=== PATIENT | female | born 1970 | race Caucasian/White ===

== ENCOUNTER → 2019-09-18 08:03 | Outpatient (CLI) | payer SELFPAY, OTHER ==
--- NOTE | 2019-09-18 08:08 | BI_ITS ---
MAMMOGRAPHY - BILATERAL SCREENING REASON FOR EXAM: Female, 49 years old. Routine annual screening examination. PERTINENT HISTORY: Baseline examination, no family history of breast cancer TECHNIQUE: Digital bilateral breast kamlesh (3D mammographic acquisition) in the CC and MLO projections. 2-D mediolateral oblique (MLO) and craniocaudad (CC) views of both breasts were obtained. CAD: Full Field Digital Mammography with Computer Added Detection was performed. COMPARISON: None. FINDINGS: Breast Composition: Dense internal breast structure There are no dominant masses or suspicious calcifications. No other significant abnormalities are identified. BI/SCREEN MAMM (CAD) W/KAMLESH BILAT IMPRESSION: Stable bilateral screening mammogram. Yearly follow-up mammogram recommended. (A) ASSESSMENT CATEGORY: BIRADS Category 1: Negative. A letter regarding these results will be sent to the patient by the facility within 30 days. Approximately 10% of breast cancers are not detected by mammography. A normal mammogram should not delay biopsy of a clinically suspicious abnormality. [id number] Electronically Signed: Brett Dow, at 16:09 EST Tel , Service support ,
== END ==
PROVIDERS: PCP Internal Medicine; Referring Provider Nurse Practitioner; Visit Provider Nurse Practitioner
DX: Z12.31 Encounter for screening mammogram for malignant neoplasm of breast (principal)
CPT/HCPCS: 77063; 77067

== ENCOUNTER → 2024-09-16 | Outpatient (CLI) | payer SELFPAY ==
--- NOTE | 2024-09-16 12:45 | BI_ITS ---
PROCEDURE: SCRN MAMM (CAD)W/KAMLESH BILAT REASON FOR EXAM: F, Age 54 y/o, no family history. Annual mammogram. TECHNIQUE: Bilateral screening digital breast tomosynthesis with 2D and 3D images. Computer aided detection. COMPARISON: Prior exam(s) dating back to September 18, 2019.. FINDINGS: The breasts are extremely dense which lowers the sensitivity of mammography. Stable examination. No suspicious masses, areas of developing architectural distortion, or suspicious calcifications. BI/SCRN MAMM (CAD)W/KAMLESH BILAT IMPRESSION: BI-RADS 2: BENIGN. RECOMMEND ANNUAL MAMMOGRAPHIC SCREENING. Follow-up code: Routine Follow-up The patient will be notified of the results by letter. Reading Location: [id number]
== END | disposition home or self-care (01) ==
PROVIDERS: PCP Internal Medicine; Referring Provider Internal Medicine; Visit Provider Internal Medicine
DX: Z12.31 Encounter for screening mammogram for malignant neoplasm of breast (principal)
CPT/HCPCS: 77063; 77067

== ENCOUNTER 2025-06-24 03:07 | Observation (INO) | payer OTHER, SELFPAY ==
[2025-06-24] VITALS (19 sets, daily range): BP systolic 136–175; BP diastolic 80–106; PULSE 76–140; RESP 15–20; TEMP 36.2–36.7; O2SAT 94–100; BMI 28.7; BMI 28.1
--- NOTE | 2025-06-24 03:17 | CT_ITS ---
PROCEDURE: ABDOMEN/PELVIS WITHOUT CONT 06/24/2025 REASON FOR EXAM: RIGHT FLANK PAIN TECHNIQUE: Procedure Code: CTABDPEL Modality: CT Procedure: ABDOMEN/PELVIS WITHOUT CONT Noncontrast technique limits evaluation of the abdominal and pelvic viscera. Coronal and Sagittal reconstruction series were provided. One or more dose reduction techniques were used (e.g., Automated exposure control, adjustment of the mA and/or kV according to patient size, use of iterative reconstruction technique). RADIATION DOSE SUMMARY: CTDlvol: 11.38 mGy DLP: 574 mGycm COMPARISON: None. FINDINGS: 4 mm obstructing stone of the right ureterovesical junction. Mild right hydroureteronephrosis. Hepatomegaly with hepatic steatosis. An appendicolith is noted in the lumen of the appendix without associated acute inflammatory changes. Diffuse thickening of the colon, probably underdistention/spasm. Right renal cyst measuring 2.6 cm. Prior hysterectomy. Fat containing umbilical hernia without incarceration. The visualized lung bases are unremarkable. Normal gallbladder and extrahepatic biliary system. Normal unenhanced spleen. Normal pancreas. Normal bilateral adrenal glands. Normal size of the right kidney. There is no right renal mass. There are no right renal calculi. Normal size of the left kidney. There is no left renal mass. There are no left renal calculi. There is no left hydronephrosis. Normal visualized left ureter. Normal visualized stomach. Normal small intestine. There is no demonstrated peritoneal fluid. Normal abdominal aorta. Normal inferior vena cava. Normal retroperitoneum. Normal urinary bladder. There is no pelvic mass lesion or lymphadenopathy. There is no pelvic fluid. Fat containing umbilical hernia without incarceration. Mild diffuse spondylosis. Bilateral pars defects are noted at L5-S1 with associated minimal grade [address]/Abdomen/Pelvis without Cont IMPRESSION: 4 mm obstructing stone of the right ureterovesical junction. Mild right hydroureteronephrosis. Hepatomegaly with hepatic steatosis. An appendicolith is noted in the lumen of the appendix without associated acute inflammatory changes. Diffuse thickening of the colon, probably underdistention/spasm. Right renal cyst measuring 2.6 cm. Prior hysterectomy. Fat containing umbilical hernia without incarceration. Reading [facility] [id number]
[2025-06-24] MEDS: 0.9% Normal Saline (1000mL) 1,000 ML 999 ML IV (03:20)
[2025-06-24] MEDS: Ketorolac 30 MG/ML Syringe IV (03:21)
[2025-06-24 03:25] LABS: Hematocrit 41.5 % (37-47); Hemoglobin 13.9 g/dL (12.0-15.0); Immature Granulocytes Count 0.050 X10^3/uL (0.0-0.0); Mean Corp Hgb Conc 33.5 g/dL (32-36); Mean Corpuscular Volume 95.2 fL (81-99); Mean Platelet Vol. 10.3 fl (6.2-12.0); NRBC Flagged by Analyzer 0 % (0-5); Platelet Count 288 K/mm3 (150-450); RBC Distribution Width CV 11.2 % (11.6-14.6); RBC Distribution Width SD 38.8 fl (35.1-43.9); Red Blood Count 4.36 M/mm3 (4.2-5.4); White Blood Count 11.1 K/mm3 (4.4-11.0)
[2025-06-24 03:59] LABS: Anion Gap 15 (5-15); BUN 21 mg/dL (4-19); BUN/Creat Ratio 29.5 RATIO (10-20); Calcium,Total 9.4 mg/dL (7.6-11.0); Carbon Dioxide 24.5 mmol/L (21.0-32.0); Chloride 103 mmol/L (98-108); Estimated Creatinine Clearance 93.46 ml/min (50-250); Glucose 175 mg/dL (70-99); Potassium 3.3 mmol/L (3.3-5.1)
--- NOTE | 2025-06-24 04:06 | EDS_ITS ---
HPI History of Present Illness Chief Complaint: Flank Pain Informant: patient and spouse/S.O. Narrative Narrative: Patient is a 55-year-old female with no significant past medical history. She states that Monday she had sudden onset of right sided sharp flank pain that lasted just about 5 minutes and then resolved. She states that this evening she was sleeping when she awoke around 1 in the morning with similar sharp right sided flank pain. This time however it was wrapping towards her abdomen. She states that there has been no recent trauma or excessive activity. She denies any dysuria. She reports that the pain would not improve with any position and despite taking one of her home Vicodin as well as giving symptoms time there was no resolution of the pain. Secondary to this she presents for evaluation [facility] Medical History Kidney stone Post herpetic neuralgia Home Medications ?Medication ?Instructions ?Recorded ?Last Taken ?Type hydrocodone-acetaminophen 5-325mg 1 tab PO Q8H PRN jose manuel n 60 days #30 05/29/25 Unknown Rx 5mg-325mg tabs amitriptyline 25 mg tablet 25 mg PO DAILY 06/24/25 Unk nown History Allergy/AdvReac Type Severity Reaction Status Date / Time lidocaine Allergy Mild Hives Verified 06/24/25 03:10 sulfamethoxazole (From Allergy Mild Diarrhea Verified 06/24/25 03:10 Bactrim) trimethoprim (From Bactrim) Allergy Mild Diarrhea Verified 06/24/25 03:10 vitamin E (d-alpha Allergy Mild Hives Verified 06/24/25 03:10 tocopherol) Family History Other Cancer Diabetes Surgical History (Updated 06/24/25 @ 03:10 by Nicolás Jimenez) Hx of foot surgery Social History Smoking Status: Never smoker ROS ROS ED Constitutional Constitutional ED: Denies chills or fever(s) Eyes Eyes: Denies change in vision Cardiovascular Cardiovascular: Denies chest pain Respiratory/Chest Respiratory/Chest: Denies cough or dyspnea Gastrointestinal Gastrointestinal: Reports abdominal pain; Denies diarrhea, nausea or vomiting Genitourinary Genitourinary ED: Denies dysuria Musculoskeletal Musculoskeletal: Reports back pain Integumentary Denies rash Neurologic Neurologic: Denies headache(s) Hematologic/Lymphatic Hematologic/Lymphatic: Denies easy bleeding or easy bruising EXAM Physical Exam Const Vital Signs: 06/24/25 03:09 06/24/25 05:00 Temperature 97.6 F L Temperature Source Oral Pulse Rate 86 76 Respiratory Rate 18 16 Blood Pressure 175/94 H 166/102 H Blood Pressure Mean 121 123 Pulse Ox 100 98 Oxygen Delivery Method Room Air Nasal Cannula Oxygen Flow Rate (L/min) 1 Positive well nourished and well developed General Appearance ED: well developed; Negative for pallor HEENT HEENT Narrative: Normocephalic atraumatic Eyes PERRL and EOMs intact bilaterally General Eye ED: Negative for scleral icterus Neck supple Resp normal respiratory effort and clear to auscultation bilaterally Cardio regular rate and regular rhythm Rate: other Other Details: Heart is regular rate and rhythm without murmurs rubs or gallop Radial and carotid pulses are equal and symmetric GI non-distended and no masses GI Narrative: Abdomen is soft and nondistended with hypoactive bowel sounds. There is pain with palpation along the upper mid to right lateral abdomen. No voluntary guarding or rigidity or pulsatile mass. No peritoneal signs Auscultation: hypoactive bowel sounds Palpation: soft Back/Spine Back/Spine Narrative: Positive right CVA pain noted Extremity normal to inspection Neuro oriented x3, CN's II-XII intact bilaterally and no sensory deficits noted Sensorium / Orientation: alert Motor Exam: strength 5/5 throughout Psych mental status grossly normal Skin no rashes or lesions noted Skin Narrative: No overlying soft tissue changes to suggest trauma or infection General Skin Exam: Negative for jaundice or pallor MDM MDM MDM Narrative Medical decision making narrative: Patient arrived to the ER hypertensive but otherwise with stable vitals. With her report of sharp sudden onset pain a few days ago that spontaneously resolved and then reoccurred this evening without report of trauma or excessive activity there is concern for kidney stone versus UTI versus pyelonephritis. This could be atypical presentation for biliary colic/acute cholecystitis or a retrocecal appendicitis. As her history and exam is most consistent with kidney stone basic blood work and a urine sample were ordered. Labs revealed no sign of acute kidney injury or urosepsis. CT scan confirmed kidney stone with a 4 mm stone stuck at the right UVJ. After receiving IV fluid 30 mg of IV Toradol and 1 mg of IV Dilaudid patient had resolution of her pain. However roughly 30 minutes later she had return of pain and therefore she was given 0.5 mg of Dilaudid. This helped resolve the pain once again. However within the next 10 to 30 minutes she had a sudden spike and return of pain. At this time as she has had 1 dose of Toradol followed by return of pain then 2 doses of narcotics with return of pain after each dose I do not feel that she would do well at home with oral medication. Secondary to this I did discuss the case with urologist on-call Dr. Chiang. She agrees that with the recurrent/intractable pain that admission is the best course of treatment and will accept her to her service for continued care. Therefore at this time as she does not have ALYCIA or urosepsis but secondary to intractable pain will be admitted to the hospital for continued treatment. History & Record Review Discussion w/independent historian: Patient and Significant other Lab Data Attestation: I reviewed the patient's lab results. Labs: Laboratory Results - last 24 hr 06/24/25 06/24/25 03:15 04:25 WBC 11.1 H RBC 4.36 Hgb 13.9 Hct 41.5 MCV 95.2 MCH 31.9 MCHC 33.5 RDW Std Deviation 38.8 RDW Coeff of Megan 11.2 L Plt Count 288 MPV 10.3 Immature Gran % (Auto) 0.500 Neut % (Auto) 67.9 Lymph % (Auto) 21.3 Travis % (Auto) 7.7 Eos % (Auto) 2.0 Baso % (Auto) 0.6 Absolute Neuts (auto) 7.5 Absolute Lymphs (auto) 2.36 Nucleated RBC % 0 Sodium 142 Potassium 3.3 Chloride 103 Carbon Dioxide 24.5 Anion Gap 15 BUN 21 H Creatinine 0.72 Estim Creat Clear Calc 93.46 Est GFR (MDRD) Non-Af 99 BUN/Creatinine Ratio 29.5 H Glucose 175 H Calcium 9.4 Urine Color Yellow Urine Clarity Sl. Cloudy Urine pH 5.0 Ur Specific [place] 1.030 Urine Protein 30 H Urine Glucose (UA) Normal Urine Ketones 15 H Urine Occult Blood 50 H Urine Nitrite Negative Urine Bilirubin Negative Urine Urobilinogen Normal Ur Leukocyte Esterase Negative Urine RBC 0-5 SEEN Urine WBC 0 SEEN Ur Squamous Epith Cells 0 SEEN Calcium Oxalate Crystal RARE Amorphous Sediment 2+ URATE Urine Bacteria 1+ Urine Mucus 0 SEEN Radiography Diagnostic Testing: Clinical Impression(s) from Imaging Studies Abdomen/Pelvis CT 06/24/25 03:17 IMPRESSION: 4 mm obstructing stone of the right ureterovesical junction. Mild right hydroureteronephrosis. Hepatomegaly with hepatic steatosis. An appendicolith is noted in the lumen of the appendix without associated acute inflammatory changes. Diffuse thickening of the colon, probably underdistention/spasm. Right renal cyst measuring 2.6 cm. Prior hysterectomy. Fat containing umbilical hernia without incarceration. Reading Location[facility] [id number] Management Discussion w/another healthcare provider: Director Of Fundraising Discharge Plan Dx/Rx/DC Orders Clinical Impression: Kidney stone, Renal colic, Intractable pain Disposition Disposition: Acute Care [facility]
[2025-06-24 04:34] LABS: Mucous, Urine 0 SEEN /hpf (<or=2+); Squamous Epithelial Cells - UA 0 SEEN /hpf (5-10)
--- OUTSIDE RECORDS SUMMARY | 2025-06-24 04:35 | XMS RPT_ITS | CCD ---
Author Organization [facility] Care Team Providers Care Mobile Device Developer Name Role Phone Daly Violet Unavailable Messenger, Kasia Unavailable Unavailable John, Yanira Unavailable Unavailable Unavailable Unavailable Gravius, Joyce Unavailable Unavailable Jovon Oakleyn L Unavailable Unavailable Shaye Lim E Unavailable Long, Aranza L Unavailable Unavailable Gravius, Joyce Unavailable Unavailable Messenger, Kasia Unavailable Unavailable Unavailable Unavailable Milana Siddiqui Unavailable Unavailable Unavailable Unavailable Harman Mcgee Unavailable Slarb, Doris Unavailable Unavailable Daly DO, Violet Unavailable Harman Mcgee Unavailable Artur SOMERSNMilana Unavailable Unavailable Gravius BREAD STACKER, Joyce Unavailable Unavailable Slarb HEAD STRENGTH AND CONDITIONING COACH, Doris Unavailable Unavailable John, Yanira Unavailable Unavailable Messenger RNKasia Unavailable Unavailable Unavailable Unavailable Magali Shaw LPN Unavailable Unavailable Daly , Violet Unavailable [phone] Jess Claire Unavailable Sherice Paul Unavailable [phone] Trung VILLARREAL, Mery Al Unavailable Shana BREAD STACKER, Kayela Unavailable Unavailable Daly DO Violet Attending Unavailable Daly DO Violet Referring Unavailable Daly DO Violet Consulting Unavailable Dr. Jamie Salgado Unavailable Bel Plummer MA Unavailable Unavailable JESS CLAIRE DPM Attending Unavailable VIOLET ANDRADE DO Consulting Unavailable JESS CLAIRE DPM Primary Care Unavailable HORN, JESS DPM Admitting Unavailable PROVIDER, UNKNOWN Consulting Unavailable JESS CLAIRE DPM Admitting Unavailable VIOLET ANDRADE DO Consulting Unavailable JESS CLAIRE DPM Attending Unavailable NATALI, JESS DPM Primary Care Unavailable PROVIDER, UNKNOWN Consulting Unavailable Daly FUENTES, Dr. Lazo Primary Care Provider [phone] Daly FUENTES, Dr. Lazo Attending Provider [phone] Daly FUENTES, Dr. Lazo Referring Provider [phone] Violet Andrade Attending Unavailable Violet Andrade Primary Care Unavailable Violet Andrade Primary Care Unavailable Violet Andrade Attending Unavailable Violet Andrade Referring Unavailable Allergies Allergy Classification Reported Allergen(s) Allergy Type Date of Onset Reaction(s) Facility Dairy (not specified as lactose intolerance) (8 sources) Milk; Translations: [Milk] Food Allergy Diarrhea, Nausea [facility] Work Phone: Sulfamethoxazole / Trimethoprim (8 sources) Sulfamethoxazole / Trimethoprim; Translations: [Bactrim *ANTI-INFECTIVE AGENTS - MISC.*] Drug Allergy [facility] Work Phone: Comment on above: stomach Vitamin E (8 sources) Vitamin E; Translations: [Vitamin E-200 *VITAMINS*] Drug Allergy [facility] Work Phone: Comment on above: hives (20 sources) Milk; Translations: [Milk] allergy to substance Diarrhea, Nausea [facility] Work Phone: (20 sources) Sulfamethoxazole / Trimethoprim; Translations: [Bactrim *ANTI-INFECTIVE AGENTS - MISC.*] Drug Allergy [facility] Work Phone: Comment on above: stomach (20 sources) Vitamin E; Translations: [Vitamin E-200 *VITAMINS*] Drug Allergy [facility] Work Phone: Comment on above: hives (20 sources) Lidocaine *CHEMICALS*; Translations: [Lidocaine *CHEMICALS*] drug allergy [facility] Work Phone: Comment on above: hives (1 source) Lidocaine Drug Allergy [facility] (1 source) Sulfamethoxazole / Trimethoprim Drug Allergy [facility] (1 source) Vitamin E Drug Allergy [facility] (1 source) BEE STING; Translations: [BEE STING] Propensity to adverse reactions (disorder) [facility] Medications Current Medications Medication Drug Class(es) Dates Sig (Normalized) Sig (Original) gabapentin 300 mg oral capsule (20 sources) Anti-epileptic Agent Start: 02-18-2022 Gabapentin 300 mg capsule Active NMA PO February 17, 2022 11:00pm Start: 04-15-2020 End: 06-10-2020 take 1 capsule by mouth twice daily Gabapentin 100 MG Oral Capsule 1 (one) Capsule bid for 0 days Quantity: 60 {Capsule} Refills: 0 Ordered: 10-Jun-2020 Doris Tan LPN Start : 15-Apr-2020 End : 10-Jun-2020 Inactive Comments: b02.29 POST HERPETIC NEURALGIAoARRS RUNsicty Start: 03-18-2020 take 1 capsule by mo ut at bedtime Gabapentin 100 MG Oral Capsule 1 (one) Capsule at bedtime for 0 days Quantity: 30 {Capsule} Refills: 0 Ordered: 18-Mar-2020 Joyce Patel CMA Start : 18-Mar-2020 Active Comments: b02.29 POST HERPETIC NEURALGIAoARRS RUN Start: 02-19-2019 End: 06-24-2019 take 1 capsule by mouth at bedtime Gabapentin 100 MG Oral Capsule 1 (one) Capsule at bedtime for 0 days Quantity: 30 {Capsule} Refills: 0 Ordered: 24-Jun-2019 Joyce Patel CMA Start : 19-Feb-2019 End : 24-Jun-2019 Inactive Comments: b02.29 POST HERPETIC NEURALGIAoARRS RUN take 1 mg by mouth once daily Ga bapentin 300 MG Oral Capsule daily (300 MG) Inactive Comments: Dr. Claire Comment on above: b02.29 POST HERPETIC NEURALGIAoARRS RUN b02.29 POST HERPETIC NEURALGIAoARRS RUNsicty Dr. Claire rizatriptan 10 mg disintegrating oral tablet (20 sources) Serotonin-1b and Serotonin-1d Receptor Agonist Start: 05-22-20 take 1 tablet by mouth every two hours [employer]-NETWORK SYSTEMS ANALYST 10 mg oral Tablet,disintegrat ing 1 (one) Tablet at immediate onset of bazan and may repeat in 2hr if bazan persistent for 0 days Quantity: 12 {Tablet} Refills: 0 Ordered: 22-May-2023 Daly DO, Violet Andrade DO Violet Start : 22-May-2023 Active Comments: max dose 20mg or 2 tablets in 24 hrs Start: 02-20-2023 take 1 tablet by eleanor th every two hours [employer]NETWORK SYSTEMS ANALYST 10 mg oral Tablet,disintegrating 1 (one) Tablet at immediate onset of bazan and may repeat in 2hr if bazan persistent for 0 days Quantity: 12 {Tablet} Refills: 0 Ordered: 20-Feb-2023 Daly DO, Violet Andrade DO Violet Start : 20-Feb-2023 Active Comments: max dose 20mg or 2 tablets in 24 hrs Start: 09-28-2022 take 1 tablet by eleanor th every two hours Max[employer]-NETWORK SYSTEMS ANALYST 10 mg oral Tablet,disintegrating 1 (one) Tablet at immediate onset of bazan and may repeat in 2hr if bazan persistent for 0 days Quantity: 12 {Tablet} Refills: 0 Ordered: 28-Sep-2022 Daly DO, Violet Andrade DO Violet Start : 28-Sep-2022 Active Comments: max dose 20mg or 2 tablets in 24 hrs Start: 02-18-2022 take 1 tablet by eleanor th every two hours Max[employer]-NETWORK SYSTEMS ANALYST 10 MG Oral Tablet Disintegrating 1 (one) Tablet at immediate onset of bazan and may repeat in 2hr if bazan persistent for 0 days Quantity: 12 {Tablet} Refills: 0 Ordered: 02-Mar-2022 Daly DO, Violet Andrade DO Violet Start : 02-Mar-2022 Active Comments: max dose 20mg or 2 tablets in 24 hrs Start: 09-06-2021 take 1 tablet by eleanor th every two hours Max[employer]NETWORK SYSTEMS ANALYST 10 MG Oral Tablet Disintegrating 1 (one) Tablet at immediate onset of bazan and may repeat in 2hr if bazan persistent for 0 days Quantity: 12 {Tablet} Refills: 0 Ordered: 06-Sep-2021 Daly DO Violet Andrade DO Violet Start : 06-Sep-2021 Active Comments: max dose 20mg or 2 tablets in 24 hrs Start: 10-14-2021 take 1 tablet by eleanor th every two hours Max[employer]NETWORK SYSTEMS ANALYST 10 MG Oral Tablet Disintegrating 1 (one) Tablet at immediate onset of bazan and may repeat in 2hr if bazan persistent for 0 days Quantity: 12 {Tablet} Refills: 0 Ordered: 06-May-2021 Daly DO, Violet Andrade DO Violet Start : 06-May-2021 Active Start: 12-24-2020 take 1 tablet by eleanor th every two hours [employer]NETWORK SYSTEMS ANALYST 10 MG Oral Tablet Disintegrating 1 (one) Tablet at immediate onset of bazan and may repeat in 2hr if bazan persistent for 0 days Quantity: 12 {Tablet} Refills: 0 Ordered: 24-Dec-2020 Daly DO, Violet Daly DO, Violet Start : 24-Dec-2020 Active Start: 11-16-2020 take 1 tablet by eleanor th every two hours [employer]NETWORK SYSTEMS ANALYST 10 MG Oral Tablet Disintegrating 1 (one) Tablet at immediate onset of bazan and may repeat in 2hr if bazan persistent for 0 days Quantity: 12 {Tablet} Refills: 0 Ordered: 16-Nov-2020 Daly DO, Violet Daly DO, Violet Start : 16-Nov-2020 Active Start: 08-10-2020 take 1 tablet by eleanor th every two hours Max[employer]NETWORK SYSTEMS ANALYST 10 MG Oral Tablet Disintegrating 1 (one) Tablet at immediate onset of bazan and may repeat in 2hr if bazan persistent for 0 days Quantity: 12 {Tablet} Refills: 0 Ordered: 10-Aug-2020 Daly DO, Violet Daly DO, Violet Start : 10-Aug-2020 Active Start: 04-16-2020 take 1 tablet by eleanor th every two hours Max[employer]NETWORK SYSTEMS ANALYST 10 MG Oral Tablet Disintegrating 1 (one) Tablet at immediate onset of bazan and may repeat in 2hr if bazan persistent for 0 days Quantity: 12 {Tablet} Refills: 0 Ordered: 16-Apr-2020 Daly DO Violet Andrade DO Violet Start : 16-Apr-2020 Active Start: 03-18-2020 take 1 tablet by eleanor th every two hours Max[employer]NETWORK SYSTEMS ANALYST 10 MG Oral Tablet Disintegrating 1 (one) Tablet at immediate onset of bazan and may repeat in 2hr if bazan persistent for 0 days Quantity: 12 {Tablet} Refills: 0 Ordered: 18-Mar-2020 Daly DOViolet DO, Kathleen Start : 18-Mar-2020 Active Start: 11-18-2019 take 1 tablet by eleanor th every two hours Max[employer]NETWORK SYSTEMS ANALYST 10 MG Oral Tablet Disintegrating 1 (one) Tablet at immediate onset of bazan and may repeat in 2hr if bazan persistent for 0 days Quantity: 12 {Tablet} Refills: 0 Ordered: 18-Nov-2019 Aranza Oakley RN Start : 18-Nov-2019 Active Comment on above: max dose 20mg or 2 t ablets in 24 hrs Completed/Discontinued Medications Medication Drug Class(es) Dates Sig (Normalized) Sig (Original) acetaminophen 325 mg / HYDROcodone bitartrate 5 mg oral tablet (20 sources) Opioid Agonist Start: 05-08-2023 HYDROcodone-acetamino phen 5-325 mg oral tablet 1 (one) Tablet q 8 prn for 30 days Quantity: 60 {Tablet} Refills: 0 Ordered: 08-May-2023 Violet Andrade DO, DO, Kathleen Start : 08-May-2023 Active Comments: [id number] postheraputic neurolagiaOars reviewed and okay'd Start: 02-02-2023 HYDROcodone-ac etaminophen 5-325 mg oral tablet 1 (one) Tablet q 8 prn for 30 days Quantity: 60 {Tablet} Refills: 0 Ordered: 02-Feb-2023 Violet Andrade DO, DO, Kathleen Start : 02-Feb-2023 Active Comments: [id number] postheraputic neurolagiaOars reviewed and okay'd Start: 10-05-2022 HYDROcodone-ac etaminophen 5-325 mg oral tablet 1 (one) Tablet q 8 prn for 30 days Quantity: 60 {Tablet} Refills: 0 Ordered: 05-Oct-2022 Daly DOViolet DO, Kathleen Start : 05-Oct-2022 Active Comments: [id number] postheraputic neurolagiaOars reviewed and okay'd Start: 06-13-2022 HYDROcodone-Ac etaminophen 5-325 MG Oral Tablet 1 (one) Tablet q 8 prn for 30 days Quantity: 60 {Tablet} Refills: 0 Ordered: 13-Jun-2022 Daly DO, Violet Daly DO, Violet Start : 13-Jun-2022 Active Comments: [id number] postheraputic neurolagiaOars reviewed and okay'd Start: 02-18-2022 Hydrocodone-Ac etaminophen 5-325 mg tablet Active NMA PO February 17, 2022 11:00pm Start: 02-12-2022 HYDROcodone-Ac etaminophen 5-325 MG Oral Tablet 1 (one) Tablet q 8 prn for 30 days Quantity: 60 {Tablet} Refills: 0 Ordered: 12-Feb-2022 Daly DO, Violet Daly DO, Violet Start : 12-Feb-2022 Active Comments: [id number] postheraputic neurolagiaOars reviewed and okay'd Start: 10-07-2021 HYDROcodone-Ac etaminophen 5-325 MG Oral Tablet 1 (one) Tablet q 8 prn for 30 days Quantity: 60 {Tablet} Refills: 0 Ordered: 07-Oct-2021 Daly DO, Violet Daly DO, Violet Start : 07-Oct-2021 Active Comments: [id number] postheraputic neurolagiaOars reviewed and okay'd Start: 05-26-2021 HYDROcodone-Ac etaminophen 5-325 MG Oral Tablet 1 (one) Tablet q 8 prn for 30 days Quantity: 60 {Tablet} Refills: 0 Ordered: 26-May-2021 Daly DO, Violet Daly DO, Violet Start : 26-May-2021 Active Comments: [id number] postheraputic neurolagiaOars reviewed and okay'd Start: 01-06-2021 HYDROcodone-Ac etaminophen 5-325 MG Oral Tablet 1 (one) Tablet q 8 prn for 30 days Quantity: 60 {Tablet} Refills: 0 Ordered: 06-Jan-2021 Daly DO, Violet Daly DO, Violet Start : 06-Jan-2021 Active Comments: [id number] postheraputic neurolagiaOars reviewed and okay'd Start: 08-10-2020 HYDROcodone-Ac etaminophen 5-325 MG Oral Tablet 1 (one) Tablet q 8 prn for 30 days Quantity: 60 {Tablet} Refills: 0 Ordered: 10-Aug-2020 Violet Andrade DO, DO, Kathleen Start : 10-Aug-2020 Active Comments: [id number] postheraputic neurolagiaOars reviewed and mallory'd Start: 04-15-2020 take 1 tablet by eleanor th once as needed, then take 8 tablets by mouth as needed HYDROcodone-Acetaminophen 5-325 MG Oral Tablet 1 (one) Tablet q 8 prn for 30 days Quantity: 60 {Tablet} Refills: 0 Ordered: 15-Apr-2020 Violet Andrade DO, DO, Kathleen Start : 15-Apr-2020 Active Comments: [id number] postheraputic neurolagia Start: 11-18-2019 take 1 tablet by eleanor th once as needed, then take 8 tablets by mouth as needed HYDROcodone-Acetaminophen 5-325 MG Oral Tablet 1 (one) Tablet q 8 prn for 30 days Quantity: 60 {Tablet} Refills: 0 Ordered: 18-Nov-2019 Violet Andrade DO, DO, Kathleen Start : 18-Nov-2019 Active Comments: [id number] postheraputic neurolagia Start: 02-25-2019 take 1 tablet by eleanor th once as needed, then take 8 tablets by mouth as needed HYDROcodone-Acetaminophen 5-325 MG Oral Tablet 1 (one) Tablet q 8 prn for 30 days Quantity: 56 {Tablet} Refills: 0 Ordered: 25-Feb-2019 Violet Andrade DO, DO, Kathleen Start : 25-Feb-2019 Active Comments: fifty [id number] postheraputic neurolagia Start: 08-21-2018 take 1 tablet by eleanor th once as needed, then take 8 tablets by mouth as needed Hydrocodone-Acetaminophen 5-325 MG Oral Tablet 1 (one) Tablet q 8 prn for 30 days Quantity: 56 {Tablet} Refills: 0 Ordered: 21-Aug-2018 Violet Andrade DO, DO, Kathleen Start : 21-Aug-2018 Active Comments: fifty [id number] postheraputic neurolagia Comment on above: fifty [id number] post heraputic neurolagia [id number] posthera putic neurolagia [id number] posthera putic neurolagiaOars reviewed and okludin'd [id number] actuat albuterol 0.09 mg/actuat metered dose inhaler (20 sources) beta2-Adrenergic Agonist Start: 07-20-20 17 End: 08-10-19 18 take 1-2 puff(s) by inhalation every four to six hours as needed ProAir HFA 108 (90 Base) MCG/ACT Inhalation Aerosol Solution 1-2 Puff Every 4-6 hours PRN for 0 days Quantity: 1 {Inhaler} Refills: 0 Ordered: 10-Aug-2017 Aranza Oakley RN Start : 20-Jul-2017 End : 10-Aug-2017 Inactive Start: 07-20-2017 End: 08-10-2017 take 1-2 puff(s) by inhalation every four to six hours as needed ProAir HFA 108 (90 Base) MCG/ACT Inhalation Aerosol Solution 1-2 Puff Every 4-6 hours PRN for 0 days Quantity: 1 {Inhaler} Refills: 0 Ordered: 10-Aug-2017 Aranza Oakley RN Start : 20-Jul-2017 End : 10-Aug-2017 Inactive amitriptyline hydrochloride 25 mg oral tablet (20 sources) Tricyclic Antidepressant Start: 05-02-2023 take 1 tablet by mouth twice daily amitriptyline 25 mg oral tablet 1 (one) Tablet bid for 0 days Quantity: 60 {Tablet} Refills: 0 Ordered: 02-May-2023 Violet Andrade DO, DO, Kathleen Start : 02-May-2023 Active Start: 04-03-2023 take 1 tablet by eleanor th twice daily amitriptyline 25 mg oral tablet 1 (one) Tablet bid for 0 days Quantity: 60 {Tablet} Refills: 0 Ordered: 03-Apr-2023 Violet Andrade DO, DO, Kathleen Start : 03-Apr-2023 Active Start: 03-02-2023 take 1 tablet by eleanor th twice daily amitriptyline 25 mg oral tablet 1 (one) Tablet bid for 0 days Quantity: 60 {Tablet} Refills: 0 Ordered: 02-Mar-2023 Violet Andrade DO, DO, Kathleen Start : 02-Mar-2023 Active Start: 02-02-2023 take 1 tablet by eleanor th twice daily amitriptyline 25 mg oral tablet 1 (one) Tablet bid for 0 days Quantity: 60 {Tablet} Refills: 0 Ordered: 02-Feb-2023 Daly DO Violetalysha Andrade DOJoseViolet Start : 02-Feb-2023 Active Start: 01-10-2023 take 1 tablet by eleanor th twice daily amitriptyline 25 mg oral tablet 1 (one) Tablet bid for 0 days Quantity: 60 {Tablet} Refills: 0 Ordered: 10-Jan-2023 Daly DO Violet Daly DO Violet Start : 10-Jan-2023 Active Start: 08-16-2022 take 1 tablet by eleanor th twice daily amitriptyline 25 mg oral tablet 1 (one) Tablet bid for 0 days Quantity: 60 {Tablet} Refills: 3 Ordered: 16-Aug-2022 Monica Corona DO Start : 16-Aug-2022 Active Start: 04-25-2022 take 1 tablet by eleanor th twice daily Amitriptyline HCl 25 MG Oral Tablet 1 (one) Tablet bid for 0 days Quantity: 60 {Tablet} Refills: 3 Ordered: 25-Apr-2022 Daly DO Violet Andrade DOHeikeViolet Start : 25-Apr-2022 Active Start: 03-14-2022 take 1 tablet by eleanro th once daily Amitriptyline HCl 50 MG Oral Tablet 1 (one) Tablet daily for 0 days Quantity: 30 {Tablet} Refills: 3 Ordered: 14-Mar-2022 Daly DO Violetalysha Andrade DO Violet Start : 14-Mar-2022 Active Start: 09-06-2021 End: 01-05-2022 take 1 tablet by mouth once daily Amitriptyline HCl 50 MG Oral Tablet 1 (one) Tablet daily for 0 days Quantity: 30 {Tablet} Refills: 3 Ordered: 05-Jan-2022 Joyce Patel CMA Start : 06-Sep-2021 End : 05-Jan-2022 Discontinued Start: 05-06-2021 take 1 tablet by eleanor th once daily Amitriptyline HCl 50 MG Oral Tablet 1 (one) Tablet daily for 0 days Quantity: 30 {Tablet} Refills: 3 Ordered: 06-May-2021 Daly DO Violet Andrade DO Violet Start : 06-May-2021 Active Start: 01-05-2021 take 1 tablet by eleanor th once daily Amitriptyline HCl 50 MG Oral Tablet 1 (one) Tablet daily for 0 days Quantity: 30 {Tablet} Refills: 3 Ordered: 05-Jan-2021 Daly FUENTES Violet Andrade DO Violet Start : 05-Jan-2021 Active Start: 09-21-2020 take 1 tablet by eleanor th once daily Amitriptyline HCl 50 MG Oral Tablet 1 (one) Tablet daily for 0 days Quantity: 30 {Tablet} Refills: 3 Ordered: 21-Sep-2020 Daly FUENTES Violet Andrade DO Violet Start : 21-Sep-2020 Active Start: 05-18-2020 take 1 tablet by eleanor th once daily Amitriptyline HCl 50 MG Oral Tablet 1 (one) Tablet daily for 0 days Quantity: 30 {Tablet} Refills: 3 Ordered: 18-May-2020 Daly FUENTES Violet Andrade DO Violet Start : 18-May-2020 Active Start: 05-06-2020 take 1 tablet by eleanor th once daily Amitriptyline HCl 50 MG Oral Tablet 1 (one) Tablet daily for 0 days Quantity: 30 {Tablet} Refills: 3 Ordered: 06-May-2020 Shaye Lim CNP Start : 06-May-2020 Active Start: 03-18-2020 take 1 tablet by eleanor th once daily Amitriptyline HCl 50 MG Oral Tablet 1 (one) Tablet daily for 0 days Quantity: 30 {Tablet} Refills: 3 Ordered: 18-Mar-2020 Daly FUENTES Violet Andrade DO Violet Start : 18-Mar-2020 Active Start: 01-07-2020 take 1 tablet by eleanor th once daily Amitriptyline HCl 50 MG Oral Tablet 1 (one) Tablet daily for 0 days Quantity: 30 {Tablet} Refills: 3 Ordered: 07-Jan-2020 Shaye Lim CNP Start : 07-Jan-2020 Active Start: 08-23-2019 End: 09-06-2019 take 1 tablet by mouth once daily at bedtime Amitriptyline HCl 25 MG Oral Tablet 1 (one) Tablet qhs for 30 days Quantity: 30 {Tablet} Refills: 3 Ordered: 06-Sep-2019 Shaye Lim Start : 23-Aug-2019 End : 06-Sep-2019 Inactive Start: 04-22-2019 take 1 tablet by eleanor th once daily at bedtime Amitriptyline HCl 25 MG Oral Tablet 1 (one) Tablet qhs for 30 days Quantity: 30 {Tablet} Refills: 3 Ordered: 22-Apr-2019 Viloet Andrade DO, DO, Kathleen Start : 22-Apr-2019 Active Start: 08-21-2018 take 1 tablet by eleanor th once daily at bedtime Amitriptyline HCl 25 MG Oral Tablet 1 (one) Tablet qhs for 30 days Quantity: 30 {Tablet} Refills: 3 Ordered: 20-Dec-2018 Violet Andrade DO, DO, Kathleen Start : 20-Dec-2018 Active ciprofloxacin 500 mg oral tablet (20 sources) Quinolone Antimicrobial Start: 09-15-2017 End: 09-21-2017 take 1 tablet by mouth twice daily Ciprofloxacin HCl 500 MG Oral Tablet 1 (one) Tablet bid for 7 days Quantity: 14 {Tablet} Refills: 0 Ordered: 21-Sep-2017 Aranza Oakley RN Start : 15-Sep-2017 End : 21-Sep-2017 Inactive clotrimazole 10 mg/ml topical cream (20 sources) Azole Antifungal Clotrimazole 1 % External Cream (1 %) Inactive diclofenac sodium 0.01 mg/mg topical gel (20 sources) Nonsteroidal Anti-inflammatory Drug Start: 07-13-2020 End: 03-14-2022 Diclofenac Sodium 1 % External Gel 1/2 (one half) Inch once daily for 0 days Quantity: 100 {Gram} Refills: 2 Ordered: 14-Mar-2022 Leola Saldana CMA Start : 14-Jul-2020 End : 14-Mar-2022 Inactive Comments: assure no vitamin E in gel formulation Start: 07-13-2020 Diclofenac Sod ium 1 % External Gel 1/2 (one half) Inch as directed for 0 days Quantity: 15 {Gram} Refills: 2 Ordered: 13-Jul-2020 Violet Andrade DO, DO, Kathleen Start : 13-Jul-2020 Active Comments: assure no vitamin E in gel formulation Comment on above: assure no vitamin E in gel formulation Cymbalta (20 sources) Serotonin and Norepinephrine Reuptake Inhibitor Cymbalta daily Inact marv Cymbalta daily A ctive 1 ml erenumab-aooe 70 mg/ml auto-injector (20 sources) Start: 12-30-2019 End: 03-18-2020 Aimovig 70 MG/ML Subcutaneous Solution Auto-injector 1 (one) Solution Auto-injector monthly for 30 days Quantity: 1 {Each} Refills: 3 Ordered: 18-Mar-2020 Milana Siddiqui LPN Start : 30-Dec-2019 End : 18-Mar-2020 Inactive Comments: has savings card Comment on above: has savings card erythromycin 0.005 mg/mg ophthalmic ointment (20 sources) Macrolide, Macrolide Antimicrobial Start: 06-10-2020 End: 06-17-2020 Erythromycin 5 MG/GM Ophthalmic Ointment 1 (one) Application qid for 7 days Quantity: 1 {Tube} Refills: 0 Ordered: 10-Jun-2020 Shaye Lim Start : 10-Jun-2020 End : 17-Jun-2020 Inactive famotidine 20 mg oral tablet (20 sources) Histamine-2 Receptor Antagonist Start: 04-25-2022 Pepcid AC Maximum Strength 20 MG Oral Tablet 1 (one) Tablet prn for 30 days Refills: 0 Ordered: 25-Apr-2022 Violet Andrade DO, DO, Kathleen Start : 25-Apr-2022 Active Start: 04-22-2016 Pepcid AC Maxi mum Strength 20 MG Oral Tablet 1 (one) Tablet Tablet prn for 30 days Refills: 0 Ordered: 16-Nov-2016 Violet Andrade DO, DO, Kathleen Start : 22-Apr-2016 Active fluticasone propionate 0.05 mg/actuat metered dose nasal spray (20 sources) Corticosteroid Start: 07-20-2017 End: 08-09-2017 Flonase Allergy Relief 50 MCG/ACT Nasal Suspension 1 (one) Suspension Suspension prn for 20 days Refills: 0 Ordered: 20-Jul-2017 Aranza Oakley RN Start : 20-Jul-2017 End : 09-Aug-2017 Inactive Lotrmin Ultra (20 sources) Lotrmin Ultra Inactive nitrofurantoin, macrocrystals 25 mg / nitrofurantoin, monohydrate 75 mg oral capsule (20 sources) Nitrofuran Antibacterial Start: 05-04-2017 End: 05-09-2017 take 1 capsule by mouth twice daily Nitrofurantoin Monohyd Macro 100 MG Oral Capsule 1 (one) Capsule BID for 5 days Quantity: 10 {Capsule} Refills: 0 Ordered: 04-May-2017 Kasia Gutierrez Start : 04-May-2017 End : 09-May-2017 Inactive Start: 04-11-2017 End: 04-21-2017 take 1 capsule by mouth twice daily Macrobid 100 MG Oral Capsule 1 (one) Capsule BID for 10 days Quantity: 20 {Capsule} Refills: 0 Ordered: 11-Apr-2017 Kasia Gutierrez Start : 11-Apr-2017 End : 21-Apr-2017 Inactive olopatadine 1 mg/ml ophthalmic solution (20 sources) Histamine-1 Receptor Inhibitor Start: 11-16-2016 End: 04-11-2017 Patanol 0.1 % Ophthalmic Solution 1 (one) Solution bid for 0 days Quantity: 1 {Bottle} Refills: 0 Ordered: 11-Apr-2017 Yanira Lopez Start : 16-Nov-2016 End : 11-Apr-2017 Inactive otc mennopause supplement (18 sources) otc mennopause supplement Inactive otc mennopause s upplement Active predniSONE 10 mg oral tablet (20 sources) Start: 02-18-2022 End: 03-02-2022 Prednisone 10 mg tablet Discontinued 10 mg PO daily 30 February 17, 2022 11:00pm February 28, 2022 11:00pm March 01, 2022 11:03pm Take 4 tabs once daily days 1-3 3 tabs daily days 4-6 2 tabs daily days 7-9 and 1 tab daily days 10-12. Start: 07-20-2017 End: 08-10-2017 PredniSONE 10 MG Oral Tablet 1 (one) Tablet TAD for 0 days Quantity: 18 {Tablet} Refills: 0 Ordered: 10-Aug-2017 Aranza Oakley RN Start : 20-Jul-2017 End : 10-Aug-2017 Discontinued Comments: 30mg Daily x 3 days,20mg Daily x 3 days,10mg Daily x 3 days. Comment on above: 30mg Daily x 3 days, 20mg Daily x 3 days,10mg Daily x 3 days. rimegepant 75 mg disintegrating oral tablet (13 sources) Start: 3 take 1 tablet by mouth every other day as needed, then take 1 tablet by mouth once daily as needed Nurtec ODT 75 mg oral Tablet,disintegra ting 1 (one) tablet qod and one tab daily prn for migraine for 0 days Quantity: 2 {Tablet} Refills: 0 Ordered: 08-Mar-2023 Bel Plummer MA Start : 24-Oct-2022 Active traMADol hydrochloride 50 mg oral tablet (20 sources) Opioid Agonist Start: 2 End: 2 traMADol HCl 50 MG Oral Tablet 1 (one) Tablet prn for 10 days Refills: 0 Ordered: 07-Oct-2021 Violet Andrade DO, DO, Kathleen Start : 09-Sep-2021 End : 19-Sep-2021 Inactive Comments: rs from podiatry Comment on above: rs from podiatry valACYclovir 1000 mg oral tablet (20 sources) Herpesvirus Nucleoside Analog DNA Polymerase Inhibitor, Herpes Simplex Virus Nucleoside Analog DNA Polymerase Inhibitor, Herpes Zoster Virus Nucleoside Analog DNA Polymerase Inhibitor Start: 3 take 1 tablet by mouth three times daily, then take 1 tablet by mouth once daily Valtrex 1 gram oral tablet 1 (one) Tablet tid for 7days then one daily for 0 days Quantity: 51 {Tablet} Refills: 3 Ordered: 09-Mar-2023 Violet Andrade DO, DO, Kathleen Start : 09-Mar-2023 Active Start: 12-30-2022 take 1 tablet by eleanor th three times daily Valtrex 1 gram oral tablet 1 (one) Tablet tid for 0 days Quantity: 21 {Tablet} Refills: 1 Ordered: 30-Dec-2022 Violet Andrade DO, DO, Kathleen Start : 30-Dec-2022 Active Start: 01-20-2022 End: 10-24-2022 take 1 tablet by mouth three times daily Valtrex 1 gram oral tablet 1 (one) Tablet tid for 0 days Quantity: 21 {Tablet} Refills: 1 Ordered: 24-Oct-2022 Leola Saldana CMA Start : 20-Jan-2022 End : 24-Oct-2022 Inactive Start: 06-02-2021 take 1 tablet by eleanor th three times daily Valtrex 1 GM Oral Tablet 1 (one) Tablet tid for 0 days Quantity: 21 {Tablet} Refills: 1 Ordered: 02-Jun-2021 Violet Andrade DO, DO, Kathleen Start : 02-Jun-2021 Active Start: 12-30-2020 take 1 tablet by eleanor th three times daily Valtrex 1 GM Oral Tablet 1 (one) Tablet tid for 0 days Quantity: 21 {Tablet} Refills: 1 Ordered: 30-Dec-2020 Violet Andrade DO, DO, Kathleen Start : 30-Dec-2020 Active Start: 01-30-2020 End: 03-18-2020 take 1 tablet by mouth three times daily Valtrex 1 GM Oral Tablet 1 (one) Tablet tid for 0 days Quantity: 21 {Tablet} Refills: 1 Ordered: 18-Mar-2020 Milana Siddiqui LPN Start : 30-Jan-2020 End : 18-Mar-2020 Inactive Comments: called to [facility] Start: 03-01-2019 End: 03-08-2019 take 1 tablet by mouth every eight hours valACYclovir HCl 1 GM Oral Tablet 1 (one) Tablet q8hr for 7 days Quantity: 21 {Tablet} Refills: 0 Ordered: 01-Mar-2019 Violet Andrade DO, DO, Kathleen Start : 01-Mar-2019 End : 08-Mar-2019 Inactive Start: 02-19-2019 take 1 tablet by eleanor th every eight hours valACYclovir HCl 1 GM Oral Tablet 1 (one) Tablet q8hr for 7 days Quantity: 21 {Tablet} Refills: 0 Ordered: 19-Feb-2019 Shaye Lim CNP Start : 19-Feb-2019 Active Comment on above: called to [facility] vitamin b12 2.5 mg sublingual tablet (20 sources) Vitamin B12 Start: 11-09-2020 take 1 tablet under the tongue three times weekly Cyanocobalamin 2500 MCG Sublingual Tablet Sublingual 1 (one) Tablet three times a week for 0 days Quantity: 30 {Tablet} Refills: 0 Ordered: 09-Nov-2020 Violet Andrade DO, DO, Kathleen Start : 09-Nov-2020 Active Start: 11-09-2020 take 1 tablet under the tongue three times weekly Cyanocobalamin 2500 MCG Sublingual Tablet Sublingual 1 (one) Tablet three times a week for 0 days Quantity: 30 {Tablet} Refills: 0 Ordered: 09-Nov-2020 Daly FUENTES Violet Andrade DO Violet Start : 09-Nov-2020 Active Start: 11-20-2019 take 1 tablet under the tongue three times weekly Cyanocobalamin 2500 MCG Sublingual Tablet Sublingual 1 (one) Tablet three times a week for 0 days Quantity: 30 {Tablet} Refills: 0 Ordered: 20-Nov-2019 Daly FUENTES Violet Andrade DO Violet Start : 20-Nov-2019 Active Start: 11-20-2019 take 1 tablet under the tongue three times weekly Cyanocobalamin 2500 MCG Sublingual Tablet Sublingual 1 (one) Tablet three times a week for 0 days Quantity: 30 {Tablet} Refills: 0 Ordered: 20-Nov-2019 Daly FUENTES Violet Andrade DO Violet Start : 20-Nov-2019 Active Problems Active Problems Problem Classification Problem Date Documented Date Episodic/Chronic Abdominal pain (20 sources) Right flank pain; Translations: [Right flank pain] Resolved: 11-09-2017 11-09-2017 Episodic Comment on above: Possible kidney ston e with UTI 09/15/16. Possible residual pain? Cardiac dysrhythmias (20 sources) Tachycardia; Translations: [Heart rate fast] Resolved: 08-10-2017 11-09-2017 Episodic Chronic obstructive pulmonary disease and bronchiectasis (20 sources) Bronchitis; Translations: [Bronchitis] Resolved: 08-10-2017 11-09-2017 Episodic Diabetes mellitus without complication (20 sources) Glycosuria; Translations: [Glucosuria] Resolved: 06-24-2019 08-21-2018 Episodic Comment on above: spilling glucose on UA Disorders of lipid metabolism (20 sources) Hypertriglyceridemia ; Translations: [High triglycerides] Resolved: 11-09-2017 05-17-2018 Chronic Esophageal disorders (20 sources) Gastro-esophageal reflux disease without esophagitis; Translations: [Gastroesophageal reflux disease without esophagitis] 08-21-2018 Chronic Esophageal disorders (20 sources) Esophageal disorders Genitourinary symptoms and ill-defined conditions (20 sources) Dysuria; Translations: [Urinary symptoms ] Resolved: 11-09-2017 08-21-2018 Episodic Headache; including migraine (20 sources) Migraine; Translations: [Migraines] 12-30-2019 Chronic Comment on above: stable increased- summer is usually worse- more 3migraines a month Inflammation; infection of eye (except that caused by tuberculosis or sexually transmitteddisease) (20 sources) External hordeolum; Translations: [Stye] Resolved: 11-09-2020 06-10-2020 Episodic Influenza (20 sources) Influenza Nutritional deficiencies (20 sources) Vitamin D deficiency; Translations: [Vitamin D deficiency] 12-30-2019 Chronic Nutritional deficiencies (20 sources) Vitamin B12 deficiency (non anemic); Translations: [Cobalamin deficiency] 12-30-2019 Episodic Other circulatory disease (20 sources) Elevated blood pressure; Translations: [Elevated blood pressure reading] Resolved: 05-04-2017 11-09-2017 Episodic Other circulatory disease (20 sources) Abnormal sensation; Translations: [Abnormal sensation of thorax] 11-09-2020 Episodic Comment on above: no cervical reprod w ith manuevers=--- offered neuro consult or emg/ncs but declined for now bc cost Other connective tissue disease (20 sources) Pain in right hand; Translations: [Hand pain, right] Resolved: 06-02-2021 06-02-2021 Episodic Other connective tissue disease (20 sources) Plantar fasciitis of left foot; Translations: [Plantar fasciitis, left] Resolved: 04-25-2022 10-21-2021 Episodic Comment on above: s/p surgery Other female genital disorders (20 sources) Vaginal dryness; Translations: [Vaginal dryness] 05-06-2020 Episodic Comment on above: will do coconut oil to start Other lower respiratory disease (20 sources) Cough; Translations: [Cough] Resolved: 09-15-2017 11-09-2017 Episodic Other nervous system disorders (20 sources) Left tarsal tunnel syndrome; Translations: [Tarsal tunnel syndrome, left] Resolved: 04-25-2022 04-25-2022 Chronic Comment on above: s/p surgery Other nutritional; endocrine; and metabolic disorders (20 sources) Body mass index 25-29 - overweight; Translations: [BMI 25.0-25.9,adult] Resolved: 06-10-2020 08-21-2018 Chronic Other nutritional; endocrine; and metabolic disorders (20 sources) Body mass index 25-29 - overweight; Translations: [BMI 25.0-25.9,adult] Resolved: 03-14-2022 11-09-2020 Episodic Other nutritional; endocrine; and metabolic disorders (20 sources) Overweight in adulthood with body mass index of 25 or more but less than 30; Translations: [BMI 25.0-25.9,adult] Resolved: 10-24-2022 01-20-2022 Episodic Other skin disorders (20 sources) Eruption; Translations: [Rash] Resolved: 04-25-2022 01-20-2022 Episodic Comment on above: seen derm in past viral culture negative. shiingles? see path says not but acts like shingles -- pt had path report on phone and shared Other upper respiratory disease (20 sources) Allergic rhinitis; Translations: [Allergic rhinitis] Resolved: 11-09-2017 11-09-2017 Chronic Comment on above: cont flonase otc Other upper respiratory disease (20 sources) Nasal discharge; Translations: [Post-nasal drainage] Resolved: 08-10-2017 11-09-2017 Episodic Residual codes; unclassified (20 sources) Body mass index (BMI) 24.0-24.9, adult; Translations: [Body mass index 20-24 - normal] Resolved: 06-24-2019 08-21-2018 Episodic Residual codes; unclassified (20 sources) Reduced libido; Translations: [Low libido] 05-06-2020 Episodic Comment on above: hi stress with pain- preg steal syndrom most likely accelerating natural menopausal processescont black cohash Residual codes; unclassified (20 sources) Non-smoker; Translations: [Nonsmoker] 11-09-2020 Episodic Residual codes; unclassified (20 sources) Influenza vaccination declined; Translations: [Influenza vaccination declined (Renamed from Refused influenza vaccine)] 06-02-2021 Episodic Unclassified (20 sources) Nonsmoker; Translations: [Non-smoker] 08-21-2018 Unclassified (20 sources) Unclassified (20 sources) High triglycerides Unclassified (20 sources) BMI 26.0-26.9,adult Unclassified (20 sources) Elevated blood pressure reading Unclassified (20 sources) BMI 27.0-27.9,adult Unclassified (20 sources) BMI 24.0-24.9, adult; Translations: [Body mass index 20-24 - normal] Resolved: 06-24-2019 02-19-2019 Unclassified (20 sources) BMI 25.0-25.9,adult Unclassified (20 sources) Glucosuria Unclassified (20 sources) Encounter for screening for lipid disorder Unclassified (20 sources) Encounter for screening mammogram for breast cancer (Renamed from Encounter for screening mammogram for malignant neoplasm of breast) Unclassified (20 sources) Shingles Unclassified (18 sources) Abnormal sensation of thorax Unclassified (10 sources) Influenza vaccination declined (Renamed from Refused influenza vaccine) Unclassified (10 sources) Hand pain, right Unclassified (8 sources) Plantar fasciitis, left Urinary tract infections (20 sources) Urinary tract infectious disease; Translations: [Escherichia coli urinary tract infection] 08-21-2018 Episodic Viral infection (20 sources) Postherpetic neuralgia; Translations: [Herpes zoster] Resolved: 12-30-2019 08-21-2018 Episodic Comment on above: hi doses neurontin, nortripylline, cymbalta( didnt tolerarte) and cream / others didnt work- there was several other rx tried that she cant rememberpain is on R side under breast over rib trunk area down to upper thigh left groin reflared 03/11- so po st herpetic stuff flares too hi doses neurontin, nortripylline, cymbalta( didnt tolerarte) and cream / others didnt work- there was several other rx tried that she cant rememberpain is on R side under breast over rib trunk area down to upper thighusing microcurrent still adn effective but no cure hi doses neurontin, nortripylline, cymbalta( didnt tolerarte) and cream / others didnt work- there was several other rx tried that she cant rememberpain is on R side under breast over rib trunk area down to upper thighusing microcurrent still adn effective but no curegetting injections with tuyet soon bc on both sides ?? that does make it disseminated ??? or not correct dx Past or Other Problems Problem Classification Problem Date Documented Da te Episodic/Chronic Other screening for suspected conditions (not mental disorders or infectious disease) (20 sources) Patient encounter status; Translations: [Encounter for screening for lipid disorder] Onset: 09-26-2024 07-13-2020 Episodic Spondylosis; intervertebral disc disorders; other back problems (20 sources) Low back pain; Translations: [Low back pain] Resolved: 11-09-2017 11-09-2017 Episodic Unclassified (20 sources) Patient encounter status; Translations: [Annual visit for general adult medical examination with abnormal findings] 08-21-2018 Unclassified (20 sources) E. coli UTI Unclassified (20 sources) Heart rate fast Unclassified (20 sources) Post-nasal drainage Unclassified (20 sources) UTI symptoms Unclassified (20 sources) Unspecified Diagnosis 01-30-2020 Unclassified (20 sources) Low libido Unclassified (20 sources) Stye Unclassified (5 sources) Non-smoker Unclassified (5 sources) Rash Urinary tract infections (20 sources) Urinary tract infections Results Test Name Value Interpretation Reference Range Facility Breast imaging reportOrdered By: Willam Garcia on 09-16-2024 Study report [facility] [address] [place] [address] SCRN MAMM (CAD)W/KAMLESH BILAT MR#: [id number] Acct: [id number] Name: SOLEDAD LEVY Nica Rep #: [id number] : 1970 F 54 From: Jaswant Garcia MD PCP: Dr. Violet Andrade DO Status: RE G CLI Study:SCRN MAMM (CAD)W/KAMLESH BILAT Date of Exa m: 09/16/24 Exam# [id number] Ordering Dr: Naomy Andrade DO PROCEDURE: SCRN MAMM (CAD)W/KAMLESH BILAT REASON FOR EXAM: F, Age 54 y/o, no family history. Annual mammogram. TECHNIQUE: Bilateral screening digital breast tomosynthesis with 2D and 3D images. Computeraided detection. COMPARISON: Prior exam(s) dating back to September 18, 2019.. FINDINGS: The breasts are extremely dense which lowers the sensitivity of mammography. Stable examination. No suspicious masses, areas of developing architectural distortion, or suspicious calcifications. BI/SCRN MAMM (CAD)W/KAMLESH BILAT IMPRESSION: BI-RADS 2: BENIGN. RECOMMEND ANNUAL MAMMOGRAPHIC SCREENING. Follow-up code: Routine Follow-up The patient will be notified of the results by letter. Reading Location: [id number] CC: Dr. Violet Andrade DO ~ Animal Attendant: Signed [facility] SCRN MAMM (CAD)W/KAMLESH BILATo n 09-16-2024 SCRN MAMM (CAD)W/KAMLESH BILAT [facility] [address] [place], [place] [address] SCRN MAMM (CAD)W/KAMLESH BILAT MR#: [id number] Acct: [id number] Name: SOLEDAD LEVY Rep #: [id number] : 1970 F 54 From: Willam mckenzie MD PCP: Dr. Violet Andrade DO Status: REG CLI Study: SCRN MAMM (CAD)W/KAMLESH BILAT Date of Exam: 08/25 11/15 Exam# [id number] Ordering Dr: Violet Andrade DO PROCEDURE: SCRN MAMM (CAD)W/KAMLESH BILAT REASON FOR EXAM: F, Age 54 y/o, no family history. Annual mammogram. TECHNIQUE: Bilateral screening digital breast tomosynthesis with 2D and 3D images. Computer aided detection. COMPARISON: Prior exam(s) dating back to September 18, 2019.. FINDINGS: The breasts are extremely dense which lowers the sensitivity of mammography. Stable examination. No suspicious masses, areas of developing architectural distortion, or suspicious calcifications. BI/SCRN MAMM (CAD)W/KAMLESH BILAT IMPRESSION: BI-RADS 2: BENIGN. RECOMMEND ANNUAL MAMMOGRAPHIC SCREENING. Follow-up code: Routine Follow-up The patient will be notified of the results by letter. Reading Location: [facility] CC: Dr. Violet Andrade DO Animal Attendant: Signed Normal [facility] OPERATIVE PROCEDURESon 05-27 OPERATIVE PROCEDURES [facility] OPERATIVE REPORT NAME ACCOUNT SEX AGE ADMIT DISCHARGE PT MED. RECORD# NUMBER DATE DATE TYPE MILDRED [id number] F 54 05/24/24 2 SOLEDAD Nica [id number] ROOM: [facility] DATE OF : 1970 DICTATING PHYSICIAN: Jess Claire DATE OF SURGERY: May 24, 2024 SURGEON: Jess Claire DPM TELESALES REPRESENTATIVE: None. ANESTHESIOLOGIST: Willow Pedraza MD ANESTHETIC: General. PREOPERATIVE DIAGNOSES: (1) Chronic plantar fasciitis of right foot. (2) Tarsal tunnel syndrome of right foot. POSTOPERATIVE DIAGNOSES: (1) Chronic plantar fasciitis of right foot. (2) Tarsal tunnel syndrome of right foot. OPERATION PERFORMED: (1) Endoscopic plantar fasciotomy of right foot. (2) Tarsal tunnel release of right foot. COMPLICATIONS: None. HEMOSTASIS: Pneumatic thigh tourniquet at 350 mmHg. ESTIMATED BLOOD LOSS: Minimal. DESCRIPTION OF OPERATION: Under mild sedation, the patient was brought into the OR and placed on the operating table in the supine position. The pneumatic thigh tourniquet was placed about the patient's right thigh following sedation. The right foot was scrubbed, prepped and draped in the usual aseptic manner. Local anesthesia was not utilized secondary to the patient's intolerance/allergy to lidocaine. Previous procedures resulted in flushing of the skin and chest. The right limb was then elevated to exsanguinate the limb, and the pneumatic thigh tourniquet was inflated to 350 mmHg. Attention was directed to the right plantar medial calcaneus at the medial calcaneal tubercle, where approximately a 1 cm linear longitudinal incision was made at the medial origin of the plantar fascia area. The incision was deepened through blunt dissection. Next, the Arthrex endoscopic plantar fasciotomy probe was inserted medially and exited laterally as the skin was tented, and then approximately a 1 cm linear longitudinal incision was made at that aspect. The obturator was then placed, and the area was flushed with normal sterile saline. Next, utilizing a Page 1 of 2 SOLEDAD LEVY Operative Report SOLEDAD LEVY : 1970 soft tissue rasp, some of the fatty globules were removed for better visualization. Then utilizing the curved knife the plantar fascia was incised from lateral to medial. The entire plantar fascia was incised today secondary to the MRI confirmation of lateral band plantar fascia, which also had medial band pain. This was discussed with the patient preoperatively. The instruments were then removed from the foot, including the obturator, and the area was again flushed with normal sterile saline. Then utilizing 3-0 Prolene sutures, the medial and lateral incisions were reapproximated and coapted. Attention was then directed to the medial ankle area posterior to the malleolus, where approximately a 5 cm curvilinear incision was made superficial to the tarsal tunnel structures. The incision was deepened through blunt dissection down to the level of the retinaculum. At that point, with further blunt dissection the retinaculum was incised. The tibialis posterior has a very low-lying muscle belly as well as there were noted to be a moderate amount of varicosities within the tarsal tunnel. The soft tissue structures were then dissected free, and there was a mild amount of scar tissue in the area. This was flushed with copious amounts of normal sterile saline. Next, the subcutaneous tissues were reapproximated and coapted utilizing 4-0 Vicryl, and the skin was reapproximated and coapted utilizing 4-0 Monocryl. Upon completion of the procedure, the incision was reinforced with Steri-Strips and Cavilon, and then all incisions were dressed with Xeroform, 4x4s, Deep and Kerlix. The pneumatic thigh tourniquet was deflated, and a prompt hyperemic response was noted to all digits of the right foot. An Miguel wrap was then applied. The patient tolerated the procedure and anesthesia well. She was transferred to the recovery room with vital signs stable and vascular status intact to all toes of the right foot. Following a period of postoperative monitoring, she will be discharged home with written and oral postoperative instructions. She is to keep the dressing clean, dry and intact and no excessive ambulation. She is to rest, ice and elevate the right foot and wear the surgical shoe at all times while ambulating on her foot, but she is to remain nonweightbearing on the right foot. At home, she has crutches and a knee walker. She is to contact Dr. Claire for all postoperative follow-up care and if any problems arise. A pain prescription was written for hydrocodone 10/325 mg. Dictated By: Jess Claire DPM 05/24/24 08:50 JOB #: [id number] Transcribed By: eric 05/24/24 09:16 Electronically signed by: E-SIGN JESS CLAIRE 05/27/24 08:13 Page 2 of 2 SOLEDAD LEVY J Operative Report Normal [facility] MR ANKLE WO RTon 12-26-2023 MR ANKLE WO RT [place] [address] Patient: SOLEDAD LEVY. Phone#: : [phone] Age: 53 Gender: F Pt. Type: Out Account: [id number] Location: Ordering: JESS NATALI Exam Date: 12/26/2023/13:50 Family Phys: VIOLET ANDRADE Charge Code: 192611 Physician: Panola Order #: [id number] Dose#: PROCEDURE: MRI ANKLE RT WITHOUT CONTRAST COMPARISON: None. INDICATIONS: Right tarsal tunnel syndrome and plantar fasiciitis TECHNIQUE: A complete multi-planar examination was performed without contrast. FINDINGS: LATERAL LIGAMENTS AND SOFT TISSUE STRUCTURES TALOFIBULAR: Normal. CALCANEOFIBULAR: Normal. TIBIOFIBULAR: Normal. PERONEAL TENDONS:Normal. No subluxation, tendinopathy, or tear. MEDIAL LIGAMENTS AND SOFT TISSUE STRUCTURES DELTOID COMPLEX: Normal. SPRING LIGAMENT: Normal. TARSAL TUNNEL: Normal. FLEXORS: Normal. OTHER TENDONS EXTENSORS: Normal. ACHILLES: Normal. No surrounding abnormality. PLANTAR FASCIA: There is mild hyperintense signal in the lateral cord of the plantar aponeurosis, subchondral edema in the calcaneal spur and subtle edema in the adjacent subcutaneous fat, findings consistent with mild plantar fasciitis, series 9, image 9 and series 6, image 17. SINUS TARSI: Normal. No edema or synovitis to suggest sinus tarsi syndrome. BONES: There is a calcaneal spur measuring 0.8 cm. EFFUSIONS: There is a joint effusion at the tibiotalar articulations small effusion at the talonavicular articulation. OTHER: No other significant findings. CONCLUSION: 1. Mild plantar fasciitis 2. Tibiotalar and talonavicular joint effusion Dictated by: Krysta Rodriguez MD on 12/28/2023 at 16:06 Continued Report - Page 2 of 2 Patient: MILDRED SOLEDAD Yousif. Phone#: : [phone] Age: 53 Gender: F Pt. Type: Out Account: [id number] Location: Ordering: JESS CLAIRE Exam Date: 12/26/2023/13:50 Family Phys: VIOLET ANDRADE Charge Code: 947550 Physician: Panola Order #: [id number] Dose#: Approved by: Krysta Rodriguez MD on 12/28/2023 at 16:21 Normal [facility] CALCIFIDIOL (19097) VIT D 25 Ordered By: Job Foreman on 04-27-2022 25-hydroxyvitamin D [Mass/Vol] 128.0 ng/mL Abnormal 30.0-100.0 [facility]; [facility] Work Phone: Comment on above: Vitamin D deficiency has been defined by the [place] of[employer] and an Endocrine Society practice guideline as alevel of serum 25-OH vitamin D less than 20 ng/mL (1,2).The Endocrine Society went on to further define vitamin Dinsufficiency as a level between 21 and 29 ng/mL (2).1. IOM ([place] of Medicine). 2010. Dietary reference intakes for calcium and D. [place]: The National Academies Press.2. Lloyd MF, Teodoro NC, Miguel Ángel BAZAN, et al. Evaluation, treatment, and prevention of vitamin D deficiency: an Endocrine Society clinical practice guideline. JCEM. 2010; 96(7):1911-30. PATIENT WAS FASTINGP ERFORMED BY: [facility] [place] [id number] LIPID PANEL ([id number])Ordered B y: Job Foreman on 04-27-2022 Cholesterol [Mass/Vol] 190 mg/dL Normal 100-199 [facility]; [facility] Work Phone: Comment on above: PATIENT WAS FASTINGP ERFORMED BY: [facility] [place] [id number] Cholesterol in HDL [Mass/Vol] 61 mg/dL Normal [facility]; [facility] Work Phone: Comment on above: PATIENT WAS FASTINGP ERFORMED BY: [facility] [place] [id number] Triglyceride [Mass/Vol] 221 mg/dL Abnormal 0-149 [facility]; [facility] Work Phone: Comment on above: PATIENT WAS FASTINGP ERFORMED BY: [facility] [id number] [facility] [id number] LIPID PANEL ([id number]) 37 mg/dL Normal 5-40 [facility]; [facility] Work Phone: Comment on above: PATIENT WAS FASTINGP ERFORMED BY: [facility] [id number] [facility] [id number] LIPID PANEL ([id number]) 92 mg/dL Normal 0-99 [facility]; [facility] Work Phone: Comment on above: PATIENT WAS FASTINGP ERFORMED BY: DAYRON [facility] [id number] [facility] [id number] LIPID PANEL ([id number]) 1.5 {ratio} Normal 0.0-3.2 [facility]; [facility] Work Phone: Comment on above: LDL/HDL Ratio Men Wo men 1/2 Avg.Risk 1.0 1.5 Avg.Risk 3.6 3.2 2X Avg.Risk 6.2 5.0 3X Avg.Risk 8.0 6.1 PATIENT WAS FASTINGP ERFORMED BY: DAYRON DockPHPNewark Beth Israel Medical CenterTgqjpw6519 [facility] [id number] VITAMIN B-12 (CYANOCOBALAMIN ) (83057)Ordered By: Job Foreman on 04-27-2022 Cobalamin (Vitamin B12) [Mass/Vol] 885 pg/mL Normal 232-1245 [facility]; [facility] Work Phone: Comment on above: PATIENT WAS FASTINGP ERFORMED BY: aroundthewayUniversity of Michigan Health6370 [facility] [id number] CBC with auto diff ([id number])Or dered By: Job Foreman on 03-14-2022 Basophils (Bld) [#/Vol] 0.0 10*3/uL Normal 0.0-0.2 [facility]; [facility] Work Phone: Comment on above: PATIENT NOT FASTINGP ERFORMED BY: DAYRON [facility] Fgfiha2334 [address] RoadDublin [place] [id number] Basophils/100 WBC (Bld) 0 % Normal [facility]; [facility] Work Phone: Comment on above: PATIENT NOT FASTINGP ERFORMED BY: DAYRON [facility] Xsqyjv4069 [address] RoadDublin [place] [id number] Eosinophils (Bld) [#/Vol] 0.2 10*3/uL Normal 0.0-0.4 [facility]; [facility] Work Phone: Comment on above: PATIENT NOT FASTINGP ERFORMED BY: CB [facility] Engomg4403 [address] RoadDublin [place] [id number] Eosinophils/100 WBC (Bld) 4 % Normal [facility]; [facility] Work Phone: Comment on above: PATIENT NOT FASTINGP ERFORMED BY: [facility] Kayegn1313 [address] RoadWakemed North Hospitalin [place] [id number] Erythrocyte distribution width (RBC) [Ratio] 12.5 % Normal 11.7-15.4 [facility]; [facility] Work Phone: Comment on above: PATIENT NOT FASTINGP ERFORMED BY: DAYRON [facility] Hvsder8572 [address] RoadWakemed North Hospitalin [place] [id number] Hematocrit (Bld) [Volume fraction] 38.3 % Normal 34.0-46.6 [facility]; [facility] Work Phone: Comment on above: PATIENT NOT FASTINGP ERFORMED BY: CB [facility] Hklnuo3344 [address] RoadDublin [place] [id number] Hemoglobin (Bld) [Mass/Vol] 13.4 g/dL Normal 11.1-15.9 [facility]; [facility] Work Phone: Comment on above: PATIENT NOT FASTINGP ERFORMED BY: DAYRON [facility] Bllcmp4150 [address] RoadDublin [place] [id number] Immature granulocytes (Bld) [#/Vol] 0.0 10*3/uL Normal 0.0-0.1 [facility]; [facility] Work Phone: Comment on above: PATIENT NOT FASTINGP ERFORMED BY: DAYRON Labcomendoza JungSeafkf5020 [address] Roadblin [place] [id number] Immature granulocytes/100 WBC (Bld) 0 % Normal [facility]; [facility] Work Phone: Comment on above: PATIENT NOT FASTINGP ERFORMED BY: DAYRON [facility] Kqpdvw7958 [address] Roadblin [place] [id number] Lymphocytes (Bld) [#/Vol] 1.9 10*3/uL Normal 0.7-3.1 [facility]; [facility] Work Phone: Comment on above: PATIENT NOT FASTINGP ERFORMED BY: DAYRON Labhailey Jung6370 [address] RoadWakemed North Hospitalin [place] [id number] Lymphocytes/100 WBC (Bld) 29 % Normal [facility]; [facility] Work Phone: Comment on above: PATIENT NOT FASTINGP ERFORMED BY: DAYRON Labsasha Krmiwc[address] [facility]in [place] [id number] MCH (RBC) [Entitic mass] 33.0 pg Normal 26.6-33.0 [facility]; [facility] Work Phone: Comment on above: PATIENT NOT FASTINGP ERFORMED BY: DAYRON Sanchezlin[address] [facility] Hospitalblin [place] [id number] MCHC (RBC) [Mass/Vol] 35.0 g/dL Normal 31.5-35.7 [facility]; [facility] Work Phone: Comment on above: PATIENT NOT FASTINGP ERFORMED BY: [facility] Crtcdz[address] [facility]in [place] [id number] MCV (RBC) [Entitic vol] 94 fL Normal 79-97 [facility]; [facility] Work Phone: Comment on above: PATIENT NOT FASTINGP ERFORMED BY: DAYRON [facility] Xvkeya[address] [facility] FlintDublin [place] [id number] Monocytes (Bld) [#/Vol] 0.7 10*3/uL Normal 0.1-0.9 [facility]; [facility] Work Phone: Comment on above: PATIENT NOT FASTINGP ERFORMED BY: CB [facility] Dtxmfy1672 [address] RoadDublin [place] [id number] Monocytes/100 WBC (Bld) 10 % Normal [facility]; [facility] Work Phone: Comment on above: PATIENT NOT FASTINGP ERFORMED BY: CB [facility] Tzcpur3372 [address] RoadDublin [place] [id number] Neutrophils (Bld) [#/Vol] 3.6 10*3/uL Normal 1.4-7.0 [facility]; [facility] Work Phone: Comment on above: PATIENT NOT FASTINGP ERFORMED BY: CB [facility] Gbjdhl9776 [address] RoadDublin [place] [id number] Neutrophils/100 WBC (Bld) 57 % Normal [facility]; [facility] Work Phone: Comment on above: PATIENT NOT FASTINGP ERFORMED BY: CB [facility] Eljnrw2329 [address] RoadDublin [place] [id number] Platelets (Bld) [#/Vol] 258 10*3/uL Normal 150-450 [facility]; [facility] Work Phone: Comment on above: PATIENT NOT FASTINGP ERFORMED BY: CB [facility] Anljwh1788 [address] RoadDublin [place] [id number] RBC (Bld) [#/Vol] 4.06 10*6/uL Normal 3.77-5.28 Compr ehensive Internal Medicine; [facility] Work Phone: Comment on above: PATIENT NOT FASTINGP ERFORMED BY: CB [facility] Gplkcs1756 [address] RoadDublin [place] [id number] WBC (Bld) [#/Vol] 6.4 10*3/uL Normal 3.4-10.8 Compre [facility]mount[facility] hospital [facility]; [facility] Work Phone: Comment on above: PATIENT NOT FASTINGP ERFORMED BY: CB [facility] Eflcpc9459 [address] RoadDublin [place] [id number] METABOLIC PANEL, COMPREHENSI VE ([id number])Ordered By: Job Foreman on 03-14-2022 Albumin [Mass/Vol] 4.5 g/dL Normal 3.8-4.9 [facility]; [facility] Work Phone: Comment on above: PATIENT NOT FASTINGP ERFORMED BY: DAYRON [facility] Szsmlr3043 [address] RoadDublin [place] [id number] Albumin/Globulin [Mass ratio] 2.0 {ratio} Normal 1.2-2.2 [facility]; [facility] Work Phone: Comment on above: PATIENT NOT FASTINGP ERFORMED BY: CB [facility] Lcjmqg7946 [address] RoadDublin [place] [id number] ALP [Catalytic activity/Vol] 74 U/L Normal 44-121 [facility]; [facility] Work Phone: Comment on above: PATIENT NOT FASTINGP ERFORMED BY: CB [facility] Bofbmt0123 [address] RoadDublin [place] [id number] ALT [Catalytic activity/Vol] 28 U/L Normal 0-32 [facility]; [facility] Work Phone: Comment on above: PATIENT NOT FASTINGP ERFORMED BY: CB [facility] Poqjuy2264 [address] RoadDublin [place] [id number] AST [Catalytic activity/Vol] 19 U/L Normal 0-40 [facility]; [facility] Work Phone: Comment on above: PATIENT NOT FASTINGP ERFORMED BY: CB [facility] Bjikxh5301 [address] RoadDublin [place] [id number] Bilirubin [Mass/Vol] 0.3 mg/dL Normal 0.0-1.2 [facility]; [facility] Work Phone: Comment on above: PATIENT NOT FASTINGP ERFORMED BY: CB [facility] Uyuoxa4518 [address] RoadDublin [place] [id number] Calcium [Mass/Vol] 10.0 mg/dL Normal 8.7-10.2 [facility]; [facility] Work Phone: Comment on above: PATIENT NOT FASTINGP ERFORMED BY: CB [facility] Auqjfp1623 [address] RoadDublin [place] [id number] Chloride [Moles/Vol] 103 mmol/L Normal 96-106 [facility]; [facility] Work Phone: Comment on above: PATIENT NOT FASTINGP ERFORMED BY: DAYRON Jung[address] [facility] [id number] CO2 [Moles/Vol] 26 mmol/L Normal 20-29 Comprehen sive Internal Medicine; [facility] Work Phone: Comment on above: PATIENT NOT FASTINGP ERFORMED BY: DAYRON Sanchezlin6370 [facility] [id number] Creatinine [Mass/Vol] 0.63 mg/dL Normal 0.57-1.00 [facility]; [facility] Work Phone: Comment on above: PATIENT NOT FASTINGP ERFORMED BY: DAYRON Sanchezlin6370 [facility] [id number] GFR/1.73 sq M.predicted among non-blacks MDRD (S/P/Bld) [Vol rate/Area] 106 mL/min/{1.73_m2} Normal Comprehensi ve Internal Medicine; [facility] Work Phone: Comment on above: PATIENT NOT FASTINGP ERFORMED BY: DAYRON Jung6370 [facility] [id number] Globulin (S) [Mass/Vol] 2.2 g/dL Normal 1.5-4.5 [facility]; [facility] Work Phone: Comment on above: PATIENT NOT FASTINGP ERFORMED BY: DAYRON Adamson Ybyhmg4787 [facility] [id number] Glucose [Mass/Vol] 89 mg/dL Normal 65-99 [facility]; [facility] Work Phone: Comment on above: PATIENT NOT FASTINGP ERFORMED BY: DAYRON Sanchezlin6370 [facility] [id number] Potassium [Moles/Vol] 4.6 mmol/L Normal 3.5-5.2 [facility]; [facility] Work Phone: Comment on above: PATIENT NOT FASTINGP ERFORMED BY: DAYRON [facility] Sddztu7103 [address] RoadDublin [place] [id number] Protein [Mass/Vol] 6.7 g/dL Normal 6.0-8.5 [facility]; [facility] Work Phone: Comment on above: PATIENT NOT FASTINGP ERFORMED BY: CB [facility] Yjhhsq5119 [address] RoadDublin [place] [id number] Sodium [Moles/Vol] 142 mmol/L Normal 134-144 [facility]; [facility] Work Phone: Comment on above: PATIENT NOT FASTINGP ERFORMED BY: CB [facility] Cdfqdz6281 [address] RoadDublin [place] [id number] Urea nitrogen [Mass/Vol] 15 mg/dL Normal 6-24 [facility]; [facility] Work Phone: Comment on above: PATIENT NOT FASTINGP ERFORMED BY: CB [facility] Fcrpmg2862 [address] RoadDublin [place] [id number] Urea nitrogen/Creatini ne [Mass ratio] 24 mg/mg Abnormal 9-23 [facility]; [facility] Work Phone: Comment on above: PATIENT NOT FASTINGP ERFORMED BY: CB [facility] Htewdl4216 [address] RoadDublin [place] [id number] CALCIFEDIOL (53953)Ordered B y: Job Foreman on 05-31-2021 25-hydroxyvitamin D [Mass/Vol] 54.3 ng/mL Normal 30.0-100.0 [facility]; [facility] Work Phone: Comment on above: Vitamin D deficiency has been defined by the [place] ofMedicine and an Endocrine Society practice guideline as alevel of serum 25-OH vitamin D less than 20 ng/mL (1,2).The Endocrine Society went on to further define vitamin Dinsufficiency as a level between 21 and 29 ng/mL (2).1. IOM ([place] of Medicine). 2010. Dietary reference intakes for calcium and D. [place]: The National Academies Press.2. Lloyd MF, Teodoro GOEL, Miguel Ángel BAZAN, et al. Evaluation, treatment, and prevention of vitamin D deficiency: an Endocrine Society clinical practice guideline. JCEM. 2010; 96(7):1911-30. PATIENT WAS FASTINGP ERFORMED BY: CB [facility] Fuycms3679 [address] RoadDublin [place] [id number] LIPID PANEL (81495)Ordered B y: Job Foreman on 05-31-2021 Cholesterol [Mass/Vol] 160 mg/dL Normal 100-199 [facility]; [facility] Work Phone: Comment on above: PATIENT WAS FASTINGP ERFORMED BY: CB [facility] Nurlke0817 [address] RoadDublin [place] [id number] Cholesterol in HDL [Mass/Vol] 67 mg/dL Normal [facility]; [facility] Work Phone: Comment on above: PATIENT WAS FASTINGP ERFORMED BY: CB [facility] Ouomrp5195 [address] RoadDublin [place] [id number] Triglyceride [Mass/Vol] 131 mg/dL Normal 0-149 [facility]; [facility] Work Phone: Comment on above: PATIENT WAS FASTINGP ERFORMED BY: CB [facility] Rutdbf3474 [address] RoadDublin [place] [id number] LIPID PANEL (17872) 23 mg/dL Normal 5-40 [facility]; [facility] Work Phone: Comment on above: PATIENT WAS FASTINGP ERFORMED BY: CB [facility] Tvoawf7226 [address] RoadDublin [place] [id number] LIPID PANEL (69131) 70 mg/dL Normal 0-99 [facility]; [facility] Work Phone: Comment on above: PATIENT WAS FASTINGP ERFORMED BY: CB [facility] Snagqc1470 [address] RoadDublin [place] [id number] LIPID PANEL (03375) 1.0 {ratio} Normal 0.0-3.2 [facility]; [facility] Work Phone: Comment on above: LDL/HDL Ratio Men Wo men 1/2 Avg.Risk 1.0 1.5 Avg.Risk 3.6 3.2 2X Avg.Risk 6.2 5.0 3X Avg.Risk 8.0 6.1 PATIENT WAS FASTINGP ERFORMED BY: [facility] Ciptmw[address] [facility] Hospitalblin [place] [id number] VITAMIN B-12 (CYANOCOBALAMIN ) (56516)Ordered By: Job Foreman on 05-31-2021 Cobalamin (Vitamin B12) [Mass/Vol] 1779 pg/mL Abnormal 232-1245 [facility]; [facility] Work Phone: Comment on above: PATIENT WAS FASTINGP ERFORMED BY: [facility] Zdtsnr6530 [facility] [id number] CULTURE, VIRUS GENERAL 8573 (25888)Ordered By: Job Foreman on 12-31-2020 Virus identified Cx Nom (Unsp spec) No virus isolated. Normal [facility]; [facility] Work Phone: Comment on above: L side trunk; PATIEN T NOT FASTINGPERFORMED BY: [place] 062947 [facility] [id number] Information: LEFT SIDE TRUNK SRC:TR [id number] CALCIFEDIOL (47953)Ordered B y: Job Foreman on 05-01-2020 25-Hydroxyvitamin D2+25-Hydroxyvita min D3 [Mass/Vol] 42.3 ng/mL Normal 30.0-100.0 [facility] Work Phone: Comment on above: Vitamin D deficiency has been defined by the [place] [facility] and an Endocrine Society practice guideline as alevel of serum 25-OH vitamin D less than 20 ng/mL (1,2).The Endocrine Society went on to further define vitamin Dinsufficiency as a level between 21 and 29 ng/mL (2).1. IOM ([place] of Medicine). 2010. Dietary reference intakes for calcium and D. [place]: The National Academies Press.2. Lloyd MF, Teodoro GOEL, Miguel Ángel BAZAN, et al. Evaluation, treatment, and prevention of vitamin D deficiency: an Endocrine Society clinical practice guideline. JCEM. 2010; 96(7):1911-30. PATIENT WAS FASTINGP ERFORMED BY: [facility] Nctejp9854 [facility] [id number] VITAMIN B12 AND FOLATES (826 07)Ordered By: Job Foreman on 05-01-2020 Cobalamin (Vitamin B12) [Mass/Vol] 1225 pg/mL Normal 232-1245 [facility] Work Phone: Comment on above: PATIENT WAS FASTINGP ERFORMED BY: dakick6370 [address]komblin [place] [id number] Folate [Mass/Vol] 7.6 ng/mL Normal Compreh ensive Internal Medicine Work Phone: Comment on above: A serum folate elidia ntration of less than 3.1 ng/mL isconsidered to represent clinical deficiency. PATIENT WAS FASTINGP ERFORMED BY: [employer]70 [address]komblin [place] [id number] CALCIFEDIOL (48300)Ordered B y: Job Foreman on 11-19-2019 25-Hydroxyvitamin D2+25-Hydroxyvita min D3 [Mass/Vol] 49.6 ng/mL Normal 30.0-100.0 [facility] Work Phone: Comment on above: Vitamin D deficiency has been defined by the [place] ofMedicine and an Endocrine Society practice guideline as alevel of serum 25-OH vitamin D less than 20 ng/mL (1,2).The Endocrine Society went on to further define vitamin Dinsufficiency as a level between 21 and 29 ng/mL (2).1. IOM ([place] of Medicine). 2010. Dietary reference intakes for calcium and D. [place]: The National Academies Press.2. Lloyd MF, Teodoro GOEL, Miguel Ángel BAZAN, et al. Evaluation, treatment, and prevention of vitamin D deficiency: an Endocrine Society clinical practice guideline. JCEM. 2010; 96(7):1911-30. PATIENT NOT FASTINGP ERFORMED BY: [employer]70 [address]bl[address] [place] [id number] VITAMIN B-12 (CYANOCOBALAMIN ) (79003)Ordered By: Job Foreman on 11-19-2019 Cobalamin (Vitamin B12) [Mass/Vol] pg/mL Abnormal 232-1245 [facility] Work Phone: Comment on above: PATIENT NOT FASTINGP ERFORMED BY: DAYRON [facility] Ykduiy[address] [facility]in [place] [id number] CALCIFEDIOL (23742)Ordered B y: Job Foreman on 09-06-2019 25-Hydroxyvitamin D2+25-Hydroxyvita min D3 [Mass/Vol] 27.0 ng/mL Abnormal 30.0-100.0 [facility] Work Phone: Comment on above: Vitamin D deficiency has been defined by the [place] ofMedicine and an Endocrine Society practice guideline as alevel of serum 25-OH vitamin D less than 20 ng/mL (1,2).The Endocrine Society went on to further define vitamin Dinsufficiency as a level between 21 and 29 ng/mL (2).1. IOM ([place] of [place]). 2010. Dietary reference intakes for calcium and D. [place]: The National Academies Press.2. Lloyd MF, Teodoro [place], Miguel Ángel BAZAN, et al. Evaluation, treatment, and prevention of vitamin D deficiency: an Endocrine Society clinical practice guideline. JCEM. 2010; 96(7):1911-30. PATIENT NOT FASTINGP ERFORMED BY: DAYRON Safeh[employer]erp Cjpogr[address] [facility] [id number] CBC & PLATELETS (AUTO) (8502 7)Ordered By: Job Foreman on 09-06-2019 Erythrocyte distribution width (RBC) [Ratio] 11.2 % Abnormal 11.7-15.4 [facility] Work Phone: Comment on above: PATIENT NOT FASTINGP ERFORMED BY: DAYRON [facility] Kbpfdp5707 [facility] [id number] Hematocrit (Bld) [Volume fraction] 41.2 % Normal 34.0-46.6 [facility] Work Phone: Comment on above: PATIENT NOT FASTINGP ERFORMED BY: Hermes IQ [facility] Jisgda8217 [facility]izMiss[facility] Healthcare [id number] Hemoglobin (Bld) [Mass/Vol] 13.7 g/dL Normal 11.1-15.9 [facility] Work Phone: Comment on above: PATIENT NOT FASTINGP ERFORMED BY: CB [facility] Xgocpk1745 [address] RoadDublin [place] [id number] MCH (RBC) [Entitic mass] 31.5 pg Normal 26.6-33.0 [facility] Work Phone: Comment on above: PATIENT NOT FASTINGP ERFORMED BY: CB [facility] Hgrqva4798 [address] RoadDublin [place] [id number] MCHC (RBC) [Mass/Vol] 33.3 g/dL Normal 31.5-35.7 [facility] Work Phone: Comment on above: PATIENT NOT FASTINGP ERFORMED BY: CB [facility] Zyhmrt3289 [address] RoadDublin [place] [id number] MCV (RBC) [Entitic vol] 95 fL Normal 79-97 [facility] Work Phone: Comment on above: PATIENT NOT FASTINGP ERFORMED BY: DAYRON Sanchezlin6370 [address] RoadDublin [place] [id number] Platelets (Bld) [#/Vol] 272 {x10E3/uL} Normal 150-450 [facility] Work Phone: Comment on above: PATIENT NOT FASTINGP ERFORMED BY: CB [facility] Lawkww6729 [address] RoadDublin [place] [id number] Platelets (Bld) [#/Vol] 272 10*3/uL Normal 150-450 [facility]; [facility] Work Phone: Comment on above: PATIENT NOT FASTINGP ERFORMED BY: CB [facility] Ngemtq4806 [address] RoadDublin [place] [id number] RBC (Bld) [#/Vol] 4.35 {x10E6/uL} Normal 3.77-5.28 [facility] Internal Medicine Work Phone: Comment on above: PATIENT NOT FASTINGP ERFORMED BY: CB [facility] Nauvfb0996 [address] RoadDublin [place] [id number] RBC (Bld) [#/Vol] 4.35 10*6/uL Normal 3.77-5.[address] [facility] Internal Medicine; [facility] Work Phone: Comment on above: PATIENT NOT FASTINGP ERFORMED BY: CB [facility] Fxjamu6592 [address] RoadDublin [place] [id number] WBC (Bld) [#/Vol] 9.3 {x10E3/uL} Normal 3.4-10.8 [facility] prehensive Internal Medicine Work Phone: Comment on above: PATIENT NOT FASTINGP ERFORMED BY: CB [facility] Oyvdfb8897 [address] RoadDublin [place] [id number] WBC (Bld) [#/Vol] 9.3 10*3/uL Normal 3.4-10.8 [facility] Internal [facility]; [facility] Work Phone: Comment on above: PATIENT NOT FASTINGP ERFORMED BY: CB [facility] Vjwhox8505 [address] RoadDublin [place] [id number] IRON ([id number])Ordered By: Syst em Golf Player Assistant on 09-06-2019 Iron [Mass/Vol] 128 ug/dL Normal 27-159 [facility] Internal Medicine Work Phone: Comment on above: PATIENT NOT FASTINGP ERFORMED BY: CB [facility] Qsuqim9099 [address] RoadDublin [place] [id number] TSH (THYROID STIMULATING HOR SUKHDEEP) (37099)Ordered By: Job Foreman on 09-06-2019 TSH Qn 1.930 {uIU/mL} Normal 0.450-4.500 [facility] Internal Medicine Work Phone: Comment on above: PATIENT NOT FASTINGP ERFORMED BY: CB [facility] Drhicu3978 [address] RoadDublin [place] [id number] VITAMIN B12 AND FOLATES (826 07)Ordered By: Job Foreman on 09-06-2019 Cobalamin (Vitamin B12) [Mass/Vol] 306 pg/mL Normal 232-1245 [facility] Internal Medicine Work Phone: Comment on above: PATIENT NOT FASTINGP ERFORMED BY: CB [facility] Nknztq8656 [address] RoadDublin [place] [id number] Folate [Mass/Vol] 11.1 ng/mL Normal Compreh [facility] centerive Internal Medicine Work Phone: Comment on above: A serum folate elidia ntration of less than 3.1 ng/mL isconsidered to represent clinical deficiency. PATIENT NOT FASTINGP ERFORMED BY: DAYRON Jung6[address] Privacy AnalyticsWakemed North Hospitalin [place] [id number] LIPID PANEL (92322)on 2017 Cholesterol in HDL mass conc 58 mg/dL Normal [facility] Work Phone: Comment on above: PATIENT WAS FASTINGP ERFORMED BY: DAYRON Gomez70 [address] [facility] AnalyticsWilson [facility] [id number] Cholesterol in LDL mass conc 53 mg/dL Normal 0-99 [facility] Work Phone: Comment on above: PATIENT WAS FASTINGP ERFORMED BY: DAYRON Rinaldi [address] Privacy AnalyticsWilson Medical Center [id number] Cholesterol in LDL/Cholesterol in HDL mass ratio 0.9 {ratio} Normal 0.0-3.2 [facility] Work Phone: Comment on above: LDL/HDL Ratio Men Wo men 1/2 Avg.Risk 1.0 1.5 Avg.Risk 3.6 3.2 2X Avg.Risk 6.2 5.0 3X Avg.Risk 8.0 6.1 PATIENT WAS FASTINGP ERFORMED BY: DAYRON Jung6370 [address] [facility] AnalyticsWilson [facility] Center [id number] Cholesterol in VLDL mass conc 25 mg/dL Normal 5-40 [facility] Work Phone: Comment on above: PATIENT WAS FASTINGP ERFORMED BY: DAYRON Gomez70 [address] [facility] AnalyticsWilson [facility] [id number] Cholesterol mass conc 136 mg/dL Normal 100-199 [facility] Work Phone: Comment on above: PATIENT WAS FASTINGP ERFORMED BY: DAYRON Jung6370 [address] Privacy Analyticsblin [place] [id number] Triglyceride mass conc 125 mg/dL Normal 0-149 [facility] Work Phone: Comment on above: PATIENT WAS FASTINGP ERFORMED BY: DAYRON Jung6370 [address] Privacy AnalyticsWakemed North Hospitalin [place] [id number] Renal function Panel (92057) on 09-21-2017 Albumin mass conc 4.4 g/dL Normal 3.5-5.5 Compreh ensive Internal Medicine Work Phone: Comment on above: PATIENT NOT FASTINGP ERFORMED BY: DAYRON LabHailey Jung6[address] [facility]in [place] [id number] Calcium mass conc 9.2 mg/dL Normal 8.7-10.2 Compreh ensive Internal Medicine Work Phone: Comment on above: PATIENT NOT FASTINGP ERFORMED BY: DAYRON LabComendoza SanchezHpvijv3097 [address] [facility] [id number] Chloride molar conc 103 mmol/L Normal 96-106 [facility] Work Phone: Comment on above: PATIENT NOT FASTINGP ERFORMED BY: DAYRON LabHailey SanchezGuzbul2688 [facility] [id number] CO2 molar conc 23 mmol/L Normal 18-29 Comprehens marv Internal Medicine Work Phone: Comment on above: PATIENT NOT FASTINGP ERFORMED BY: DAYRON Sanchezlin6370 [facility] [id number] Creatinine mass conc 0.67 mg/dL Normal 0.57-1.00 [facility] Work Phone: Comment on above: PATIENT NOT FASTINGP ERFORMED BY: DAYRON [id number] [facility] [id number] GFR/1.73 sq M predicted among blacks CKD-EPI vol rate/area (S/P/Bld) 120 mL/min/1.73 Normal [facility] Work Phone: Comment on above: PATIENT NOT FASTINGP ERFORMED BY: DAYRON [facility] [id number] [address] [facility] [id number] GFR/1.73 sq M predicted among non-blacks CKD-EPI vol rate/area (S/P/Bld) 104 mL/min/1.73 Normal [facility] Work Phone: Comment on above: PATIENT NOT FASTINGP ERFORMED BY: DAYRON [facility] [id number] [address] [facility] [id number] Glucose mass conc 94 mg/dL Normal 65-99 [facility] Work Phone: Comment on above: PATIENT NOT FASTINGP ERFORMED BY: DAYRON Jung6370 [facility] [id number] Phosphate mass conc 2.6 mg/dL Normal 2.5-4.5 [facility] Work Phone: Comment on above: PATIENT NOT FASTINGP ERFORMED BY: DAYRON Adamson [id number] [facility] [id number] Potassium molar conc 4.3 mmol/L Normal 3.5-5.2 [facility] Work Phone: Comment on above: PATIENT NOT FASTINGP ERFORMED BY: DAYRON Adamson [id number] [facility] [id number] Sodium molar conc 143 mmol/L Normal 134-144 [facility] Work Phone: Comment on above: PATIENT NOT FASTINGP ERFORMED BY: DAYRON Adamson [id number] [facility] [id number] Urea nitrogen mass conc 10 mg/dL Normal 6-24 [facility] Work Phone: Comment on above: PATIENT NOT FASTINGP ERFORMED BY: DAYRON Adamson [id number] [facility] [id number] Urea nitrogen/Creatini ne mass ratio 15 mg/mg Normal 9-23 [facility] Work Phone: Comment on above: PATIENT NOT FASTINGP ERFORMED BY: DAYRON [place] [id number] [facility] [id number] URINE BALTAZAR CULTURE-ELEAZAR COL C OUNT ([id number])on 09-21-2017 Bacteria identified Cx Nom (U) Final report Normal [facility] Work Phone: Comment on above: PATIENT NOT FASTINGP ERFORMED BY: DAYRON [place] [id number] [facility] [id number] Information: SRC:UC Bacteria identified Cx Nom (U) NG36 Normal [facility] Work Phone: Comment on above: No growth in 36 - 48 hours. PATIENT NOT FASTINGP ERFORMED BY: DAYRON [facility] [id number] [facility] [id number] Information: SRC:PRAVIN Urinalysis, Office ([id number])Or dered By: Kasia Gutierrez on 09-21-2017 Bilirubin Ql (U) Negative Normal Com[facility] Work Phone: Bilirubin Ql (U) Negative Normal [facility]; [facility] Work Phone: Glucose Test strip (U) [Mass/Vol] Negative Normal [facility]; [facility] Work Phone: Glucose Test strip mass conc (U) Negative Normal [facility] Work Phone: Hemoglobin Ql (U) Negative Normal [facility] Work Phone: Hemoglobin Ql (U) Negative Normal [facility]; [facility] Work Phone: Ketones Ql (U) Negative Normal [facility] Work Phone: Ketones Ql (U) Negative Normal [facility]; [facility] Work Phone: Leukocyte esterase Test strip Ql (U) Negative Normal [facility] Work Phone: Leukocyte esterase Test strip Ql (U) Negative Normal [facility]; [facility] Work Phone: Nitrite Ql (U) Negative Normal [facility] Work Phone: Nitrite Ql (U) Negative Normal [facility]; [facility] Work Phone: pH (U) 7.0 [pH] Normal [facility] Work Phone: Protein Ql (U) Negative Normal [facility] Work Phone: Protein Ql (U) Negative Normal [facility]; [facility] Work Phone: Specific gravity Relative Density (U) 1.010 1 Normal [facility] Work Phone: Urobilinogen mass/time (24H U) Normal Normal [facility] Work Phone: Blood Glucose , Office ([phone])Ordered By: Doris Tan on 09-15-2017 Glucose Glucometer molar conc (BldC) 118 1 Normal [facility] Work Phone: Comment on above: 118 fasting HgA1C , Office ([id number])Ordere d By: Ashley Trinidad on 09-15-2017 Hemoglobin A1c/Hemoglobin.to sharda mass fraction (Bld) 5.2 % Normal 4.6 - 7.1 [facility] Work Phone: Urinalysis, Office ([id number])Or dered By: Doris Tan on 09-15-2017 Bilirubin Ql (U) Small Normal Com[facility] Work Phone: Glucose Test strip mass conc (U) 250 1 Abnormal [facility] Work Phone: Hemoglobin Ql (U) Hemolyzed Large Normal Co m[facility] Work Phone: Ketones Ql (U) 15 mg/dL Abnormal [facility] Work Phone: Leukocyte esterase Test strip Ql (U) Large Normal [facility] Work Phone: Nitrite Ql (U) Positive Normal [facility] Work Phone: Nitrite Ql (U) Positive Normal [facility]; [facility] Work Phone: pH (U) 6 [pH] Abnormal [facility] Work Phone: Protein Ql (U) 100 mg/dL Normal [facility] Work Phone: Specific gravity Relative Density (U) 1.005 1 Normal [facility] Work Phone: Urobilinogen mass/time (24H U) 8 mg/dL Normal [facility] Work Phone: Urine Culture,Comprehensiveo n 09-15-2017 Bacteria identified Cx Nom (U) Final report Normal [facility] Work Phone: Comment on above: PERFORMED BY: [facility] [address] [id number] Information: SRC:UC Bacteria identified Cx Nom (U) MTHREE Normal [facility] Work Phone: Comment on above: More than 3 organism s recovered, none predominant. Please submitanother culture if clinically indicated.Greater than 100,000 colony forming units per mL PERFORMED BY: [facility] [id number] [address] [facility] [id number] Information: SRC: Urinalysis, Office ([id number])Or dered By: Ashley Trinidad on 05-01-2017 Bilirubin Ql (U) Negative Normal [facility] Work Phone: Bilirubin Ql (U) Negative Normal Com[facility]; [facility] Work Phone: Glucose Test strip (U) [Mass/Vol] Negative Normal [facility]; [facility] Work Phone: Glucose Test strip mass conc (U) Negative Normal [facility] Work Phone: Hemoglobin Ql (U) Negative Normal [facility] Work Phone: Hemoglobin Ql (U) Negative Normal Com[facility]; [facility] Work Phone: Ketones Ql (U) Negative Normal [facility] Work Phone: Ketones Ql (U) Negative Normal [facility]; [facility] Work Phone: Leukocyte esterase Test strip Ql (U) Negative Normal [facility] Work Phone: Leukocyte esterase Test strip Ql (U) Negative Normal [facility]; [facility] Work Phone: Nitrite Ql (U) Negative Normal [facility] Work Phone: Nitrite Ql (U) Negative Normal [facility]; [facility] Work Phone: pH (U) 7 [pH] Normal [facility] Work Phone: Protein Ql (U) Negative Normal [facility] Work Phone: Protein Ql (U) Negative Normal [facility]; [facility] Work Phone: Specific gravity Relative Density (U) 1.010 1 Normal [facility] Work Phone: Urobilinogen mass/time (24H U) 2 mg/dL Normal [facility] Work Phone: Urine Culture,Comprehensiveo n 05-01-2017 Bacteria identified Cx Nom (U) Final report Abnormal [facility] Work Phone: Comment on above: PERFORMED BY: [place] [id number] Information: SRC:UR Bacteria identified Cx Nom (U) MUG Normal [facility] Work Phone: Comment on above: Mixed urogenital regino ra1,000 Colonies/mL S = Susceptible; I = Intermediate; R = Resistant P = Positive; N = Negative MICS are expressed in micrograms per mL Antibiotic RSLT#1 RSLT#2 RSLT#3 RSLT#4Amoxicillin/Clavulanic Acid RAmpicillin RCefazolin RCefepime SCeftriaxone SCefuroxime SCephalothin RCiprofloxacin SErtapenem SGentamicin SImipenem SLevofloxacin SNitrofurantoin SPiperacillin RTetracycline STobramycin STrimethoprim/Sulfa R PERFORMED BY: [employer] [employer] [facility] Protection EquipmentCritical access hospital [id number] Information: SRC:UR Bacteria identified Cx Nom (U) Escherichia coli Abnormal [facility] Work Phone: Comment on above: 1,000 Colonies/mL PERFORMED BY: [place] [employer] Environmental Protection EquipmentCritical access hospital [id number] Information: SRC:UR URINE BALTAZAR [place]ULTURE-IDENTIF[place] ([id number])on 04-11-2017 Bacteria identified Cx Nom (U) Final report Normal [facility] Work Phone: Comment on above: PATIENT NOT FASTINGP ERFORMED BY: StyleTreadCritical access hospital [id number] Information: SRC:UC Bacteria identified Cx Nom (U) MUG Normal [facility] Work Phone: Comment on above: Mixed urogenital regino ra25,000-50,000 colony forming units per mL PATIENT NOT FASTINGP ERFORMED BY: DAYRON [facility] [id number] [facility] [id number] Information: SRC:PRAVIN Urinalysis, Office ([id number])Or dered By: Doris Tan on 04-11-2017 Bilirubin Ql (U) Negative Normal [facility] Work Phone: Bilirubin Ql (U) Negative Normal Com[facility]; [facility] Work Phone: Glucose Test strip mass conc (U) 100 1 Abnormal [facility] Work Phone: Hemoglobin Ql (U) Negative Normal [facility] Work Phone: Hemoglobin Ql (U) Negative Normal Com[facility]; [facility] Work Phone: Ketones Ql (U) Negative Normal [facility] Work Phone: Ketones Ql (U) Negative Normal [facility]; [facility] Work Phone: Leukocyte esterase Test strip Ql (U) Negative Normal [facility] Work Phone: Leukocyte esterase Test strip Ql (U) Negative Normal [facility]; [facility] Work Phone: Nitrite Ql (U) Positive Normal [facility] Work Phone: Nitrite Ql (U) Positive Normal [facility]; [facility] Work Phone: pH (U) 7.5 [pH] Normal [facility] Work Phone: Protein Ql (U) Negative Normal [facility] Work Phone: Protein Ql (U) Negative Normal [facility]; [facility] Work Phone: Urobilinogen mass/time (24H U) Normal Normal [facility] Work Phone: Lipid Panel With LDL/HDL Rat ioon 11-16-2016 Cholesterol in HDL mass conc 53 mg/dL Normal [facility] Work Phone: Comment on above: PATIENT WAS FASTINGP ERFORMED BY: DAYRON [facility] [id number] [address] RoadDublin [place] [id number] Cholesterol in LDL mass conc 50 mg/dL Normal 0-99 [facility] Work Phone: Comment on above: PATIENT WAS FASTINGP ERFORMED BY: DAYRON [facility] [id number] [address] RoadDublin [place] [id number] Cholesterol in LDL/Cholesterol in HDL mass ratio 0.9 {ratio_units} Normal 0.0-3.2 [facility] Work Phone: Comment on above: LDL/HDL Ratio Men Wo men 1/2 Avg.Risk 1.0 1.5 Avg.Risk 3.6 3.2 2X Avg.Risk 6.2 5.0 3X Avg.Risk 8.0 6.1 PATIENT WAS FASTINGP ERFORMED BY: DAYRON LabComendoza SanchezNqozoi3127 [address] RoadDublin [place] [id number] Cholesterol in VLDL mass conc 17 mg/dL Normal 5-40 [facility] Work Phone: Comment on above: PATIENT WAS FASTINGP ERFORMED BY: DAYRON [facility] [id number] [address] RoadDublin [place] [id number] Cholesterol mass conc 120 mg/dL Normal 100-199 [facility] Work Phone: Comment on above: PATIENT WAS FASTINGP ERFORMED BY: DAYRON LabComendoza SanchezMdfyxe0919 [address] RoadDublin [place] [id number] Triglyceride mass conc 83 mg/dL Normal 0-149 [facility] Work Phone: Comment on above: PATIENT WAS FASTINGP ERFORMED BY: DAYRON [facility] [id number] [address] RoadDublin [place] [id number] Lipid Panel With LDL/HDL Rat ioon 07-20-2016 Cholesterol in HDL mass conc 63 mg/dL Normal [facility] Work Phone: Comment on above: PATIENT WAS FASTINGP ERFORMED BY: DAYRON [facility] [id number] [address] RoadDublin [place] [id number] Cholesterol in LDL mass conc 82 mg/dL Normal 0-99 [facility] Work Phone: Comment on above: PATIENT WAS FASTINGP ERFORMED BY: DAYRON [id number] [facility] [id number] Cholesterol in LDL/Cholesterol in HDL mass ratio 1.3 {ratio_units} Normal 0.0-3.2 [facility] Work Phone: Comment on above: LDL/HDL Ratio Men Wo men 1/2 Avg.Risk 1.0 1.5 Avg.Risk 3.6 3.2 2X Avg.Risk 6.2 5.0 3X Avg.Risk 8.0 6.1 PATIENT WAS FASTINGP ERFORMED BY: DAYRON Jung6370 [facility] [id number] Cholesterol in VLDL mass conc 35 mg/dL Normal 5-40 [facility] Work Phone: Comment on above: PATIENT WAS FASTINGP ERFORMED BY: DAYRON Jung6370 [facility] [id number] Cholesterol mass conc 180 mg/dL Normal 100-199 [facility] Work Phone: Comment on above: PATIENT WAS FASTINGP ERFORMED BY: DAYRON Jung6370 [facility] [id number] Triglyceride mass conc 173 mg/dL Abnormal 0-149 [facility] Work Phone: Comment on above: PATIENT WAS FASTINGP ERFORMED BY: DAYRON Jung6370 [facility] [id number] Glucose, Serumon 04-22-2016 Glucose mass conc 89 mg/dL Normal 65-99 Com[facility] Work Phone: Comment on above: PATIENT WAS FASTINGP ERFORMED BY: DAYRON Jung6370 [facility] [id number] Lipid Panel With LDL/HDL Rat ioon 04-22-2016 Cholesterol in HDL mass conc 54 mg/dL Normal [facility] Work Phone: Comment on above: According to ATP-III Guidelines, HDL-C >59 mg/dL is considered anegative risk factor for CHD. PATIENT WAS FASTINGP ERFORMED BY: DAYRON [facility] [id number] [address] [facility] [place] [id number] Cholesterol in LDL mass conc 58 mg/dL Normal 0-99 [facility] Work Phone: Comment on above: PATIENT WAS FASTINGP ERFORMED BY: DAYRON [facility] [id number] [address] [facility] [place] [id number] Cholesterol in LDL/Cholesterol in HDL mass ratio 1.1 {ratio_units} Normal 0.0-3.2 [facility] Work Phone: Comment on above: LDL/HDL Ratio Men Wo men 1/2 Avg.Risk 1.0 1.5 Avg.Risk 3.6 3.2 2X Avg.Risk 6.2 5.0 3X Avg.Risk 8.0 6.1 PATIENT WAS FASTINGP ERFORMED BY: DAYRON [facility] [id number] [address] [facility] [place] [id number] Cholesterol in VLDL mass conc 38 mg/dL Normal 5-40 [facility] Work Phone: Comment on above: PATIENT WAS FASTINGP ERFORMED BY: DAYRON [facility] [id number] [address] [facility] [place] [id number] Cholesterol mass conc 150 mg/dL Normal 100-199 [facility] Work Phone: Comment on above: PATIENT WAS FASTINGP ERFORMED BY: DAYRON Lab[facility] Cgrpoa6983 [address] [facility] [place] [id number] Triglyceride mass conc 188 mg/dL Abnormal 0-149 [facility] Work Phone: Comment on above: PATIENT WAS FASTINGP ERFORMED BY: DAYRON [facility] [id number] [address] [facility] [place] [id number] Vital Signs Date Time Vital Sign Value Performing Clinician Facility 03-09-2023 09:09-0400 Body height 167.64 cm Magali Shaw LPN [facility]; [facility] Work Phone: 03-09-2023 09:09-0400 Body mass index (BMI) [Ratio] 27.8 kg/m2 Magali Shaw LPN [facility]; [facility] Work Phone: 03-09-2023 09:09-0400 Body surface area Derived from formula 1.88 m2 Magali Shaw LPN [facility]; [facility] Work Phone: 03-09-2023 09:09-0400 Body temperature 98.1 [degF] Magali Shaw LPN [facility]; [facility] Work Phone: 03-09-2023 09:090400 Body weight 78.13 kg Magali Shaw LPN [facility]; [facility] Work Phone: 03-09-2023 09:09-0400 Diastolic blood pressure 88 mm[Hg] Magali Shaw LPN [facility]; [facility] Work Phone: Comment on above: Patient Position: Sitting; Cuff Location : Left Arm; Cuff Size: Standard 03-09-2023 09:09-0400 Heart rate 113 /min Magali Shaw LPN [facility]; [facility] Work Phone: Comment on above: Pattern: Regular 03-09-2023 09:09-0400 Respiratory rate 16 /min Magali Shaw LPN [facility]; [facility] Work Phone: Comment on above: Pattern: Unlabored 03-09-2023 09:09-0400 SaO2% (BldA) [Mass fraction] 97 % Magali Shaw LPN [facility]; [facility] Work Phone: Comment on above: Room air 03-09-2023 09:09-0400 Systolic blood pressure 138 mm[Hg] Magali Shaw LPN [facility]; [facility] Work Phone: Comment on above: Patient Position: Sitting; Cuff Location : Left Arm; Cuff Size: Standard 10-24-2022 09:29-0400 Body height 167.64 cm [facility]; [facility] Work Phone: 10-24-2022 09:29-0400 Body mass index (BMI) [Ratio] 28.14 kg/m2 [facility]; [facility] Work Phone: 10-24-2022 09:29-0400 Body surface area Derived from formula 1.89 m2 Leola Saldana [facility]; [facility] Work Phone: 10-24-2022 09:29-0400 Body temperature 97.1 [degF] Leola Saldana [facility] Comprehensiv e [facility]; [facility] Work Phone: 10-24-2022 09:29-0400 Body weight 79.[address] [facility]; [facility] Work Phone: 10-24-2022 09:29-0400 Diastolic blood pressure 80 mm[Hg] [facility]; [facility] Work Phone: Comment on above: Patient Position: Sitting; Cuff Location : Left Arm; Cuff Size: Standard 10-24-2022 09:29-0400 Heart rate 170 /min Jordonrigobertobutch [facility]CH[facility]; [facility] Work Phone: Comment on above: Pattern: Regular 10-24-2022 09:29-0400 Respiratory rate 16 /min [facility] Com[facility] e [facility]; [facility] Work Phone: Comment on above: Pattern: Unlabored 10-24-2022 09:29-0400 SaO2% (BldA) [Mass fraction] 96 % [facility]; [facility] Work Phone: Comment on above: Room air 10-24-2022 09:29-0400 Systolic blood pressure 130 mm[Hg] Leola Saldana [facility]; [facility] Work Phone: Comment on above: Patient Position: Sitting; Cuff Location : Left Arm; Cuff Size: Standard 04-25-2022 10:55-0400 Body height 167.64 cm Joycekeegan Patel [facility]; [facility] Work Phone: Comment on above: pt wearing boot on foot from surgery did nt want to weigh today due to extra wt 04-25-2022 10:55-0400 Body mass index (BMI) [Ratio] 26.97 kg/m2 Joyce Patel [facility]; [facility] Work Phone: Comment on above: pt wearing boot on foot from surgery did nt want to weigh today due to extra wt 04-25-2022 10:55-0400 Body surface area Derived from formula 1.85 m2 Joyce Patel [facility]; [facility] Work Phone: Comment on above: pt wearing boot on foot from surgery did nt want to weigh today due to extra wt 04-25-2022 10:55-0400 Body temperature 97.3 [degF] Joyce Patel [facility] Comprehensiv e [facility]; [facility] Work Phone: Comment on above: Method: Infrared pt wearing boot on f oot from surgery didnt want to weigh today due to extra wt 04-25-2022 10:55-0400 Body weight 75.[address] [facility]; [facility] Work Phone: Comment on above: pt wearing boot on foot from surgery did nt want to weigh today due to extra wt 04-25-2022 10:55-0400 Diastolic blood pressure 80 mm[Hg] Joyce Patel [facility]; [facility] Work Phone: Comment on above: Patient Position: Sitting; Cuff Location : Left Arm; Cuff Size: Standard pt wearing boot on f oot from surgery didnt want to weigh today due to extra wt 04-25-2022 10:55-0400 Heart rate 123 /min Joyce Patel [facility]; [facility] Work Phone: Comment on above: Pattern: Regular pt wearing boot on f oot from surgery didnt want to weigh today due to extra wt 04-25-2022 10:55-0400 Respiratory rate 20 /min Joyce Patel [facility] Comprehensiv e [facility]; [facility] Work Phone: Comment on above: Pattern: Unlabored pt wearing boot on f oot from surgery didnt want to weigh today due to extra wt 04-25-2022 10:55-0400 SaO2% (BldA) [Mass fraction] 95 % Joyce Patel CMA [facility]; [facility] Work Phone: Comment on above: Room air pt wearing boot on f oot from surgery didnt want to weigh today due to extra wt 04-25-2022 10:55-0400 Systolic blood pressure 123 mm[Hg] Joyce Patel [employer] [facility]; [facility] Work Phone: Comment on above: Patient Position: Sitting; Cuff Location : Left Arm; Cuff Size: Standard pt wearing boot on f oot from surgery didnt want to weigh today due to extra wt 03-14-2022 10:56-0400 Body height 167.64 cm Violet Daly DO Work Phone: [facility]; [facility] Work Phone: 03-14-2022 10:56-0400 Body mass index (BMI) [Ratio] 26.97 kg/m2 Violet Daly DO Work Phone: [facility]; [facility] Work Phone: 03-14-2022 10:56-0400 Body surface area Derived from formula 1.85 m2 Violet Daly DO Work Phone: [facility]; [facility] Work Phone: 03-14-2022 10:56-0400 Body temperature 96.9 [degF] Violet Daly DO Work Phone: [facility]; [facility] Work Phone: Comment on above: Method: Oral 03-14-2022 10:56-0400 Body weight 75.81 kg Violet Daly DO Work Phone: [facility]; [facility] Work Phone: 03-14-2022 10:56-0400 Diastolic blood pressure 80 mm[Hg] Violet Daly DO Work Phone: [facility]; [facility] Work Phone: Comment on above: Patient Position: Sitting; Cuff Location : Left Arm; Cuff Size: Standard 03-14-2022 10:56-0400 Heart rate 102 /min Violet Barahonaon DO Work Phone: [facility]; Comprehensive Internal Medicine Work Phone: Comment on above: Pattern: Regular 03-14-2022 10:56-0400 Respiratory rate 16 /min Violet Andrade DO Work Phone: [facility]; [facility] Work Phone: Comment on above: Pattern: Unlabored 03-14-2022 10:56-0400 SaO2% (BldA) [Mass fraction] 99 % Violet Barahonaon DO Work Phone: [facility]; [facility] Work Phone: Comment on above: Room air 03-14-2022 10:56-0400 Systolic blood pressure 132 mm[Hg] Violet Andrade DO Work Phone: [facility]; [facility] Work Phone: Comment on above: Patient Position: Sitting; Cuff Location : Left Arm; Cuff Size: Standard 01-20-2022 08:47-0400 Body height 167.64 cm Magali Shaw LPN [facility]; [facility] Work Phone: 01-20-2022 08:47-0400 Body mass index (BMI) [Ratio] 25.72 kg/m2 Magali Shaw LPN [facility]; [facility] Work Phone: 01-20-2022 08:47-0400 Body surface area Derived from formula 1.82 m2 Magali Shaw LPN [facility]; [facility] Work Phone: 01-20-2022 08:47-0400 Body temperature 97.6 [degF] Magali Shaw LPN [facility]; [facility] Work Phone: 01-20-2022 08:47-0400 Body weight 72.29 kg Magali Shaw LPN [facility]; [facility] Work Phone: 01-20-2022 08:47-0400 Diastolic blood pressure 98 mm[Hg] Magali Shaw ASHLI [facility]; [facility] Work Phone: Comment on above: Patient Position: Sitting; Cuff Location : Left Arm; Cuff Size: Standard 01-20-2022 08:47-0400 Heart rate 106 /min Magali Shaw [employer] [facility]; [facility] Work Phone: Comment on above: Pattern: Regular 01-20-2022 08:47-0400 Respiratory rate 16 /min Magali Shaw [employer] [facility]; [facility] Work Phone: Comment on above: Pattern: Unlabored 01-20-2022 08:47-0400 SaO2% (BldA) [Mass fraction] 97 % Magali Shaw ASHLI [facility]; [facility] Work Phone: Comment on above: Room air 01-20-2022 08:47-0400 Systolic blood pressure 128 mm[Hg] Magalilauren Shaw ASHLI [facility]; [facility] Work Phone: Comment on above: Patient Position: Sitting; Cuff Location : Left Arm; Cuff Size: Standard 10-21-2021 07:52-0400 Body height 167.64 cm Joyce Patel [facility]; [facility] Work Phone: 10-21-2021 07:52-0400 Body mass index (BMI) [Ratio] 26.37 kg/m2 Joyce Patel [facility]; [facility] Work Phone: 10-21-2021 07:52-0400 Body surface area Derived from formula 1.84 m2 Joyce Patel [facility]; [facility] Work Phone: 10-21-2021 07:52-0400 Body temperature 97.3 [degF] Joyce Patel [facility] Comprehensiv e [facility]; [facility] Work Phone: Comment on above: Method: Infrared 10-21-2021 07:52-0400 Body weight 74.11 kg Joyce Patel [facility]; [facility] Work Phone: 10-21-2021 07:52-0400 Diastolic blood pressure 90 mm[Hg] Joyce Patel [facility]; [facility] Work Phone: Comment on above: Patient Position: Sitting; Cuff Location : Left Arm; Cuff Size: Standard 10-21-2021 07:52-0400 Heart rate 112 /min Joyce Patel [facility]; [facility] Work Phone: Comment on above: Pattern: Regular 10-21-2021 07:52-0400 Respiratory rate 18 /min Joyce Patel [facility] Comprehens[facility] e [facility]; [facility] Work Phone: Comment on above: Pattern: Unlabored 10-21-2021 07:52-0400 SaO2% (BldA) [Mass fraction] 98 % Joyce Patel [facility]; [facility] Work Phone: Comment on above: Room air 10-21-2021 07:52-0400 Systolic blood pressure 134 mm[Hg] Joyce Patel [facility]; [facility] Work Phone: Comment on above: Patient Position: Sitting; Cuff Location : Left Arm; Cuff Size: Standard 06-02-2021 12:11050 Body height 167.64 cm Magali Shaw LPN [facility]; [facility] Work Phone: 06-02-2021 12:11-0500 Body mass index (BMI) [Ratio] 26.37 kg/m2 Magali Shaw LPN [facility]; [facility] Work Phone: 06-02-2021 12:11-0500 Body surface area Derived from formula 1.84 m2 Magali Shaw LPN [facility]; [facility] Work Phone: 06-02-2021 12:11-0500 Body temperature 97.8 [degF] Magali Shaw LPN [facility]; [facility] Work Phone: Comment on above: Method: Temporal 06-02-2021 [id number] Body weight 74.11 kg Magali Shaw LPN [facility]; [facility] Work Phone: 06-02-2021 12:11-0500 Diastolic blood pressure 92 mm[Hg] Magali Shaw LPN [facility]; [facility] Work Phone: Comment on above: Patient Position: Sitting; Cuff Location : Left Arm; Cuff Size: Standard 06-02-2021 12:11-0500 Heart rate 108 /min Magali Shaw LPN [facility]; [facility] Work Phone: Comment on above: Pattern: Regular 06-02-2021 12:11-0500 Respiratory rate 16 /min Magali Shaw LPN [facility]; [facility] Work Phone: Comment on above: Pattern: Unlabored 06-02-2021 12:11-0500 SaO2% (BldA) [Mass fraction] 98 % Magali Shaw LPN [facility]; [facility] Work Phone: Comment on above: Room air 06-02-2021 12:11-0500 Systolic blood pressure 130 mm[Hg] Magali Shaw [employer] [facility]; [facility] Work Phone: Comment on above: Patient Position: Sitting; Cuff Location : Left Arm; Cuff Size: Standard 03-01-2021 15:14-0400 Body height 167.64 cm Joyce Patel [facility]; [facility] Work Phone: 03-01-2021 15:14-0400 Body mass index (BMI) [Ratio] 25.36 kg/m2 Joyce Patel [facility]; [facility] Work Phone: 03-01-2021 15:14-0400 Body surface area Derived from formula 1.81 m2 Joyce Patel [facility]; [facility] Work Phone: 03-01-2021 15:14-0400 Body temperature 97.3 [degF] Joyce Patel [facility] Comprehens[facility]; [facility] Work Phone: Comment on above: Method: Infrared 03-01-2021 15:14-0400 Body weight 71.27 kg Joyce Patel [facility]; [facility] Work Phone: 03-01-2021 15:14-0400 Diastolic blood pressure 82 mm[Hg] Joyce Patel [facility]; [facility] Work Phone: Comment on above: Patient Position: Sitting; Cuff Location : Left Arm; Cuff Size: Standard 03-01-2021 15:14-0400 Heart rate 109 /min Joyce Patel [facility]; [facility] Work Phone: Comment on above: Pattern: Regular 03-01-2021 15:14-0400 Respiratory rate 196 /min Joyce Patel [facility] Comprehensiv e [facility]; [facility] Work Phone: Comment on above: Pattern: Unlabored 03-01-2021 15:14-0400 SaO2% (BldA) [Mass fraction] 98 % Joyce Patel [facility]; [facility] Work Phone: Comment on above: Room air 03-01-2021 15:14-0400 Systolic blood pressure 134 mm[Hg] Joyce Patel [facility]; [facility] Work Phone: Comment on above: Patient Position: Sitting; Cuff Location : Left Arm; Cuff Size: Standard 12-31-2020 08:30-0400 Body height 167.64 cm Joyce Patel [facility]; [facility] Work Phone: 12-31-2020 08:30-0400 Body mass index (BMI) [Ratio] 25.84 kg/m2 Joyce Patel [facility]; [facility] Work Phone: 12-31-2020 08:30-0400 Body surface area Derived from formula 1.82 m2 Joyce Patel [facility]; [facility] Work Phone: 12-31-2020 08:30-0400 Body temperature 97.1 [degF] Joyce Patel [employer] Com[facility]; [facility] Work Phone: Comment on above: Method: Infrared 12-31-2020 08:30-0400 Body weight 72.63 kg Joyce Patel [facility]; [facility] Work Phone: 12-31-2020 08:30-0400 Diastolic blood pressure 80 mm[Hg] Joyce Patel CMA [facility]; [facility] Work Phone: Comment on above: Patient Position: Sitting; Cuff Location : Left Arm; Cuff Size: Standard 12-31-2020 08:30-0400 Heart rate 121 /min Joyce Patel [facility]; [facility] Work Phone: Comment on above: Pattern: Regular 12-31-2020 08:30-0400 Respiratory rate 18 /min Joyce Patel [facility] Com[facility]; [facility] Work Phone: Comment on above: Pattern: Unlabored 12-31-2020 08:30-0400 SaO2% (BldA) [Mass fraction] 98 % Joyce Patel [facility]; [facility] Work Phone: Comment on above: Room air 12-31-2020 08:30-0400 Systolic blood pressure 132 mm[Hg] Joyce Patel [facility]; [facility] Work Phone: Comment on above: Patient Position: Sitting; Cuff Location : Left Arm; Cuff Size: Standard 11-09-2020 09:02-0400 Body height 167.64 cm Joyce Patel [facility]; [facility] Work Phone: 11-09-2020 09:02-0400 Body mass index (BMI) [Ratio] 25.84 kg/m2 Joyce Patel [facility]; [facility] Work Phone: 11-09-2020 09:02-0400 Body surface area Derived from formula 1.82 m2 Joyce Patel [facility]; [facility] Work Phone: 11-09-2020 09:02-0400 Body temperature 97.1 [degF] Joyce Patel [facility] Com[facility]; [facility] Work Phone: Comment on above: Method: Infrared 11-09-2020 09:02-0400 Body weight 72.63 kg Joyce Patel [facility]; [facility] Work Phone: 11-09-2020 09:02-0400 Diastolic blood pressure 70 mm[Hg] Joyce Patel [facility]; [facility] Work Phone: Comment on above: Patient Position: Sitting; Cuff Location : Left Arm; Cuff Size: Standard 11-09-2020 09:02-0400 Heart rate 123 /min Joyce Patel [facility]; [facility] Work Phone: Comment on above: Pattern: Regular 11-09-2020 09:02-0400 Respiratory rate 18 /min Joyce Patel [facility] Com[facility]; [facility] Work Phone: Comment on above: Pattern: Unlabored 11-09-2020 09:02-0400 SaO2% (BldA) [Mass fraction] 99 % Joyec Patel [facility]; [facility] Work Phone: Comment on above: Room air 11-09-2020 09:02-0400 Systolic blood pressure 128 mm[Hg] Joyce Patel [facility]; [facility] Work Phone: Comment on above: Patient Position: Sitting; Cuff Location : Left Arm; Cuff Size: Standard 07-13-2020 09:36-0500 BMI (Body Mass Index) 26.01 kg/m2 [facility]; [facility] Work Phone: 07-13-2020 09:36-0500 Body weight 73.09 kg [facility]; [facility] Work Phone: 07-13-2020 09:36-0500 BSA (Body Surface Area) 1.82 m2 [facility]; [facility] Work Phone: 07-13-2020 09:36-0500 Height 167.64 cm [facility]; [facility] Work Phone: 06-10-2020 08:38-0500 BMI (Body Mass Index) 26.01 kg/m2 Doris Slarb [employer] [facility] Work Phone: 06-10-2020 08:38-0500 Body Temperature 96.8 [degF] Doris Alvinrb [employer] [facility] Work Phone: 06-10-2020 08:38-0500 Body weight 73.09 kg Doris Tan [employer] [facility] Work Phone: 06-10-2020 08:38-0500 BP Diastolic 76 mm[Hg] Doris Slarb [employer] [facility] Work Phone: Comment on above: Patient Position: Sitting; Cuff Location : Left Arm; Cuff Size: Standard 06-10-2020 08:38-0500 BP Systolic 122 mm[Hg] Doris Alvinrb [employer] [facility] Work Phone: Comment on above: Patient Position: Sitting; Cuff Location : Left Arm; Cuff Size: Standard 06-10-2020 08:38-0500 BSA (Body Surface Area) 1.82 m2 Doris Alvinrb [employer] [facility] Work Phone: 06-10-2020 08:38-0500 Height 167.64 cm Doris Alvinrb [employer] [facility] Work Phone: 06-10-2020 08:38-0500 Pulse (Heart Rate) 111 /min Doris Tan [employer] Comprehens[facility] e [facility] Medicine Work Phone: Comment on above: Pattern: Regular 06-10-2020 08:38-0500 Pulse Oximetry 99 % Violet Andrade [facility] Work Phone: Comment on above: Room air 06-10-2020 08:38-0500 Respiratory Rate 16 /min Doris Alvinrb [employer] [facility] Work Phone: Comment on above: Pattern: Unlabored 06-10-2020 08:38-0500 SaO2% (BldA) [Mass fraction] 99 % Drois Alvinrb [employer] [facility]; [facility] Work Phone: Comment on above: Room air 05-06-2020 08:12-0400 BMI (Body Mass Index) 25.34 kg/m2 Milana Siddiqui LPN [facility] Work Phone: 05-06-2020 08:12-0400 Body Temperature 97 [degF] Milana Siddiqui [facility] Internal Medicine Work Phone: Comment on above: Method: Thermal Scan 05-06-2020 08:12-0400 Body weight 71.22 kg Milana Siddiqui [facility] Internal Medicine Work Phone: 05-06-2020 08:12-0400 BP Diastolic 80 mm[Hg] Milana Siddiqui [facility] Work Phone: Comment on above: Patient Position: Sitting; Cuff Location : Left Arm; Cuff Size: Standard 05-06-2020 08:12-0400 BP Systolic 108 mm[Hg] Milana Siddiqui [facility] Internal Medicine Work Phone: Comment on above: Patient Position: Sitting; Cuff Location : Left Arm; Cuff Size: Standard 05-06-2020 08:12-0400 BSA (Body Surface Area) 1.8 m2 Milana Siddiqui [facility] Internal Medicine Work Phone: 05-06-2020 08:12-0400 Height 167.64 cm Milana Siddiqui [facility] Internal Medicine Work Phone: 05-06-2020 08:12-0400 Pulse (Heart Rate) 91 /min Milana Siddiqui [facility] Comprehens e Internal Medicine Work Phone: Comment on above: Pattern: Regular 04-15-2020 08:01-0400 BMI (Body Mass Index) 25.34 kg/m2 Milana Siddiqui [facility] Work Phone: 04-15-2020 08:01-0400 Body Temperature 98.2 [degF] Milana Siddiqui [facility] Internal Medicine Work Phone: Comment on above: Method: Thermal Scan 04-15-2020 08:010400 Body weight 71.22 kg Milana Siddiqui [facility] Internal Medicine Work Phone: 04-15-2020 08:01-0400 BP Diastolic 76 mm[Hg] Milana Siddiqui [facility] Work Phone: Comment on above: Patient Position: Sitting; Cuff Location : Left Arm; Cuff Size: Standard 04-15-2020 08:01-0400 BP Systolic 120 mm[Hg] [facility] Internal Medicine Work Phone: Comment on above: Patient Position: Sitting; Cuff Location : Left Arm; Cuff Size: Standard 04-15-2020 08:01-0400 BSA (Body Surface Area) 1.8 m2 [facility] Work Phone: 04-15-2020 08:01-0400 Height 167.[address] [facility] Internal Medicine Work Phone: 04-15-2020 08:01-0400 Pulse (Heart Rate) 102 /min [facility] Comprehens e Internal Medicine Work Phone: Comment on above: Pattern: Regular 03-20-2020 12:22-0400 BMI (Body Mass Index) 25.18 kg/m2 Joyce Patel [facility] Internal Medicine Work Phone: Comment on above: no vs taken as this is phone encounter d ue to covid 03-20-2020 12:22-0400 Body weight 70.[address] [facility] Internal Medicine Work Phone: Comment on above: no vs taken as this is phone encounter d ue to covid 03-20-2020 12:22-0400 BSA (Body Surface Area) 1.8 m2 [facility]egan [facility] Work Phone: Comment on above: no vs taken as this is phone encounter d ue to covid 03-20-2020 12:22-0400 Height 167.64 cm Joyce [facility] Work Phone: Comment on above: no vs taken as this is phone encounter d ue to covid 03-18-2020 08:28-0400 BMI (Body Mass Index) 25.18 kg/m2 [facility] Internal Medicine Work Phone: 03-18-2020 08:28-0400 Body weight 70.[address] [facility] Internal Medicine Work Phone: 03-18-2020 08:28-0400 BP Diastolic 69 mm[Hg] [facility] Work Phone: Comment on above: Patient Position: Sitting; Cuff Location : Left Arm; Cuff Size: Standard 03-18-2020 08:28-0400 BP Systolic 101 mm[Hg] [facility] Internal Medicine Work Phone: Comment on above: Patient Position: Sitting; Cuff Location : Left Arm; Cuff Size: Standard 03-18-2020 08:28-0400 BSA (Body Surface Area) 1.8 m2 [facility] Work Phone: 03-18-2020 08:28-0400 Height 167.[address] [facility] Internal Medicine Work Phone: 03-18-2020 08:28-0400 Pulse (Heart Rate) 70 /min [facility] Comprehens e Internal Medicine Work Phone: Comment on above: Pattern: Regular 12-30-2019 08:52-0400 BMI (Body Mass Index) 25.18 kg/m2 Aranza Oakley RN [facility] Work Phone: 12-30-2019 08:52-0400 Body Temperature 97.7 [degF] Aranza Oakley RN [facility] Work Phone: 12-30-2019 08:52-0400 Body weight 70.76 kg Aranza Oakley RN [facility] Work Phone: 12-30-2019 08:52-0400 BP Diastolic 86 mm[Hg] Aranza Oakley RN [facility] Work Phone: Comment on above: Patient Position: Sitting; Cuff Location : Left Arm; Cuff Size: Standard 12-30-2019 08:52-0400 BP Systolic 124 mm[Hg] Aranza Oakley RN [facility] Work Phone: Comment on above: Patient Position: Sitting; Cuff Location : Left Arm; Cuff Size: Standard 12-30-2019 08:52-0400 BSA (Body Surface Area) 1.8 m2 Aranza Oakley RN [facility] Work Phone: 12-30-2019 08:52-0400 Height 167.64 cm Aranza Oakley RN [facility] Work Phone: 12-30-2019 08:52-0400 Pulse (Heart Rate) 96 /min Aranza Missy Adin OROURKE [facility] Work Phone: Comment on above: Pattern: Regular 11-18-2019 08:33-0400 BMI (Body Mass Index) 25.22 kg/m2 Aranza Oakley RN [facility] Work Phone: 11-18-2019 08:33-0400 Body weight 70.88 kg Aranza Louis Adin RN [facility] Work Phone: 11-18-2019 08:33-0400 BSA (Body Surface Area) 1.8 m2 Aranza Missy Adin RN [facility] Work Phone: 11-18-2019 08:33-0400 Height 167.64 cm Aranza Missy Adin OROURKE [facility] Work Phone: 09-11-2019 08:49-0500 BMI (Body Mass Index) 26.03 kg/m2 Magalilauren Shaw ASHLI [facility] Work Phone: 09-11-2019 08:49-0500 Body Temperature 98 [degF] Magalilauren Shaw [employer] [facility] Work Phone: Comment on above: Method: Temporal 09-11-2019 08:49-0500 Body weight 73.14 kg Magali Colin LPN [facility] Work Phone: 09-11-2019 08:49-0500 BP Diastolic 82 mm[Hg] Magali Colin LPN [facility] Work Phone: Comment on above: Patient Position: Sitting; Cuff Location : Left Arm; Cuff Size: Standard 09-11-2019 08:49-0500 BP Systolic 118 mm[Hg] Magali Colin [employer] [facility] Work Phone: Comment on above: Patient Position: Sitting; Cuff Location : Left Arm; Cuff Size: Standard 09-11-2019 08:49-0500 BSA (Body Surface Area) 1.83 m2 Magali Colin LPN [facility] Work Phone: 09-11-2019 08:49-0500 Height 167.64 cm Magali Shaw ASHLI [facility] Work Phone: 09-11-2019 08:49-0500 Pulse (Heart Rate) 95 /min Magali Shaw ASHLI [facility] Work Phone: Comment on above: Pattern: Regular 09-11-2019 08:49-0500 Pulse Oximetry 99 % Violet Andrade [facility] Internal Medicine Work Phone: Comment on above: Room air 09-11-2019 08:49-0500 Respiratory Rate 16 /min Magali Shaw ASHLI [facility] Internal Medicine Work Phone: Comment on above: Pattern: Unlabored 09-11-2019 08:49-0500 SaO2% (BldA) [Mass fraction] 99 % Magalilauren Lealpaul CORNELIUS [facility]; [facility] Work Phone: Comment on above: Room air 09-06-2019 10:41-0500 BMI (Body Mass Index) 25.66 kg/m2 Doris Esquivelzeferino SOMERSN [facility] Internal Medicine Work Phone: 09-06-2019 10:41-0500 Body Temperature 97.5 [degF] Doris Alvinrb [employer] [facility] Internal Medicine Work Phone: 09-06-2019 10:41-0500 Body weight 72.12 kg Doris Slarb [employer] [facility] Internal Medicine Work Phone: 09-06-2019 10:41-0500 BP Diastolic 72 mm[Hg] Doris Slarb [employer] [facility] Internal Medicine Work Phone: Comment on above: Patient Position: Sitting; Cuff Location : Left Arm; Cuff Size: Standard 09-06-2019 10:41-0500 BP Systolic 116 mm[Hg] Doris Slarb [employer] [facility] Internal Medicine Work Phone: Comment on above: Patient Position: Sitting; Cuff Location : Left Arm; Cuff Size: Standard 09-06-2019 10:41-0500 BSA (Body Surface Area) 1.81 m2 Doris Slarb [employer] [facility] Internal Medicine Work Phone: 09-06-2019 10:41-0500 Height 167.64 cm Doris Tan LPN [facility] Work Phone: 09-06-2019 10:41-0500 Pulse (Heart Rate) 112 /min Doris Tan LPN [facility] Work Phone: Comment on above: Pattern: Regular 09-06-2019 10:41-0500 Pulse Oximetry 98 % Violet Andrade [facility] Work Phone: Comment on above: Room air 09-06-2019 10:41-0500 Respiratory Rate 16 /min Doris Tan LPN [facility] Work Phone: Comment on above: Pattern: Unlabored 09-06-2019 10:41-0500 SaO2% (BldA) [Mass fraction] 98 % Doris Tan [employer]ING [employer]ACH [facility]; [facility] Work Phone: Comment on above: Room air 06-24-2019 09:32-0500 BMI (Body Mass Index) 25.66 kg/m2 Joyce Patel [facility] Work Phone: 06-24-2019 09:32-0500 Body Temperature 97.2 [degF] Joyce Patel [facility] Work Phone: Comment on above: Method: Temporal 06-24-2019 09:32-0500 Body weight 72.12 kg Joyce Patel [facility] Work Phone: 06-24-2019 09:32-0500 BP Diastolic 90 mm[Hg] Joyce Patel [facility] Work Phone: Comment on above: Patient Position: Sitting; Cuff Location : Left Arm; Cuff Size: Standard 06-24-2019 09:32-0500 BP Systolic 125 mm[Hg] Joyce Patel [facility] Work Phone: Comment on above: Patient Position: Sitting; Cuff Location : Left Arm; Cuff Size: Standard 06-24-2019 09:32-0500 BSA (Body Surface Area) 1.81 m2 Joyce Patel [facility] Work Phone: 06-24-2019 09:32-0500 Height 167.64 cm Joyce Patel CMA [facility] Work Phone: 06-24-2019 09:32-0500 Pulse (Heart Rate) 109 /min Joyce Patel CMA [facility] Work Phone: Comment on above: Pattern: Regular 06-24-2019 09:32-0500 Pulse Oximetry 99 % Violet Andrade [facility] Work Phone: Comment on above: Room air 06-24-2019 09:32-0500 Respiratory Rate 18 /min Joyce Patel CMA [facility] Work Phone: Comment on above: Pattern: Unlabored 06-24-2019 09:32-0500 SaO2% (BldA) [Mass fraction] 99 % Joyce Patel [facility]; [facility] Work Phone: Comment on above: Room air 02-19-2019 08:54-0400 BMI (Body Mass Index) 24.86 kg/m2 Aranza Oakley RN [facility] Work Phone: 02-19-2019 08:54-0400 Body Temperature 98.2 [degF] Aranza Oakley RN [facility] Work Phone: Comment on above: Method: Temporal 02-19-2019 08:54-0400 Body weight 69.85 kg Aranza Oakley RN [facility] Work Phone: 02-19-2019 08:54-0400 BP Diastolic 78 mm[Hg] Aranza Oakley RN [facility] Work Phone: Comment on above: Patient Position: Sitting; Cuff Location : Left Arm; Cuff Size: Standard 02-19-2019 08:54-0400 BP Systolic 124 mm[Hg] Aranza Oakley RN [facility] Work Phone: Comment on above: Patient Position: Sitting; Cuff Location : Left Arm; Cuff Size: Standard 02-19-2019 08:54-0400 BSA (Body Surface Area) 1.79 m2 Aranza L Long RN [facility] Work Phone: 02-19-2019 08:54-0400 Height 167.64 cm Aranza Oakley RN [facility] Work Phone: 02-19-2019 08:54-0400 Pulse (Heart Rate) 72 /min Aranza Oakley RN [facility] Work Phone: Comment on above: Pattern: Regular 02-19-2019 08:54-0400 Pulse Oximetry 98 % Violet Andrade [facility] Work Phone: Comment on above: Room air 02-19-2019 08:54-0400 Respiratory Rate 16 /min Aranza Oakley RN [facility] Work Phone: Comment on above: Pattern: Unlabored 02-19-2019 08:54-0400 SaO2% (BldA) [Mass fraction] 98 % Aranza Oakley RN [facility]; [facility] Work Phone: Comment on above: Room air 12-20-2018 07:53-0400 BMI (Body Mass Index) 24.86 kg/m2 Joyce Patel [facility] Work Phone: 12-20-2018 07:53-0400 Body Temperature 98.4 [degF] Joyce Patel [facility] Work Phone: Comment on above: Method: Temporal 12-20-2018 07:53-0400 Body weight 69.85 kg Joyce Patel [facility] Work Phone: 12-20-2018 07:53-0400 BP Diastolic 84 mm[Hg] Joyce Patel [facility] Work Phone: Comment on above: Patient Position: Sitting; Cuff Location : Left Arm; Cuff Size: Standard 12-20-2018 07:53-0400 BP Systolic 124 mm[Hg] Joyce Patel [facility] Work Phone: Comment on above: Patient Position: Sitting; Cuff Location : Left Arm; Cuff Size: Standard 12-20-2018 07:53-0400 BSA (Body Surface Area) 1.79 m2 Joyce Patel [facility] Work Phone: 12-20-2018 07:53-0400 Height 167.64 cm Joyce Patel CMA [facility] Work Phone: 12-20-2018 07:53-0400 Pulse (Heart Rate) 110 /min Joyce Patel CMA [facility] Work Phone: Comment on above: Pattern: Regular 12-20-2018 07:53-0400 Pulse Oximetry 96 % Violet Andrade [facility] Work Phone: Comment on above: Room air 12-20-2018 07:53-0400 Respiratory Rate 20 /min Joyce Patel CMA [facility] Work Phone: Comment on above: Pattern: Unlabored 12-20-2018 07:53-0400 SaO2% (BldA) [Mass fraction] 96 % Joyce Patel [employer] [facility]; [facility] Work Phone: Comment on above: Room air 12-20-2018 07:53-0400 Weight 69.85 kg Violet Andrade [facility] Work Phone: 08-21-2018 08:01-0500 BMI (Body Mass Index) 24.69 kg/m2 Kasia Hugo RN [facility] Work Phone: 08-21-2018 08:01-0500 Body weight 69.4 kg Kasia Hugo RN [facility] Work Phone: 08-21-2018 08:01-0500 BP Diastolic 80 mm[Hg] Kasia Hugo RN [facility] Work Phone: Comment on above: Patient Position: Sitting; Cuff Location : Left Arm; Cuff Size: Standard 08-21-2018 08:01-0500 BP Systolic 122 mm[Hg] Kasia Hugo RN [facility] Work Phone: Comment on above: Patient Position: Sitting; Cuff Location : Left Arm; Cuff Size: Standard 08-21-2018 08:01-0500 BSA (Body Surface Area) 1.79 m2 Kasia Hugo RN [facility] Work Phone: 08-21-2018 08:01-0500 Height 167.64 cm Kasia Hugo RN [facility] Work Phone: 08-21-2018 08:01-0500 Pulse (Heart Rate) 115 /min Kasia Hugo RN [facility] Work Phone: Comment on above: Pattern: Regular 08-21-2018 08:01-0500 Pulse Oximetry 98 % Violet Andrade [facility] Work Phone: Comment on above: Room air 08-21-2018 08:01-0500 Respiratory Rate 18 /min Kasia Hugo RN [facility] Work Phone: Comment on above: Pattern: Unlabored 08-21-2018 08:01-0500 SaO2% (BldA) [Mass fraction] 98 % Kasia Hugo RN [facility]; [facility] Work Phone: Comment on above: Room air 08-21-2018 08:01-0500 Weight 69.4 kg Violet Barahonaon [facility] Work Phone: 05-17-2018 07:05-0400 BMI (Body Mass Index) 25.04 kg/m2 Kasia Hugo RN [facility] Work Phone: 05-17-2018 07:05-0400 Body weight 70.36 kg Kasia Hugo RN [facility] Work Phone: 05-17-2018 07:05-0400 BP Diastolic 84 mm[Hg] Kasia Hugo RN [facility] Work Phone: Comment on above: Patient Position: Sitting; Cuff Location : Left Arm; Cuff Size: Large 05-17-2018 07:05-0400 BP Systolic 122 mm[Hg] Kasia Hugo RN [facility] Work Phone: Comment on above: Patient Position: Sitting; Cuff Location : Left Arm; Cuff Size: Large 05-17-2018 07:05-0400 BSA (Body Surface Area) 1.8 m2 Kasia Hugo RN [facility] Work Phone: 05-17-2018 07:05-0400 Height 167.64 cm Kasia Hugo RN [facility] Work Phone: 05-17-2018 07:05-0400 Pulse (Heart Rate) 106 /min Kasia Hugo RN [facility] Work Phone: Comment on above: Pattern: Regular 05-17-2018 07:05-0400 Pulse Oximetry 98 % Violet Andrade [facility] Work Phone: Comment on above: Room air 05-17-2018 07:05-0400 Respiratory Rate 18 /min Kasia Hugo RN [facility] Work Phone: Comment on above: Pattern: Unlabored 05-17-2018 07:05-0400 SaO2% (BldA) [Mass fraction] 98 % Kasia Hugo RN [facility]; [facility] Work Phone: Comment on above: Room air 05-17-2018 07:05-0400 Weight 70.36 kg Violet Andrade [facility] Work Phone: 02-08-2018 07:08-0400 BMI (Body Mass Index) 25.5 kg/m2 Kasia Hugo RN [facility] Work Phone: 02-08-2018 07:08-0400 Body weight 71.67 kg Kasia Hugo RN [facility] Work Phone: 02-08-2018 07:08-0400 BP Diastolic 82 mm[Hg] Kasia Hugo RN [facility] Work Phone: Comment on above: Patient Position: Sitting; Cuff Location : Left Arm; Cuff Size: Standard 02-08-2018 07:08-0400 BP Systolic 124 mm[Hg] Kasia Hugo RN [facility] Work Phone: Comment on above: Patient Position: Sitting; Cuff Location : Left Arm; Cuff Size: Standard 02-08-2018 07:08-0400 BSA (Body Surface Area) 1.81 m2 Kasia Hugo RN [facility] Work Phone: 02-08-2018 07:08-0400 Height 167.64 cm Kasia Hugo RN [facility] Work Phone: 02-08-2018 07:08-0400 Pulse (Heart Rate) 106 /min Kasia Hugo RN [facility] Work Phone: Comment on above: Pattern: Regular 02-08-2018 07:08-0400 Pulse Oximetry 96 % Violet Andrade [facility] Work Phone: Comment on above: Room air 02-08-2018 07:08-0400 Respiratory Rate 18 /min Kasia Hugo RN [facility] Work Phone: Comment on above: Pattern: Unlabored 02-08-2018 07:08-0400 SaO2% (BldA) [Mass fraction] 96 % Kasia Hugo RN [facility]; [facility] Work Phone: Comment on above: Room air 02-08-2018 07:08-0400 Weight 71.67 kg Violet Andrade [facility] Work Phone: 11-09-2017 07:39-0400 BMI (Body Mass Index) 27.52 kg/m2 Kasia Hugo RN [facility] Work Phone: 11-09-2017 07:39-0400 Body weight 77.34 kg Kasia Hugo RN [facility] Work Phone: 11-09-2017 07:39-0400 BP Diastolic 86 mm[Hg] Kasia Hugo RN [facility] Work Phone: Comment on above: Patient Position: Sitting; Cuff Location : Left Arm; Cuff Size: Large 11-09-2017 07:39-0400 BP Systolic 142 mm[Hg] Kasia Hugo RN [facility] Work Phone: Comment on above: Patient Position: Sitting; Cuff Location : Left Arm; Cuff Size: Large 11-09-2017 07:39-0400 BSA (Body Surface Area) 1.87 m2 Kasia Hugo RN [facility] Work Phone: 11-09-2017 07:39-0400 Height 167.64 cm Kasia Hugo RN [facility] Work Phone: 11-09-2017 07:39-0400 Pulse (Heart Rate) 109 /min Kasia Hugo RN [facility] Work Phone: Comment on above: Pattern: Regular 11-09-2017 07:39-0400 Pulse Oximetry 97 % Violet Barahonaon [facility] Work Phone: Comment on above: Room air 11-09-2017 07:39-0400 Respiratory Rate 18 /min Kasia Hugo RN [facility] Work Phone: Comment on above: Pattern: Unlabored 11-09-2017 07:39-0400 SaO2% (BldA) [Mass fraction] 97 % Kasia Hugo RN [facility]; [facility] Work Phone: Comment on above: Room air 11-09-2017 07:39-0400 Weight 77.34 kg Violet Andrade [facility] Work Phone: 09-21-2017 09:38-0500 BMI (Body Mass Index) 27.44 kg/m2 Aranza Oakley RN [facility] Work Phone: 09-21-2017 09:38-0500 Body Temperature 98.9 [degF] Aranza Oakley RN [facility] Work Phone: Comment on above: Method: Temporal 09-21-2017 09:38-0500 Body weight 77.11 kg Aranza Oakley RN [facility] Work Phone: 09-21-2017 09:38-0500 BP Diastolic 78 mm[Hg] Aranza Oakley RN [facility] Work Phone: Comment on above: Patient Position: Sitting; Cuff Location : Left Arm; Cuff Size: Standard 09-21-2017 09:38-0500 BP Systolic 124 mm[Hg] Aranza Oakley RN [facility] Work Phone: Comment on above: Patient Position: Sitting; Cuff Location : Left Arm; Cuff Size: Standard 09-21-2017 09:38-0500 BSA (Body Surface Area) 1.87 m2 Aranza Oakley RN [facility] Work Phone: 09-21-2017 09:38-0500 Height 167.64 cm Aranza Oakley RN [facility] Work Phone: 09-21-2017 09:38-0500 Pulse (Heart Rate) 72 /min Aranza Oakley RN [facility] Work Phone: Comment on above: Pattern: Regular 09-21-2017 09:38-0500 Pulse Oximetry 98 % Violet Andarde [facility] Work Phone: Comment on above: Room air 09-21-2017 09:38-0500 Respiratory Rate 16 /min Aranza Oakley RN [facility] Work Phone: Comment on above: Pattern: Unlabored 09-21-2017 09:38-0500 SaO2% (BldA) [Mass fraction] 98 % Aranza Oakley RN [facility]; [facility] Work Phone: Comment on above: Room air 09-21-2017 09:38-0500 Weight 77.11 kg Violet Andrade [facility] Work Phone: 09-15-2017 08:30-0500 BMI (Body Mass Index) 27.44 kg/m2 Doris Slarb HEAD STR[employer]GTH AND CONDITIONING COACH [facility] Work Phone: 09-15-2017 08:30-0500 Body Temperature 97.5 [degF] Doris Slarb HEAD STRENGTH AND CONDITIONING COACH [facility] Work Phone: 09-15-2017 08:30-0500 Body weight 77.11 kg Doris Slarb HEAD STRENGTH AND CONDITIONING COACH [facility] Work Phone: 09-15-2017 08:30-0500 BP Diastolic 82 mm[Hg] Doris Slarb HEAD STRENGTH AND CONDITIONING COACH [facility] Work Phone: Comment on above: Patient Position: Sitting; Cuff Location : Left Arm; Cuff Size: Standard 09-15-2017 08:30-0500 BP Systolic 122 mm[Hg] Doris Slarb HEAD STR[employer]GTH AND CONDITIONING COACH [facility] Work Phone: Comment on above: Patient Position: Sitting; Cuff Location : Left Arm; Cuff Size: Standard 09-15-2017 08:30-0500 BSA (Body Surface Area) 1.87 m2 Doris Slarb HEAD STR[employer]GTH AND CONDITIONING COACH [facility] Work Phone: 09-15-2017 08:30-0500 Height 167.64 cm Doris Slarb HEAD STRENGTH AND CONDITIONING COACH [facility] Work Phone: 09-15-2017 08:30-0500 Pulse (Heart Rate) 131 /min Doris Tan LPN [facility] Work Phone: Comment on above: Pattern: Regular 09-15-2017 08:30-0500 Pulse Oximetry 96 % Violet Andrade [facility] Work Phone: Comment on above: Room air 09-15-2017 08:30-0500 Respiratory Rate 18 /min Doris Tan LPN [facility] Work Phone: Comment on above: Pattern: Unlabored 09-15-2017 08:30-0500 SaO2% (BldA) [Mass fraction] 96 % Doris Tan LPN [facility]; [facility] Work Phone: Comment on above: Room air 09-15-2017 08:30-0500 Weight 77.11 kg Violet Andrade [facility] Work Phone: 08-10-2017 06:56-0500 BMI (Body Mass Index) 27.76 kg/m2 Aranza Oakley RN [facility] Work Phone: 08-10-2017 06:56-0500 Body weight 78.02 kg Aranza Oakley RN [facility] Work Phone: 08-10-2017 06:56-0500 BP Diastolic 88 mm[Hg] Aranza Oakley RN [facility] Work Phone: Comment on above: Patient Position: Sitting; Cuff Location : Left Arm; Cuff Size: Standard 08-10-2017 06:56-0500 BP Systolic 140 mm[Hg] Aranza Oakley RN [facility] Work Phone: Comment on above: Patient Position: Sitting; Cuff Location : Left Arm; Cuff Size: Standard 08-10-2017 06:56-0500 BSA (Body Surface Area) 1.88 m2 Aranza Oakley RN [facility] Work Phone: 08-10-2017 06:56-0500 Height 167.64 cm Aranza Oakley RN [facility] Work Phone: 08-10-2017 06:56-0500 Pulse (Heart Rate) 122 /min Aranza Oakley RN [facility] Work Phone: Comment on above: Pattern: Regular 08-10-2017 06:56-0500 Pulse Oximetry 99 % Violet Andrade [facility] Work Phone: Comment on above: Room air 08-10-2017 06:56-0500 Respiratory Rate 16 /min Aranza Oakley RN [facility] Work Phone: Comment on above: Pattern: Unlabored 08-10-2017 06:56-0500 SaO2% (BldA) [Mass fraction] 99 % Aranza Oakley RN [facility]; [facility] Work Phone: Comment on above: Room air 08-10-2017 06:56-0500 Weight 78.02 kg Violet Andrade [facility] Work Phone: 07-20-2017 10:53-0500 BMI (Body Mass Index) 27.92 kg/m2 Doris Slarb HEAD STRENGTH AND CONDITIONING COACH [facility] Work Phone: 07-20-2017 10:53-0500 Body Temperature 97.5 [degF] Doris Slarb HEAD STR[employer]GTH AND CONDITIONING COACH [facility] Work Phone: 07-20-2017 10:53-0500 Body weight 78.47 kg Doris Slarb HEAD STR[employer]GTH AND CONDITIONING COACH [facility] Work Phone: 07-20-2017 10:53-0500 BP Diastolic 88 mm[Hg] Doris Slarb HEAD STR[employer] AND CONDITIONING COACH [facility] Work Phone: Comment on above: Patient Position: Sitting; Cuff Location : Left Arm; Cuff Size: Standard 07-20-2017 10:53-0500 BP Systolic 142 mm[Hg] Doris Slarb HEAD STR[employer]GTH AND CONDITIONING COACH [facility] Work Phone: Comment on above: Patient Position: Sitting; Cuff Location : Left Arm; Cuff Size: Standard 07-20-2017 10:53-0500 BSA (Body Surface Area) 1.88 m2 Doris Slarb HEAD STRENGTH AND CONDITIONING COACH [facility] Work Phone: 07-20-2017 10:53-0500 Height 167.64 cm Doris Slarb HEAD STR[employer]GTH AND CONDITIONING COACH [facility] Work Phone: 07-20-2017 10:53-0500 Pulse (Heart Rate) 124 /min Doris Tan LPN [facility] Work Phone: Comment on above: Pattern: Regular 07-20-2017 10:53-0500 Pulse Oximetry 97 % Violet Andrade [facility] Work Phone: Comment on above: Room air 07-20-2017 10:53-0500 Respiratory Rate 17 /min Doris Tan LPN [facility] Work Phone: Comment on above: Pattern: Unlabored 07-20-2017 10:53-0500 SaO2% (BldA) [Mass fraction] 97 % Doris Tan LPN [facility]; [facility] Work Phone: Comment on above: Room air 07-20-2017 10:53-0500 Weight 78.47 kg Violet Andrade [facility] Work Phone: 05-04-2017 08:48-0400 BMI (Body Mass Index) 27.36 kg/m2 Kasia Hugo RN [facility] Work Phone: 05-04-2017 08:48-0400 Body weight 76.89 kg Kasia Hugo RN [facility] Work Phone: 05-04-2017 08:48-0400 BP Diastolic 90 mm[Hg] Kasia Hugo RN [facility] Work Phone: Comment on above: Patient Position: Sitting; Cuff Location : Left Arm; Cuff Size: Large 05-04-2017 08:48-0400 BP Systolic 128 mm[Hg] Kasia Hugo RN [facility] Work Phone: Comment on above: Patient Position: Sitting; Cuff Location : Left Arm; Cuff Size: Large 05-04-2017 08:48-0400 BSA (Body Surface Area) 1.86 m2 Kasia Hugo RN [facility] Work Phone: 05-04-2017 08:48-0400 Height 167.64 cm Kasia Hugo RN [facility] Work Phone: 05-04-2017 08:48-0400 Pulse (Heart Rate) 103 /min Kasia Hugo RN [facility] Work Phone: Comment on above: Pattern: Regular 05-04-2017 08:48-0400 Pulse Oximetry 98 % Violet Andrade [facility] Internal Medicine Work Phone: Comment on above: Room air 05-04-2017 08:48-0400 Respiratory Rate 18 /min Kasia Hugo RN [facility] Work Phone: Comment on above: Pattern: Unlabored 05-04-2017 08:48-0400 SaO2% (BldA) [Mass fraction] 98 % Kasia Hugo RN [facility]; [facility] Work Phone: Comment on above: Room air 05-04-2017 08:48-0400 Weight 76.89 kg Violet Andrade [facility] Internal Medicine Work Phone: 05-01-2017 09:49-0400 BP Diastolic 76 mm[Hg] Ashley Trinidad [facility] Work Phone: Comment on above: Patient Position: Sitting; Cuff Location : Left Arm; Cuff Size: Standard 05-01-2017 09:49-0400 BP Systolic 122 mm[Hg] Ashley [facility] Internal Medicine Work Phone: Comment on above: Patient Position: Sitting; Cuff Location : Left Arm; Cuff Size: Standard 04-11-2017 14:22-0400 BMI (Body Mass Index) 26.83 kg/m2 Yanira [facility] Internal Medicine Work Phone: 04-11-2017 14:22-0400 Body Temperature 97.2 [degF] [facility]: Comment on above: Method: Tympanic 04-11-2017 14:22-0400 Body weight 75.41 kg Yanira [facility] Work Phone: 04-11-2017 14:22-0400 BP Di[facility] 90 mm[[facility]] [facility] Comment on above: Patient Position: Sitting; Cuff Location : Left Arm; Cuff Size: Standard 04-11-2017 14:22-0400 BP Systolic 140 mm[Hg] [facility]: Comment on above: Patient Position: Sitting; Cuff Location : Left Arm; Cuff Size: Standard 04-11-2017 14:22-0400 BSA (Body Surface Area) 1.85 m2 Yanira Lopez [facility] Internal Medicine Work Phone: 04-11-2017 14:22-0400 Height 167.64 cm Yanira Lopez [facility] Medicine Work Phone: 04-11-2017 14:22-0400 Pulse (Heart Rate) 108 /min Yanira Lopez [facility] Internal Medicine Work Phone: Comment on above: Pattern: Regular 04-11-2017 14:22-0400 Pulse Oximetry 98 % Violet Andrade [facility] Internal Medicine Work Phone: Comment on above: Room air 04-11-2017 14:22-0400 Respiratory Rate 18 /min Yanira Lopez [facility] Medicine Work Phone: Comment on above: Pattern: Unlabored 04-11-2017 14:22-0400 SaO2% (BldA) [Mass fraction] 98 % Yanira Lopez [facility]; [facility] Work Phone: Comment on above: Room air 04-11-2017 14:22-0400 Weight 75.41 kg Violet Andrade [facility] Medicine Work Phone: 11-16-2016 10:39-0400 BMI (Body Mass Index) 26.83 kg/m2 Kasia Hugo RN [facility] Work Phone: 11-16-2016 10:39-0400 Body weight 75.41 kg Kasia Hugo RN [facility] Work Phone: 11-16-2016 10:39-0400 BP Diastolic 86 mm[Hg] Kasia Hugo RN [facility] Work Phone: Comment on above: Patient Position: Sitting; Cuff Location : Left Arm; Cuff Size: Large 11-16-2016 10:39-0400 BP Systolic 124 mm[Hg] Kasia Hugo RN [facility] Work Phone: Comment on above: Patient Position: Sitting; Cuff Location : Left Arm; Cuff Size: Large 11-16-2016 10:39-0400 BSA (Body Surface Area) 1.85 m2 Kaisa Hugo RN [facility] Work Phone: 11-16-2016 10:39-0400 Height 167.64 cm Kasia Hugo RN [facility] Work Phone: 11-16-2016 10:39-0400 Pulse (Heart Rate) 106 /min Kasia Hugo RN [facility] Work Phone: Comment on above: Pattern: Regular 11-16-2016 10:39-0400 Pulse Oximetry 95 % Violet Andrade [facility] Internal Medicine Work Phone: Comment on above: Room air 11-16-2016 10:39-0400 Respiratory Rate 18 /min Kasia Hugo RN [facility] Work Phone: Comment on above: Pattern: Unlabored 11-16-2016 10:39-0400 SaO2% (BldA) [Mass fraction] 95 % Kasia Hugo RN [facility]; [facility] Work Phone: Comment on above: Room air 11-16-2016 10:39-0400 Weight 75.41 kg Violet Andrade [facility] Internal Medicine Work Phone: 04-22-2016 09:09-0400 BMI (Body Mass Index) 26.35 kg/m2 Kasia Hugo RN [facility] Work Phone: 04-22-2016 09:09-0400 Body weight 74.05 kg Kasia Hugo RN [facility] Work Phone: 04-22-2016 09:09-0400 BP Diastolic 76 mm[Hg] Kasia Hugo RN [facility] Work Phone: Comment on above: Patient Position: Sitting; Cuff Location : Left Arm; Cuff Size: Large 04-22-2016 09:09-0400 BP Systolic 122 mm[Hg] Kasia Hugo RN [facility] Work Phone: Comment on above: Patient Position: Sitting; Cuff Location : Left Arm; Cuff Size: Large 04-22-2016 09:09-0400 BSA (Body Surface Area) 1.83 m2 Kasia Hugo RN [facility] Work Phone: 04-22-2016 09:09-0400 Height 167.64 cm Kasia Hugo RN [facility] Work Phone: 04-22-2016 09:09-0400 Pulse (Heart Rate) 107 /min Kasia Hugo RN [facility] Work Phone: Comment on above: Pattern: Regular 04-22-2016 09:09-0400 Pulse Oximetry 98 % Violet Andrade [facility] Work Phone: Comment on above: Room air 04-22-2016 09:09-0400 Respiratory Rate 18 /min Kasia Hugo RN [facility] Work Phone: Comment on above: Pattern: Unlabored 04-22-2016 09:09-0400 SaO2% (BldA) [Mass fraction] 98 % Kasia Hugo RN [facility] Work Phone: Comment on above: Room air 04-22-2016 09:09-0400 Weight 74.05 kg Violet Andrade [facility] Work Phone: Encounters Encounter Date Encounter Type Care Provider Facility Start: 05-26-2025 ambulatory Violet Merrill y:[facility] Start: 09-16-2024 End: 09-16-[address] Violet Andrade DO Work Phone: [facility] Work Phone: Start: 09-16-2024 End: 09-16-[address] Violet Andrade DO -Outpatient Breast [facility] Work Phone: Start: 09-16-2024 End: 09-16-2024 ambulatory Violet Andrade Facility:[facility] Start: 05-24-2024 End: 05-24-2024 ambulatory JESS LINDA [facility] Start: 12-26-2023 End: 12-26-2023 ambulatory JESS DPM [facility] Start: 03-09-2023 End: 03-09-2023 Office outpatient visit 25 minutes Violet Daly DO Work Phone: [facility] Start: 10-24-2022 ambulatory Violet Daly DO [facility] Start: 10-24-2022 End: 10-24-2022 Office outpatient visit 15 minutes Violet Daly DO Work Phone: [facility] Start: 10-24-2022 Review Violet Fearo n DO Work Phone: [facility] Start: 04-25-2022 End: 04-25-2022 Office outpatient visit 15 minutes Violet Daly DO Work Phone: [facility] Start: 03-14-2022 End: 03-14-2022 Office outpatient visit 25 minutes Violet Daly DO Work Phone: [facility] Start: 03-14-2022 End: 03-14-2022 Preprocedural examination done Joyce Patel CMA [facility]; [facility] Work Phone: Start: 01-20-2022 End: 01-20-2022 Office outpatient visit 25 minutes Violet Daly DO Work Phone: [facility] Start: 10-21-2021 End: 10-22-2021 Office outpatient visit 25 minutes Violet Daly DO Work Phone: [facility] Start: 09-09-2021 End: 09-09-2021 Phone Encounter Violet Daly DO Work Phone: [facility] Start: 06-02-2021 End: 06-02-2021 Office outpatient visit 15 minutes Violet Daly DO Work Phone: [facility] Start: 03-01-2021 End: 03-01-2021 Office outpatient visit 25 minutes Violet Daly DO Work Phone: [facility] Start: 12-31-2020 End: 01-01-2021 Office outpatient visit 10 minutes Violet Daly DO Work Phone: [facility] Start: 11-09-2020 End: 04-19-2021 Office outpatient visit 15 minutes Violet Daly DO Work Phone: [facility] Start: 11-09-2020 Review Violet Fearsuzanna n DO Work Phone: [facility] Start: 07-13-2020 End: 07-13-2020 Office outpatient visit 15 minutes Violet Andrade [facility] Start: 06-10-2020 End: 06-10-2020 Office outpatient visit 15 minutes Violet Andrade [facility] Start: 05-18-2020 Review Violet Barahonaon [facility] Start: 05-06-2020 End: 05-06-2020 Office outpatient visit 25 minutes Violet Andrade [facility] Start: 05-06-2020 Review Violet Barahonaon [facility] Start: 04-15-2020 End: 04-15-2020 Office outpatient visit 10 minutes Violet Andrade [facility] Start: 03-20-2020 End: 03-20-2020 Office outpatient visit 15 minutes Violet Andrade [facility] Start: 03-18-2020 End: 03-18-2020 Office outpatient visit 15 minutes Violet Andrade [facility] Start: 03-18-2020 Review Violet Barahonaon [facility] Start: 01-30-2020 End: 01-30-2020 Phone Encounter Violet Andrade [facility] Start: 12-30-2019 End: 12-30-2019 Office outpatient visit 15 minutes Violet Andrade [facility] Start: 11-18-2019 End: 11-18-2019 Office outpatient visit 15 minutes Violet Andrade [facility] Start: 09-11-2019 End: 09-11-2019 Office outpatient visit 15 minutes Violet Andrade [facility] Start: 09-06-2019 End: 09-06-2019 Office outpatient visit 15 minutes Violet Andrade [facility] Start: 06-24-2019 End: 06-24-2019 Office outpatient visit 15 minutes Violet Andrade [facility] Start: 02-19-2019 End: 02-19-2019 Office outpatient visit 15 minutes Violet Andrade [facility] Start: 12-20-2018 End: 12-20-2018 Office outpatient visit 15 minutes Violet Andrade [facility] Start: 08-21-2018 End: 08-21-2018 Office outpatient visit 15 minutes Violet Andrade [facility] Start: 05-17-2018 End: 05-17-2018 Office outpatient visit 15 minutes Violet Andrade [facility] Start: 02-08-2018 End: 02-08-2018 Office outpatient visit 15 minutes Violet Andrade [facility] Start: 11-09-2017 End: 11-09-2017 Office outpatient visit 15 minutes Violet Andrade [facility] Start: 09-21-2017 End: 09-21-2017 Office outpatient visit 15 minutes Violet Andrade [facility] Start: 09-15-2017 End: 09-15-2017 Office outpatient visit 15 minutes Violet Andrade [facility] Start: 08-10-2017 End: 08-10-2017 Office outpatient visit 25 minutes Violet Ruby [facility] Start: 07-20-2017 End: 07-20-2017 Office outpatient visit 15 minutes Violet Andrade [facility] Start: 05-04-2017 End: 05-04-2017 Annotation/Addendum Violet Andrade [facility] Start: 05-04-2017 End: 05-04-2017 Office outpatient visit 15 minutes Violet Andrade [facility] Start: 05-01-2017 End: 05-02-2017 Office outpatient visit 5 minutes Violet Andrade [facility] Start: 04-11-2017 End: 04-11-2017 Office outpatient visit 10 minutes Violet Andrade [facility] Start: 11-16-2016 End: 11-16-2016 Phone Encounter Violet Ruby [facility] Start: 11-16-2016 End: 11-16-2016 Office outpatient visit 25 minutes Violet Andrade [facility] Start: 04-25-2016 End: 04-25-2016 Phone Encounter Violet Ruby [facility] Start: 04-22-2016 End: 04-22-2016 Office outpatient new 45 minutes Violet Andrade [facility] Start: 04-22-2016 End: 04-22-2016 Patient encounter procedure Violetalysha Andrade DO Work Phone: [facility] Patient encounter procedure Milana Siddiqui LPN [facility] Work Phone: Patient encounter procedure Joyce Patel [facility] Work Phone: Patient encounter procedure Joyce Gravius [facility] Work Phone: Patient encounter procedure Magali Shaw ASHLI [facility] Work Phone: Patient encounter procedure Joyce Patel BREAD STACKER [facility] Work Phone: Patient encounter procedure Magali Shaw [employer] [facility] Work Phone: Patient encounter procedure Joyce Patel [facility] Work Phone: Patient encounter procedure Joyce Patel [facility] Work Phone: Patient encounter procedure Leola Saldana [facility] Work Phone: Patient encounter procedure Bel Kavitha [facility]; [facility] Work Phone: End: 04-25-2022 Preprocedural examination done Violet Andrade DO Work Phone: [facility]; [facility] Work Phone: Procedures Date Procedure Procedure Detail Performing Clinician Start: 09-16-2024 Screening mammography D r. Violet Andrade DO Work Phone: Start: 02-18-2022 End: 02-18-2022 Urgent Care Visit Report Comments: See Note; NOTES: [facility] [address] [place] [address] OFFICE VISIT Date of Service: 02/18/22 MR#: [id number] Acct: [id number] Name: SOLEDAD LEVY Rep #: [id number] : 1970 Provider: MELECIO Kramer Age/Sex: 52/F Location: [facility] [place] Status: Signed Intake Intake Visit Reasons: RASH ON RIGHT SIDE OF BODY Allergies No Known Allergies Allergy (Unverified 02/18/22 14:36) Medications gabapentin 300 mg capsule ea PO 02/18/22 [History Confirmed 02/18/22] hydrocodone-acetaminophen 5-325mg 5mg-325mg ea PO 02/18/22 [History Confirmed 02/18/22] prednisone 10 mg tablet 10 mg PO QDAY 12 days #30 tabs 02/18/22 [Rx Confirmed 02/18/22] rizatriptan 10 mg disintegrating tablet 10 mg PO Q2H 02/18/22 [History Confirmed 02/18/22] [facility] Family History (Updated 02/18/22 @ 14:38 by Siri Carlisle RN) Other Cancer Diabetes HPI HPI Details: SOLEDAD LEVY, is a 52 F who presents to the office today for complaint of rash on the right side of her neck/cheek. Patient states that the area itches and fletcher and has been present for the past 4 to 5 days. She states that she has had shingles several times in the past with similar symptoms. She notes no recent illnesses. No new medications, foods or environmental exposures. Patient does state that she just picked up a refill of her valacyclovir that she had from the last time that she had a shingles outbreak from her PCP. No other associated symptoms or alleviating/aggravating factors. ROS Const Constitutional: No other (6 system ROS completed with pertinent findings in the HPI otherwise normal.) Exam Const General: cooperative and healthy appearing [facility] Head: normocephalic and atraumatic Ears: hearing grossly normal bilaterally Nose: external nose normal Face and sinus: normal facial exam and face symmetric Mouth: oral mucosae normal Throat: posterior oropharynx normal Resp Effort Inspection: normal respiratory effort Cardio Rate: regular rate Skin Other: Grouped vesicular lesions to the right neck and chin in a dermatomal pattern. Neuro General: patient alert Psych Appearance: grossly normal Mental Status: mental status grossly normal Coding Level of Care Code Off vis,new,level 3 Diagnoses Shingles B02.9 Assessment and Plan Assessment and Plan (1) Shingles: Status: Acute Plan: Steroid taper as prescribed today and patient advised to take the valacyclovir as previously prescribed. Patient advised of symptomatic management techniques as well as potential red flags and when appropriate to report to the ED. Advised patient to follow-up with her PCP in 5 to 7 days if no better or sooner if worse. Patient verbalized understanding and agreement with all the above. Medications: New prednisone Take 4 tabs once daily days 1-3 3 tabs daily days 4-6 2 tabs daily days 7-9 and 1 tab daily days 10-12. 10 mg PO QDAY 12 days 30 tabs 0RF L25.9 - Unspecified contact dermatitis, unspecified cause 02/18/22 1617 <Electronically signed by Donovan MAJANO> Date Donovan MAJANO Cosigner Signature: Date (if applicable) CC: Violet Andrade DO Work Phone: Start: 03-01-2021 End: 03-02-2021 Hand Min 3 Views Comments: See Note; NOTES: [facility] [address] [place] [address] Hand Min 3 Views MR#: [id number] Acct: [id number] Name: SOLEDAD LEVY Rep #: [id number] : 1970 F 51 From: Jermaine Murillo MD PCP: Dr. Violet Andrade, Status: DEP AMB Study: Hand Min 3 Views Date of Exam: 03/01/21 Exam# [id number] Ordering Dr: Violet Andrade DO STUDY: X-RAY - RIGHT HAND REASON FOR EXAM: Female, 51 years old. Pain in first digit. TECHNIQUE: 3 view(s) of the hand. COMPARISON: None. FINDINGS: Normal radiocarpal articulation. Normal distal radioulnar joint. Normal visualized carpal bones. Mild arthrosis of the radial carpal row. Mild arthrosis of the first CMC joint. Mild arthrosis of the MCP and IP joints. The soft tissue structures are unremarkable. RAD/Hand Min 3 Views IMPRESSION: Mild osteoarthritic changes as described. No acute finding. Electronically Signed: Jermaine Murillo MD at 9:46 EDT , Service support , CC: Dr. Violet Andrade DO Animal Attendant: Signed Vioelt Andrade DO Work Phone: Start: 09-18-2019 End: 09-18-2019 SCREEN MAMM (CAD) W/KAMLESH BILAT Comments: See Note; NOTES: [facility] Services [address] [place] [address] SCREEN MAMM (CAD) W/KAMLESH BILAT MR#: [id number] Acct: [id number] Name: SOLEDAD LEVY Rep #: [id number] : 1970 F 49 From: Brett Dow DO PCP: Violet Andrade DO Status: REG CLI Study: SCREEN MAMM (CAD) W/KAMLESH BILAT Date of Exam: 09/18/19 Exam# [id number] Ordering Dr: Shaye Lim [employer]RASHER FEEDER-C MAMMOGRAPHY - BILATERAL SCREENING REASON FOR EXAM: Female, 49 years old. Routine annual screening examination. PERTINENT HISTORY: Baseline examination, no family history of breast cancer TECHNIQUE: Digital bilateral breast kamlesh (3D mammographic acquisition) in the CC and MLO projections. 2-D mediolateral oblique (MLO) and craniocaudad (CC) views of both breasts were obtained. CAD: Full Field Digital Mammography with Computer Added Detection was performed. COMPARISON: None. FINDINGS: Breast Composition: Dense internal breast structure There are no dominant masses or suspicious calcifications. No other significant abnormalities are identified. BI/SCREEN MAMM (CAD) W/KAMLESH BILAT IMPRESSION: Stable bilateral screening mammogram. Yearly follow-up mammogram recommended. (A) ASSESSMENT CATEGORY: BIRADS Category 1: Negative. A letter regarding these results will be sent to the patient by the facility within 30 days. Approximately 10% of breast cancers are not detected by mammography. A normal mammogram should not delay biopsy of a clinically suspicious abnormality. [id number] Electronically Signed: Brett Dow, at 16:09 EST Tel , Service support , CC: BRISA Lim; Violet Andrade DO Animal Attendant: Signed Shaye Lim Work Phone: L foot tarsel tunnel release Joyce Dowkelin [employer]READ ST[employer]ER Comment on above: 02/2022 L foot tarsel tunnel release Leola Saldana BREAD ST[employer]ER Comment on above: 02/2022 L foot tarsel tunnel release Bel Plummer MA Comment on above: 02/2022 Plan of Treatment Date Care Activity Detail Author Start: 03-09-2023 Procedure Education Eprescribe d prescriptions (G8553) [facility]; [facility] Work Phone: Start: 03-09-2023 Provider Instruction s for Treatment GERD Education [facility]; [facility] Work Phone: Start: 03-09-2023 Assay of triglycerides TRIGLYCERIDES (05276) [facility]; [facility] Work Phone: Start: 03-09-2023 Cyanocobalamin vitam in b-12 VITAMIN B-12 (CYANOCOBALAMIN) (10158) [facility]; [facility] Work Phone: Start: 03-09-2023 25 hydroxy includes fractions if performed CALCIFEDIOL (82182) [facility]; [facility] Work Phone: Start: 10-24-2022 Procedure Education Eprescribe d prescriptions (G8553) [facility]; [facility] Work Phone: Start: 10-24-2022 Provider Instruction s for Treatment [facility]; [facility] Work Phone: Start: 04-25-2022 Procedure Education Eprescribe d prescriptions (G8553) [facility]; [facility] Work Phone: Start: 04-25-2022 Provider Instruction s for Treatment GERD Education [facility]; [facility] Work Phone: Start: 04-25-2022 Lipid panel LIPID PANEL (28195) [facility]; [facility] Work Phone: Start: 04-25-2022 25 hydroxy includes fractions if performed CALCIFIDIOL (59203) VIT D 25 [facility]; [facility] Work Phone: Start: 04-25-2022 Cyanocobalamin vitam in b-12 VITAMIN B-12 (CYANOCOBALAMIN) (98354) [facility]; [facility] Work Phone: Start: 03-14-2022 Procedure Education Eprescribe d prescriptions (G8553) [facility]; [facility] Work Phone: Start: 03-14-2022 Provider Instruction s for Treatment Continue Current Prescription(s) [facility]; [facility] Work Phone: Start: 01-20-2022 Procedure Education Eprescribe d prescriptions (G8553) [facility]; [facility] Work Phone: Start: 10-21-2021 Procedure Education Eprescribe d prescriptions (G8553) [facility]; [facility] Work Phone: Start: 10-21-2021 Provider Instruction s for Treatment Follow up in 6 months [facility]; [facility] Work Phone: Start: 06-02-2021 Procedure Education Eprescribe d prescriptions (G8553) [facility]; [facility] Work Phone: Start: 06-02-2021 Provider Instruction s for Treatment [facility]; [facility] Work Phone: Start: 06-02-2021 Cyanocobalamin vitam in b-12 VITAMIN B-12 (CYANOCOBALAMIN) (67285) [facility]; [facility] Work Phone: Start: 03-01-2021 Procedure Education Eprescribe d prescriptions (G8553) [facility]; [facility] Work Phone: Start: 03-01-2021 Provider Instruction s for Treatment GERD Education [facility]; [facility] Work Phone: Start: 01-01-2021 Provider Instruction s for Treatment Reviewed Table Hand Letter [facility]; [facility] Work Phone: Start: 12-31-2020 Procedure Education Eprescribe d prescriptions (G8553) [facility]; [facility] Work Phone: Start: 12-31-2020 Virus tiss cul inoculation cytopathic effect CULTURE, VIRUS GENERAL 1469 (81314) [facility]; [facility] Work Phone: Comment on above: L side trunk Start: 11-09-2020 Procedure Education Eprescribe d prescriptions (G8553) [facility]; [facility] Work Phone: Start: 11-09-2020 Provider Instruction s for Treatment Continue Current Prescription(s) [facility]; [facility] Work Phone: Start: 07-13-2020 Procedure Education Eprescribe d prescriptions (G8553) [facility]; [facility] Work Phone: Start: 07-13-2020 Provider Instruction s for Treatment [facility]; [facility] Work Phone: Start: 06-10-2020 Patient Education Stye: eyelid [facility]pr [facility] Work Phone: Start: 06-10-2020 Procedure Education Eprescribe d prescriptions (G8553) [facility] Work Phone: Start: 06-10-2020 Provider Instruction s for Treatment [facility] Work Phone: Start: 05-06-2020 Procedure Education Eprescribe d prescriptions (G8553) [facility] Work Phone: Start: 05-06-2020 Provider Instruction s for Treatment [facility] Work Phone: Start: 04-15-2020 Procedure Education Eprescribe d prescriptions (G8553) [facility] Work Phone: Start: 04-15-2020 Provider Instruction s for Treatment Follow up in 3 weeks- fu on pain and rx [facility] Work Phone: Start: 03-20-2020 Procedure Education Eprescribe d prescriptions (G8553) [facility] Work Phone: Start: 03-20-2020 Provider Instruction s for Treatment [facility] Work Phone: Start: 03-18-2020 Procedure Education Eprescribe d prescriptions (G8553) [facility] Work Phone: Start: 03-18-2020 Provider Instruction s for Treatment [facility] Work Phone: Start: 12-30-2019 Procedure Education Eprescribe d prescriptions (G8553) [facility] Work Phone: Start: 12-30-2019 Provider Instruction s for Treatment [facility] Work Phone: Start: 12-09-2019 Lipid panel LIPID PANEL (60591) [facility] Work Phone: Start: 12-09-2019 Cobalamin (Vitamin B 12) [Mass/Vol] VITAMIN B12 AND FOLATES (01061) [facility] Work Phone: Start: 12-09-2019 25 hydroxy includes fractions if performed CALCIFEDIOL (55532) [facility] Work Phone: Start: 11-18-2019 Procedure Education Eprescribe d prescriptions (G8553) [facility] Work Phone: Start: 11-18-2019 Provider Instruction s for Treatment [facility] Work Phone: Start: 09-11-2019 Procedure Education Eprescribe d prescriptions (G8553) [facility] Work Phone: Start: 09-06-2019 Procedure Education Eprescribe d prescriptions (G8553) [facility] Work Phone: Start: 09-06-2019 Provider Instruction s for Treatment Follow up as needed [facility] Work Phone: Start: 06-24-2019 Procedure Education Eprescribe d prescriptions (G8553) [facility] Work Phone: Start: 06-24-2019 Provider Instruction s for Treatment [facility] Work Phone: Start: 02-19-2019 Patient Education Shingles (He rpes Zoster) *: pain [facility] Work Phone: Start: 02-19-2019 Procedure Education Eprescribe d prescriptions (G8553) [facility] Work Phone: Start: 02-19-2019 Provider Instruction s for Treatment Follow up if no improvement or if symptoms worsen [facility] Work Phone: Start: 12-20-2018 Procedure Education Eprescribe d prescriptions (G8553) [facility] Work Phone: Start: 12-20-2018 Provider Instruction s for Treatment [facility] Work Phone: Start: 08-21-2018 Provider Instruction s for Treatment [facility] Work Phone: Start: 05-17-2018 Provider Instruction s for Treatment GERD Education [facility] Work Phone: Start: 02-08-2018 Provider Instruction s for Treatment [facility] Work Phone: Start: 11-09-2017 Provider Instruction s for Treatment [facility] Work Phone: Start: 09-21-2017 Procedure Education Eprescribe d prescriptions (G8553) [facility] Work Phone: Start: 09-21-2017 Provider Instruction s for Treatment Follow up if no improvement or if symptoms worsen [facility] Work Phone: Start: 09-15-2017 Procedure Education Eprescribe d prescriptions (G8553) [facility] Work Phone: Start: 09-15-2017 Culture bacterial quanttative colony count urine URINE BALTAZAR CULTURE-ELEAZAR COL COUNT ([id number]) [facility] Work Phone: Start: 08-10-2017 Procedure Education Eprescribe d prescriptions (G8553) [facility] Work Phone: Start: 08-10-2017 Provider Instruction s for Treatment GERD Education [facility] Work Phone: Start: 07-20-2017 Patient Education [facility] Work Phone: Start: 07-20-2017 Procedure Education Eprescribe d prescriptions (G8553) [facility] Work Phone: Start: 07-20-2017 Provider Instruction s for Treatment Follow up if no improvement or if symptoms worsen [facility] Work Phone: Start: 05-04-2017 Provider Instruction s for Treatment [facility] Work Phone: Start: 05-01-2017 Culture bacterial quanttative colony count urine URINE BALTAZAR CULTURE-ELEAZAR COL COUNT ([id number]) [facility] Work Phone: Start: 04-11-2017 Procedure Education Eprescribe d prescriptions (G8553) [facility] Work Phone: Start: 04-11-2017 Provider Instruction s for Treatment Follow up if no improvement or if symptoms worsen [facility] Work Phone: Start: 11-16-2016 Procedure Education Eprescribe d prescriptions (G8553) [facility] Work Phone: Start: 11-16-2016 Provider Instruction s for Treatment [facility] Work Phone: Start: 11-16-2016 Lipid panel Lipid Panel ([id number]) [facility] Work Phone: Start: 04-25-2016 Lipid panel Lipid Panel (84689) [facility] Work Phone: Start: 04-22-2016 Provider Instruction s for Treatment GERD Education [facility] Work Phone: Start: 04-22-2016 Glucose mass conc GLUCOSE (04157) [facility] Work Phone: Start: 04-22-2016 Glucose quantitative blood xcpt reagent strip GLUCOSE (81243) [facility]; [facility] Work Phone: Start: 04-22-2016 Lipid panel LIPID PANEL (35406) [facility] Work Phone: [facility] Work Phone: [facility] Work Phone: [facility] Work Phone: [facility] Work Phone: [facility] Work [facility]: [facility] Work Phone: [facility] Work Phone: [facility] Work Phone: [facility]; [facility] Work Phone: [facility]; [facility] Work Phone: [facility]; [facility] Work Phone: Immunizations Immunization Date Immunization Notes Care Provider Fa cilidia 10-22-2020 COVID-19 ([employer]) Violet Lange julia DO Work Phone: [facility]; [facility] Work Phone: Payers Date Payer Category Payer Self-pay 2024 Self-pay [id number] 2021 Unknown [id number] 1970 Unknown [id number] 1970 Unknown [id number] 1970 Unknown [id number] Unknown [employer] Unknown [id number] Unknown [id number] Unknown [id number] Social History Date Type Detail Facility Tobacco smoking stat us NHIS Unknown if ever smoked [facility] Work Phone: Start: 09-26-2024 Sex Female (finding) [facility] Start: 1970 Sex Assigned At Female W [facility] Clinical Notes 05-27-2024 Note Date & Type Note Facility 05-27-2024 Note [facility] HISTORY & PHYSICAL NAME ACCOUNT SEX AGE ADMIT DISCHARGE PT MED. RECORD# NUMBER DATE DATE TYPE MILDRED [id number] F 54 05/23/24 2 SOLEDAD Yousif [id number] ROOM: DATE OF : 68 DICTATING PHYSICIAN: Jess Claire PROBLEM FOCUSED HISTORY AND PHYSICAL HISTORY OF PRESENT ILLNESS: The patient is known to me from my private office where she has been a patient for a few years with different complaints. Initially, she had complained of pain to the left foot, which ended up being tarsal tunnel syndrome and plantar fasciitis, which eventually was treated successfully surgically. Since then, the patient has returned and stating that similar symptoms were noted in the right foot. He was treated conservatively and all conservative methods were exhausted, which included changing shoes, cortisone injections, stretching, and physical therapy, as well as compression to reduce pressure on the tibial nerve. Conservative methods failed, and the patient wished to proceed with surgical intervention. MEDICATIONS: See chart. ALLERGIES: Lidocaine. IMPRESSION: 1. Tarsal tunnel syndrome right ankle. 2. Chronic plantar fasciitis right foot. PLANNED PROCEDURE: 1. Tarsal tunnel release right ankle. 2. Endoscopic plantar fasciotomy right foot. SURGEON: Jess Claire DPM PLAN: Consent was reviewed, signed, and all questions were answered. Risks, complications, and alternative treatments were reviewed in detail and no guarantees were given. The patient understands the possibility of slow healing, as well as continued pain and recurrence of condition. Risks, complications, and alternative treatments were reviewed in detail, and the patient will report to [facility] for outpatient surgical intervention on the morning of May 24, 2024. Dictated By: Jess Claire DPM 05/23/24 16:34 JOB #: [id number] Transcribed By: am 05/23/24 17:04 Page 1 of 2 SOLEDAD LEVY History & Physical SOLEDAD LEVY :1970 Electronically signed by: E-SIGN JESS CLAIRE 05/27/24 08:13 Update to H&P: [ ] No changes: I have examined the patient and reviewed the H&P and there are no changes. [ ] As previously dictated with the following changes: PHYSICIAN SIGNATURE: TIME: DATE: Page 2 of 2 SOLEDAD LEVY History & Physical [facility] Evaluation note No assessment information [facility] Work Phone: Instructions Name Patient Instructions Indication:Nonsmoker Start: 1 Instruction Type:Provider Instructions for Treatment How to Access Health Information Online using Patient Portal and 3rd [employer] Apps Indication:Nonsmoker Start: 1 Instruction Type:Patient Education How to Access Health Information Online using Patient Portal and [employer]rd [employer] Apps Indication:Nonsmoker Start: 0 Instruction Type:Patient Education Patient Instructions Indication:Nonsmoker Start: 0 Instruction Type:Provider Instructions for Treatment How to access health information online Indication:BMI 26.0-26.9,adult Start: 0 Instruction Type:Patient Education How to access health information online - Detail Indication:BMI 26.0-26.9,adult Start: 0 Instruction Type:Patient Education Patient Instructions Indication:BMI 26.0-26.9,adult Start: 0 Instruction Type:Provider Instructions for Treatment How to access health information online Indication:Nonsmoker Start: 0 Instruction Type:Patient Education How to access health information online - Detail Indication:Nonsmoker Start: 0 Instruction Type:Patient Education Patient Instructions Indication:Nonsmoker Start: 0 Instruction Type:Provider Instructions for Treatment How to access health information online Indication:Nonsmoker Start: 0 Instruction Type:Patient Education How to access health information online - Detail Indication:Nonsmoker Start: 0 Instruction Type:Patient Education Patient Instructions Indication:Nonsmoker Start: 0 Instruction Type:Provider Instructions for Treatment How to access health information online Indication:Nonsmoker Start: 0 Instruction Type:Patient Education Patient Instructions Indication:Nonsmoker Start: 0 Instruction Type:Provider Instructions for Treatment How to access health information online - Detail Indication:Nonsmoker Start: 0 Instruction Type:Patient Education How to access health information online Indication:Nonsmoker Start: 0 Instruction Type:Patient Education Patient Instructions Indication:Nonsmoker Start: 0 Instruction Type:Provider Instructions for Treatment How to access health information online Indication:Nonsmoker Start:30-Dec-2019 Instruction Type:Patient Education How to access health information online - Detail Indication:Nonsmoker Start:30-Dec-2019 Instruction Type:Patient Education Patient Instructions Indication:Nonsmoker Start:30-Dec-2019 Instruction Type:Provider Instructions for Treatment How to access health information online Indication:Nonsmoker Start: 0 Instruction Type:Patient Education How to access health information online - Detail Indication:Nonsmoker Start: 0 Instruction Type:Patient Education Patient Instructions Indication:Nonsmoker Start: 0 Instruction Type:Provider Instructions for Treatment How to access health information online Indication:BMI 26.0-26.9,adult Start: 0 Instruction Type:Patient Education How to access health information online - Detail Indication:BMI 26.0-26.9,adult Start: 0 Instruction Type:Patient Education Patient Instructions Indication:Nonsmoker Start: 0 Instruction Type:Provider Instructions for Treatment How to access health information online Indication:BMI 25.0-25.9,adult Start: 0 Instruction Type:Patient Education How to access health information online - Detail Indication:BMI 25.0-25.9,adult Start: 0 Instruction Type:Patient Education Patient Instructions Indication:BMI 25.0-25.9,adult Start: 0 Instruction Type:Provider Instructions for Treatment How to access health information online Indication:Nonsmoker Start:24-Jun-2019 Instruction Type:Patient Education How to access health information online - Detail Indication:Nonsmoker Start:24-Jun-2019 Instruction Type:Patient Education Patient Instructions Indication:Nonsmoker Start:24-Jun-2019 Instruction Type:Provider Instructions for Treatment How to access health information online Indication:Nonsmoker Start: 9 Instruction Type:Patient Education How to access health information online - Detail Indication:Nonsmoker Start: 9 Instruction Type:Patient Education Patient Instructions Indication:Nonsmoker Start: Instruction Type:Provider Instructions for Treatment How to access health information online Indication:Nonsmoker Start: Instruction Type:Patient Education How to access health information online - Detail Indication:Nonsmoker Start: Instruction Type:Patient Education Patient Instructions Indication:Nonsmoker Start: 9 Instruction Type:Provider Instructions for Treatment How to access health information online Indication:BMI 24.0-24.9, adult Start: 9 Instruction Type:Patient Education How to access health information online - Detail Indication:BMI 24.0-24.9, adult Start: 9 Instruction Type:Patient Education How to access health information online Indication:Nonsmoker Start: 8 Instruction Type:Patient Education How to access health information online - Detail Indication:Nonsmoker Start: 8 Instruction Type:Patient Education Patient Instructions Indication:Nonsmoker Start: 8 Instruction Type:Provider Instructions for Treatment How to access health information online Indication:BMI 25.0-25.9,adult Start: 8 Instruction Type:Patient Education How to access health information online - Detail Indication:BMI 25.0-25.9,adult Start: 8 Instruction Type:Patient Education Patient Instructions Indication:BMI 25.0-25.9,adult Start: 8 Instruction Type:Provider Instructions for Treatment How to access health information online Indication:BMI 27.0-27.9,adult Start: 8 Instruction Type:Patient Education How to access health information online - Detail Indication:BMI 27.0-27.9,adult Start: 8 Instruction Type:Patient Education Patient Instructions Indication:BMI 27.0-27.9,adult Start: 8 Instruction Type:Provider Instructions for Treatment How to access health information online Indication:BMI 27.0-27.9,adult Start:21-Sep-2017 Instruction Type:Patient Education How to access health information online - Detail Indication:BMI 27.0-27.9,adult Start:21-Sep-2017 Instruction Type:Patient Education Patient Instructions Indication:UTI symptoms Start:21-Sep-2017 Instruction Type:Provider Instructions for Treatment How to access health information online Indication:UTI symptoms Start: 8 Instruction Type:Patient Education How to access health information online - Detail Indication:UTI symptoms Start: 8 Instruction Type:Patient Education Patient Instructions Indication:UTI symptoms Start: 8 Instruction Type:Provider Instructions for Treatment How to access health information online Indication:Nonsmoker Start: 8 Instruction Type:Patient Education How to access health information online - Detail Indication:Nonsmoker Start: 8 Instruction Type:Patient Education Patient Instructions Indication:Nonsmoker Start: 8 Instruction Type:Provider Instructions for Treatment How to access health information online Indication:BMI 27.0-27.9,adult Start: 7 Instruction Type:Patient Education How to access health information online - Detail Indication:BMI 27.0-27.9,adult Start: 7 Instruction Type:Patient Education Patient Instructions Indication:Cough Start: 7 Instruction Type:Provider Instructions for Treatment How to access health information online Indication:BMI 27.0-27.9,adult Start: Instruction Type:Patient Education How to access health information online - Detail Indication:BMI 27.0-27.9,adult Start: Instruction Type:Patient Education Patient Instructions Indication:BMI 27.0-27.9,adult Start: Instruction Type:Provider Instructions for Treatment How to access health information online Indication:BMI 26.0-26.9,adult Start: Instruction Type:Patient Education How to access health information online - Detail Indication:BMI 26.0-26.9,adult Start: Instruction Type:Patient Education Patient Instructions Indication:BMI 26.0-26.9,adult Start: Instruction Type:Provider Instructions for Treatment How to access health information online Indication:BMI 26.0-26.9,adult Start: Instruction Type:Patient Education How to access health information online - Detail Indication:BMI 26.0-26.9,adult Start: Instruction Type:Patient Education Patient Instructions Indication:BMI 26.0-26.9,adult Start: Instruction Type:Provider Instructions for Treatment [facility]; [facility] Work Phone: Instructions* Name Dates Details Patient Instructions Indication:Nonsmoker Start:09-Nov-2020 Instruction Type:Provider Instructions for Treatment How to Access Health Informa tion Online using Patient Portal and 3rd [employer] Apps Indication:Nonsmoker Start:09-Nov-2020 Instruction Type:Patient Education How to Access Health Informa tion Online using Patient Portal and [employer]rd [employer] Apps Indication:Nonsmoker Start:13-Jul-2020 Instruction Type:Patient Education Patient Instructions Indication:Nonsmoker Start:13-Jul-2020 Instruction Type:Provider Instructions for Treatment How to access health informa tion online Indication:BMI 26.0-26.9,adult Start:10-Jun-2020 Instruction Type:Patient Education How to access health informa tion online - Detail Indication:BMI 26.0-26.9,adult Start:10-Jun-2020 Instruction Type:Patient Education Patient Instructions Indication:BMI 26.0-26.9,adult Start:10-Jun-2020 Instruction Type:Provider Instructions for Treatment How to access health informa tion online Indication:Nonsmoker Start:06-May-2020 Instruction Type:Patient Education How to access health informa tion online - Detail Indication:Nonsmoker Start:06-May-2020 Instruction Type:Patient Education Patient Instructions Indication:Nonsmoker Start:06-May-2020 Instruction Type:Provider Instructions for Treatment How to access health informa tion online Indication:Nonsmoker Start:15-Apr-2020 Instruction Type:Patient Education How to access health informa tion online - Detail Indication:Nonsmoker Start:15-Apr-2020 Instruction Type:Patient Education Patient Instructions Indication:Nonsmoker Start:15-Apr-2020 Instruction Type:Provider Instructions for Treatment How to access health informa tion online Indication:Nonsmoker Start:20-Mar-2020 Instruction Type:Patient Education Patient Instructions Indication:Nonsmoker Start:20-Mar-2020 Instruction Type:Provider Instructions for Treatment How to access health informa tion online - Detail Indication:Nonsmoker Start:18-Mar-2020 Instruction Type:Patient Education How to access health informa tion online Indication:Nonsmoker Start:18-Mar-2020 Instruction Type:Patient Education Patient Instructions Indication:Nonsmoker Start:18-Mar-2020 Instruction Type:Provider Instructions for Treatment How to access health informa tion online Indication:Nonsmoker Start:30-Dec-2019 Instruction Type:Patient Education How to access health informa tion online - Detail Indication:Nonsmoker Start:30-Dec-2019 Instruction Type:Patient Education Patient Instructions Indication:Nonsmoker Start:30-Dec-2019 Instruction Type:Provider Instructions for Treatment How to access health informa tion online Indication:Nonsmoker Start:18-Nov-2019 Instruction Type:Patient Education How to access health informa tion online - Detail Indication:Nonsmoker Start:18-Nov-2019 Instruction Type:Patient Education Patient Instructions Indication:Nonsmoker Start:18-Nov-2019 Instruction Type:Provider Instructions for Treatment How to access health informa tion online Indication:BMI 26.0-26.9,adult Start:11-Sep-2019 Instruction Type:Patient Education How to access health informa tion online - Detail Indication:BMI 26.0-26.9,adult Start:11-Sep-2019 Instruction Type:Patient Education Patient Instructions Indication:Nonsmoker Start:11-Sep-2019 Instruction Type:Provider Instructions for Treatment How to access health informa tion online Indication:BMI 25.0-25.9,adult Start:06-Sep-2019 Instruction Type:Patient Education How to access health informa tion online - Detail Indication:BMI 25.0-25.9,adult Start:06-Sep-2019 Instruction Type:Patient Education Patient Instructions Indication:BMI 25.0-25.9,adult Start:06-Sep-2019 Instruction Type:Provider Instructions for Treatment How to access health informa tion online Indication:Nonsmoker Start:24-Jun-2019 Instruction Type:Patient Education How to access health informa tion online - Detail Indication:Nonsmoker Start:24-Jun-2019 Instruction Type:Patient Education Patient Instructions Indication:Nonsmoker Start:24-Jun-2019 Instruction Type:Provider Instructions for Treatment How to access health informa tion online Indication:Nonsmoker Start:19-Feb-2019 Instruction Type:Patient Education How to access health informa tion online - Detail Indication:Nonsmoker Start:19-Feb-2019 Instruction Type:Patient Education Patient Instructions Indication:Nonsmoker Start:19-Feb-2019 Instruction Type:Provider Instructions for Treatment How to access health informa tion online Indication:Nonsmoker Start:20-Dec-2018 Instruction Type:Patient Education How to access health informa tion online - Detail Indication:Nonsmoker Start:20-Dec-2018 Instruction Type:Patient Education Patient Instructions Indication:Nonsmoker Start:20-Dec-2018 Instruction Type:Provider Instructions for Treatment How to access health informa tion online Indication:BMI 24.0-24.9, adult Start:21-Aug-2018 Instruction Type:Patient Education How to access health informa tion online - Detail Indication:BMI 24.0-24.9, adult Start:21-Aug-2018 Instruction Type:Patient Education How to access health informa tion online Indication:Nonsmoker Start:17-May-2018 Instruction Type:Patient Education How to access health informa tion online - Detail Indication:Nonsmoker Start:17-May-2018 Instruction Type:Patient Education Patient Instructions Indication:Nonsmoker Start:17-May-2018 Instruction Type:Provider Instructions for Treatment How to access health informa tion online Indication:BMI 25.0-25.9,adult Start:08-Feb-2018 Instruction Type:Patient Education How to access health informa tion online - Detail Indication:BMI 25.0-25.9,adult Start:08-Feb-2018 Instruction Type:Patient Education Patient Instructions Indication:BMI 25.0-25.9,adult Start:08-Feb-2018 Instruction Type:Provider Instructions for Treatment How to access health informa tion online Indication:BMI 27.0-27.9,adult Start:09-Nov-2017 Instruction Type:Patient Education How to access health informa tion online - Detail Indication:BMI 27.0-27.9,adult Start:09-Nov-2017 Instruction Type:Patient Education Patient Instructions Indication:BMI 27.0-27.9,adult Start:09-Nov-2017 Instruction Type:Provider Instructions for Treatment How to access health informa tion online Indication:BMI 27.0-27.9,adult Start:21-Sep-2017 Instruction Type:Patient Education How to access health informa tion online - Detail Indication:BMI 27.0-27.9,adult Start:21-Sep-2017 Instruction Type:Patient Education Patient Instructions Indication:UTI symptoms Start:21-Sep-2017 Instruction Type:Provider Instructions for Treatment How to access health informa tion online Indication:UTI symptoms Start:15-Sep-2017 Instruction Type:Patient Education How to access health informa tion online - Detail Indication:UTI symptoms Start:15-Sep-2017 Instruction Type:Patient Education Patient Instructions Indication:UTI symptoms Start:15-Sep-2017 Instruction Type:Provider Instructions for Treatment How to access health informa tion online Indication:Nonsmoker Start:10-Aug-2017 Instruction Type:Patient Education How to access health informa tion online - Detail Indication:Nonsmoker Start:10-Aug-2017 Instruction Type:Patient Education Patient Instructions Indication:Nonsmoker Start:10-Aug-2017 Instruction Type:Provider Instructions for Treatment How to access health informa tion online Indication:BMI 27.0-27.9,adult Start:20-Jul-2017 Instruction Type:Patient Education How to access health informa tion online - Detail Indication:BMI 27.0-27.9,adult Start:20-Jul-2017 Instruction Type:Patient Education Patient Instructions Indication:Cough Start:20-Jul-2017 Instruction Type:Provider Instructions for Treatment How to access health informa tion online Indication:BMI 27.0-27.9,adult Start:04-May-2017 Instruction Type:Patient Education How to access health informa tion online - Detail Indication:BMI 27.0-27.9,adult Start:04-May-2017 Instruction Type:Patient Education Patient Instructions Indication:BMI 27.0-27.9,adult Start:04-May-2017 Instruction Type:Provider Instructions for Treatment How to access health informa tion online Indication:BMI 26.0-26.9,adult Start:11-Apr-2017 Instruction Type:Patient Education How to access health informa tion online - Detail Indication:BMI 26.0-26.9,adult Start:11-Apr-2017 Instruction Type:Patient Education Patient Instructions Indication:BMI 26.0-26.9,adult Start:11-Apr-2017 Instruction Type:Provider Instructions for Treatment How to access health informa tion online Indication:BMI 26.0-26.9,adult Start:16-Nov-2016 Instruction Type:Patient Education How to access health informa tion online - Detail Indication:BMI 26.0-26.9,adult Start:16-Nov-2016 Instruction Type:Patient Education Patient Instructions Indication:BMI 26.0-26.9,adult Start:16-Nov-2016 Instruction Type:Provider Instructions for Treatment [facility]; [facility] Work Phone: Instructions* Name Dates Details Patient Instructions Indication:Nonsmoker Start:09-Nov-2020 Instruction Type:Provider Instructions for Treatment How to Access Health Informa tion Online using Patient Portal and [employer]rd [employer] Apps Indication:Nonsmoker Start:09-Nov-2020 Instruction Type:Patient Education How to Access Health Informa tion Online using Patient Portal and [employer]rd [employer] Apps Indication:Nonsmoker Start:13-Jul-2020 Instruction Type:Patient Education Patient Instructions Indication:Nonsmoker Start:13-Jul-2020 Instruction Type:Provider Instructions for Treatment How to access health informa tion online Indication:BMI 26.0-26.9,adult Start:10-Jun-2020 Instruction Type:Patient Education How to access health informa tion online - Detail Indication:BMI 26.0-26.9,adult Start:10-Jun-2020 Instruction Type:Patient Education Patient Instructions Indication:BMI 26.0-26.9,adult Start:10-Jun-2020 Instruction Type:Provider Instructions for Treatment How to access health informa tion online Indication:Nonsmoker Start:06-May-2020 Instruction Type:Patient Education How to access health informa tion online - Detail Indication:Nonsmoker Start:06-May-2020 Instruction Type:Patient Education Patient Instructions Indication:Nonsmoker Start:06-May-2020 Instruction Type:Provider Instructions for Treatment How to access health informa tion online Indication:Nonsmoker Start:15-Apr-2020 Instruction Type:Patient Education How to access health informa tion online - Detail Indication:Nonsmoker Start:15-Apr-2020 Instruction Type:Patient Education Patient Instructions Indication:Nonsmoker Start:15-Apr-2020 Instruction Type:Provider Instructions for Treatment How to access health informa tion online Indication:Nonsmoker Start:20-Mar-2020 Instruction Type:Patient Education Patient Instructions Indication:Nonsmoker Start:20-Mar-2020 Instruction Type:Provider Instructions for Treatment How to access health informa tion online - Detail Indication:Nonsmoker Start:18-Mar-2020 Instruction Type:Patient Education How to access health informa tion online Indication:Nonsmoker Start:18-Mar-2020 Instruction Type:Patient Education Patient Instructions Indication:Nonsmoker Start:18-Mar-2020 Instruction Type:Provider Instructions for Treatment How to access health informa tion online Indication:Nonsmoker Start:30-Dec-2019 Instruction Type:Patient Education How to access health informa tion online - Detail Indication:Nonsmoker Start:30-Dec-2019 Instruction Type:Patient Education Patient Instructions Indication:Nonsmoker Start:30-Dec-2019 Instruction Type:Provider Instructions for Treatment How to access health informa tion online Indication:Nonsmoker Start:18-Nov-2019 Instruction Type:Patient Education How to access health informa tion online - Detail Indication:Nonsmoker Start:18-Nov-2019 Instruction Type:Patient Education Patient Instructions Indication:Nonsmoker Start:18-Nov-2019 Instruction Type:Provider Instructions for Treatment How to access health informa tion online Indication:BMI 26.0-26.9,adult Start:11-Sep-2019 Instruction Type:Patient Education How to access health informa tion online - Detail Indication:BMI 26.0-26.9,adult Start:11-Sep-2019 Instruction Type:Patient Education Patient Instructions Indication:Nonsmoker Start:11-Sep-2019 Instruction Type:Provider Instructions for Treatment How to access health informa tion online Indication:BMI 25.0-25.9,adult Start:06-Sep-2019 Instruction Type:Patient Education How to access health informa tion online - Detail Indication:BMI 25.0-25.9,adult Start:06-Sep-2019 Instruction Type:Patient Education Patient Instructions Indication:BMI 25.0-25.9,adult Start:06-Sep-2019 Instruction Type:Provider Instructions for Treatment How to access health informa tion online Indication:Nonsmoker Start:24-Jun-2019 Instruction Type:Patient Education How to access health informa tion online - Detail Indication:Nonsmoker Start:24-Jun-2019 Instruction Type:Patient Education Patient Instructions Indication:Nonsmoker Start:24-Jun-2019 Instruction Type:Provider Instructions for Treatment How to access health informa tion online Indication:Nonsmoker Start:19-Feb-2019 Instruction Type:Patient Education How to access health informa tion online - Detail Indication:Nonsmoker Start:19-Feb-2019 Instruction Type:Patient Education Patient Instructions Indication:Nonsmoker Start:19-Feb-2019 Instruction Type:Provider Instructions for Treatment How to access health informa tion online Indication:Nonsmoker Start:20-Dec-2018 Instruction Type:Patient Education How to access health informa tion online - Detail Indication:Nonsmoker Start:20-Dec-2018 Instruction Type:Patient Education Patient Instructions Indication:Nonsmoker Start:20-Dec-2018 Instruction Type:Provider Instructions for Treatment How to access health informa tion online Indication:BMI 24.0-24.9, adult Start:21-Aug-2018 Instruction Type:Patient Education How to access health informa tion online - Detail Indication:BMI 24.0-24.9, adult Start:21-Aug-2018 Instruction Type:Patient Education How to access health informa tion online Indication:Nonsmoker Start:17-May-2018 Instruction Type:Patient Education How to access health informa tion online - Detail Indication:Nonsmoker Start:17-May-2018 Instruction Type:Patient Education Patient Instructions Indication:Nonsmoker Start:17-May-2018 Instruction Type:Provider Instructions for Treatment How to access health informa tion online Indication:BMI 25.0-25.9,adult Start:08-Feb-2018 Instruction Type:Patient Education How to access health informa tion online - Detail Indication:BMI 25.0-25.9,adult Start:08-Feb-2018 Instruction Type:Patient Education Patient Instructions Indication:BMI 25.0-25.9,adult Start:08-Feb-2018 Instruction Type:Provider Instructions for Treatment How to access health informa tion online Indication:BMI 27.0-27.9,adult Start:09-Nov-2017 Instruction Type:Patient Education How to access health informa tion online - Detail Indication:BMI 27.0-27.9,adult Start:09-Nov-2017 Instruction Type:Patient Education Patient Instructions Indication:BMI 27.0-27.9,adult Start:09-Nov-2017 Instruction Type:Provider Instructions for Treatment How to access health informa tion online Indication:BMI 27.0-27.9,adult Start:21-Sep-2017 Instruction Type:Patient Education How to access health informa tion online - Detail Indication:BMI 27.0-27.9,adult Start:21-Sep-2017 Instruction Type:Patient Education Patient Instructions Indication:UTI symptoms Start:21-Sep-2017 Instruction Type:Provider Instructions for Treatment How to access health informa tion online Indication:UTI symptoms Start:15-Sep-2017 Instruction Type:Patient Education How to access health informa tion online - Detail Indication:UTI symptoms Start:15-Sep-2017 Instruction Type:Patient Education Patient Instructions Indication:UTI symptoms Start:15-Sep-2017 Instruction Type:Provider Instructions for Treatment How to access health informa tion online Indication:Nonsmoker Start:10-Aug-2017 Instruction Type:Patient Education How to access health informa tion online - Detail Indication:Nonsmoker Start:10-Aug-2017 Instruction Type:Patient Education Patient Instructions Indication:Nonsmoker Start:10-Aug-2017 Instruction Type:Provider Instructions for Treatment How to access health informa tion online Indication:BMI 27.0-27.9,adult Start:20-Jul-2017 Instruction Type:Patient Education How to access health informa tion online - Detail Indication:BMI 27.0-27.9,adult Start:20-Jul-2017 Instruction Type:Patient Education Patient Instructions Indication:Cough Start:20-Jul-2017 Instruction Type:Provider Instructions for Treatment How to access health informa tion online Indication:BMI 27.0-27.9,adult Start:04-May-2017 Instruction Type:Patient Education How to access health informa tion online - Detail Indication:BMI 27.0-27.9,adult Start:04-May-2017 Instruction Type:Patient Education Patient Instructions Indication:BMI 27.0-27.9,adult Start:04-May-2017 Instruction Type:Provider Instructions for Treatment How to access health informa tion online Indication:BMI 26.0-26.9,adult Start:11-Apr-2017 Instruction Type:Patient Education How to access health informa tion online - Detail Indication:BMI 26.0-26.9,adult Start:11-Apr-2017 Instruction Type:Patient Education Patient Instructions Indication:BMI 26.0-26.9,adult Start:11-Apr-2017 Instruction Type:Provider Instructions for Treatment How to access health informa tion online Indication:BMI 26.0-26.9,adult Start:16-Nov-2016 Instruction Type:Patient Education How to access health informa tion online - Detail Indication:BMI 26.0-26.9,adult Start:16-Nov-2016 Instruction Type:Patient Education Patient Instructions Indication:BMI 26.0-26.9,adult Start:16-Nov-2016 Instruction Type:Provider Instructions for Treatment [facility]; [facility] Work Phone: Instructions* Name Dates Details Patient Instructions Indication:Nonsmoker Start:31-Dec-2020 Instruction Type:Provider Instructions for Treatment How to Access Health Informa tion Online using Patient Portal and [employer]rd [employer] Apps Indication:Nonsmoker Start:31-Dec-2020 Instruction Type:Patient Education Patient Instructions Indication:Nonsmoker Start:09-Nov-2020 Instruction Type:Provider Instructions for Treatment How to Access Health Informa tion Online using Patient Portal and [employer]rd [employer] Apps Indication:Nonsmoker Start:09-Nov-2020 Instruction Type:Patient Education How to Access Health Informa tion Online using Patient Portal and [employer]rd [employer] Apps Indication:Nonsmoker Start:13-Jul-2020 Instruction Type:Patient Education Patient Instructions Indication:Nonsmoker Start:13-Jul-2020 Instruction Type:Provider Instructions for Treatment How to access health informa tion online Indication:BMI 26.0-26.9,adult Start:10-Jun-2020 Instruction Type:Patient Education How to access health informa tion online - Detail Indication:BMI 26.0-26.9,adult Start:10-Jun-2020 Instruction Type:Patient Education Patient Instructions Indication:BMI 26.0-26.9,adult Start:10-Jun-2020 Instruction Type:Provider Instructions for Treatment How to access health informa tion online Indication:Nonsmoker Start:06-May-2020 Instruction Type:Patient Education How to access health informa tion online - Detail Indication:Nonsmoker Start:06-May-2020 Instruction Type:Patient Education Patient Instructions Indication:Nonsmoker Start:06-May-2020 Instruction Type:Provider Instructions for Treatment How to access health informa tion online Indication:Nonsmoker Start:15-Apr-2020 Instruction Type:Patient Education How to access health informa tion online - Detail Indication:Nonsmoker Start:15-Apr-2020 Instruction Type:Patient Education Patient Instructions Indication:Nonsmoker Start:15-Apr-2020 Instruction Type:Provider Instructions for Treatment How to access health informa tion online Indication:Nonsmoker Start:20-Mar-2020 Instruction Type:Patient Education Patient Instructions Indication:Nonsmoker Start:20-Mar-2020 Instruction Type:Provider Instructions for Treatment How to access health informa tion online - Detail Indication:Nonsmoker Start:18-Mar-2020 Instruction Type:Patient Education How to access health informa tion online Indication:Nonsmoker Start:18-Mar-2020 Instruction Type:Patient Education Patient Instructions Indication:Nonsmoker Start:18-Mar-2020 Instruction Type:Provider Instructions for Treatment How to access health informa tion online Indication:Nonsmoker Start:30-Dec-2019 Instruction Type:Patient Education How to access health informa tion online - Detail Indication:Nonsmoker Start:30-Dec-2019 Instruction Type:Patient Education Patient Instructions Indication:Nonsmoker Start:30-Dec-2019 Instruction Type:Provider Instructions for Treatment How to access health informa tion online Indication:Nonsmoker Start:18-Nov-2019 Instruction Type:Patient Education How to access health informa tion online - Detail Indication:Nonsmoker Start:18-Nov-2019 Instruction Type:Patient Education Patient Instructions Indication:Nonsmoker Start:18-Nov-2019 Instruction Type:Provider Instructions for Treatment How to access health informa tion online Indication:BMI 26.0-26.9,adult Start:11-Sep-2019 Instruction Type:Patient Education How to access health informa tion online - Detail Indication:BMI 26.0-26.9,adult Start:11-Sep-2019 Instruction Type:Patient Education Patient Instructions Indication:Nonsmoker Start:11-Sep-2019 Instruction Type:Provider Instructions for Treatment How to access health informa tion online Indication:BMI 25.0-25.9,adult Start:06-Sep-2019 Instruction Type:Patient Education How to access health informa tion online - Detail Indication:BMI 25.0-25.9,adult Start:06-Sep-2019 Instruction Type:Patient Education Patient Instructions Indication:BMI 25.0-25.9,adult Start:06-Sep-2019 Instruction Type:Provider Instructions for Treatment How to access health informa tion online Indication:Nonsmoker Start:24-Jun-2019 Instruction Type:Patient Education How to access health informa tion online - Detail Indication:Nonsmoker Start:24-Jun-2019 Instruction Type:Patient Education Patient Instructions Indication:Nonsmoker Start:24-Jun-2019 Instruction Type:Provider Instructions for Treatment How to access health informa tion online Indication:Nonsmoker Start:19-Feb-2019 Instruction Type:Patient Education How to access health informa tion online - Detail Indication:Nonsmoker Start:19-Feb-2019 Instruction Type:Patient Education Patient Instructions Indication:Nonsmoker Start:19-Feb-2019 Instruction Type:Provider Instructions for Treatment How to access health informa tion online Indication:Nonsmoker Start:20-Dec-2018 Instruction Type:Patient Education How to access health informa tion online - Detail Indication:Nonsmoker Start:20-Dec-2018 Instruction Type:Patient Education Patient Instructions Indication:Nonsmoker Start:20-Dec-2018 Instruction Type:Provider Instructions for Treatment How to access health informa tion online Indication:BMI 24.0-24.9, adult Start:21-Aug-2018 Instruction Type:Patient Education How to access health informa tion online - Detail Indication:BMI 24.0-24.9, adult Start:21-Aug-2018 Instruction Type:Patient Education How to access health informa tion online Indication:Nonsmoker Start:17-May-2018 Instruction Type:Patient Education How to access health informa tion online - Detail Indication:Nonsmoker Start:17-May-2018 Instruction Type:Patient Education Patient Instructions Indication:Nonsmoker Start:17-May-2018 Instruction Type:Provider Instructions for Treatment How to access health informa tion online Indication:BMI 25.0-25.9,adult Start:08-Feb-2018 Instruction Type:Patient Education How to access health informa tion online - Detail Indication:BMI 25.0-25.9,adult Start:08-Feb-2018 Instruction Type:Patient Education Patient Instructions Indication:BMI 25.0-25.9,adult Start:08-Feb-2018 Instruction Type:Provider Instructions for Treatment How to access health informa tion online Indication:BMI 27.0-27.9,adult Start:09-Nov-2017 Instruction Type:Patient Education How to access health informa tion online - Detail Indication:BMI 27.0-27.9,adult Start:09-Nov-2017 Instruction Type:Patient Education Patient Instructions Indication:BMI 27.0-27.9,adult Start:09-Nov-2017 Instruction Type:Provider Instructions for Treatment How to access health informa tion online Indication:BMI 27.0-27.9,adult Start:21-Sep-2017 Instruction Type:Patient Education How to access health informa tion online - Detail Indication:BMI 27.0-27.9,adult Start:21-Sep-2017 Instruction Type:Patient Education Patient Instructions Indication:UTI symptoms Start:21-Sep-2017 Instruction Type:Provider Instructions for Treatment How to access health informa tion online Indication:UTI symptoms Start:15-Sep-2017 Instruction Type:Patient Education How to access health informa tion online - Detail Indication:UTI symptoms Start:15-Sep-2017 Instruction Type:Patient Education Patient Instructions Indication:UTI symptoms Start:15-Sep-2017 Instruction Type:Provider Instructions for Treatment How to access health informa tion online Indication:Nonsmoker Start:10-Aug-2017 Instruction Type:Patient Education How to access health informa tion online - Detail Indication:Nonsmoker Start:10-Aug-2017 Instruction Type:Patient Education Patient Instructions Indication:Nonsmoker Start:10-Aug-2017 Instruction Type:Provider Instructions for Treatment How to access health informa tion online Indication:BMI 27.0-27.9,adult Start:20-Jul-2017 Instruction Type:Patient Education How to access health informa tion online - Detail Indication:BMI 27.0-27.9,adult Start:20-Jul-2017 Instruction Type:Patient Education Patient Instructions Indication:Cough Start:20-Jul-2017 Instruction Type:Provider Instructions for Treatment How to access health informa tion online Indication:BMI 27.0-27.9,adult Start:04-May-2017 Instruction Type:Patient Education How to access health informa tion online - Detail Indication:BMI 27.0-27.9,adult Start:04-May-2017 Instruction Type:Patient Education Patient Instructions Indication:BMI 27.0-27.9,adult Start:04-May-2017 Instruction Type:Provider Instructions for Treatment How to access health informa tion online Indication:BMI 26.0-26.9,adult Start:11-Apr-2017 Instruction Type:Patient Education How to access health informa tion online - Detail Indication:BMI 26.0-26.9,adult Start:11-Apr-2017 Instruction Type:Patient Education Patient Instructions Indication:BMI 26.0-26.9,adult Start:11-Apr-2017 Instruction Type:Provider Instructions for Treatment How to access health informa tion online Indication:BMI 26.0-26.9,adult Start:16-Nov-2016 Instruction Type:Patient Education How to access health informa tion online - Detail Indication:BMI 26.0-26.9,adult Start:16-Nov-2016 Instruction Type:Patient Education Patient Instructions Indication:BMI 26.0-26.9,adult Start:16-Nov-2016 Instruction Type:Provider Instructions for Treatment [facility]; [facility] Work Phone: Instructions* Name Dates Details Patient Instructions Indication:BMI 25.0-25.9,adult Start:02-Jun-2021 Instruction Type:Provider Instructions for Treatment How to Access Health Informa tion Online using Patient Portal and [employer]rd [employer] Apps Indication:BMI 25.0-25.9,adult Start:02-Jun-2021 Instruction Type:Patient Education Patient Instructions Indication:Nonsmoker Start:01-Mar-2021 Instruction Type:Provider Instructions for Treatment How to Access Health Informa tion Online using Patient Portal and [employer]rd [employer] Apps Indication:Nonsmoker Start:01-Mar-2021 Instruction Type:Patient Education Patient Instructions Indication:Nonsmoker Start:31-Dec-2020 Instruction Type:Provider Instructions for Treatment How to Access Health Informa tion Online using Patient Portal and [employer]rd [employer] Apps Indication:Nonsmoker Start:31-Dec-2020 Instruction Type:Patient Education Patient Instructions Indication:Nonsmoker Start:09-Nov-2020 Instruction Type:Provider Instructions for Treatment How to Access Health Informa tion Online using Patient Portal and [employer]rd [employer] Apps Indication:Nonsmoker Start:09-Nov-2020 Instruction Type:Patient Education How to Access Health Informa tion Online using Patient Portal and [employer]rd [employer] Apps Indication:Nonsmoker Start:13-Jul-2020 Instruction Type:Patient Education Patient Instructions Indication:Nonsmoker Start:13-Jul-2020 Instruction Type:Provider Instructions for Treatment How to access health informa tion online Indication:BMI 26.0-26.9,adult Start:10-Jun-2020 Instruction Type:Patient Education How to access health informa tion online - Detail Indication:BMI 26.0-26.9,adult Start:10-Jun-2020 Instruction Type:Patient Education Patient Instructions Indication:BMI 26.0-26.9,adult Start:10-Jun-2020 Instruction Type:Provider Instructions for Treatment How to access health informa tion online Indication:Nonsmoker Start:06-May-2020 Instruction Type:Patient Education How to access health informa tion online - Detail Indication:Nonsmoker Start:06-May-2020 Instruction Type:Patient Education Patient Instructions Indication:Nonsmoker Start:06-May-2020 Instruction Type:Provider Instructions for Treatment How to access health informa tion online Indication:Nonsmoker Start:15-Apr-2020 Instruction Type:Patient Education How to access health informa tion online - Detail Indication:Nonsmoker Start:15-Apr-2020 Instruction Type:Patient Education Patient Instructions Indication:Nonsmoker Start:15-Apr-2020 Instruction Type:Provider Instructions for Treatment How to access health informa tion online Indication:Nonsmoker Start:20-Mar-2020 Instruction Type:Patient Education Patient Instructions Indication:Nonsmoker Start:20-Mar-2020 Instruction Type:Provider Instructions for Treatment How to access health informa tion online - Detail Indication:Nonsmoker Start:18-Mar-2020 Instruction Type:Patient Education How to access health informa tion online Indication:Nonsmoker Start:18-Mar-2020 Instruction Type:Patient Education Patient Instructions Indication:Nonsmoker Start:18-Mar-2020 Instruction Type:Provider Instructions for Treatment How to access health informa tion online Indication:Nonsmoker Start:30-Dec-2019 Instruction Type:Patient Education How to access health informa tion online - Detail Indication:Nonsmoker Start:30-Dec-2019 Instruction Type:Patient Education Patient Instructions Indication:Nonsmoker Start:30-Dec-2019 Instruction Type:Provider Instructions for Treatment How to access health informa tion online Indication:Nonsmoker Start:18-Nov-2019 Instruction Type:Patient Education How to access health informa tion online - Detail Indication:Nonsmoker Start:18-Nov-2019 Instruction Type:Patient Education Patient Instructions Indication:Nonsmoker Start:18-Nov-2019 Instruction Type:Provider Instructions for Treatment How to access health informa tion online Indication:BMI 26.0-26.9,adult Start:11-Sep-2019 Instruction Type:Patient Education How to access health informa tion online - Detail Indication:BMI 26.0-26.9,adult Start:11-Sep-2019 Instruction Type:Patient Education Patient Instructions Indication:Nonsmoker Start:11-Sep-2019 Instruction Type:Provider Instructions for Treatment How to access health informa tion online Indication:BMI 25.0-25.9,adult Start:06-Sep-2019 Instruction Type:Patient Education How to access health informa tion online - Detail Indication:BMI 25.0-25.9,adult Start:06-Sep-2019 Instruction Type:Patient Education Patient Instructions Indication:BMI 25.0-25.9,adult Start:06-Sep-2019 Instruction Type:Provider Instructions for Treatment How to access health informa tion online Indication:Nonsmoker Start:24-Jun-2019 Instruction Type:Patient Education How to access health informa tion online - Detail Indication:Nonsmoker Start:24-Jun-2019 Instruction Type:Patient Education Patient Instructions Indication:Nonsmoker Start:24-Jun-2019 Instruction Type:Provider Instructions for Treatment How to access health informa tion online Indication:Nonsmoker Start:19-Feb-2019 Instruction Type:Patient Education How to access health informa tion online - Detail Indication:Nonsmoker Start:19-Feb-2019 Instruction Type:Patient Education Patient Instructions Indication:Nonsmoker Start:19-Feb-2019 Instruction Type:Provider Instructions for Treatment How to access health informa tion online Indication:Nonsmoker Start:20-Dec-2018 Instruction Type:Patient Education How to access health informa tion online - Detail Indication:Nonsmoker Start:20-Dec-2018 Instruction Type:Patient Education Patient Instructions Indication:Nonsmoker Start:20-Dec-2018 Instruction Type:Provider Instructions for Treatment How to access health informa tion online Indication:BMI 24.0-24.9, adult Start:21-Aug-2018 Instruction Type:Patient Education How to access health informa tion online - Detail Indication:BMI 24.0-24.9, adult Start:21-Aug-2018 Instruction Type:Patient Education How to access health informa tion online Indication:Nonsmoker Start:17-May-2018 Instruction Type:Patient Education How to access health informa tion online - Detail Indication:Nonsmoker Start:17-May-2018 Instruction Type:Patient Education Patient Instructions Indication:Nonsmoker Start:17-May-2018 Instruction Type:Provider Instructions for Treatment How to access health informa tion online Indication:BMI 25.0-25.9,adult Start:08-Feb-2018 Instruction Type:Patient Education How to access health informa tion online - Detail Indication:BMI 25.0-25.9,adult Start:08-Feb-2018 Instruction Type:Patient Education Patient Instructions Indication:BMI 25.0-25.9,adult Start:08-Feb-2018 Instruction Type:Provider Instructions for Treatment How to access health informa tion online Indication:BMI 27.0-27.9,adult Start:09-Nov-2017 Instruction Type:Patient Education How to access health informa tion online - Detail Indication:BMI 27.0-27.9,adult Start:09-Nov-2017 Instruction Type:Patient Education Patient Instructions Indication:BMI 27.0-27.9,adult Start:09-Nov-2017 Instruction Type:Provider Instructions for Treatment How to access health informa tion online Indication:BMI 27.0-27.9,adult Start:21-Sep-2017 Instruction Type:Patient Education How to access health informa tion online - Detail Indication:BMI 27.0-27.9,adult Start:21-Sep-2017 Instruction Type:Patient Education Patient Instructions Indication:UTI symptoms Start:21-Sep-2017 Instruction Type:Provider Instructions for Treatment How to access health informa tion online Indication:UTI symptoms Start:15-Sep-2017 Instruction Type:Patient Education How to access health informa tion online - Detail Indication:UTI symptoms Start:15-Sep-2017 Instruction Type:Patient Education Patient Instructions Indication:UTI symptoms Start:15-Sep-2017 Instruction Type:Provider Instructions for Treatment How to access health informa tion online Indication:Nonsmoker Start:10-Aug-2017 Instruction Type:Patient Education How to access health informa tion online - Detail Indication:Nonsmoker Start:10-Aug-2017 Instruction Type:Patient Education Patient Instructions Indication:Nonsmoker Start:10-Aug-2017 Instruction Type:Provider Instructions for Treatment How to access health informa tion online Indication:BMI 27.0-27.9,adult Start:20-Jul-2017 Instruction Type:Patient Education How to access health informa tion online - Detail Indication:BMI 27.0-27.9,adult Start:20-Jul-2017 Instruction Type:Patient Education Patient Instructions Indication:Cough Start:20-Jul-2017 Instruction Type:Provider Instructions for Treatment How to access health informa tion online Indication:BMI 27.0-27.9,adult Start:04-May-2017 Instruction Type:Patient Education How to access health informa tion online - Detail Indication:BMI 27.0-27.9,adult Start:04-May-2017 Instruction Type:Patient Education Patient Instructions Indication:BMI 27.0-27.9,adult Start:04-May-2017 Instruction Type:Provider Instructions for Treatment How to access health informa tion online Indication:BMI 26.0-26.9,adult Start:11-Apr-2017 Instruction Type:Patient Education How to access health informa tion online - Detail Indication:BMI 26.0-26.9,adult Start:11-Apr-2017 Instruction Type:Patient Education Patient Instructions Indication:BMI 26.0-26.9,adult Start:11-Apr-2017 Instruction Type:Provider Instructions for Treatment How to access health informa tion online Indication:BMI 26.0-26.9,adult Start:16-Nov-2016 Instruction Type:Patient Education How to access health informa tion online - Detail Indication:BMI 26.0-26.9,adult Start:16-Nov-2016 Instruction Type:Patient Education Patient Instructions Indication:BMI 26.0-26.9,adult Start:16-Nov-2016 Instruction Type:Provider Instructions for Treatment [facility]; [facility] Work Phone: Instructions* Name Dates Details Patient Instructions Indication:Nonsmoker Start:21-Oct-2021 Instruction Type:Provider Instructions for Treatment How to Access Health Informa tion Online using Patient Portal and [employer]rd [employer] Apps Indication:Nonsmoker Start:21-Oct-2021 Instruction Type:Patient Education Patient Instructions Indication:BMI 25.0-25.9,adult Start:02-Jun-2021 Instruction Type:Provider Instructions for Treatment How to Access Health Informa tion Online using Patient Portal and [employer]rd [employer] Apps Indication:BMI 25.0-25.9,adult Start:02-Jun-2021 Instruction Type:Patient Education Patient Instructions Indication:Nonsmoker Start:01-Mar-2021 Instruction Type:Provider Instructions for Treatment How to Access Health Informa tion Online using Patient Portal and [employer]rd [employer] Apps Indication:Nonsmoker Start:01-Mar-2021 Instruction Type:Patient Education Patient Instructions Indication:Nonsmoker Start:31-Dec-2020 Instruction Type:Provider Instructions for Treatment How to Access Health Informa tion Online using Patient Portal and [employer]rd [employer] Apps Indication:Nonsmoker Start:31-Dec-2020 Instruction Type:Patient Education Patient Instructions Indication:Nonsmoker Start:09-Nov-2020 Instruction Type:Provider Instructions for Treatment How to Access Health Informa tion Online using Patient Portal and [employer]rd [employer] Apps Indication:Nonsmoker Start:09-Nov-2020 Instruction Type:Patient Education How to Access Health Informa tion Online using Patient Portal and [employer]rd [employer] Apps Indication:Nonsmoker Start:13-Jul-2020 Instruction Type:Patient Education Patient Instructions Indication:Nonsmoker Start:13-Jul-2020 Instruction Type:Provider Instructions for Treatment How to access health informa tion online Indication:BMI 26.0-26.9,adult Start:10-Jun-2020 Instruction Type:Patient Education How to access health informa tion online - Detail Indication:BMI 26.0-26.9,adult Start:10-Jun-2020 Instruction Type:Patient Education Patient Instructions Indication:BMI 26.0-26.9,adult Start:10-Jun-2020 Instruction Type:Provider Instructions for Treatment How to access health informa tion online Indication:Nonsmoker Start:06-May-2020 Instruction Type:Patient Education How to access health informa tion online - Detail Indication:Nonsmoker Start:06-May-2020 Instruction Type:Patient Education Patient Instructions Indication:Nonsmoker Start:06-May-2020 Instruction Type:Provider Instructions for Treatment How to access health informa tion online Indication:Nonsmoker Start:15-Apr-2020 Instruction Type:Patient Education How to access health informa tion online - Detail Indication:Nonsmoker Start:15-Apr-2020 Instruction Type:Patient Education Patient Instructions Indication:Nonsmoker Start:15-Apr-2020 Instruction Type:Provider Instructions for Treatment How to access health informa tion online Indication:Nonsmoker Start:20-Mar-2020 Instruction Type:Patient Education Patient Instructions Indication:Nonsmoker Start:20-Mar-2020 Instruction Type:Provider Instructions for Treatment How to access health informa tion online - Detail Indication:Nonsmoker Start:18-Mar-2020 Instruction Type:Patient Education How to access health informa tion online Indication:Nonsmoker Start:18-Mar-2020 Instruction Type:Patient Education Patient Instructions Indication:Nonsmoker Start:18-Mar-2020 Instruction Type:Provider Instructions for Treatment How to access health informa tion online Indication:Nonsmoker Start:30-Dec-2019 Instruction Type:Patient Education How to access health informa tion online - Detail Indication:Nonsmoker Start:30-Dec-2019 Instruction Type:Patient Education Patient Instructions Indication:Nonsmoker Start:30-Dec-2019 Instruction Type:Provider Instructions for Treatment How to access health informa tion online Indication:Nonsmoker Start:18-Nov-2019 Instruction Type:Patient Education How to access health informa tion online - Detail Indication:Nonsmoker Start:18-Nov-2019 Instruction Type:Patient Education Patient Instructions Indication:Nonsmoker Start:18-Nov-2019 Instruction Type:Provider Instructions for Treatment How to access health informa tion online Indication:BMI 26.0-26.9,adult Start:11-Sep-2019 Instruction Type:Patient Education How to access health informa tion online - Detail Indication:BMI 26.0-26.9,adult Start:11-Sep-2019 Instruction Type:Patient Education Patient Instructions Indication:Nonsmoker Start:11-Sep-2019 Instruction Type:Provider Instructions for Treatment How to access health informa tion online Indication:BMI 25.0-25.9,adult Start:06-Sep-2019 Instruction Type:Patient Education How to access health informa tion online - Detail Indication:BMI 25.0-25.9,adult Start:06-Sep-2019 Instruction Type:Patient Education Patient Instructions Indication:BMI 25.0-25.9,adult Start:06-Sep-2019 Instruction Type:Provider Instructions for Treatment How to access health informa tion online Indication:Nonsmoker Start:24-Jun-2019 Instruction Type:Patient Education How to access health informa tion online - Detail Indication:Nonsmoker Start:24-Jun-2019 Instruction Type:Patient Education Patient Instructions Indication:Nonsmoker Start:24-Jun-2019 Instruction Type:Provider Instructions for Treatment How to access health informa tion online Indication:Nonsmoker Start:19-Feb-2019 Instruction Type:Patient Education How to access health informa tion online - Detail Indication:Nonsmoker Start:19-Feb-2019 Instruction Type:Patient Education Patient Instructions Indication:Nonsmoker Start:19-Feb-2019 Instruction Type:Provider Instructions for Treatment How to access health informa tion online Indication:Nonsmoker Start:20-Dec-2018 Instruction Type:Patient Education How to access health informa tion online - Detail Indication:Nonsmoker Start:20-Dec-2018 Instruction Type:Patient Education Patient Instructions Indication:Nonsmoker Start:20-Dec-2018 Instruction Type:Provider Instructions for Treatment How to access health informa tion online Indication:BMI 24.0-24.9, adult Start:21-Aug-2018 Instruction Type:Patient Education How to access health informa tion online - Detail Indication:BMI 24.0-24.9, adult Start:21-Aug-2018 Instruction Type:Patient Education How to access health informa tion online Indication:Nonsmoker Start:17-May-2018 Instruction Type:Patient Education How to access health informa tion online - Detail Indication:Nonsmoker Start:17-May-2018 Instruction Type:Patient Education Patient Instructions Indication:Nonsmoker Start:17-May-2018 Instruction Type:Provider Instructions for Treatment How to access health informa tion online Indication:BMI 25.0-25.9,adult Start:08-Feb-2018 Instruction Type:Patient Education How to access health informa tion online - Detail Indication:BMI 25.0-25.9,adult Start:08-Feb-2018 Instruction Type:Patient Education Patient Instructions Indication:BMI 25.0-25.9,adult Start:08-Feb-2018 Instruction Type:Provider Instructions for Treatment How to access health informa tion online Indication:BMI 27.0-27.9,adult Start:09-Nov-2017 Instruction Type:Patient Education How to access health informa tion online - Detail Indication:BMI 27.0-27.9,adult Start:09-Nov-2017 Instruction Type:Patient Education Patient Instructions Indication:BMI 27.0-27.9,adult Start:09-Nov-2017 Instruction Type:Provider Instructions for Treatment How to access health informa tion online Indication:BMI 27.0-27.9,adult Start:21-Sep-2017 Instruction Type:Patient Education How to access health informa tion online - Detail Indication:BMI 27.0-27.9,adult Start:21-Sep-2017 Instruction Type:Patient Education Patient Instructions Indication:UTI symptoms Start:21-Sep-2017 Instruction Type:Provider Instructions for Treatment How to access health informa tion online Indication:UTI symptoms Start:15-Sep-2017 Instruction Type:Patient Education How to access health informa tion online - Detail Indication:UTI symptoms Start:15-Sep-2017 Instruction Type:Patient Education Patient Instructions Indication:UTI symptoms Start:15-Sep-2017 Instruction Type:Provider Instructions for Treatment How to access health informa tion online Indication:Nonsmoker Start:10-Aug-2017 Instruction Type:Patient Education How to access health informa tion online - Detail Indication:Nonsmoker Start:10-Aug-2017 Instruction Type:Patient Education Patient Instructions Indication:Nonsmoker Start:10-Aug-2017 Instruction Type:Provider Instructions for Treatment How to access health informa tion online Indication:BMI 27.0-27.9,adult Start:20-Jul-2017 Instruction Type:Patient Education How to access health informa tion online - Detail Indication:BMI 27.0-27.9,adult Start:20-Jul-2017 Instruction Type:Patient Education Patient Instructions Indication:Cough Start:20-Jul-2017 Instruction Type:Provider Instructions for Treatment How to access health informa tion online Indication:BMI 27.0-27.9,adult Start:04-May-2017 Instruction Type:Patient Education How to access health informa tion online - Detail Indication:BMI 27.0-27.9,adult Start:04-May-2017 Instruction Type:Patient Education Patient Instructions Indication:BMI 27.0-27.9,adult Start:04-May-2017 Instruction Type:Provider Instructions for Treatment How to access health informa tion online Indication:BMI 26.0-26.9,adult Start:11-Apr-2017 Instruction Type:Patient Education How to access health informa tion online - Detail Indication:BMI 26.0-26.9,adult Start:11-Apr-2017 Instruction Type:Patient Education Patient Instructions Indication:BMI 26.0-26.9,adult Start:11-Apr-2017 Instruction Type:Provider Instructions for Treatment How to access health informa tion online Indication:BMI 26.0-26.9,adult Start:16-Nov-2016 Instruction Type:Patient Education How to access health informa tion online - Detail Indication:BMI 26.0-26.9,adult Start:16-Nov-2016 Instruction Type:Patient Education Patient Instructions Indication:BMI 26.0-26.9,adult Start:16-Nov-2016 Instruction Type:Provider Instructions for Treatment [facility]; [facility] Work Phone: Instructions* Name Dates Details Patient Instructions Indication:Nonsmoker Start:21-Oct-2021 Instruction Type:Provider Instructions for Treatment How to Access Health Informa tion Online using Patient Portal and [employer]rd [employer] Apps Indication:Nonsmoker Start:21-Oct-2021 Instruction Type:Patient Education Patient Instructions Indication:BMI 25.0-25.9,adult Start:02-Jun-2021 Instruction Type:Provider Instructions for Treatment How to Access Health Informa tion Online using Patient Portal and [employer]rd [employer] Apps Indication:BMI 25.0-25.9,adult Start:02-Jun-2021 Instruction Type:Patient Education Patient Instructions Indication:Nonsmoker Start:01-Mar-2021 Instruction Type:Provider Instructions for Treatment How to Access Health Informa tion Online using Patient Portal and [employer]rd [employer] Apps Indication:Nonsmoker Start:01-Mar-2021 Instruction Type:Patient Education Patient Instructions Indication:Nonsmoker Start:31-Dec-2020 Instruction Type:Provider Instructions for Treatment How to Access Health Informa tion Online using Patient Portal and [employer]rd [employer] Apps Indication:Nonsmoker Start:31-Dec-2020 Instruction Type:Patient Education Patient Instructions Indication:Nonsmoker Start:09-Nov-2020 Instruction Type:Provider Instructions for Treatment How to Access Health Informa tion Online using Patient Portal and [employer]rd [employer] Apps Indication:Nonsmoker Start:09-Nov-2020 Instruction Type:Patient Education How to Access Health Informa tion Online using Patient Portal and [employer] Apps Indication:Nonsmoker Start:13-Jul-2020 Instruction Type:Patient Education Patient Instructions Indication:Nonsmoker Start:13-Jul-2020 Instruction Type:Provider Instructions for Treatment How to access health informa tion online Indication:BMI 26.0-26.9,adult Start:10-Jun-2020 Instruction Type:Patient Education How to access health informa tion online - Detail Indication:BMI 26.0-26.9,adult Start:10-Jun-2020 Instruction Type:Patient Education Patient Instructions Indication:BMI 26.0-26.9,adult Start:10-Jun-2020 Instruction Type:Provider Instructions for Treatment How to access health informa tion online Indication:Nonsmoker Start:06-May-2020 Instruction Type:Patient Education How to access health informa tion online - Detail Indication:Nonsmoker Start:06-May-2020 Instruction Type:Patient Education Patient Instructions Indication:Nonsmoker Start:06-May-2020 Instruction Type:Provider Instructions for Treatment How to access health informa tion online Indication:Nonsmoker Start:15-Apr-2020 Instruction Type:Patient Education How to access health informa tion online - Detail Indication:Nonsmoker Start:15-Apr-2020 Instruction Type:Patient Education Patient Instructions Indication:Nonsmoker Start:15-Apr-2020 Instruction Type:Provider Instructions for Treatment How to access health informa tion online Indication:Nonsmoker Start:20-Mar-2020 Instruction Type:Patient Education Patient Instructions Indication:Nonsmoker Start:20-Mar-2020 Instruction Type:Provider Instructions for Treatment How to access health informa tion online - Detail Indication:Nonsmoker Start:18-Mar-2020 Instruction Type:Patient Education How to access health informa tion online Indication:Nonsmoker Start:18-Mar-2020 Instruction Type:Patient Education Patient Instructions Indication:Nonsmoker Start:18-Mar-2020 Instruction Type:Provider Instructions for Treatment How to access health informa tion online Indication:Nonsmoker Start:30-Dec-2019 Instruction Type:Patient Education How to access health informa tion online - Detail Indication:Nonsmoker Start:30-Dec-2019 Instruction Type:Patient Education Patient Instructions Indication:Nonsmoker Start:30-Dec-2019 Instruction Type:Provider Instructions for Treatment How to access health informa tion online Indication:Nonsmoker Start:18-Nov-2019 Instruction Type:Patient Education How to access health informa tion online - Detail Indication:Nonsmoker Start:18-Nov-2019 Instruction Type:Patient Education Patient Instructions Indication:Nonsmoker Start:18-Nov-2019 Instruction Type:Provider Instructions for Treatment How to access health informa tion online Indication:BMI 26.0-26.9,adult Start:11-Sep-2019 Instruction Type:Patient Education How to access health informa tion online - Detail Indication:BMI 26.0-26.9,adult Start:11-Sep-2019 Instruction Type:Patient Education Patient Instructions Indication:Nonsmoker Start:11-Sep-2019 Instruction Type:Provider Instructions for Treatment How to access health informa tion online Indication:BMI 25.0-25.9,adult Start:06-Sep-2019 Instruction Type:Patient Education How to access health informa tion online - Detail Indication:BMI 25.0-25.9,adult Start:06-Sep-2019 Instruction Type:Patient Education Patient Instructions Indication:BMI 25.0-25.9,adult Start:06-Sep-2019 Instruction Type:Provider Instructions for Treatment How to access health informa tion online Indication:Nonsmoker Start:24-Jun-2019 Instruction Type:Patient Education How to access health informa tion online - Detail Indication:Nonsmoker Start:24-Jun-2019 Instruction Type:Patient Education Patient Instructions Indication:Nonsmoker Start:24-Jun-2019 Instruction Type:Provider Instructions for Treatment How to access health informa tion online Indication:Nonsmoker Start:19-Feb-2019 Instruction Type:Patient Education How to access health informa tion online - Detail Indication:Nonsmoker Start:19-Feb-2019 Instruction Type:Patient Education Patient Instructions Indication:Nonsmoker Start:19-Feb-2019 Instruction Type:Provider Instructions for Treatment How to access health informa tion online Indication:Nonsmoker Start:20-Dec-2018 Instruction Type:Patient Education How to access health informa tion online - Detail Indication:Nonsmoker Start:20-Dec-2018 Instruction Type:Patient Education Patient Instructions Indication:Nonsmoker Start:20-Dec-2018 Instruction Type:Provider Instructions for Treatment How to access health informa tion online Indication:BMI 24.0-24.9, adult Start:21-Aug-2018 Instruction Type:Patient Education How to access health informa tion online - Detail Indication:BMI 24.0-24.9, adult Start:21-Aug-2018 Instruction Type:Patient Education How to access health informa tion online Indication:Nonsmoker Start:17-May-2018 Instruction Type:Patient Education How to access health informa tion online - Detail Indication:Nonsmoker Start:17-May-2018 Instruction Type:Patient Education Patient Instructions Indication:Nonsmoker Start:17-May-2018 Instruction Type:Provider Instructions for Treatment How to access health informa tion online Indication:BMI 25.0-25.9,adult Start:08-Feb-2018 Instruction Type:Patient Education How to access health informa tion online - Detail Indication:BMI 25.0-25.9,adult Start:08-Feb-2018 Instruction Type:Patient Education Patient Instructions Indication:BMI 25.0-25.9,adult Start:08-Feb-2018 Instruction Type:Provider Instructions for Treatment How to access health informa tion online Indication:BMI 27.0-27.9,adult Start:09-Nov-2017 Instruction Type:Patient Education How to access health informa tion online - Detail Indication:BMI 27.0-27.9,adult Start:09-Nov-2017 Instruction Type:Patient Education Patient Instructions Indication:BMI 27.0-27.9,adult Start:09-Nov-2017 Instruction Type:Provider Instructions for Treatment How to access health informa tion online Indication:BMI 27.0-27.9,adult Start:21-Sep-2017 Instruction Type:Patient Education How to access health informa tion online - Detail Indication:BMI 27.0-27.9,adult Start:21-Sep-2017 Instruction Type:Patient Education Patient Instructions Indication:UTI symptoms Start:21-Sep-2017 Instruction Type:Provider Instructions for Treatment How to access health informa tion online Indication:UTI symptoms Start:15-Sep-2017 Instruction Type:Patient Education How to access health informa tion online - Detail Indication:UTI symptoms Start:15-Sep-2017 Instruction Type:Patient Education Patient Instructions Indication:UTI symptoms Start:15-Sep-2017 Instruction Type:Provider Instructions for Treatment How to access health informa tion online Indication:Nonsmoker Start:10-Aug-2017 Instruction Type:Patient Education How to access health informa tion online - Detail Indication:Nonsmoker Start:10-Aug-2017 Instruction Type:Patient Education Patient Instructions Indication:Nonsmoker Start:10-Aug-2017 Instruction Type:Provider Instructions for Treatment How to access health informa tion online Indication:BMI 27.0-27.9,adult Start:20-Jul-2017 Instruction Type:Patient Education How to access health informa tion online - Detail Indication:BMI 27.0-27.9,adult Start:20-Jul-2017 Instruction Type:Patient Education Patient Instructions Indication:Cough Start:20-Jul-2017 Instruction Type:Provider Instructions for Treatment How to access health informa tion online Indication:BMI 27.0-27.9,adult Start:04-May-2017 Instruction Type:Patient Education How to access health informa tion online - Detail Indication:BMI 27.0-27.9,adult Start:04-May-2017 Instruction Type:Patient Education Patient Instructions Indication:BMI 27.0-27.9,adult Start:04-May-2017 Instruction Type:Provider Instructions for Treatment How to access health informa tion online Indication:BMI 26.0-26.9,adult Start:11-Apr-2017 Instruction Type:Patient Education How to access health informa tion online - Detail Indication:BMI 26.0-26.9,adult Start:11-Apr-2017 Instruction Type:Patient Education Patient Instructions Indication:BMI 26.0-26.9,adult Start:11-Apr-2017 Instruction Type:Provider Instructions for Treatment How to access health informa tion online Indication:BMI 26.0-26.9,adult Start:16-Nov-2016 Instruction Type:Patient Education How to access health informa tion online - Detail Indication:BMI 26.0-26.9,adult Start:16-Nov-2016 Instruction Type:Patient Education Patient Instructions Indication:BMI 26.0-26.9,adult Start:16-Nov-2016 Instruction Type:Provider Instructions for Treatment [facility]; [facility] Work Phone: Instructions* Name Dates Details Patient Instructions Indication:BMI 25.0-25.9,adult Start:20-Jan-2022 Instruction Type:Provider Instructions for Treatment How to Access Health Informa tion Online using Patient Portal and [employer]rd [employer] Apps Indication:BMI 25.0-25.9,adult Start:20-Jan-2022 Instruction Type:Patient Education Patient Instructions Indication:Nonsmoker Start:21-Oct-2021 Instruction Type:Provider Instructions for Treatment How to Access Health Informa tion Online using Patient Portal and [employer]rd [employer] Apps Indication:Nonsmoker Start:21-Oct-2021 Instruction Type:Patient Education Patient Instructions Indication:BMI 25.0-25.9,adult Start:02-Jun-2021 Instruction Type:Provider Instructions for Treatment How to Access Health Informa tion Online using Patient Portal and [employer]rd [employer] Apps Indication:BMI 25.0-25.9,adult Start:02-Jun-2021 Instruction Type:Patient Education Patient Instructions Indication:Nonsmoker Start:01-Mar-2021 Instruction Type:Provider Instructions for Treatment How to Access Health Informa tion Online using Patient Portal and [employer]rd [employer] Apps Indication:Nonsmoker Start:01-Mar-2021 Instruction Type:Patient Education Patient Instructions Indication:Nonsmoker Start:31-Dec-2020 Instruction Type:Provider Instructions for Treatment How to Access Health Informa tion Online using Patient Portal and [employer]rd [employer] Apps Indication:Nonsmoker Start:31-Dec-2020 Instruction Type:Patient Education Patient Instructions Indication:Nonsmoker Start:09-Nov-2020 Instruction Type:Provider Instructions for Treatment How to Access Health Informa tion Online using Patient Portal and [employer]rd [employer] Apps Indication:Nonsmoker Start:09-Nov-2020 Instruction Type:Patient Education How to Access Health Informa tion Online using Patient Portal and [employer]rd [employer] Apps Indication:Nonsmoker Start:13-Jul-2020 Instruction Type:Patient Education Patient Instructions Indication:Nonsmoker Start:13-Jul-2020 Instruction Type:Provider Instructions for Treatment How to access health informa tion online Indication:BMI 26.0-26.9,adult Start:10-Jun-2020 Instruction Type:Patient Education How to access health informa tion online - Detail Indication:BMI 26.0-26.9,adult Start:10-Jun-2020 Instruction Type:Patient Education Patient Instructions Indication:BMI 26.0-26.9,adult Start:10-Jun-2020 Instruction Type:Provider Instructions for Treatment How to access health informa tion online Indication:Nonsmoker Start:06-May-2020 Instruction Type:Patient Education How to access health informa tion online - Detail Indication:Nonsmoker Start:06-May-2020 Instruction Type:Patient Education Patient Instructions Indication:Nonsmoker Start:06-May-2020 Instruction Type:Provider Instructions for Treatment How to access health informa tion online Indication:Nonsmoker Start:15-Apr-2020 Instruction Type:Patient Education How to access health informa tion online - Detail Indication:Nonsmoker Start:15-Apr-2020 Instruction Type:Patient Education Patient Instructions Indication:Nonsmoker Start:15-Apr-2020 Instruction Type:Provider Instructions for Treatment How to access health informa tion online Indication:Nonsmoker Start:20-Mar-2020 Instruction Type:Patient Education Patient Instructions Indication:Nonsmoker Start:20-Mar-2020 Instruction Type:Provider Instructions for Treatment How to access health informa tion online - Detail Indication:Nonsmoker Start:18-Mar-2020 Instruction Type:Patient Education How to access health informa tion online Indication:Nonsmoker Start:18-Mar-2020 Instruction Type:Patient Education Patient Instructions Indication:Nonsmoker Start:18-Mar-2020 Instruction Type:Provider Instructions for Treatment How to access health informa tion online Indication:Nonsmoker Start:30-Dec-2019 Instruction Type:Patient Education How to access health informa tion online - Detail Indication:Nonsmoker Start:30-Dec-2019 Instruction Type:Patient Education Patient Instructions Indication:Nonsmoker Start:30-Dec-2019 Instruction Type:Provider Instructions for Treatment How to access health informa tion online Indication:Nonsmoker Start:18-Nov-2019 Instruction Type:Patient Education How to access health informa tion online - Detail Indication:Nonsmoker Start:18-Nov-2019 Instruction Type:Patient Education Patient Instructions Indication:Nonsmoker Start:18-Nov-2019 Instruction Type:Provider Instructions for Treatment How to access health informa tion online Indication:BMI 26.0-26.9,adult Start:11-Sep-2019 Instruction Type:Patient Education How to access health informa tion online - Detail Indication:BMI 26.0-26.9,adult Start:11-Sep-2019 Instruction Type:Patient Education Patient Instructions Indication:Nonsmoker Start:11-Sep-2019 Instruction Type:Provider Instructions for Treatment How to access health informa tion online Indication:BMI 25.0-25.9,adult Start:06-Sep-2019 Instruction Type:Patient Education How to access health informa tion online - Detail Indication:BMI 25.0-25.9,adult Start:06-Sep-2019 Instruction Type:Patient Education Patient Instructions Indication:BMI 25.0-25.9,adult Start:06-Sep-2019 Instruction Type:Provider Instructions for Treatment How to access health informa tion online Indication:Nonsmoker Start:24-Jun-2019 Instruction Type:Patient Education How to access health informa tion online - Detail Indication:Nonsmoker Start:24-Jun-2019 Instruction Type:Patient Education Patient Instructions Indication:Nonsmoker Start:24-Jun-2019 Instruction Type:Provider Instructions for Treatment How to access health informa tion online Indication:Nonsmoker Start:19-Feb-2019 Instruction Type:Patient Education How to access health informa tion online - Detail Indication:Nonsmoker Start:19-Feb-2019 Instruction Type:Patient Education Patient Instructions Indication:Nonsmoker Start:19-Feb-2019 Instruction Type:Provider Instructions for Treatment How to access health informa tion online Indication:Nonsmoker Start:20-Dec-2018 Instruction Type:Patient Education How to access health informa tion online - Detail Indication:Nonsmoker Start:20-Dec-2018 Instruction Type:Patient Education Patient Instructions Indication:Nonsmoker Start:20-Dec-2018 Instruction Type:Provider Instructions for Treatment How to access health informa tion online Indication:BMI 24.0-24.9, adult Start:21-Aug-2018 Instruction Type:Patient Education How to access health informa tion online - Detail Indication:BMI 24.0-24.9, adult Start:21-Aug-2018 Instruction Type:Patient Education How to access health informa tion online Indication:Nonsmoker Start:17-May-2018 Instruction Type:Patient Education How to access health informa tion online - Detail Indication:Nonsmoker Start:17-May-2018 Instruction Type:Patient Education Patient Instructions Indication:Nonsmoker Start:17-May-2018 Instruction Type:Provider Instructions for Treatment How to access health informa tion online Indication:BMI 25.0-25.9,adult Start:08-Feb-2018 Instruction Type:Patient Education How to access health informa tion online - Detail Indication:BMI 25.0-25.9,adult Start:08-Feb-2018 Instruction Type:Patient Education Patient Instructions Indication:BMI 25.0-25.9,adult Start:08-Feb-2018 Instruction Type:Provider Instructions for Treatment How to access health informa tion online Indication:BMI 27.0-27.9,adult Start:09-Nov-2017 Instruction Type:Patient Education How to access health informa tion online - Detail Indication:BMI 27.0-27.9,adult Start:09-Nov-2017 Instruction Type:Patient Education Patient Instructions Indication:BMI 27.0-27.9,adult Start:09-Nov-2017 Instruction Type:Provider Instructions for Treatment How to access health informa tion online Indication:BMI 27.0-27.9,adult Start:21-Sep-2017 Instruction Type:Patient Education How to access health informa tion online - Detail Indication:BMI 27.0-27.9,adult Start:21-Sep-2017 Instruction Type:Patient Education Patient Instructions Indication:UTI symptoms Start:21-Sep-2017 Instruction Type:Provider Instructions for Treatment How to access health informa tion online Indication:UTI symptoms Start:15-Sep-2017 Instruction Type:Patient Education How to access health informa tion online - Detail Indication:UTI symptoms Start:15-Sep-2017 Instruction Type:Patient Education Patient Instructions Indication:UTI symptoms Start:15-Sep-2017 Instruction Type:Provider Instructions for Treatment How to access health informa tion online Indication:Nonsmoker Start:10-Aug-2017 Instruction Type:Patient Education How to access health informa tion online - Detail Indication:Nonsmoker Start:10-Aug-2017 Instruction Type:Patient Education Patient Instructions Indication:Nonsmoker Start:10-Aug-2017 Instruction Type:Provider Instructions for Treatment How to access health informa tion online Indication:BMI 27.0-27.9,adult Start:20-Jul-2017 Instruction Type:Patient Education How to access health informa tion online - Detail Indication:BMI 27.0-27.9,adult Start:20-Jul-2017 Instruction Type:Patient Education Patient Instructions Indication:Cough Start:20-Jul-2017 Instruction Type:Provider Instructions for Treatment How to access health informa tion online Indication:BMI 27.0-27.9,adult Start:04-May-2017 Instruction Type:Patient Education How to access health informa tion online - Detail Indication:BMI 27.0-27.9,adult Start:04-May-2017 Instruction Type:Patient Education Patient Instructions Indication:BMI 27.0-27.9,adult Start:04-May-2017 Instruction Type:Provider Instructions for Treatment How to access health informa tion online Indication:BMI 26.0-26.9,adult Start:11-Apr-2017 Instruction Type:Patient Education How to access health informa tion online - Detail Indication:BMI 26.0-26.9,adult Start:11-Apr-2017 Instruction Type:Patient Education Patient Instructions Indication:BMI 26.0-26.9,adult Start:11-Apr-2017 Instruction Type:Provider Instructions for Treatment How to access health informa tion online Indication:BMI 26.0-26.9,adult Start:16-Nov-2016 Instruction Type:Patient Education How to access health informa tion online - Detail Indication:BMI 26.0-26.9,adult Start:16-Nov-2016 Instruction Type:Patient Education Patient Instructions Indication:BMI 26.0-26.9,adult Start:16-Nov-2016 Instruction Type:Provider Instructions for Treatment [facility]; [facility] Work Phone: Instructions* Name Dates Details Patient Instructions Indication:BMI 25.0-25.9,adult Start:20-Jan-2022 Instruction Type:Provider Instructions for Treatment How to Access Health Informa tion Online using Patient Portal and [employer]rd [employer] Apps Indication:BMI 25.0-25.9,adult Start:20-Jan-2022 Instruction Type:Patient Education Patient Instructions Indication:Nonsmoker Start:21-Oct-2021 Instruction Type:Provider Instructions for Treatment How to Access Health Informa tion Online using Patient Portal and [employer]rd [employer] Apps Indication:Nonsmoker Start:21-Oct-2021 Instruction Type:Patient Education Patient Instructions Indication:BMI 25.0-25.9,adult Start:02-Jun-2021 Instruction Type:Provider Instructions for Treatment How to Access Health Informa tion Online using Patient Portal and [employer]rd [employer] Apps Indication:BMI 25.0-25.9,adult Start:02-Jun-2021 Instruction Type:Patient Education Patient Instructions Indication:Nonsmoker Start:01-Mar-2021 Instruction Type:Provider Instructions for Treatment How to Access Health Informa tion Online using Patient Portal and [employer]rd [employer] Apps Indication:Nonsmoker Start:01-Mar-2021 Instruction Type:Patient Education Patient Instructions Indication:Nonsmoker Start:31-Dec-2020 Instruction Type:Provider Instructions for Treatment How to Access Health Informa tion Online using Patient Portal and [employer]rd [employer] Apps Indication:Nonsmoker Start:31-Dec-2020 Instruction Type:Patient Education Patient Instructions Indication:Nonsmoker Start:09-Nov-2020 Instruction Type:Provider Instructions for Treatment How to Access Health Informa tion Online using Patient Portal and [employer]rd [employer] Apps Indication:Nonsmoker Start:09-Nov-2020 Instruction Type:Patient Education How to Access Health Informa tion Online using Patient Portal and [employer]rd [employer] Apps Indication:Nonsmoker Start:13-Jul-2020 Instruction Type:Patient Education Patient Instructions Indication:Nonsmoker Start:13-Jul-2020 Instruction Type:Provider Instructions for Treatment How to access health informa tion online Indication:BMI 26.0-26.9,adult Start:10-Jun-2020 Instruction Type:Patient Education How to access health informa tion online - Detail Indication:BMI 26.0-26.9,adult Start:10-Jun-2020 Instruction Type:Patient Education Patient Instructions Indication:BMI 26.0-26.9,adult Start:10-Jun-2020 Instruction Type:Provider Instructions for Treatment How to access health informa tion online Indication:Nonsmoker Start:06-May-2020 Instruction Type:Patient Education How to access health informa tion online - Detail Indication:Nonsmoker Start:06-May-2020 Instruction Type:Patient Education Patient Instructions Indication:Nonsmoker Start:06-May-2020 Instruction Type:Provider Instructions for Treatment How to access health informa tion online Indication:Nonsmoker Start:15-Apr-2020 Instruction Type:Patient Education How to access health informa tion online - Detail Indication:Nonsmoker Start:15-Apr-2020 Instruction Type:Patient Education Patient Instructions Indication:Nonsmoker Start:15-Apr-2020 Instruction Type:Provider Instructions for Treatment How to access health informa tion online Indication:Nonsmoker Start:20-Mar-2020 Instruction Type:Patient Education Patient Instructions Indication:Nonsmoker Start:20-Mar-2020 Instruction Type:Provider Instructions for Treatment How to access health informa tion online - Detail Indication:Nonsmoker Start:18-Mar-2020 Instruction Type:Patient Education How to access health informa tion online Indication:Nonsmoker Start:18-Mar-2020 Instruction Type:Patient Education Patient Instructions Indication:Nonsmoker Start:18-Mar-2020 Instruction Type:Provider Instructions for Treatment How to access health informa tion online Indication:Nonsmoker Start:30-Dec-2019 Instruction Type:Patient Education How to access health informa tion online - Detail Indication:Nonsmoker Start:30-Dec-2019 Instruction Type:Patient Education Patient Instructions Indication:Nonsmoker Start:30-Dec-2019 Instruction Type:Provider Instructions for Treatment How to access health informa tion online Indication:Nonsmoker Start:18-Nov-2019 Instruction Type:Patient Education How to access health informa tion online - Detail Indication:Nonsmoker Start:18-Nov-2019 Instruction Type:Patient Education Patient Instructions Indication:Nonsmoker Start:18-Nov-2019 Instruction Type:Provider Instructions for Treatment How to access health informa tion online Indication:BMI 26.0-26.9,adult Start:11-Sep-2019 Instruction Type:Patient Education How to access health informa tion online - Detail Indication:BMI 26.0-26.9,adult Start:11-Sep-2019 Instruction Type:Patient Education Patient Instructions Indication:Nonsmoker Start:11-Sep-2019 Instruction Type:Provider Instructions for Treatment How to access health informa tion online Indication:BMI 25.0-25.9,adult Start:06-Sep-2019 Instruction Type:Patient Education How to access health informa tion online - Detail Indication:BMI 25.0-25.9,adult Start:06-Sep-2019 Instruction Type:Patient Education Patient Instructions Indication:BMI 25.0-25.9,adult Start:06-Sep-2019 Instruction Type:Provider Instructions for Treatment How to access health informa tion online Indication:Nonsmoker Start:24-Jun-2019 Instruction Type:Patient Education How to access health informa tion online - Detail Indication:Nonsmoker Start:24-Jun-2019 Instruction Type:Patient Education Patient Instructions Indication:Nonsmoker Start:24-Jun-2019 Instruction Type:Provider Instructions for Treatment How to access health informa tion online Indication:Nonsmoker Start:19-Feb-2019 Instruction Type:Patient Education How to access health informa tion online - Detail Indication:Nonsmoker Start:19-Feb-2019 Instruction Type:Patient Education Patient Instructions Indication:Nonsmoker Start:19-Feb-2019 Instruction Type:Provider Instructions for Treatment How to access health informa tion online Indication:Nonsmoker Start:20-Dec-2018 Instruction Type:Patient Education How to access health informa tion online - Detail Indication:Nonsmoker Start:20-Dec-2018 Instruction Type:Patient Education Patient Instructions Indication:Nonsmoker Start:20-Dec-2018 Instruction Type:Provider Instructions for Treatment How to access health informa tion online Indication:BMI 24.0-24.9, adult Start:21-Aug-2018 Instruction Type:Patient Education How to access health informa tion online - Detail Indication:BMI 24.0-24.9, adult Start:21-Aug-2018 Instruction Type:Patient Education How to access health informa tion online Indication:Nonsmoker Start:17-May-2018 Instruction Type:Patient Education How to access health informa tion online - Detail Indication:Nonsmoker Start:17-May-2018 Instruction Type:Patient Education Patient Instructions Indication:Nonsmoker Start:17-May-2018 Instruction Type:Provider Instructions for Treatment How to access health informa tion online Indication:BMI 25.0-25.9,adult Start:08-Feb-2018 Instruction Type:Patient Education How to access health informa tion online - Detail Indication:BMI 25.0-25.9,adult Start:08-Feb-2018 Instruction Type:Patient Education Patient Instructions Indication:BMI 25.0-25.9,adult Start:08-Feb-2018 Instruction Type:Provider Instructions for Treatment How to access health informa tion online Indication:BMI 27.0-27.9,adult Start:09-Nov-2017 Instruction Type:Patient Education How to access health informa tion online - Detail Indication:BMI 27.0-27.9,adult Start:09-Nov-2017 Instruction Type:Patient Education Patient Instructions Indication:BMI 27.0-27.9,adult Start:09-Nov-2017 Instruction Type:Provider Instructions for Treatment How to access health informa tion online Indication:BMI 27.0-27.9,adult Start:21-Sep-2017 Instruction Type:Patient Education How to access health informa tion online - Detail Indication:BMI 27.0-27.9,adult Start:21-Sep-2017 Instruction Type:Patient Education Patient Instructions Indication:UTI symptoms Start:21-Sep-2017 Instruction Type:Provider Instructions for Treatment How to access health informa tion online Indication:UTI symptoms Start:15-Sep-2017 Instruction Type:Patient Education How to access health informa tion online - Detail Indication:UTI symptoms Start:15-Sep-2017 Instruction Type:Patient Education Patient Instructions Indication:UTI symptoms Start:15-Sep-2017 Instruction Type:Provider Instructions for Treatment How to access health informa tion online Indication:Nonsmoker Start:10-Aug-2017 Instruction Type:Patient Education How to access health informa tion online - Detail Indication:Nonsmoker Start:10-Aug-2017 Instruction Type:Patient Education Patient Instructions Indication:Nonsmoker Start:10-Aug-2017 Instruction Type:Provider Instructions for Treatment How to access health informa tion online Indication:BMI 27.0-27.9,adult Start:20-Jul-2017 Instruction Type:Patient Education How to access health informa tion online - Detail Indication:BMI 27.0-27.9,adult Start:20-Jul-2017 Instruction Type:Patient Education Patient Instructions Indication:Cough Start:20-Jul-2017 Instruction Type:Provider Instructions for Treatment How to access health informa tion online Indication:BMI 27.0-27.9,adult Start:04-May-2017 Instruction Type:Patient Education How to access health informa tion online - Detail Indication:BMI 27.0-27.9,adult Start:04-May-2017 Instruction Type:Patient Education Patient Instructions Indication:BMI 27.0-27.9,adult Start:04-May-2017 Instruction Type:Provider Instructions for Treatment How to access health informa tion online Indication:BMI 26.0-26.9,adult Start:11-Apr-2017 Instruction Type:Patient Education How to access health informa tion online - Detail Indication:BMI 26.0-26.9,adult Start:11-Apr-2017 Instruction Type:Patient Education Patient Instructions Indication:BMI 26.0-26.9,adult Start:11-Apr-2017 Instruction Type:Provider Instructions for Treatment How to access health informa tion online Indication:BMI 26.0-26.9,adult Start:16-Nov-2016 Instruction Type:Patient Education How to access health informa tion online - Detail Indication:BMI 26.0-26.9,adult Start:16-Nov-2016 Instruction Type:Patient Education Patient Instructions Indication:BMI 26.0-26.9,adult Start:16-Nov-2016 Instruction Type:Provider Instructions for Treatment [facility]; [facility] Work Phone: Instructions* Name Dates Details Patient Instructions Indication:BMI 26.0-26.9,adult Start:14-Mar-2022 Instruction Type:Provider Instructions for Treatment How to Access Health Informa tion Online using Patient Portal and [employer]rd [employer] Apps Indication:BMI 26.0-26.9,adult Start:14-Mar-2022 Instruction Type:Patient Education Patient Instructions Indication:BMI 25.0-25.9,adult Start:20-Jan-2022 Instruction Type:Provider Instructions for Treatment How to Access Health Informa tion Online using Patient Portal and [employer]rd [employer] Apps Indication:BMI 25.0-25.9,adult Start:20-Jan-2022 Instruction Type:Patient Education Patient Instructions Indication:Nonsmoker Start:21-Oct-2021 Instruction Type:Provider Instructions for Treatment How to Access Health Informa tion Online using Patient Portal and [employer]rd [employer] Apps Indication:Nonsmoker Start:21-Oct-2021 Instruction Type:Patient Education Patient Instructions Indication:BMI 25.0-25.9,adult Start:02-Jun-2021 Instruction Type:Provider Instructions for Treatment How to Access Health Informa tion Online using Patient Portal and [employer]rd [employer] Apps Indication:BMI 25.0-25.9,adult Start:02-Jun-2021 Instruction Type:Patient Education Patient Instructions Indication:Nonsmoker Start:01-Mar-2021 Instruction Type:Provider Instructions for Treatment How to Access Health Informa tion Online using Patient Portal and [employer]rd [employer] Apps Indication:Nonsmoker Start:01-Mar-2021 Instruction Type:Patient Education Patient Instructions Indication:Nonsmoker Start:31-Dec-2020 Instruction Type:Provider Instructions for Treatment How to Access Health Informa tion Online using Patient Portal and [employer]rd [employer] Apps Indication:Nonsmoker Start:31-Dec-2020 Instruction Type:Patient Education Patient Instructions Indication:Nonsmoker Start:09-Nov-2020 Instruction Type:Provider Instructions for Treatment How to Access Health Informa tion Online using Patient Portal and [employer]rd [employer] Apps Indication:Nonsmoker Start:09-Nov-2020 Instruction Type:Patient Education How to Access Health Informa tion Online using Patient Portal and [employer]rd [employer] Apps Indication:Nonsmoker Start:13-Jul-2020 Instruction Type:Patient Education Patient Instructions Indication:Nonsmoker Start:13-Jul-2020 Instruction Type:Provider Instructions for Treatment How to access health informa tion online Indication:BMI 26.0-26.9,adult Start:10-Jun-2020 Instruction Type:Patient Education How to access health informa tion online - Detail Indication:BMI 26.0-26.9,adult Start:10-Jun-2020 Instruction Type:Patient Education Patient Instructions Indication:BMI 26.0-26.9,adult Start:10-Jun-2020 Instruction Type:Provider Instructions for Treatment How to access health informa tion online Indication:Nonsmoker Start:06-May-2020 Instruction Type:Patient Education How to access health informa tion online - Detail Indication:Nonsmoker Start:06-May-2020 Instruction Type:Patient Education Patient Instructions Indication:Nonsmoker Start:06-May-2020 Instruction Type:Provider Instructions for Treatment How to access health informa tion online Indication:Nonsmoker Start:15-Apr-2020 Instruction Type:Patient Education How to access health informa tion online - Detail Indication:Nonsmoker Start:15-Apr-2020 Instruction Type:Patient Education Patient Instructions Indication:Nonsmoker Start:15-Apr-2020 Instruction Type:Provider Instructions for Treatment How to access health informa tion online Indication:Nonsmoker Start:20-Mar-2020 Instruction Type:Patient Education Patient Instructions Indication:Nonsmoker Start:20-Mar-2020 Instruction Type:Provider Instructions for Treatment How to access health informa tion online - Detail Indication:Nonsmoker Start:18-Mar-2020 Instruction Type:Patient Education How to access health informa tion online Indication:Nonsmoker Start:18-Mar-2020 Instruction Type:Patient Education Patient Instructions Indication:Nonsmoker Start:18-Mar-2020 Instruction Type:Provider Instructions for Treatment How to access health informa tion online Indication:Nonsmoker Start:30-Dec-2019 Instruction Type:Patient Education How to access health informa tion online - Detail Indication:Nonsmoker Start:30-Dec-2019 Instruction Type:Patient Education Patient Instructions Indication:Nonsmoker Start:30-Dec-2019 Instruction Type:Provider Instructions for Treatment How to access health informa tion online Indication:Nonsmoker Start:18-Nov-2019 Instruction Type:Patient Education How to access health informa tion online - Detail Indication:Nonsmoker Start:18-Nov-2019 Instruction Type:Patient Education Patient Instructions Indication:Nonsmoker Start:18-Nov-2019 Instruction Type:Provider Instructions for Treatment How to access health informa tion online Indication:BMI 26.0-26.9,adult Start:11-Sep-2019 Instruction Type:Patient Education How to access health informa tion online - Detail Indication:BMI 26.0-26.9,adult Start:11-Sep-2019 Instruction Type:Patient Education Patient Instructions Indication:Nonsmoker Start:11-Sep-2019 Instruction Type:Provider Instructions for Treatment How to access health informa tion online Indication:BMI 25.0-25.9,adult Start:06-Sep-2019 Instruction Type:Patient Education How to access health informa tion online - Detail Indication:BMI 25.0-25.9,adult Start:06-Sep-2019 Instruction Type:Patient Education Patient Instructions Indication:BMI 25.0-25.9,adult Start:06-Sep-2019 Instruction Type:Provider Instructions for Treatment How to access health informa tion online Indication:Nonsmoker Start:24-Jun-2019 Instruction Type:Patient Education How to access health informa tion online - Detail Indication:Nonsmoker Start:24-Jun-2019 Instruction Type:Patient Education Patient Instructions Indication:Nonsmoker Start:24-Jun-2019 Instruction Type:Provider Instructions for Treatment How to access health informa tion online Indication:Nonsmoker Start:19-Feb-2019 Instruction Type:Patient Education How to access health informa tion online - Detail Indication:Nonsmoker Start:19-Feb-2019 Instruction Type:Patient Education Patient Instructions Indication:Nonsmoker Start:19-Feb-2019 Instruction Type:Provider Instructions for Treatment How to access health informa tion online Indication:Nonsmoker Start:20-Dec-2018 Instruction Type:Patient Education How to access health informa tion online - Detail Indication:Nonsmoker Start:20-Dec-2018 Instruction Type:Patient Education Patient Instructions Indication:Nonsmoker Start:20-Dec-2018 Instruction Type:Provider Instructions for Treatment How to access health informa tion online Indication:BMI 24.0-24.9, adult Start:21-Aug-2018 Instruction Type:Patient Education How to access health informa tion online - Detail Indication:BMI 24.0-24.9, adult Start:21-Aug-2018 Instruction Type:Patient Education How to access health informa tion online Indication:Nonsmoker Start:17-May-2018 Instruction Type:Patient Education How to access health informa tion online - Detail Indication:Nonsmoker Start:17-May-2018 Instruction Type:Patient Education Patient Instructions Indication:Nonsmoker Start:17-May-2018 Instruction Type:Provider Instructions for Treatment How to access health informa tion online Indication:BMI 25.0-25.9,adult Start:08-Feb-2018 Instruction Type:Patient Education How to access health informa tion online - Detail Indication:BMI 25.0-25.9,adult Start:08-Feb-2018 Instruction Type:Patient Education Patient Instructions Indication:BMI 25.0-25.9,adult Start:08-Feb-2018 Instruction Type:Provider Instructions for Treatment How to access health informa tion online Indication:BMI 27.0-27.9,adult Start:09-Nov-2017 Instruction Type:Patient Education How to access health informa tion online - Detail Indication:BMI 27.0-27.9,adult Start:09-Nov-2017 Instruction Type:Patient Education Patient Instructions Indication:BMI 27.0-27.9,adult Start:09-Nov-2017 Instruction Type:Provider Instructions for Treatment How to access health informa tion online Indication:BMI 27.0-27.9,adult Start:21-Sep-2017 Instruction Type:Patient Education How to access health informa tion online - Detail Indication:BMI 27.0-27.9,adult Start:21-Sep-2017 Instruction Type:Patient Education Patient Instructions Indication:UTI symptoms Start:21-Sep-2017 Instruction Type:Provider Instructions for Treatment How to access health informa tion online Indication:UTI symptoms Start:15-Sep-2017 Instruction Type:Patient Education How to access health informa tion online - Detail Indication:UTI symptoms Start:15-Sep-2017 Instruction Type:Patient Education Patient Instructions Indication:UTI symptoms Start:15-Sep-2017 Instruction Type:Provider Instructions for Treatment How to access health informa tion online Indication:Nonsmoker Start:10-Aug-2017 Instruction Type:Patient Education How to access health informa tion online - Detail Indication:Nonsmoker Start:10-Aug-2017 Instruction Type:Patient Education Patient Instructions Indication:Nonsmoker Start:10-Aug-2017 Instruction Type:Provider Instructions for Treatment How to access health informa tion online Indication:BMI 27.0-27.9,adult Start:20-Jul-2017 Instruction Type:Patient Education How to access health informa tion online - Detail Indication:BMI 27.0-27.9,adult Start:20-Jul-2017 Instruction Type:Patient Education Patient Instructions Indication:Cough Start:20-Jul-2017 Instruction Type:Provider Instructions for Treatment How to access health informa tion online Indication:BMI 27.0-27.9,adult Start:04-May-2017 Instruction Type:Patient Education How to access health informa tion online - Detail Indication:BMI 27.0-27.9,adult Start:04-May-2017 Instruction Type:Patient Education Patient Instructions Indication:BMI 27.0-27.9,adult Start:04-May-2017 Instruction Type:Provider Instructions for Treatment How to access health informa tion online Indication:BMI 26.0-26.9,adult Start:11-Apr-2017 Instruction Type:Patient Education How to access health informa tion online - Detail Indication:BMI 26.0-26.9,adult Start:11-Apr-2017 Instruction Type:Patient Education Patient Instructions Indication:BMI 26.0-26.9,adult Start:11-Apr-2017 Instruction Type:Provider Instructions for Treatment How to access health informa tion online Indication:BMI 26.0-26.9,adult Start:16-Nov-2016 Instruction Type:Patient Education How to access health informa tion online - Detail Indication:BMI 26.0-26.9,adult Start:16-Nov-2016 Instruction Type:Patient Education Patient Instructions Indication:BMI 26.0-26.9,adult Start:16-Nov-2016 Instruction Type:Provider Instructions for Treatment [facility]; [facility] Work Phone: Instructions* Name Dates Details Patient Instructions Indication:Non-smoker Start:25-Apr-2022 Instruction Type:Provider Instructions for Treatment How to Access Health Informa tion Online using Patient Portal and [employer]rd [employer] Apps Indication:Non-smoker Start:25-Apr-2022 Instruction Type:Patient Education Patient Instructions Indication:BMI 26.0-26.9,adult Start:14-Mar-2022 Instruction Type:Provider Instructions for Treatment How to Access Health Informa tion Online using Patient Portal and [employer]rd [employer] Apps Indication:BMI 26.0-26.9,adult Start:14-Mar-2022 Instruction Type:Patient Education Patient Instructions Indication:BMI 25.0-25.9,adult Start:20-Jan-2022 Instruction Type:Provider Instructions for Treatment How to Access Health Informa tion Online using Patient Portal and [employer]rd [employer] Apps Indication:BMI 25.0-25.9,adult Start:20-Jan-2022 Instruction Type:Patient Education Patient Instructions Indication:Nonsmoker Start:21-Oct-2021 Instruction Type:Provider Instructions for Treatment How to Access Health Informa tion Online using Patient Portal and [employer]rd [employer] Apps Indication:Nonsmoker Start:21-Oct-2021 Instruction Type:Patient Education Patient Instructions Indication:BMI 25.0-25.9,adult Start:02-Jun-2021 Instruction Type:Provider Instructions for Treatment How to Access Health Informa tion Online using Patient Portal and [employer]rd [employer] Apps Indication:BMI 25.0-25.9,adult Start:02-Jun-2021 Instruction Type:Patient Education Patient Instructions Indication:Nonsmoker Start:01-Mar-2021 Instruction Type:Provider Instructions for Treatment How to Access Health Informa tion Online using Patient Portal and [employer]rd [employer] Apps Indication:Nonsmoker Start:01-Mar-2021 Instruction Type:Patient Education Patient Instructions Indication:Nonsmoker Start:31-Dec-2020 Instruction Type:Provider Instructions for Treatment How to Access Health Informa tion Online using Patient Portal and [employer]rd [employer] Apps Indication:Nonsmoker Start:31-Dec-2020 Instruction Type:Patient Education Patient Instructions Indication:Nonsmoker Start:09-Nov-2020 Instruction Type:Provider Instructions for Treatment How to Access Health Informa tion Online using Patient Portal and [employer]rd [employer] Apps Indication:Nonsmoker Start:09-Nov-2020 Instruction Type:Patient Education How to Access Health Informa tion Online using Patient Portal and [employer]rd [employer] Apps Indication:Nonsmoker Start:13-Jul-2020 Instruction Type:Patient Education Patient Instructions Indication:Nonsmoker Start:13-Jul-2020 Instruction Type:Provider Instructions for Treatment How to access health informa tion online Indication:BMI 26.0-26.9,adult Start:10-Jun-2020 Instruction Type:Patient Education How to access health informa tion online - Detail Indication:BMI 26.0-26.9,adult Start:10-Jun-2020 Instruction Type:Patient Education Patient Instructions Indication:BMI 26.0-26.9,adult Start:10-Jun-2020 Instruction Type:Provider Instructions for Treatment How to access health informa tion online Indication:Nonsmoker Start:06-May-2020 Instruction Type:Patient Education How to access health informa tion online - Detail Indication:Nonsmoker Start:06-May-2020 Instruction Type:Patient Education Patient Instructions Indication:Nonsmoker Start:06-May-2020 Instruction Type:Provider Instructions for Treatment How to access health informa tion online Indication:Nonsmoker Start:15-Apr-2020 Instruction Type:Patient Education How to access health informa tion online - Detail Indication:Nonsmoker Start:15-Apr-2020 Instruction Type:Patient Education Patient Instructions Indication:Nonsmoker Start:15-Apr-2020 Instruction Type:Provider Instructions for Treatment How to access health informa tion online Indication:Nonsmoker Start:20-Mar-2020 Instruction Type:Patient Education Patient Instructions Indication:Nonsmoker Start:20-Mar-2020 Instruction Type:Provider Instructions for Treatment How to access health informa tion online - Detail Indication:Nonsmoker Start:18-Mar-2020 Instruction Type:Patient Education How to access health informa tion online Indication:Nonsmoker Start:18-Mar-2020 Instruction Type:Patient Education Patient Instructions Indication:Nonsmoker Start:18-Mar-2020 Instruction Type:Provider Instructions for Treatment How to access health informa tion online Indication:Nonsmoker Start:30-Dec-2019 Instruction Type:Patient Education How to access health informa tion online - Detail Indication:Nonsmoker Start:30-Dec-2019 Instruction Type:Patient Education Patient Instructions Indication:Nonsmoker Start:30-Dec-2019 Instruction Type:Provider Instructions for Treatment How to access health informa tion online Indication:Nonsmoker Start:18-Nov-2019 Instruction Type:Patient Education How to access health informa tion online - Detail Indication:Nonsmoker Start:18-Nov-2019 Instruction Type:Patient Education Patient Instructions Indication:Nonsmoker Start:18-Nov-2019 Instruction Type:Provider Instructions for Treatment How to access health informa tion online Indication:BMI 26.0-26.9,adult Start:11-Sep-2019 Instruction Type:Patient Education How to access health informa tion online - Detail Indication:BMI 26.0-26.9,adult Start:11-Sep-2019 Instruction Type:Patient Education Patient Instructions Indication:Nonsmoker Start:11-Sep-2019 Instruction Type:Provider Instructions for Treatment How to access health informa tion online Indication:BMI 25.0-25.9,adult Start:06-Sep-2019 Instruction Type:Patient Education How to access health informa tion online - Detail Indication:BMI 25.0-25.9,adult Start:06-Sep-2019 Instruction Type:Patient Education Patient Instructions Indication:BMI 25.0-25.9,adult Start:06-Sep-2019 Instruction Type:Provider Instructions for Treatment How to access health informa tion online Indication:Nonsmoker Start:24-Jun-2019 Instruction Type:Patient Education How to access health informa tion online - Detail Indication:Nonsmoker Start:24-Jun-2019 Instruction Type:Patient Education Patient Instructions Indication:Nonsmoker Start:24-Jun-2019 Instruction Type:Provider Instructions for Treatment How to access health informa tion online Indication:Nonsmoker Start:19-Feb-2019 Instruction Type:Patient Education How to access health informa tion online - Detail Indication:Nonsmoker Start:19-Feb-2019 Instruction Type:Patient Education Patient Instructions Indication:Nonsmoker Start:19-Feb-2019 Instruction Type:Provider Instructions for Treatment How to access health informa tion online Indication:Nonsmoker Start:20-Dec-2018 Instruction Type:Patient Education How to access health informa tion online - Detail Indication:Nonsmoker Start:20-Dec-2018 Instruction Type:Patient Education Patient Instructions Indication:Nonsmoker Start:20-Dec-2018 Instruction Type:Provider Instructions for Treatment How to access health informa tion online Indication:BMI 24.0-24.9, adult Start:21-Aug-2018 Instruction Type:Patient Education How to access health informa tion online - Detail Indication:BMI 24.0-24.9, adult Start:21-Aug-2018 Instruction Type:Patient Education How to access health informa tion online Indication:Nonsmoker Start:17-May-2018 Instruction Type:Patient Education How to access health informa tion online - Detail Indication:Nonsmoker Start:17-May-2018 Instruction Type:Patient Education Patient Instructions Indication:Nonsmoker Start:17-May-2018 Instruction Type:Provider Instructions for Treatment How to access health informa tion online Indication:BMI 25.0-25.9,adult Start:08-Feb-2018 Instruction Type:Patient Education How to access health informa tion online - Detail Indication:BMI 25.0-25.9,adult Start:08-Feb-2018 Instruction Type:Patient Education Patient Instructions Indication:BMI 25.0-25.9,adult Start:08-Feb-2018 Instruction Type:Provider Instructions for Treatment How to access health informa tion online Indication:BMI 27.0-27.9,adult Start:09-Nov-2017 Instruction Type:Patient Education How to access health informa tion online - Detail Indication:BMI 27.0-27.9,adult Start:09-Nov-2017 Instruction Type:Patient Education Patient Instructions Indication:BMI 27.0-27.9,adult Start:09-Nov-2017 Instruction Type:Provider Instructions for Treatment How to access health informa tion online Indication:BMI 27.0-27.9,adult Start:21-Sep-2017 Instruction Type:Patient Education How to access health informa tion online - Detail Indication:BMI 27.0-27.9,adult Start:21-Sep-2017 Instruction Type:Patient Education Patient Instructions Indication:UTI symptoms Start:21-Sep-2017 Instruction Type:Provider Instructions for Treatment How to access health informa tion online Indication:UTI symptoms Start:15-Sep-2017 Instruction Type:Patient Education How to access health informa tion online - Detail Indication:UTI symptoms Start:15-Sep-2017 Instruction Type:Patient Education Patient Instructions Indication:UTI symptoms Start:15-Sep-2017 Instruction Type:Provider Instructions for Treatment How to access health informa tion online Indication:Nonsmoker Start:10-Aug-2017 Instruction Type:Patient Education How to access health informa tion online - Detail Indication:Nonsmoker Start:10-Aug-2017 Instruction Type:Patient Education Patient Instructions Indication:Nonsmoker Start:10-Aug-2017 Instruction Type:Provider Instructions for Treatment How to access health informa tion online Indication:BMI 27.0-27.9,adult Start:20-Jul-2017 Instruction Type:Patient Education How to access health informa tion online - Detail Indication:BMI 27.0-27.9,adult Start:20-Jul-2017 Instruction Type:Patient Education Patient Instructions Indication:Cough Start:20-Jul-2017 Instruction Type:Provider Instructions for Treatment How to access health informa tion online Indication:BMI 27.0-27.9,adult Start:04-May-2017 Instruction Type:Patient Education How to access health informa tion online - Detail Indication:BMI 27.0-27.9,adult Start:04-May-2017 Instruction Type:Patient Education Patient Instructions Indication:BMI 27.0-27.9,adult Start:04-May-2017 Instruction Type:Provider Instructions for Treatment How to access health informa tion online Indication:BMI 26.0-26.9,adult Start:11-Apr-2017 Instruction Type:Patient Education How to access health informa tion online - Detail Indication:BMI 26.0-26.9,adult Start:11-Apr-2017 Instruction Type:Patient Education Patient Instructions Indication:BMI 26.0-26.9,adult Start:11-Apr-2017 Instruction Type:Provider Instructions for Treatment How to access health informa tion online Indication:BMI 26.0-26.9,adult Start:16-Nov-2016 Instruction Type:Patient Education How to access health informa tion online - Detail Indication:BMI 26.0-26.9,adult Start:16-Nov-2016 Instruction Type:Patient Education Patient Instructions Indication:BMI 26.0-26.9,adult Start:16-Nov-2016 Instruction Type:Provider Instructions for Treatment [facility]; [facility] Work Phone: Instructions* Name Dates Details Patient Instructions Indication:Non-smoker Start:25-Apr-2022 Instruction Type:Provider Instructions for Treatment How to Access Health Informa tion Online using Patient Portal and [employer]rd [employer] Apps Indication:Non-smoker Start:25-Apr-2022 Instruction Type:Patient Education Patient Instructions Indication:BMI 26.0-26.9,adult Start:14-Mar-2022 Instruction Type:Provider Instructions for Treatment How to Access Health Informa tion Online using Patient Portal and [employer]rd [employer] Apps Indication:BMI 26.0-26.9,adult Start:14-Mar-2022 Instruction Type:Patient Education Patient Instructions Indication:BMI 25.0-25.9,adult Start:20-Jan-2022 Instruction Type:Provider Instructions for Treatment How to Access Health Informa tion Online using Patient Portal and [employer]rd [employer] Apps Indication:BMI 25.0-25.9,adult Start:20-Jan-2022 Instruction Type:Patient Education Patient Instructions Indication:Nonsmoker Start:21-Oct-2021 Instruction Type:Provider Instructions for Treatment How to Access Health Informa tion Online using Patient Portal and [employer]rd [employer] Apps Indication:Nonsmoker Start:21-Oct-2021 Instruction Type:Patient Education Patient Instructions Indication:BMI 25.0-25.9,adult Start:02-Jun-2021 Instruction Type:Provider Instructions for Treatment How to Access Health Informa tion Online using Patient Portal and [employer]rd [employer] Apps Indication:BMI 25.0-25.9,adult Start:02-Jun-2021 Instruction Type:Patient Education Patient Instructions Indication:Nonsmoker Start:01-Mar-2021 Instruction Type:Provider Instructions for Treatment How to Access Health Informa tion Online using Patient Portal and [employer]rd [employer] Apps Indication:Nonsmoker Start:01-Mar-2021 Instruction Type:Patient Education Patient Instructions Indication:Nonsmoker Start:31-Dec-2020 Instruction Type:Provider Instructions for Treatment How to Access Health Informa tion Online using Patient Portal and [employer]rd [employer] Apps Indication:Nonsmoker Start:31-Dec-2020 Instruction Type:Patient Education Patient Instructions Indication:Nonsmoker Start:09-Nov-2020 Instruction Type:Provider Instructions for Treatment How to Access Health Informa tion Online using Patient Portal and [employer]rd [employer] Apps Indication:Nonsmoker Start:09-Nov-2020 Instruction Type:Patient Education How to Access Health Informa tion Online using Patient Portal and [employer]rd [employer] Apps Indication:Nonsmoker Start:13-Jul-2020 Instruction Type:Patient Education Patient Instructions Indication:Nonsmoker Start:13-Jul-2020 Instruction Type:Provider Instructions for Treatment How to access health informa tion online Indication:BMI 26.0-26.9,adult Start:10-Jun-2020 Instruction Type:Patient Education How to access health informa tion online - Detail Indication:BMI 26.0-26.9,adult Start:10-Jun-2020 Instruction Type:Patient Education Patient Instructions Indication:BMI 26.0-26.9,adult Start:10-Jun-2020 Instruction Type:Provider Instructions for Treatment How to access health informa tion online Indication:Nonsmoker Start:06-May-2020 Instruction Type:Patient Education How to access health informa tion online - Detail Indication:Nonsmoker Start:06-May-2020 Instruction Type:Patient Education Patient Instructions Indication:Nonsmoker Start:06-May-2020 Instruction Type:Provider Instructions for Treatment How to access health informa tion online Indication:Nonsmoker Start:15-Apr-2020 Instruction Type:Patient Education How to access health informa tion online - Detail Indication:Nonsmoker Start:15-Apr-2020 Instruction Type:Patient Education Patient Instructions Indication:Nonsmoker Start:15-Apr-2020 Instruction Type:Provider Instructions for Treatment How to access health informa tion online Indication:Nonsmoker Start:20-Mar-2020 Instruction Type:Patient Education Patient Instructions Indication:Nonsmoker Start:20-Mar-2020 Instruction Type:Provider Instructions for Treatment How to access health informa tion online - Detail Indication:Nonsmoker Start:18-Mar-2020 Instruction Type:Patient Education How to access health informa tion online Indication:Nonsmoker Start:18-Mar-2020 Instruction Type:Patient Education Patient Instructions Indication:Nonsmoker Start:18-Mar-2020 Instruction Type:Provider Instructions for Treatment How to access health informa tion online Indication:Nonsmoker Start:30-Dec-2019 Instruction Type:Patient Education How to access health informa tion online - Detail Indication:Nonsmoker Start:30-Dec-2019 Instruction Type:Patient Education Patient Instructions Indication:Nonsmoker Start:30-Dec-2019 Instruction Type:Provider Instructions for Treatment How to access health informa tion online Indication:Nonsmoker Start:18-Nov-2019 Instruction Type:Patient Education How to access health informa tion online - Detail Indication:Nonsmoker Start:18-Nov-2019 Instruction Type:Patient Education Patient Instructions Indication:Nonsmoker Start:18-Nov-2019 Instruction Type:Provider Instructions for Treatment How to access health informa tion online Indication:BMI 26.0-26.9,adult Start:11-Sep-2019 Instruction Type:Patient Education How to access health informa tion online - Detail Indication:BMI 26.0-26.9,adult Start:11-Sep-2019 Instruction Type:Patient Education Patient Instructions Indication:Nonsmoker Start:11-Sep-2019 Instruction Type:Provider Instructions for Treatment How to access health informa tion online Indication:BMI 25.0-25.9,adult Start:06-Sep-2019 Instruction Type:Patient Education How to access health informa tion online - Detail Indication:BMI 25.0-25.9,adult Start:06-Sep-2019 Instruction Type:Patient Education Patient Instructions Indication:BMI 25.0-25.9,adult Start:06-Sep-2019 Instruction Type:Provider Instructions for Treatment How to access health informa tion online Indication:Nonsmoker Start:24-Jun-2019 Instruction Type:Patient Education How to access health informa tion online - Detail Indication:Nonsmoker Start:24-Jun-2019 Instruction Type:Patient Education Patient Instructions Indication:Nonsmoker Start:24-Jun-2019 Instruction Type:Provider Instructions for Treatment How to access health informa tion online Indication:Nonsmoker Start:19-Feb-2019 Instruction Type:Patient Education How to access health informa tion online - Detail Indication:Nonsmoker Start:19-Feb-2019 Instruction Type:Patient Education Patient Instructions Indication:Nonsmoker Start:19-Feb-2019 Instruction Type:Provider Instructions for Treatment How to access health informa tion online Indication:Nonsmoker Start:20-Dec-2018 Instruction Type:Patient Education How to access health informa tion online - Detail Indication:Nonsmoker Start:20-Dec-2018 Instruction Type:Patient Education Patient Instructions Indication:Nonsmoker Start:20-Dec-2018 Instruction Type:Provider Instructions for Treatment How to access health informa tion online Indication:BMI 24.0-24.9, adult Start:21-Aug-2018 Instruction Type:Patient Education How to access health informa tion online - Detail Indication:BMI 24.0-24.9, adult Start:21-Aug-2018 Instruction Type:Patient Education How to access health informa tion online Indication:Nonsmoker Start:17-May-2018 Instruction Type:Patient Education How to access health informa tion online - Detail Indication:Nonsmoker Start:17-May-2018 Instruction Type:Patient Education Patient Instructions Indication:Nonsmoker Start:17-May-2018 Instruction Type:Provider Instructions for Treatment How to access health informa tion online Indication:BMI 25.0-25.9,adult Start:08-Feb-2018 Instruction Type:Patient Education How to access health informa tion online - Detail Indication:BMI 25.0-25.9,adult Start:08-Feb-2018 Instruction Type:Patient Education Patient Instructions Indication:BMI 25.0-25.9,adult Start:08-Feb-2018 Instruction Type:Provider Instructions for Treatment How to access health informa tion online Indication:BMI 27.0-27.9,adult Start:09-Nov-2017 Instruction Type:Patient Education How to access health informa tion online - Detail Indication:BMI 27.0-27.9,adult Start:09-Nov-2017 Instruction Type:Patient Education Patient Instructions Indication:BMI 27.0-27.9,adult Start:09-Nov-2017 Instruction Type:Provider Instructions for Treatment How to access health informa tion online Indication:BMI 27.0-27.9,adult Start:21-Sep-2017 Instruction Type:Patient Education How to access health informa tion online - Detail Indication:BMI 27.0-27.9,adult Start:21-Sep-2017 Instruction Type:Patient Education Patient Instructions Indication:UTI symptoms Start:21-Sep-2017 Instruction Type:Provider Instructions for Treatment How to access health informa tion online Indication:UTI symptoms Start:15-Sep-2017 Instruction Type:Patient Education How to access health informa tion online - Detail Indication:UTI symptoms Start:15-Sep-2017 Instruction Type:Patient Education Patient Instructions Indication:UTI symptoms Start:15-Sep-2017 Instruction Type:Provider Instructions for Treatment How to access health informa tion online Indication:Nonsmoker Start:10-Aug-2017 Instruction Type:Patient Education How to access health informa tion online - Detail Indication:Nonsmoker Start:10-Aug-2017 Instruction Type:Patient Education Patient Instructions Indication:Nonsmoker Start:10-Aug-2017 Instruction Type:Provider Instructions for Treatment How to access health informa tion online Indication:BMI 27.0-27.9,adult Start:20-Jul-2017 Instruction Type:Patient Education How to access health informa tion online - Detail Indication:BMI 27.0-27.9,adult Start:20-Jul-2017 Instruction Type:Patient Education Patient Instructions Indication:Cough Start:20-Jul-2017 Instruction Type:Provider Instructions for Treatment How to access health informa tion online Indication:BMI 27.0-27.9,adult Start:04-May-2017 Instruction Type:Patient Education How to access health informa tion online - Detail Indication:BMI 27.0-27.9,adult Start:04-May-2017 Instruction Type:Patient Education Patient Instructions Indication:BMI 27.0-27.9,adult Start:04-May-2017 Instruction Type:Provider Instructions for Treatment How to access health informa tion online Indication:BMI 26.0-26.9,adult Start:11-Apr-2017 Instruction Type:Patient Education How to access health informa tion online - Detail Indication:BMI 26.0-26.9,adult Start:11-Apr-2017 Instruction Type:Patient Education Patient Instructions Indication:BMI 26.0-26.9,adult Start:11-Apr-2017 Instruction Type:Provider Instructions for Treatment How to access health informa tion online Indication:BMI 26.0-26.9,adult Start:16-Nov-2016 Instruction Type:Patient Education How to access health informa tion online - Detail Indication:BMI 26.0-26.9,adult Start:16-Nov-2016 Instruction Type:Patient Education Patient Instructions Indication:BMI 26.0-26.9,adult Start:16-Nov-2016 Instruction Type:Provider Instructions for Treatment [facility]; [facility] Work Phone: Instructions* Name Dates Details Patient Instructions Indication:Non-smoker Start:25-Apr-2022 Instruction Type:Provider Instructions for Treatment How to Access Health Informa tion Online using Patient Portal and [employer]rd [employer] Apps Indication:Non-smoker Start:25-Apr-2022 Instruction Type:Patient Education Patient Instructions Indication:BMI 26.0-26.9,adult Start:14-Mar-2022 Instruction Type:Provider Instructions for Treatment How to Access Health Informa tion Online using Patient Portal and [employer]rd [employer] Apps Indication:BMI 26.0-26.9,adult Start:14-Mar-2022 Instruction Type:Patient Education Patient Instructions Indication:BMI 25.0-25.9,adult Start:20-Jan-2022 Instruction Type:Provider Instructions for Treatment How to Access Health Informa tion Online using Patient Portal and [employer]rd [employer] Apps Indication:BMI 25.0-25.9,adult Start:20-Jan-2022 Instruction Type:Patient Education Patient Instructions Indication:Nonsmoker Start:21-Oct-2021 Instruction Type:Provider Instructions for Treatment How to Access Health Informa tion Online using Patient Portal and [employer]rd [employer] Apps Indication:Nonsmoker Start:21-Oct-2021 Instruction Type:Patient Education Patient Instructions Indication:BMI 25.0-25.9,adult Start:02-Jun-2021 Instruction Type:Provider Instructions for Treatment How to Access Health Informa tion Online using Patient Portal and [employer]rd [employer] Apps Indication:BMI 25.0-25.9,adult Start:02-Jun-2021 Instruction Type:Patient Education Patient Instructions Indication:Nonsmoker Start:01-Mar-2021 Instruction Type:Provider Instructions for Treatment How to Access Health Informa tion Online using Patient Portal and [employer]rd [employer] Apps Indication:Nonsmoker Start:01-Mar-2021 Instruction Type:Patient Education Patient Instructions Indication:Nonsmoker Start:31-Dec-2020 Instruction Type:Provider Instructions for Treatment How to Access Health Informa tion Online using Patient Portal and [employer]rd [employer] Apps Indication:Nonsmoker Start:31-Dec-2020 Instruction Type:Patient Education Patient Instructions Indication:Nonsmoker Start:09-Nov-2020 Instruction Type:Provider Instructions for Treatment How to Access Health Informa tion Online using Patient Portal and [employer]rd [employer] Apps Indication:Nonsmoker Start:09-Nov-2020 Instruction Type:Patient Education How to Access Health Informa tion Online using Patient Portal and [employer]rd [employer] Apps Indication:Nonsmoker Start:13-Jul-2020 Instruction Type:Patient Education Patient Instructions Indication:Nonsmoker Start:13-Jul-2020 Instruction Type:Provider Instructions for Treatment How to access health informa tion online Indication:BMI 26.0-26.9,adult Start:10-Jun-2020 Instruction Type:Patient Education How to access health informa tion online - Detail Indication:BMI 26.0-26.9,adult Start:10-Jun-2020 Instruction Type:Patient Education Patient Instructions Indication:BMI 26.0-26.9,adult Start:10-Jun-2020 Instruction Type:Provider Instructions for Treatment How to access health informa tion online Indication:Nonsmoker Start:06-May-2020 Instruction Type:Patient Education How to access health informa tion online - Detail Indication:Nonsmoker Start:06-May-2020 Instruction Type:Patient Education Patient Instructions Indication:Nonsmoker Start:06-May-2020 Instruction Type:Provider Instructions for Treatment How to access health informa tion online Indication:Nonsmoker Start:15-Apr-2020 Instruction Type:Patient Education How to access health informa tion online - Detail Indication:Nonsmoker Start:15-Apr-2020 Instruction Type:Patient Education Patient Instructions Indication:Nonsmoker Start:15-Apr-2020 Instruction Type:Provider Instructions for Treatment How to access health informa tion online Indication:Nonsmoker Start:20-Mar-2020 Instruction Type:Patient Education Patient Instructions Indication:Nonsmoker Start:20-Mar-2020 Instruction Type:Provider Instructions for Treatment How to access health informa tion online - Detail Indication:Nonsmoker Start:18-Mar-2020 Instruction Type:Patient Education How to access health informa tion online Indication:Nonsmoker Start:18-Mar-2020 Instruction Type:Patient Education Patient Instructions Indication:Nonsmoker Start:18-Mar-2020 Instruction Type:Provider Instructions for Treatment How to access health informa tion online Indication:Nonsmoker Start:30-Dec-2019 Instruction Type:Patient Education How to access health informa tion online - Detail Indication:Nonsmoker Start:30-Dec-2019 Instruction Type:Patient Education Patient Instructions Indication:Nonsmoker Start:30-Dec-2019 Instruction Type:Provider Instructions for Treatment How to access health informa tion online Indication:Nonsmoker Start:18-Nov-2019 Instruction Type:Patient Education How to access health informa tion online - Detail Indication:Nonsmoker Start:18-Nov-2019 Instruction Type:Patient Education Patient Instructions Indication:Nonsmoker Start:18-Nov-2019 Instruction Type:Provider Instructions for Treatment How to access health informa tion online Indication:BMI 26.0-26.9,adult Start:11-Sep-2019 Instruction Type:Patient Education How to access health informa tion online - Detail Indication:BMI 26.0-26.9,adult Start:11-Sep-2019 Instruction Type:Patient Education Patient Instructions Indication:Nonsmoker Start:11-Sep-2019 Instruction Type:Provider Instructions for Treatment How to access health informa tion online Indication:BMI 25.0-25.9,adult Start:06-Sep-2019 Instruction Type:Patient Education How to access health informa tion online - Detail Indication:BMI 25.0-25.9,adult Start:06-Sep-2019 Instruction Type:Patient Education Patient Instructions Indication:BMI 25.0-25.9,adult Start:06-Sep-2019 Instruction Type:Provider Instructions for Treatment How to access health informa tion online Indication:Nonsmoker Start:24-Jun-2019 Instruction Type:Patient Education How to access health informa tion online - Detail Indication:Nonsmoker Start:24-Jun-2019 Instruction Type:Patient Education Patient Instructions Indication:Nonsmoker Start:24-Jun-2019 Instruction Type:Provider Instructions for Treatment How to access health informa tion online Indication:Nonsmoker Start:19-Feb-2019 Instruction Type:Patient Education How to access health informa tion online - Detail Indication:Nonsmoker Start:19-Feb-2019 Instruction Type:Patient Education Patient Instructions Indication:Nonsmoker Start:19-Feb-2019 Instruction Type:Provider Instructions for Treatment How to access health informa tion online Indication:Nonsmoker Start:20-Dec-2018 Instruction Type:Patient Education How to access health informa tion online - Detail Indication:Nonsmoker Start:20-Dec-2018 Instruction Type:Patient Education Patient Instructions Indication:Nonsmoker Start:20-Dec-2018 Instruction Type:Provider Instructions for Treatment How to access health informa tion online Indication:BMI 24.0-24.9, adult Start:21-Aug-2018 Instruction Type:Patient Education How to access health informa tion online - Detail Indication:BMI 24.0-24.9, adult Start:21-Aug-2018 Instruction Type:Patient Education How to access health informa tion online Indication:Nonsmoker Start:17-May-2018 Instruction Type:Patient Education How to access health informa tion online - Detail Indication:Nonsmoker Start:17-May-2018 Instruction Type:Patient Education Patient Instructions Indication:Nonsmoker Start:17-May-2018 Instruction Type:Provider Instructions for Treatment How to access health informa tion online Indication:BMI 25.0-25.9,adult Start:08-Feb-2018 Instruction Type:Patient Education How to access health informa tion online - Detail Indication:BMI 25.0-25.9,adult Start:08-Feb-2018 Instruction Type:Patient Education Patient Instructions Indication:BMI 25.0-25.9,adult Start:08-Feb-2018 Instruction Type:Provider Instructions for Treatment How to access health informa tion online Indication:BMI 27.0-27.9,adult Start:09-Nov-2017 Instruction Type:Patient Education How to access health informa tion online - Detail Indication:BMI 27.0-27.9,adult Start:09-Nov-2017 Instruction Type:Patient Education Patient Instructions Indication:BMI 27.0-27.9,adult Start:09-Nov-2017 Instruction Type:Provider Instructions for Treatment How to access health informa tion online Indication:BMI 27.0-27.9,adult Start:21-Sep-2017 Instruction Type:Patient Education How to access health informa tion online - Detail Indication:BMI 27.0-27.9,adult Start:21-Sep-2017 Instruction Type:Patient Education Patient Instructions Indication:UTI symptoms Start:21-Sep-2017 Instruction Type:Provider Instructions for Treatment How to access health informa tion online Indication:UTI symptoms Start:15-Sep-2017 Instruction Type:Patient Education How to access health informa tion online - Detail Indication:UTI symptoms Start:15-Sep-2017 Instruction Type:Patient Education Patient Instructions Indication:UTI symptoms Start:15-Sep-2017 Instruction Type:Provider Instructions for Treatment How to access health informa tion online Indication:Nonsmoker Start:10-Aug-2017 Instruction Type:Patient Education How to access health informa tion online - Detail Indication:Nonsmoker Start:10-Aug-2017 Instruction Type:Patient Education Patient Instructions Indication:Nonsmoker Start:10-Aug-2017 Instruction Type:Provider Instructions for Treatment How to access health informa tion online Indication:BMI 27.0-27.9,adult Start:20-Jul-2017 Instruction Type:Patient Education How to access health informa tion online - Detail Indication:BMI 27.0-27.9,adult Start:20-Jul-2017 Instruction Type:Patient Education Patient Instructions Indication:Cough Start:20-Jul-2017 Instruction Type:Provider Instructions for Treatment How to access health informa tion online Indication:BMI 27.0-27.9,adult Start:04-May-2017 Instruction Type:Patient Education How to access health informa tion online - Detail Indication:BMI 27.0-27.9,adult Start:04-May-2017 Instruction Type:Patient Education Patient Instructions Indication:BMI 27.0-27.9,adult Start:04-May-2017 Instruction Type:Provider Instructions for Treatment How to access health informa tion online Indication:BMI 26.0-26.9,adult Start:11-Apr-2017 Instruction Type:Patient Education How to access health informa tion online - Detail Indication:BMI 26.0-26.9,adult Start:11-Apr-2017 Instruction Type:Patient Education Patient Instructions Indication:BMI 26.0-26.9,adult Start:11-Apr-2017 Instruction Type:Provider Instructions for Treatment How to access health informa tion online Indication:BMI 26.0-26.9,adult Start:16-Nov-2016 Instruction Type:Patient Education How to access health informa tion online - Detail Indication:BMI 26.0-26.9,adult Start:16-Nov-2016 Instruction Type:Patient Education Patient Instructions Indication:BMI 26.0-26.9,adult Start:16-Nov-2016 Instruction Type:Provider Instructions for Treatment [facility]; [facility] Work Phone: Instructions* Name Dates Details Patient Instructions Indication:BMI 28.0-28.9,adult Start:24-Oct-2022 Instruction Type:Provider Instructions for Treatment How to Access Health Informa tion Online using Patient Portal and [employer]rd [employer] Apps Indication:BMI 28.0-28.9,adult Start:24-Oct-2022 Instruction Type:Patient Education Patient Instructions Indication:Non-smoker Start:25-Apr-2022 Instruction Type:Provider Instructions for Treatment How to Access Health Informa tion Online using Patient Portal and [employer]rd [employer] Apps Indication:Non-smoker Start:25-Apr-2022 Instruction Type:Patient Education Patient Instructions Indication:BMI 26.0-26.9,adult Start:14-Mar-2022 Instruction Type:Provider Instructions for Treatment How to Access Health Informa tion Online using Patient Portal and [employer]rd [employer] Apps Indication:BMI 26.0-26.9,adult Start:14-Mar-2022 Instruction Type:Patient Education Patient Instructions Indication:BMI 25.0-25.9,adult Start:20-Jan-2022 Instruction Type:Provider Instructions for Treatment How to Access Health Informa tion Online using Patient Portal and [employer]rd [employer] Apps Indication:BMI 25.0-25.9,adult Start:20-Jan-2022 Instruction Type:Patient Education Patient Instructions Indication:Nonsmoker Start:21-Oct-2021 Instruction Type:Provider Instructions for Treatment How to Access Health Informa tion Online using Patient Portal and [employer]rd [employer] Apps Indication:Nonsmoker Start:21-Oct-2021 Instruction Type:Patient Education Patient Instructions Indication:BMI 25.0-25.9,adult Start:02-Jun-2021 Instruction Type:Provider Instructions for Treatment How to Access Health Informa tion Online using Patient Portal and [employer]rd [employer] Apps Indication:BMI 25.0-25.9,adult Start:02-Jun-2021 Instruction Type:Patient Education Patient Instructions Indication:Nonsmoker Start:01-Mar-2021 Instruction Type:Provider Instructions for Treatment How to Access Health Informa tion Online using Patient Portal and [employer]rd [employer] Apps Indication:Nonsmoker Start:01-Mar-2021 Instruction Type:Patient Education Patient Instructions Indication:Nonsmoker Start:31-Dec-2020 Instruction Type:Provider Instructions for Treatment How to Access Health Informa tion Online using Patient Portal and [employer]rd [employer] Apps Indication:Nonsmoker Start:31-Dec-2020 Instruction Type:Patient Education Patient Instructions Indication:Nonsmoker Start:09-Nov-2020 Instruction Type:Provider Instructions for Treatment How to Access Health Informa tion Online using Patient Portal and [employer]rd [employer] Apps Indication:Nonsmoker Start:09-Nov-2020 Instruction Type:Patient Education How to Access Health Informa tion Online using Patient Portal and [employer]rd [employer] Apps Indication:Nonsmoker Start:13-Jul-2020 Instruction Type:Patient Education Patient Instructions Indication:Nonsmoker Start:13-Jul-2020 Instruction Type:Provider Instructions for Treatment How to access health informa tion online Indication:BMI 26.0-26.9,adult Start:10-Jun-2020 Instruction Type:Patient Education How to access health informa tion online - Detail Indication:BMI 26.0-26.9,adult Start:10-Jun-2020 Instruction Type:Patient Education Patient Instructions Indication:BMI 26.0-26.9,adult Start:10-Jun-2020 Instruction Type:Provider Instructions for Treatment How to access health informa tion online Indication:Nonsmoker Start:06-May-2020 Instruction Type:Patient Education How to access health informa tion online - Detail Indication:Nonsmoker Start:06-May-2020 Instruction Type:Patient Education Patient Instructions Indication:Nonsmoker Start:06-May-2020 Instruction Type:Provider Instructions for Treatment How to access health informa tion online Indication:Nonsmoker Start:15-Apr-2020 Instruction Type:Patient Education How to access health informa tion online - Detail Indication:Nonsmoker Start:15-Apr-2020 Instruction Type:Patient Education Patient Instructions Indication:Nonsmoker Start:15-Apr-2020 Instruction Type:Provider Instructions for Treatment How to access health informa tion online Indication:Nonsmoker Start:20-Mar-2020 Instruction Type:Patient Education Patient Instructions Indication:Nonsmoker Start:20-Mar-2020 Instruction Type:Provider Instructions for Treatment How to access health informa tion online - Detail Indication:Nonsmoker Start:18-Mar-2020 Instruction Type:Patient Education How to access health informa tion online Indication:Nonsmoker Start:18-Mar-2020 Instruction Type:Patient Education Patient Instructions Indication:Nonsmoker Start:18-Mar-2020 Instruction Type:Provider Instructions for Treatment How to access health informa tion online Indication:Nonsmoker Start:30-Dec-2019 Instruction Type:Patient Education How to access health informa tion online - Detail Indication:Nonsmoker Start:30-Dec-2019 Instruction Type:Patient Education Patient Instructions Indication:Nonsmoker Start:30-Dec-2019 Instruction Type:Provider Instructions for Treatment How to access health informa tion online Indication:Nonsmoker Start:18-Nov-2019 Instruction Type:Patient Education How to access health informa tion online - Detail Indication:Nonsmoker Start:18-Nov-2019 Instruction Type:Patient Education Patient Instructions Indication:Nonsmoker Start:18-Nov-2019 Instruction Type:Provider Instructions for Treatment How to access health informa tion online Indication:BMI 26.0-26.9,adult Start:11-Sep-2019 Instruction Type:Patient Education How to access health informa tion online - Detail Indication:BMI 26.0-26.9,adult Start:11-Sep-2019 Instruction Type:Patient Education Patient Instructions Indication:Nonsmoker Start:11-Sep-2019 Instruction Type:Provider Instructions for Treatment How to access health informa tion online Indication:BMI 25.0-25.9,adult Start:06-Sep-2019 Instruction Type:Patient Education How to access health informa tion online - Detail Indication:BMI 25.0-25.9,adult Start:06-Sep-2019 Instruction Type:Patient Education Patient Instructions Indication:BMI 25.0-25.9,adult Start:06-Sep-2019 Instruction Type:Provider Instructions for Treatment How to access health informa tion online Indication:Nonsmoker Start:24-Jun-2019 Instruction Type:Patient Education How to access health informa tion online - Detail Indication:Nonsmoker Start:24-Jun-2019 Instruction Type:Patient Education Patient Instructions Indication:Nonsmoker Start:24-Jun-2019 Instruction Type:Provider Instructions for Treatment How to access health informa tion online Indication:Nonsmoker Start:19-Feb-2019 Instruction Type:Patient Education How to access health informa tion online - Detail Indication:Nonsmoker Start:19-Feb-2019 Instruction Type:Patient Education Patient Instructions Indication:Nonsmoker Start:19-Feb-2019 Instruction Type:Provider Instructions for Treatment How to access health informa tion online Indication:Nonsmoker Start:20-Dec-2018 Instruction Type:Patient Education How to access health informa tion online - Detail Indication:Nonsmoker Start:20-Dec-2018 Instruction Type:Patient Education Patient Instructions Indication:Nonsmoker Start:20-Dec-2018 Instruction Type:Provider Instructions for Treatment How to access health informa tion online Indication:BMI 24.0-24.9, adult Start:21-Aug-2018 Instruction Type:Patient Education How to access health informa tion online - Detail Indication:BMI 24.0-24.9, adult Start:21-Aug-2018 Instruction Type:Patient Education How to access health informa tion online Indication:Nonsmoker Start:17-May-2018 Instruction Type:Patient Education How to access health informa tion online - Detail Indication:Nonsmoker Start:17-May-2018 Instruction Type:Patient Education Patient Instructions Indication:Nonsmoker Start:17-May-2018 Instruction Type:Provider Instructions for Treatment How to access health informa tion online Indication:BMI 25.0-25.9,adult Start:08-Feb-2018 Instruction Type:Patient Education How to access health informa tion online - Detail Indication:BMI 25.0-25.9,adult Start:08-Feb-2018 Instruction Type:Patient Education Patient Instructions Indication:BMI 25.0-25.9,adult Start:08-Feb-2018 Instruction Type:Provider Instructions for Treatment How to access health informa tion online Indication:BMI 27.0-27.9,adult Start:09-Nov-2017 Instruction Type:Patient Education How to access health informa tion online - Detail Indication:BMI 27.0-27.9,adult Start:09-Nov-2017 Instruction Type:Patient Education Patient Instructions Indication:BMI 27.0-27.9,adult Start:09-Nov-2017 Instruction Type:Provider Instructions for Treatment How to access health informa tion online Indication:BMI 27.0-27.9,adult Start:21-Sep-2017 Instruction Type:Patient Education How to access health informa tion online - Detail Indication:BMI 27.0-27.9,adult Start:21-Sep-2017 Instruction Type:Patient Education Patient Instructions Indication:UTI symptoms Start:21-Sep-2017 Instruction Type:Provider Instructions for Treatment How to access health informa tion online Indication:UTI symptoms Start:15-Sep-2017 Instruction Type:Patient Education How to access health informa tion online - Detail Indication:UTI symptoms Start:15-Sep-2017 Instruction Type:Patient Education Patient Instructions Indication:UTI symptoms Start:15-Sep-2017 Instruction Type:Provider Instructions for Treatment How to access health informa tion online Indication:Nonsmoker Start:10-Aug-2017 Instruction Type:Patient Education How to access health informa tion online - Detail Indication:Nonsmoker Start:10-Aug-2017 Instruction Type:Patient Education Patient Instructions Indication:Nonsmoker Start:10-Aug-2017 Instruction Type:Provider Instructions for Treatment How to access health informa tion online Indication:BMI 27.0-27.9,adult Start:20-Jul-2017 Instruction Type:Patient Education How to access health informa tion online - Detail Indication:BMI 27.0-27.9,adult Start:20-Jul-2017 Instruction Type:Patient Education Patient Instructions Indication:Cough Start:20-Jul-2017 Instruction Type:Provider Instructions for Treatment How to access health informa tion online Indication:BMI 27.0-27.9,adult Start:04-May-2017 Instruction Type:Patient Education How to access health informa tion online - Detail Indication:BMI 27.0-27.9,adult Start:04-May-2017 Instruction Type:Patient Education Patient Instructions Indication:BMI 27.0-27.9,adult Start:04-May-2017 Instruction Type:Provider Instructions for Treatment How to access health informa tion online Indication:BMI 26.0-26.9,adult Start:11-Apr-2017 Instruction Type:Patient Education How to access health informa tion online - Detail Indication:BMI 26.0-26.9,adult Start:11-Apr-2017 Instruction Type:Patient Education Patient Instructions Indication:BMI 26.0-26.9,adult Start:11-Apr-2017 Instruction Type:Provider Instructions for Treatment How to access health informa tion online Indication:BMI 26.0-26.9,adult Start:16-Nov-2016 Instruction Type:Patient Education How to access health informa tion online - Detail Indication:BMI 26.0-26.9,adult Start:16-Nov-2016 Instruction Type:Patient Education Patient Instructions Indication:BMI 26.0-26.9,adult Start:16-Nov-2016 Instruction Type:Provider Instructions for Treatment [facility]; [facility] Work Phone: Instructions* Name Dates Details Patient Instructions Indication:BMI 28.0-28.9,adult Start:24-Oct-2022 Instruction Type:Provider Instructions for Treatment How to Access Health Informa tion Online using Patient Portal and [employer]rd [employer] Apps Indication:BMI 28.0-28.9,adult Start:24-Oct-2022 Instruction Type:Patient Education Patient Instructions Indication:Non-smoker Start:25-Apr-2022 Instruction Type:Provider Instructions for Treatment How to Access Health Informa tion Online using Patient Portal and [employer]rd [employer] Apps Indication:Non-smoker Start:25-Apr-2022 Instruction Type:Patient Education Patient Instructions Indication:BMI 26.0-26.9,adult Start:14-Mar-2022 Instruction Type:Provider Instructions for Treatment How to Access Health Informa tion Online using Patient Portal and [employer]rd [employer] Apps Indication:BMI 26.0-26.9,adult Start:14-Mar-2022 Instruction Type:Patient Education Patient Instructions Indication:BMI 25.0-25.9,adult Start:20-Jan-2022 Instruction Type:Provider Instructions for Treatment How to Access Health Informa tion Online using Patient Portal and [employer]rd [employer] Apps Indication:BMI 25.0-25.9,adult Start:20-Jan-2022 Instruction Type:Patient Education Patient Instructions Indication:Nonsmoker Start:21-Oct-2021 Instruction Type:Provider Instructions for Treatment How to Access Health Informa tion Online using Patient Portal and [employer]rd [employer] Apps Indication:Nonsmoker Start:21-Oct-2021 Instruction Type:Patient Education Patient Instructions Indication:BMI 25.0-25.9,adult Start:02-Jun-2021 Instruction Type:Provider Instructions for Treatment How to Access Health Informa tion Online using Patient Portal and [employer]rd [employer] Apps Indication:BMI 25.0-25.9,adult Start:02-Jun-2021 Instruction Type:Patient Education Patient Instructions Indication:Nonsmoker Start:01-Mar-2021 Instruction Type:Provider Instructions for Treatment How to Access Health Informa tion Online using Patient Portal and [employer]rd [employer] Apps Indication:Nonsmoker Start:01-Mar-2021 Instruction Type:Patient Education Patient Instructions Indication:Nonsmoker Start:31-Dec-2020 Instruction Type:Provider Instructions for Treatment How to Access Health Informa tion Online using Patient Portal and [employer]rd [employer] Apps Indication:Nonsmoker Start:31-Dec-2020 Instruction Type:Patient Education Patient Instructions Indication:Nonsmoker Start:09-Nov-2020 Instruction Type:Provider Instructions for Treatment How to Access Health Informa tion Online using Patient Portal and [employer]rd [employer] Apps Indication:Nonsmoker Start:09-Nov-2020 Instruction Type:Patient Education How to Access Health Informa tion Online using Patient Portal and [employer]rd [employer] Apps Indication:Nonsmoker Start:13-Jul-2020 Instruction Type:Patient Education Patient Instructions Indication:Nonsmoker Start:13-Jul-2020 Instruction Type:Provider Instructions for Treatment How to access health informa tion online Indication:BMI 26.0-26.9,adult Start:10-Jun-2020 Instruction Type:Patient Education How to access health informa tion online - Detail Indication:BMI 26.0-26.9,adult Start:10-Jun-2020 Instruction Type:Patient Education Patient Instructions Indication:BMI 26.0-26.9,adult Start:10-Jun-2020 Instruction Type:Provider Instructions for Treatment How to access health informa tion online Indication:Nonsmoker Start:06-May-2020 Instruction Type:Patient Education How to access health informa tion online - Detail Indication:Nonsmoker Start:06-May-2020 Instruction Type:Patient Education Patient Instructions Indication:Nonsmoker Start:06-May-2020 Instruction Type:Provider Instructions for Treatment How to access health informa tion online Indication:Nonsmoker Start:15-Apr-2020 Instruction Type:Patient Education How to access health informa tion online - Detail Indication:Nonsmoker Start:15-Apr-2020 Instruction Type:Patient Education Patient Instructions Indication:Nonsmoker Start:15-Apr-2020 Instruction Type:Provider Instructions for Treatment How to access health informa tion online Indication:Nonsmoker Start:20-Mar-2020 Instruction Type:Patient Education Patient Instructions Indication:Nonsmoker Start:20-Mar-2020 Instruction Type:Provider Instructions for Treatment How to access health informa tion online - Detail Indication:Nonsmoker Start:18-Mar-2020 Instruction Type:Patient Education How to access health informa tion online Indication:Nonsmoker Start:18-Mar-2020 Instruction Type:Patient Education Patient Instructions Indication:Nonsmoker Start:18-Mar-2020 Instruction Type:Provider Instructions for Treatment How to access health informa tion online Indication:Nonsmoker Start:30-Dec-2019 Instruction Type:Patient Education How to access health informa tion online - Detail Indication:Nonsmoker Start:30-Dec-2019 Instruction Type:Patient Education Patient Instructions Indication:Nonsmoker Start:30-Dec-2019 Instruction Type:Provider Instructions for Treatment How to access health informa tion online Indication:Nonsmoker Start:18-Nov-2019 Instruction Type:Patient Education How to access health informa tion online - Detail Indication:Nonsmoker Start:18-Nov-2019 Instruction Type:Patient Education Patient Instructions Indication:Nonsmoker Start:18-Nov-2019 Instruction Type:Provider Instructions for Treatment How to access health informa tion online Indication:BMI 26.0-26.9,adult Start:11-Sep-2019 Instruction Type:Patient Education How to access health informa tion online - Detail Indication:BMI 26.0-26.9,adult Start:11-Sep-2019 Instruction Type:Patient Education Patient Instructions Indication:Nonsmoker Start:11-Sep-2019 Instruction Type:Provider Instructions for Treatment How to access health informa tion online Indication:BMI 25.0-25.9,adult Start:06-Sep-2019 Instruction Type:Patient Education How to access health informa tion online - Detail Indication:BMI 25.0-25.9,adult Start:06-Sep-2019 Instruction Type:Patient Education Patient Instructions Indication:BMI 25.0-25.9,adult Start:06-Sep-2019 Instruction Type:Provider Instructions for Treatment How to access health informa tion online Indication:Nonsmoker Start:24-Jun-2019 Instruction Type:Patient Education How to access health informa tion online - Detail Indication:Nonsmoker Start:24-Jun-2019 Instruction Type:Patient Education Patient Instructions Indication:Nonsmoker Start:24-Jun-2019 Instruction Type:Provider Instructions for Treatment How to access health informa tion online Indication:Nonsmoker Start:19-Feb-2019 Instruction Type:Patient Education How to access health informa tion online - Detail Indication:Nonsmoker Start:19-Feb-2019 Instruction Type:Patient Education Patient Instructions Indication:Nonsmoker Start:19-Feb-2019 Instruction Type:Provider Instructions for Treatment How to access health informa tion online Indication:Nonsmoker Start:20-Dec-2018 Instruction Type:Patient Education How to access health informa tion online - Detail Indication:Nonsmoker Start:20-Dec-2018 Instruction Type:Patient Education Patient Instructions Indication:Nonsmoker Start:20-Dec-2018 Instruction Type:Provider Instructions for Treatment How to access health informa tion online Indication:BMI 24.0-24.9, adult Start:21-Aug-2018 Instruction Type:Patient Education How to access health informa tion online - Detail Indication:BMI 24.0-24.9, adult Start:21-Aug-2018 Instruction Type:Patient Education How to access health informa tion online Indication:Nonsmoker Start:17-May-2018 Instruction Type:Patient Education How to access health informa tion online - Detail Indication:Nonsmoker Start:17-May-2018 Instruction Type:Patient Education Patient Instructions Indication:Nonsmoker Start:17-May-2018 Instruction Type:Provider Instructions for Treatment How to access health informa tion online Indication:BMI 25.0-25.9,adult Start:08-Feb-2018 Instruction Type:Patient Education How to access health informa tion online - Detail Indication:BMI 25.0-25.9,adult Start:08-Feb-2018 Instruction Type:Patient Education Patient Instructions Indication:BMI 25.0-25.9,adult Start:08-Feb-2018 Instruction Type:Provider Instructions for Treatment How to access health informa tion online Indication:BMI 27.0-27.9,adult Start:09-Nov-2017 Instruction Type:Patient Education How to access health informa tion online - Detail Indication:BMI 27.0-27.9,adult Start:09-Nov-2017 Instruction Type:Patient Education Patient Instructions Indication:BMI 27.0-27.9,adult Start:09-Nov-2017 Instruction Type:Provider Instructions for Treatment How to access health informa tion online Indication:BMI 27.0-27.9,adult Start:21-Sep-2017 Instruction Type:Patient Education How to access health informa tion online - Detail Indication:BMI 27.0-27.9,adult Start:21-Sep-2017 Instruction Type:Patient Education Patient Instructions Indication:UTI symptoms Start:21-Sep-2017 Instruction Type:Provider Instructions for Treatment How to access health informa tion online Indication:UTI symptoms Start:15-Sep-2017 Instruction Type:Patient Education How to access health informa tion online - Detail Indication:UTI symptoms Start:15-Sep-2017 Instruction Type:Patient Education Patient Instructions Indication:UTI symptoms Start:15-Sep-2017 Instruction Type:Provider Instructions for Treatment How to access health informa tion online Indication:Nonsmoker Start:10-Aug-2017 Instruction Type:Patient Education How to access health informa tion online - Detail Indication:Nonsmoker Start:10-Aug-2017 Instruction Type:Patient Education Patient Instructions Indication:Nonsmoker Start:10-Aug-2017 Instruction Type:Provider Instructions for Treatment How to access health informa tion online Indication:BMI 27.0-27.9,adult Start:20-Jul-2017 Instruction Type:Patient Education How to access health informa tion online - Detail Indication:BMI 27.0-27.9,adult Start:20-Jul-2017 Instruction Type:Patient Education Patient Instructions Indication:Cough Start:20-Jul-2017 Instruction Type:Provider Instructions for Treatment How to access health informa tion online Indication:BMI 27.0-27.9,adult Start:04-May-2017 Instruction Type:Patient Education How to access health informa tion online - Detail Indication:BMI 27.0-27.9,adult Start:04-May-2017 Instruction Type:Patient Education Patient Instructions Indication:BMI 27.0-27.9,adult Start:04-May-2017 Instruction Type:Provider Instructions for Treatment How to access health informa tion online Indication:BMI 26.0-26.9,adult Start:11-Apr-2017 Instruction Type:Patient Education How to access health informa tion online - Detail Indication:BMI 26.0-26.9,adult Start:11-Apr-2017 Instruction Type:Patient Education Patient Instructions Indication:BMI 26.0-26.9,adult Start:11-Apr-2017 Instruction Type:Provider Instructions for Treatment How to access health informa tion online Indication:BMI 26.0-26.9,adult Start:16-Nov-2016 Instruction Type:Patient Education How to access health informa tion online - Detail Indication:BMI 26.0-26.9,adult Start:16-Nov-2016 Instruction Type:Patient Education Patient Instructions Indication:BMI 26.0-26.9,adult Start:16-Nov-2016 Instruction Type:Provider Instructions for Treatment [facility]; [facility] Work Phone: Instructions* Name Dates Details Patient Instructions Indication:BMI 28.0-28.9,adult Start:24-Oct-2022 Instruction Type:Provider Instructions for Treatment How to Access Health Informa tion Online using Patient Portal and [employer]rd [employer] Apps Indication:BMI 28.0-28.9,adult Start:24-Oct-2022 Instruction Type:Patient Education Patient Instructions Indication:Non-smoker Start:25-Apr-2022 Instruction Type:Provider Instructions for Treatment How to Access Health Informa tion Online using Patient Portal and [employer]rd [employer] Apps Indication:Non-smoker Start:25-Apr-2022 Instruction Type:Patient Education Patient Instructions Indication:BMI 26.0-26.9,adult Start:14-Mar-2022 Instruction Type:Provider Instructions for Treatment How to Access Health Informa tion Online using Patient Portal and [employer]rd [employer] Apps Indication:BMI 26.0-26.9,adult Start:14-Mar-2022 Instruction Type:Patient Education Patient Instructions Indication:BMI 25.0-25.9,adult Start:20-Jan-2022 Instruction Type:Provider Instructions for Treatment How to Access Health Informa tion Online using Patient Portal and [employer]rd [employer] Apps Indication:BMI 25.0-25.9,adult Start:20-Jan-2022 Instruction Type:Patient Education Patient Instructions Indication:Nonsmoker Start:21-Oct-2021 Instruction Type:Provider Instructions for Treatment How to Access Health Informa tion Online using Patient Portal and [employer]rd [employer] Apps Indication:Nonsmoker Start:21-Oct-2021 Instruction Type:Patient Education Patient Instructions Indication:BMI 25.0-25.9,adult Start:02-Jun-2021 Instruction Type:Provider Instructions for Treatment How to Access Health Informa tion Online using Patient Portal and [employer]rd [employer] Apps Indication:BMI 25.0-25.9,adult Start:02-Jun-2021 Instruction Type:Patient Education Patient Instructions Indication:Nonsmoker Start:01-Mar-2021 Instruction Type:Provider Instructions for Treatment How to Access Health Informa tion Online using Patient Portal and [employer]rd [employer] Apps Indication:Nonsmoker Start:01-Mar-2021 Instruction Type:Patient Education Patient Instructions Indication:Nonsmoker Start:31-Dec-2020 Instruction Type:Provider Instructions for Treatment How to Access Health Informa tion Online using Patient Portal and [employer]rd [employer] Apps Indication:Nonsmoker Start:31-Dec-2020 Instruction Type:Patient Education Patient Instructions Indication:Nonsmoker Start:09-Nov-2020 Instruction Type:Provider Instructions for Treatment How to Access Health Informa tion Online using Patient Portal and [employer] Apps Indication:Nonsmoker Start:09-Nov-2020 Instruction Type:Patient Education How to Access Health Informa tion Online using Patient Portal and [employer]rd [employer] Apps Indication:Nonsmoker Start:13-Jul-2020 Instruction Type:Patient Education Patient Instructions Indication:Nonsmoker Start:13-Jul-2020 Instruction Type:Provider Instructions for Treatment How to access health informa tion online Indication:BMI 26.0-26.9,adult Start:10-Jun-2020 Instruction Type:Patient Education How to access health informa tion online - Detail Indication:BMI 26.0-26.9,adult Start:10-Jun-2020 Instruction Type:Patient Education Patient Instructions Indication:BMI 26.0-26.9,adult Start:10-Jun-2020 Instruction Type:Provider Instructions for Treatment How to access health informa tion online Indication:Nonsmoker Start:06-May-2020 Instruction Type:Patient Education How to access health informa tion online - Detail Indication:Nonsmoker Start:06-May-2020 Instruction Type:Patient Education Patient Instructions Indication:Nonsmoker Start:06-May-2020 Instruction Type:Provider Instructions for Treatment How to access health informa tion online Indication:Nonsmoker Start:15-Apr-2020 Instruction Type:Patient Education How to access health informa tion online - Detail Indication:Nonsmoker Start:15-Apr-2020 Instruction Type:Patient Education Patient Instructions Indication:Nonsmoker Start:15-Apr-2020 Instruction Type:Provider Instructions for Treatment How to access health informa tion online Indication:Nonsmoker Start:20-Mar-2020 Instruction Type:Patient Education Patient Instructions Indication:Nonsmoker Start:20-Mar-2020 Instruction Type:Provider Instructions for Treatment How to access health informa tion online - Detail Indication:Nonsmoker Start:18-Mar-2020 Instruction Type:Patient Education How to access health informa tion online Indication:Nonsmoker Start:18-Mar-2020 Instruction Type:Patient Education Patient Instructions Indication:Nonsmoker Start:18-Mar-2020 Instruction Type:Provider Instructions for Treatment How to access health informa tion online Indication:Nonsmoker Start:30-Dec-2019 Instruction Type:Patient Education How to access health informa tion online - Detail Indication:Nonsmoker Start:30-Dec-2019 Instruction Type:Patient Education Patient Instructions Indication:Nonsmoker Start:30-Dec-2019 Instruction Type:Provider Instructions for Treatment How to access health informa tion online Indication:Nonsmoker Start:18-Nov-2019 Instruction Type:Patient Education How to access health informa tion online - Detail Indication:Nonsmoker Start:18-Nov-2019 Instruction Type:Patient Education Patient Instructions Indication:Nonsmoker Start:18-Nov-2019 Instruction Type:Provider Instructions for Treatment How to access health informa tion online Indication:BMI 26.0-26.9,adult Start:11-Sep-2019 Instruction Type:Patient Education How to access health informa tion online - Detail Indication:BMI 26.0-26.9,adult Start:11-Sep-2019 Instruction Type:Patient Education Patient Instructions Indication:Nonsmoker Start:11-Sep-2019 Instruction Type:Provider Instructions for Treatment How to access health informa tion online Indication:BMI 25.0-25.9,adult Start:06-Sep-2019 Instruction Type:Patient Education How to access health informa tion online - Detail Indication:BMI 25.0-25.9,adult Start:06-Sep-2019 Instruction Type:Patient Education Patient Instructions Indication:BMI 25.0-25.9,adult Start:06-Sep-2019 Instruction Type:Provider Instructions for Treatment How to access health informa tion online Indication:Nonsmoker Start:24-Jun-2019 Instruction Type:Patient Education How to access health informa tion online - Detail Indication:Nonsmoker Start:24-Jun-2019 Instruction Type:Patient Education Patient Instructions Indication:Nonsmoker Start:24-Jun-2019 Instruction Type:Provider Instructions for Treatment How to access health informa tion online Indication:Nonsmoker Start:19-Feb-2019 Instruction Type:Patient Education How to access health informa tion online - Detail Indication:Nonsmoker Start:19-Feb-2019 Instruction Type:Patient Education Patient Instructions Indication:Nonsmoker Start:19-Feb-2019 Instruction Type:Provider Instructions for Treatment How to access health informa tion online Indication:Nonsmoker Start:20-Dec-2018 Instruction Type:Patient Education How to access health informa tion online - Detail Indication:Nonsmoker Start:20-Dec-2018 Instruction Type:Patient Education Patient Instructions Indication:Nonsmoker Start:20-Dec-2018 Instruction Type:Provider Instructions for Treatment How to access health informa tion online Indication:BMI 24.0-24.9, adult Start:21-Aug-2018 Instruction Type:Patient Education How to access health informa tion online - Detail Indication:BMI 24.0-24.9, adult Start:21-Aug-2018 Instruction Type:Patient Education How to access health informa tion online Indication:Nonsmoker Start:17-May-2018 Instruction Type:Patient Education How to access health informa tion online - Detail Indication:Nonsmoker Start:17-May-2018 Instruction Type:Patient Education Patient Instructions Indication:Nonsmoker Start:17-May-2018 Instruction Type:Provider Instructions for Treatment How to access health informa tion online Indication:BMI 25.0-25.9,adult Start:08-Feb-2018 Instruction Type:Patient Education How to access health informa tion online - Detail Indication:BMI 25.0-25.9,adult Start:08-Feb-2018 Instruction Type:Patient Education Patient Instructions Indication:BMI 25.0-25.9,adult Start:08-Feb-2018 Instruction Type:Provider Instructions for Treatment How to access health informa tion online Indication:BMI 27.0-27.9,adult Start:09-Nov-2017 Instruction Type:Patient Education How to access health informa tion online - Detail Indication:BMI 27.0-27.9,adult Start:09-Nov-2017 Instruction Type:Patient Education Patient Instructions Indication:BMI 27.0-27.9,adult Start:09-Nov-2017 Instruction Type:Provider Instructions for Treatment How to access health informa tion online Indication:BMI 27.0-27.9,adult Start:21-Sep-2017 Instruction Type:Patient Education How to access health informa tion online - Detail Indication:BMI 27.0-27.9,adult Start:21-Sep-2017 Instruction Type:Patient Education Patient Instructions Indication:UTI symptoms Start:21-Sep-2017 Instruction Type:Provider Instructions for Treatment How to access health informa tion online Indication:UTI symptoms Start:15-Sep-2017 Instruction Type:Patient Education How to access health informa tion online - Detail Indication:UTI symptoms Start:15-Sep-2017 Instruction Type:Patient Education Patient Instructions Indication:UTI symptoms Start:15-Sep-2017 Instruction Type:Provider Instructions for Treatment How to access health informa tion online Indication:Nonsmoker Start:10-Aug-2017 Instruction Type:Patient Education How to access health informa tion online - Detail Indication:Nonsmoker Start:10-Aug-2017 Instruction Type:Patient Education Patient Instructions Indication:Nonsmoker Start:10-Aug-2017 Instruction Type:Provider Instructions for Treatment How to access health informa tion online Indication:BMI 27.0-27.9,adult Start:20-Jul-2017 Instruction Type:Patient Education How to access health informa tion online - Detail Indication:BMI 27.0-27.9,adult Start:20-Jul-2017 Instruction Type:Patient Education Patient Instructions Indication:Cough Start:20-Jul-2017 Instruction Type:Provider Instructions for Treatment How to access health informa tion online Indication:BMI 27.0-27.9,adult Start:04-May-2017 Instruction Type:Patient Education How to access health informa tion online - Detail Indication:BMI 27.0-27.9,adult Start:04-May-2017 Instruction Type:Patient Education Patient Instructions Indication:BMI 27.0-27.9,adult Start:04-May-2017 Instruction Type:Provider Instructions for Treatment How to access health informa tion online Indication:BMI 26.0-26.9,adult Start:11-Apr-2017 Instruction Type:Patient Education How to access health informa tion online - Detail Indication:BMI 26.0-26.9,adult Start:11-Apr-2017 Instruction Type:Patient Education Patient Instructions Indication:BMI 26.0-26.9,adult Start:11-Apr-2017 Instruction Type:Provider Instructions for Treatment How to access health informa tion online Indication:BMI 26.0-26.9,adult Start:16-Nov-2016 Instruction Type:Patient Education How to access health informa tion online - Detail Indication:BMI 26.0-26.9,adult Start:16-Nov-2016 Instruction Type:Patient Education Patient Instructions Indication:BMI 26.0-26.9,adult Start:16-Nov-2016 Instruction Type:Provider Instructions for Treatment [facility]; [facility] Work Phone: Instructions* Name Dates Details How to Access Health Informa tion Online using Patient Portal and [employer]rd [employer] Apps Indication:Non-smoker Start:09-Mar-2023 Instruction Type:Patient Education Patient Instructions Indication:Non-smoker Start:09-Mar-2023 Instruction Type:Provider Instructions for Treatment Patient Instructions Indication:BMI 28.0-28.9,adult Start:24-Oct-2022 Instruction Type:Provider Instructions for Treatment How to Access Health Informa tion Online using Patient Portal and [employer]rd [employer] Apps Indication:BMI 28.0-28.9,adult Start:24-Oct-2022 Instruction Type:Patient Education Patient Instructions Indication:Non-smoker Start:25-Apr-2022 Instruction Type:Provider Instructions for Treatment How to Access Health Informa tion Online using Patient Portal and [employer] Indication:Non-smoker Start:25-Apr-2022 Instruction Type:Patient Education Patient Instructions Indication:BMI 26.0-26.9,adult Start:14-Mar-2022 Instruction Type:Provider Instructions for Treatment How to Access Health Informa tion Online using Patient Portal and [employer] Apps Indication:BMI 26.0-26.9,adult Start:14-Mar-2022 Instruction Type:Patient Education Patient Instructions Indication:BMI 25.0-25.9,adult Start:20-Jan-2022 Instruction Type:Provider Instructions for Treatment How to Access Health Informa tion Online using Patient Portal and [employer] Apps Indication:BMI 25.0-25.9,adult Start:20-Jan-2022 Instruction Type:Patient Education Patient Instructions Indication:Nonsmoker Start:21-Oct-2021 Instruction Type:Provider Instructions for Treatment How to Access Health Informa tion Online using Patient Portal and [employer] Apps Indication:Nonsmoker Start:21-Oct-2021 Instruction Type:Patient Education Patient Instructions Indication:BMI 25.0-25.9,adult Start:02-Jun-2021 Instruction Type:Provider Instructions for Treatment How to Access Health Informa tion Online using Patient Portal and [employer] Indication:BMI 25.0-25.9,adult Start:02-Jun-2021 Instruction Type:Patient Education Patient Instructions Indication:Nonsmoker Start:01-Mar-2021 Instruction Type:Provider Instructions for Treatment How to Access Health Informa tion Online using Patient Portal and [employer] Apps Indication:Nonsmoker Start:01-Mar-2021 Instruction Type:Patient Education Patient Instructions Indication:Nonsmoker Start:31-Dec-2020 Instruction Type:Provider Instructions for Treatment How to Access Health Informa tion Online using Patient Portal and [employer] Apps Indication:Nonsmoker Start:31-Dec-2020 Instruction Type:Patient Education Patient Instructions Indication:Nonsmoker Start:09-Nov-2020 Instruction Type:Provider Instructions for Treatment How to Access Health Informa tion Online using Patient Portal and [employer] Apps Indication:Nonsmoker Start:09-Nov-2020 Instruction Type:Patient Education How to Access Health Informa tion Online using Patient Portal and [employer] Apps Indication:Nonsmoker Start:13-Jul-2020 Instruction Type:Patient Education Patient Instructions Indication:Nonsmoker Start:13-Jul-2020 Instruction Type:Provider Instructions for Treatment How to access health informa tion online Indication:BMI 26.0-26.9,adult Start:10-Jun-2020 Instruction Type:Patient Education How to access health informa tion online - Detail Indication:BMI 26.0-26.9,adult Start:10-Jun-2020 Instruction Type:Patient Education Patient Instructions Indication:BMI 26.0-26.9,adult Start:10-Jun-2020 Instruction Type:Provider Instructions for Treatment How to access health informa tion online Indication:Nonsmoker Start:06-May-2020 Instruction Type:Patient Education How to access health informa tion online - Detail Indication:Nonsmoker Start:06-May-2020 Instruction Type:Patient Education Patient Instructions Indication:Nonsmoker Start:06-May-2020 Instruction Type:Provider Instructions for Treatment How to access health informa tion online Indication:Nonsmoker Start:15-Apr-2020 Instruction Type:Patient Education How to access health informa tion online - Detail Indication:Nonsmoker Start:15-Apr-2020 Instruction Type:Patient Education Patient Instructions Indication:Nonsmoker Start:15-Apr-2020 Instruction Type:Provider Instructions for Treatment How to access health informa tion online Indication:Nonsmoker Start:20-Mar-2020 Instruction Type:Patient Education Patient Instructions Indication:Nonsmoker Start:20-Mar-2020 Instruction Type:Provider Instructions for Treatment How to access health informa tion online - Detail Indication:Nonsmoker Start:18-Mar-2020 Instruction Type:Patient Education How to access health informa tion online Indication:Nonsmoker Start:18-Mar-2020 Instruction Type:Patient Education Patient Instructions Indication:Nonsmoker Start:18-Mar-2020 Instruction Type:Provider Instructions for Treatment How to access health informa tion online Indication:Nonsmoker Start:30-Dec-2019 Instruction Type:Patient Education How to access health informa tion online - Detail Indication:Nonsmoker Start:30-Dec-2019 Instruction Type:Patient Education Patient Instructions Indication:Nonsmoker Start:30-Dec-2019 Instruction Type:Provider Instructions for Treatment How to access health informa tion online Indication:Nonsmoker Start:18-Nov-2019 Instruction Type:Patient Education How to access health informa tion online - Detail Indication:Nonsmoker Start:18-Nov-2019 Instruction Type:Patient Education Patient Instructions Indication:Nonsmoker Start:18-Nov-2019 Instruction Type:Provider Instructions for Treatment How to access health informa tion online Indication:BMI 26.0-26.9,adult Start:11-Sep-2019 Instruction Type:Patient Education How to access health informa tion online - Detail Indication:BMI 26.0-26.9,adult Start:11-Sep-2019 Instruction Type:Patient Education Patient Instructions Indication:Nonsmoker Start:11-Sep-2019 Instruction Type:Provider Instructions for Treatment How to access health informa tion online Indication:BMI 25.0-25.9,adult Start:06-Sep-2019 Instruction Type:Patient Education How to access health informa tion online - Detail Indication:BMI 25.0-25.9,adult Start:06-Sep-2019 Instruction Type:Patient Education Patient Instructions Indication:BMI 25.0-25.9,adult Start:06-Sep-2019 Instruction Type:Provider Instructions for Treatment How to access health informa tion online Indication:Nonsmoker Start:24-Jun-2019 Instruction Type:Patient Education How to access health informa tion online - Detail Indication:Nonsmoker Start:24-Jun-2019 Instruction Type:Patient Education Patient Instructions Indication:Nonsmoker Start:24-Jun-2019 Instruction Type:Provider Instructions for Treatment How to access health informa tion online Indication:Nonsmoker Start:19-Feb-2019 Instruction Type:Patient Education How to access health informa tion online - Detail Indication:Nonsmoker Start:19-Feb-2019 Instruction Type:Patient Education Patient Instructions Indication:Nonsmoker Start:19-Feb-2019 Instruction Type:Provider Instructions for Treatment How to access health informa tion online Indication:Nonsmoker Start:20-Dec-2018 Instruction Type:Patient Education How to access health informa tion online - Detail Indication:Nonsmoker Start:20-Dec-2018 Instruction Type:Patient Education Patient Instructions Indication:Nonsmoker Start:20-Dec-2018 Instruction Type:Provider Instructions for Treatment How to access health informa tion online Indication:BMI 24.0-24.9, adult Start:21-Aug-2018 Instruction Type:Patient Education How to access health informa tion online - Detail Indication:BMI 24.0-24.9, adult Start:21-Aug-2018 Instruction Type:Patient Education How to access health informa tion online Indication:Nonsmoker Start:17-May-2018 Instruction Type:Patient Education How to access health informa tion online - Detail Indication:Nonsmoker Start:17-May-2018 Instruction Type:Patient Education Patient Instructions Indication:Nonsmoker Start:17-May-2018 Instruction Type:Provider Instructions for Treatment How to access health informa tion online Indication:BMI 25.0-25.9,adult Start:08-Feb-2018 Instruction Type:Patient Education How to access health informa tion online - Detail Indication:BMI 25.0-25.9,adult Start:08-Feb-2018 Instruction Type:Patient Education Patient Instructions Indication:BMI 25.0-25.9,adult Start:08-Feb-2018 Instruction Type:Provider Instructions for Treatment How to access health informa tion online Indication:BMI 27.0-27.9,adult Start:09-Nov-2017 Instruction Type:Patient Education How to access health informa tion online - Detail Indication:BMI 27.0-27.9,adult Start:09-Nov-2017 Instruction Type:Patient Education Patient Instructions Indication:BMI 27.0-27.9,adult Start:09-Nov-2017 Instruction Type:Provider Instructions for Treatment How to access health informa tion online Indication:BMI 27.0-27.9,adult Start:21-Sep-2017 Instruction Type:Patient Education How to access health informa tion online - Detail Indication:BMI 27.0-27.9,adult Start:21-Sep-2017 Instruction Type:Patient Education Patient Instructions Indication:UTI symptoms Start:21-Sep-2017 Instruction Type:Provider Instructions for Treatment How to access health informa tion online Indication:UTI symptoms Start:15-Sep-2017 Instruction Type:Patient Education How to access health informa tion online - Detail Indication:UTI symptoms Start:15-Sep-2017 Instruction Type:Patient Education Patient Instructions Indication:UTI symptoms Start:15-Sep-2017 Instruction Type:Provider Instructions for Treatment How to access health informa tion online Indication:Nonsmoker Start:10-Aug-2017 Instruction Type:Patient Education How to access health informa tion online - Detail Indication:Nonsmoker Start:10-Aug-2017 Instruction Type:Patient Education Patient Instructions Indication:Nonsmoker Start:10-Aug-2017 Instruction Type:Provider Instructions for Treatment How to access health informa tion online Indication:BMI 27.0-27.9,adult Start:20-Jul-2017 Instruction Type:Patient Education How to access health informa tion online - Detail Indication:BMI 27.0-27.9,adult Start:20-Jul-2017 Instruction Type:Patient Education Patient Instructions Indication:Cough Start:20-Jul-2017 Instruction Type:Provider Instructions for Treatment How to access health informa tion online Indication:BMI 27.0-27.9,adult Start:04-May-2017 Instruction Type:Patient Education How to access health informa tion online - Detail Indication:BMI 27.0-27.9,adult Start:04-May-2017 Instruction Type:Patient Education Patient Instructions Indication:BMI 27.0-27.9,adult Start:04-May-2017 Instruction Type:Provider Instructions for Treatment How to access health informa tion online Indication:BMI 26.0-26.9,adult Start:11-Apr-2017 Instruction Type:Patient Education How to access health informa tion online - Detail Indication:BMI 26.0-26.9,adult Start:11-Apr-2017 Instruction Type:Patient Education Patient Instructions Indication:BMI 26.0-26.9,adult Start:11-Apr-2017 Instruction Type:Provider Instructions for Treatment How to access health informa tion online Indication:BMI 26.0-26.9,adult Start:16-Nov-2016 Instruction Type:Patient Education How to access health informa tion online - Detail Indication:BMI 26.0-26.9,adult Start:16-Nov-2016 Instruction Type:Patient Education Patient Instructions Indication:BMI 26.0-26.9,adult Start:16-Nov-2016 Instruction Type:Provider Instructions for Treatment [facility] Work Phone: reason for referral (narrative)No reason [facility] available[facility] Work [facility]: Instructions Name Dates Details BMI 24.0-24.9, adult : How t o access health information online Indication:BMI 24.0-24.9, adult BMI 24.0-24.9, adult : How t o access health information online - Detail Indication:BMI 24.0-24.9, adult Nonsmoker : How to access he alth information online Indication:Nonsmoker Nonsmoker : How to access he alth information online - Detail Indication:Nonsmoker Nonsmoker : Patient Instruct ions Indication:Nonsmoker BMI 25.0-25.9,adult : How to access health information online Indication:BMI 25.0-25.9,adult BMI 25.0-25.9,adult : How to access health information online - Detail Indication:BMI 25.0-25.9,adult BMI 25.0-25.9,adult : Patien t Instructions Indication:BMI 25.0-25.9,adult BMI 27.0-27.9,adult : How to access health information online Indication:BMI 27.0-27.9,adult BMI 27.0-27.9,adult : How to access health information online - Detail Indication:BMI 27.0-27.9,adult BMI 27.0-27.9,adult : Patien t Instructions Indication:BMI 27.0-27.9,adult UTI symptoms : Patient Instr uctions Indication:UTI symptoms UTI symptoms : How to access health information online Indication:UTI symptoms UTI symptoms : How to access health information online - Detail Indication:UTI symptoms Cough : Patient Instructions Indication:Cough BMI 26.0-26.9,adult : How to access health information online Indication:BMI 26.0-26.9,adult BMI 26.0-26.9,adult : How to access health information online - Detail Indication:BMI 26.0-26.9,adult BMI 26.0-26.9,adult : Patien t Instructions Indication:BMI 26.0-26.9,adult Name Dates Details How to access health informa tion online Indication:Nonsmoker Start:20-Dec-2018 Instruction Type:Patient Education How to access health informa tion online - Detail Indication:Nonsmoker Start:20-Dec-2018 Instruction Type:Patient Education Patient Instructions Indication:Nonsmoker Start:20-Dec-2018 Instruction Type:Provider Instructions for Treatment How to access health informa tion online Indication:BMI 24.0-24.9, adult Start:21-Aug-2018 Instruction Type:Patient Education How to access health informa tion online - Detail Indication:BMI 24.0-24.9, adult Start:21-Aug-2018 Instruction Type:Patient Education How to access health informa tion online Indication:Nonsmoker Start:17-May-2018 Instruction Type:Patient Education How to access health informa tion online - Detail Indication:Nonsmoker Start:17-May-2018 Instruction Type:Patient Education Patient Instructions Indication:Nonsmoker Start:17-May-2018 Instruction Type:Provider Instructions for Treatment How to access health informa tion online Indication:BMI 25.0-25.9,adult Start:08-Feb-2018 Instruction Type:Patient Education How to access health informa tion online - Detail Indication:BMI 25.0-25.9,adult Start:08-Feb-2018 Instruction Type:Patient Education Patient Instructions Indication:BMI 25.0-25.9,adult Start:08-Feb-2018 Instruction Type:Provider Instructions for Treatment How to access health informa tion online Indication:BMI 27.0-27.9,adult Start:09-Nov-2017 Instruction Type:Patient Education How to access health informa tion online - Detail Indication:BMI 27.0-27.9,adult Start:09-Nov-2017 Instruction Type:Patient Education Patient Instructions Indication:BMI 27.0-27.9,adult Start:09-Nov-2017 Instruction Type:Provider Instructions for Treatment How to access health informa tion online Indication:BMI 27.0-27.9,adult Start:21-Sep-2017 Instruction Type:Patient Education How to access health informa tion online - Detail Indication:BMI 27.0-27.9,adult Start:21-Sep-2017 Instruction Type:Patient Education Patient Instructions Indication:UTI symptoms Start:21-Sep-2017 Instruction Type:Provider Instructions for Treatment How to access health informa tion online Indication:UTI symptoms Start:15-Sep-2017 Instruction Type:Patient Education How to access health informa tion online - Detail Indication:UTI symptoms Start:15-Sep-2017 Instruction Type:Patient Education Patient Instructions Indication:UTI symptoms Start:15-Sep-2017 Instruction Type:Provider Instructions for Treatment How to access health informa tion online Indication:Nonsmoker Start:10-Aug-2017 Instruction Type:Patient Education How to access health informa tion online - Detail Indication:Nonsmoker Start:10-Aug-2017 Instruction Type:Patient Education Patient Instructions Indication:Nonsmoker Start:10-Aug-2017 Instruction Type:Provider Instructions for Treatment How to access health informa tion online Indication:BMI 27.0-27.9,adult Start:20-Jul-2017 Instruction Type:Patient Education How to access health informa tion online - Detail Indication:BMI 27.0-27.9,adult Start:20-Jul-2017 Instruction Type:Patient Education Patient Instructions Indication:Cough Start:20-Jul-2017 Instruction Type:Provider Instructions for Treatment How to access health informa tion online Indication:BMI 27.0-27.9,adult Start:04-May-2017 Instruction Type:Patient Education How to access health informa tion online - Detail Indication:BMI 27.0-27.9,adult Start:04-May-2017 Instruction Type:Patient Education Patient Instructions Indication:BMI 27.0-27.9,adult Start:04-May-2017 Instruction Type:Provider Instructions for Treatment How to access health informa tion online Indication:BMI 26.0-26.9,adult Start:11-Apr-2017 Instruction Type:Patient Education How to access health informa tion online - Detail Indication:BMI 26.0-26.9,adult Start:11-Apr-2017 Instruction Type:Patient Education Patient Instructions Indication:BMI 26.0-26.9,adult Start:11-Apr-2017 Instruction Type:Provider Instructions for Treatment How to access health informa tion online Indication:BMI 26.0-26.9,adult Start:16-Nov-2016 Instruction Type:Patient Education How to access health informa tion online - Detail Indication:BMI 26.0-26.9,adult Start:16-Nov-2016 Instruction Type:Patient Education Patient Instructions Indication:BMI 26.0-26.9,adult Start:16-Nov-2016 Instruction Type:Provider Instructions for Treatment Name Dates Details How to access health informa tion online Indication:Nonsmoker Start:19-Feb-2019 Instruction Type:Patient Education How to access health informa tion online - Detail Indication:Nonsmoker Start:19-Feb-2019 Instruction Type:Patient Education Patient Instructions Indication:Nonsmoker Start:19-Feb-2019 Instruction Type:Provider Instructions for Treatment How to access health informa tion online Indication:Nonsmoker Start:20-Dec-2018 Instruction Type:Patient Education How to access health informa tion online - Detail Indication:Nonsmoker Start:20-Dec-2018 Instruction Type:Patient Education Patient Instructions Indication:Nonsmoker Start:20-Dec-2018 Instruction Type:Provider Instructions for Treatment How to access health informa tion online Indication:BMI 24.0-24.9, adult Start:21-Aug-2018 Instruction Type:Patient Education How to access health informa tion online - Detail Indication:BMI 24.0-24.9, adult Start:21-Aug-2018 Instruction Type:Patient Education How to access health informa tion online Indication:Nonsmoker Start:17-May-2018 Instruction Type:Patient Education How to access health informa tion online - Detail Indication:Nonsmoker Start:17-May-2018 Instruction Type:Patient Education Patient Instructions Indication:Nonsmoker Start:17-May-2018 Instruction Type:Provider Instructions for Treatment How to access health informa tion online Indication:BMI 25.0-25.9,adult Start:08-Feb-2018 Instruction Type:Patient Education How to access health informa tion online - Detail Indication:BMI 25.0-25.9,adult Start:08-Feb-2018 Instruction Type:Patient Education Patient Instructions Indication:BMI 25.0-25.9,adult Start:08-Feb-2018 Instruction Type:Provider Instructions for Treatment How to access health informa tion online Indication:BMI 27.0-27.9,adult Start:09-Nov-2017 Instruction Type:Patient Education How to access health informa tion online - Detail Indication:BMI 27.0-27.9,adult Start:09-Nov-2017 Instruction Type:Patient Education Patient Instructions Indication:BMI 27.0-27.9,adult Start:09-Nov-2017 Instruction Type:Provider Instructions for Treatment How to access health informa tion online Indication:BMI 27.0-27.9,adult Start:21-Sep-2017 Instruction Type:Patient Education How to access health informa tion online - Detail Indication:BMI 27.0-27.9,adult Start:21-Sep-2017 Instruction Type:Patient Education Patient Instructions Indication:UTI symptoms Start:21-Sep-2017 Instruction Type:Provider Instructions for Treatment How to access health informa tion online Indication:UTI symptoms Start:15-Sep-2017 Instruction Type:Patient Education How to access health informa tion online - Detail Indication:UTI symptoms Start:15-Sep-2017 Instruction Type:Patient Education Patient Instructions Indication:UTI symptoms Start:15-Sep-2017 Instruction Type:Provider Instructions for Treatment How to access health informa tion online Indication:Nonsmoker Start:10-Aug-2017 Instruction Type:Patient Education How to access health informa tion online - Detail Indication:Nonsmoker Start:10-Aug-2017 Instruction Type:Patient Education Patient Instructions Indication:Nonsmoker Start:10-Aug-2017 Instruction Type:Provider Instructions for Treatment How to access health informa tion online Indication:BMI 27.0-27.9,adult Start:20-Jul-2017 Instruction Type:Patient Education How to access health informa tion online - Detail Indication:BMI 27.0-27.9,adult Start:20-Jul-2017 Instruction Type:Patient Education Patient Instructions Indication:Cough Start:20-Jul-2017 Instruction Type:Provider Instructions for Treatment How to access health informa tion online Indication:BMI 27.0-27.9,adult Start:04-May-2017 Instruction Type:Patient Education How to access health informa tion online - Detail Indication:BMI 27.0-27.9,adult Start:04-May-2017 Instruction Type:Patient Education Patient Instructions Indication:BMI 27.0-27.9,adult Start:04-May-2017 Instruction Type:Provider Instructions for Treatment How to access health informa tion online Indication:BMI 26.0-26.9,adult Start:11-Apr-2017 Instruction Type:Patient Education How to access health informa tion online - Detail Indication:BMI 26.0-26.9,adult Start:11-Apr-2017 Instruction Type:Patient Education Patient Instructions Indication:BMI 26.0-26.9,adult Start:11-Apr-2017 Instruction Type:Provider Instructions for Treatment How to access health informa tion online Indication:BMI 26.0-26.9,adult Start:16-Nov-2016 Instruction Type:Patient Education How to access health informa tion online - Detail Indication:BMI 26.0-26.9,adult Start:16-Nov-2016 Instruction Type:Patient Education Patient Instructions Indication:BMI 26.0-26.9,adult Start:16-Nov-2016 Instruction Type:Provider Instructions for Treatment Name Dates Details How to access health informa tion online Indication:Nonsmoker Start:19-Feb-2019 Instruction Type:Patient Education How to access health informa tion online - Detail Indication:Nonsmoker Start:19-Feb-2019 Instruction Type:Patient Education Patient Instructions Indication:Nonsmoker Start:19-Feb-2019 Instruction Type:Provider Instructions for Treatment How to access health informa tion online Indication:Nonsmoker Start:20-Dec-2018 Instruction Type:Patient Education How to access health informa tion online - Detail Indication:Nonsmoker Start:20-Dec-2018 Instruction Type:Patient Education Patient Instructions Indication:Nonsmoker Start:20-Dec-2018 Instruction Type:Provider Instructions for Treatment How to access health informa tion online Indication:BMI 24.0-24.9, adult Start:21-Aug-2018 Instruction Type:Patient Education How to access health informa tion online - Detail Indication:BMI 24.0-24.9, adult Start:21-Aug-2018 Instruction Type:Patient Education How to access health informa tion online Indication:Nonsmoker Start:17-May-2018 Instruction Type:Patient Education How to access health informa tion online - Detail Indication:Nonsmoker Start:17-May-2018 Instruction Type:Patient Education Patient Instructions Indication:Nonsmoker Start:17-May-2018 Instruction Type:Provider Instructions for Treatment How to access health informa tion online Indication:BMI 25.0-25.9,adult Start:08-Feb-2018 Instruction Type:Patient Education How to access health informa tion online - Detail Indication:BMI 25.0-25.9,adult Start:08-Feb-2018 Instruction Type:Patient Education Patient Instructions Indication:BMI 25.0-25.9,adult Start:08-Feb-2018 Instruction Type:Provider Instructions for Treatment How to access health informa tion online Indication:BMI 27.0-27.9,adult Start:09-Nov-2017 Instruction Type:Patient Education How to access health informa tion online - Detail Indication:BMI 27.0-27.9,adult Start:09-Nov-2017 Instruction Type:Patient Education Patient Instructions Indication:BMI 27.0-27.9,adult Start:09-Nov-2017 Instruction Type:Provider Instructions for Treatment How to access health informa tion online Indication:BMI 27.0-27.9,adult Start:21-Sep-2017 Instruction Type:Patient Education How to access health informa tion online - Detail Indication:BMI 27.0-27.9,adult Start:21-Sep-2017 Instruction Type:Patient Education Patient Instructions Indication:UTI symptoms Start:21-Sep-2017 Instruction Type:Provider Instructions for Treatment How to access health informa tion online Indication:UTI symptoms Start:15-Sep-2017 Instruction Type:Patient Education How to access health informa tion online - Detail Indication:UTI symptoms Start:15-Sep-2017 Instruction Type:Patient Education Patient Instructions Indication:UTI symptoms Start:15-Sep-2017 Instruction Type:Provider Instructions for Treatment How to access health informa tion online Indication:Nonsmoker Start:10-Aug-2017 Instruction Type:Patient Education How to access health informa tion online - Detail Indication:Nonsmoker Start:10-Aug-2017 Instruction Type:Patient Education Patient Instructions Indication:Nonsmoker Start:10-Aug-2017 Instruction Type:Provider Instructions for Treatment How to access health informa tion online Indication:BMI 27.0-27.9,adult Start:20-Jul-2017 Instruction Type:Patient Education How to access health informa tion online - Detail Indication:BMI 27.0-27.9,adult Start:20-Jul-2017 Instruction Type:Patient Education Patient Instructions Indication:Cough Start:20-Jul-2017 Instruction Type:Provider Instructions for Treatment How to access health informa tion online Indication:BMI 27.0-27.9,adult Start:04-May-2017 Instruction Type:Patient Education How to access health informa tion online - Detail Indication:BMI 27.0-27.9,adult Start:04-May-2017 Instruction Type:Patient Education Patient Instructions Indication:BMI 27.0-27.9,adult Start:04-May-2017 Instruction Type:Provider Instructions for Treatment How to access health informa tion online Indication:BMI 26.0-26.9,adult Start:11-Apr-2017 Instruction Type:Patient Education How to access health informa tion online - Detail Indication:BMI 26.0-26.9,adult Start:11-Apr-2017 Instruction Type:Patient Education Patient Instructions Indication:BMI 26.0-26.9,adult Start:11-Apr-2017 Instruction Type:Provider Instructions for Treatment How to access health informa tion online Indication:BMI 26.0-26.9,adult Start:16-Nov-2016 Instruction Type:Patient Education How to access health informa tion online - Detail Indication:BMI 26.0-26.9,adult Start:16-Nov-2016 Instruction Type:Patient Education Patient Instructions Indication:BMI 26.0-26.9,adult Start:16-Nov-2016 Instruction Type:Provider Instructions for Treatment Name Dates Details How to access health informa tion online Indication:Nonsmoker Start:19-Feb-2019 Instruction Type:Patient Education How to access health informa tion online - Detail Indication:Nonsmoker Start:19-Feb-2019 Instruction Type:Patient Education Patient Instructions Indication:Nonsmoker Start:19-Feb-2019 Instruction Type:Provider Instructions for Treatment How to access health informa tion online Indication:Nonsmoker Start:20-Dec-2018 Instruction Type:Patient Education How to access health informa tion online - Detail Indication:Nonsmoker Start:20-Dec-2018 Instruction Type:Patient Education Patient Instructions Indication:Nonsmoker Start:20-Dec-2018 Instruction Type:Provider Instructions for Treatment How to access health informa tion online Indication:BMI 24.0-24.9, adult Start:21-Aug-2018 Instruction Type:Patient Education How to access health informa tion online - Detail Indication:BMI 24.0-24.9, adult Start:21-Aug-2018 Instruction Type:Patient Education How to access health informa tion online Indication:Nonsmoker Start:17-May-2018 Instruction Type:Patient Education How to access health informa tion online - Detail Indication:Nonsmoker Start:17-May-2018 Instruction Type:Patient Education Patient Instructions Indication:Nonsmoker Start:17-May-2018 Instruction Type:Provider Instructions for Treatment How to access health informa tion online Indication:BMI 25.0-25.9,adult Start:08-Feb-2018 Instruction Type:Patient Education How to access health informa tion online - Detail Indication:BMI 25.0-25.9,adult Start:08-Feb-2018 Instruction Type:Patient Education Patient Instructions Indication:BMI 25.0-25.9,adult Start:08-Feb-2018 Instruction Type:Provider Instructions for Treatment How to access health informa tion online Indication:BMI 27.0-27.9,adult Start:09-Nov-2017 Instruction Type:Patient Education How to access health informa tion online - Detail Indication:BMI 27.0-27.9,adult Start:09-Nov-2017 Instruction Type:Patient Education Patient Instructions Indication:BMI 27.0-27.9,adult Start:09-Nov-2017 Instruction Type:Provider Instructions for Treatment How to access health informa tion online Indication:BMI 27.0-27.9,adult Start:21-Sep-2017 Instruction Type:Patient Education How to access health informa tion online - Detail Indication:BMI 27.0-27.9,adult Start:21-Sep-2017 Instruction Type:Patient Education Patient Instructions Indication:UTI symptoms Start:21-Sep-2017 Instruction Type:Provider Instructions for Treatment How to access health informa tion online Indication:UTI symptoms Start:15-Sep-2017 Instruction Type:Patient Education How to access health informa tion online - Detail Indication:UTI symptoms Start:15-Sep-2017 Instruction Type:Patient Education Patient Instructions Indication:UTI symptoms Start:15-Sep-2017 Instruction Type:Provider Instructions for Treatment How to access health informa tion online Indication:Nonsmoker Start:10-Aug-2017 Instruction Type:Patient Education How to access health informa tion online - Detail Indication:Nonsmoker Start:10-Aug-2017 Instruction Type:Patient Education Patient Instructions Indication:Nonsmoker Start:10-Aug-2017 Instruction Type:Provider Instructions for Treatment How to access health informa tion online Indication:BMI 27.0-27.9,adult Start:20-Jul-2017 Instruction Type:Patient Education How to access health informa tion online - Detail Indication:BMI 27.0-27.9,adult Start:20-Jul-2017 Instruction Type:Patient Education Patient Instructions Indication:Cough Start:20-Jul-2017 Instruction Type:Provider Instructions for Treatment How to access health informa tion online Indication:BMI 27.0-27.9,adult Start:04-May-2017 Instruction Type:Patient Education How to access health informa tion online - Detail Indication:BMI 27.0-27.9,adult Start:04-May-2017 Instruction Type:Patient Education Patient Instructions Indication:BMI 27.0-27.9,adult Start:04-May-2017 Instruction Type:Provider Instructions for Treatment How to access health informa tion online Indication:BMI 26.0-26.9,adult Start:11-Apr-2017 Instruction Type:Patient Education How to access health informa tion online - Detail Indication:BMI 26.0-26.9,adult Start:11-Apr-2017 Instruction Type:Patient Education Patient Instructions Indication:BMI 26.0-26.9,adult Start:11-Apr-2017 Instruction Type:Provider Instructions for Treatment How to access health informa tion online Indication:BMI 26.0-26.9,adult Start:16-Nov-2016 Instruction Type:Patient Education How to access health informa tion online - Detail Indication:BMI 26.0-26.9,adult Start:16-Nov-2016 Instruction Type:Patient Education Patient Instructions Indication:BMI 26.0-26.9,adult Start:16-Nov-2016 Instruction Type:Provider Instructions for Treatment Name Dates Details How to access health informa tion online Indication:Nonsmoker Start:19-Feb-2019 Instruction Type:Patient Education How to access health informa tion online - Detail Indication:Nonsmoker Start:19-Feb-2019 Instruction Type:Patient Education Patient Instructions Indication:Nonsmoker Start:19-Feb-2019 Instruction Type:Provider Instructions for Treatment How to access health informa tion online Indication:Nonsmoker Start:20-Dec-2018 Instruction Type:Patient Education How to access health informa tion online - Detail Indication:Nonsmoker Start:20-Dec-2018 Instruction Type:Patient Education Patient Instructions Indication:Nonsmoker Start:20-Dec-2018 Instruction Type:Provider Instructions for Treatment How to access health informa tion online Indication:BMI 24.0-24.9, adult Start:21-Aug-2018 Instruction Type:Patient Education How to access health informa tion online - Detail Indication:BMI 24.0-24.9, adult Start:21-Aug-2018 Instruction Type:Patient Education How to access health informa tion online Indication:Nonsmoker Start:17-May-2018 Instruction Type:Patient Education How to access health informa tion online - Detail Indication:Nonsmoker Start:17-May-2018 Instruction Type:Patient Education Patient Instructions Indication:Nonsmoker Start:17-May-2018 Instruction Type:Provider Instructions for Treatment How to access health informa tion online Indication:BMI 25.0-25.9,adult Start:08-Feb-2018 Instruction Type:Patient Education How to access health informa tion online - Detail Indication:BMI 25.0-25.9,adult Start:08-Feb-2018 Instruction Type:Patient Education Patient Instructions Indication:BMI 25.0-25.9,adult Start:08-Feb-2018 Instruction Type:Provider Instructions for Treatment How to access health informa tion online Indication:BMI 27.0-27.9,adult Start:09-Nov-2017 Instruction Type:Patient Education How to access health informa tion online - Detail Indication:BMI 27.0-27.9,adult Start:09-Nov-2017 Instruction Type:Patient Education Patient Instructions Indication:BMI 27.0-27.9,adult Start:09-Nov-2017 Instruction Type:Provider Instructions for Treatment How to access health informa tion online Indication:BMI 27.0-27.9,adult Start:21-Sep-2017 Instruction Type:Patient Education How to access health informa tion online - Detail Indication:BMI 27.0-27.9,adult Start:21-Sep-2017 Instruction Type:Patient Education Patient Instructions Indication:UTI symptoms Start:21-Sep-2017 Instruction Type:Provider Instructions for Treatment How to access health informa tion online Indication:UTI symptoms Start:15-Sep-2017 Instruction Type:Patient Education How to access health informa tion online - Detail Indication:UTI symptoms Start:15-Sep-2017 Instruction Type:Patient Education Patient Instructions Indication:UTI symptoms Start:15-Sep-2017 Instruction Type:Provider Instructions for Treatment How to access health informa tion online Indication:Nonsmoker Start:10-Aug-2017 Instruction Type:Patient Education How to access health informa tion online - Detail Indication:Nonsmoker Start:10-Aug-2017 Instruction Type:Patient Education Patient Instructions Indication:Nonsmoker Start:10-Aug-2017 Instruction Type:Provider Instructions for Treatment How to access health informa tion online Indication:BMI 27.0-27.9,adult Start:20-Jul-2017 Instruction Type:Patient Education How to access health informa tion online - Detail Indication:BMI 27.0-27.9,adult Start:20-Jul-2017 Instruction Type:Patient Education Patient Instructions Indication:Cough Start:20-Jul-2017 Instruction Type:Provider Instructions for Treatment How to access health informa tion online Indication:BMI 27.0-27.9,adult Start:04-May-2017 Instruction Type:Patient Education How to access health informa tion online - Detail Indication:BMI 27.0-27.9,adult Start:04-May-2017 Instruction Type:Patient Education Patient Instructions Indication:BMI 27.0-27.9,adult Start:04-May-2017 Instruction Type:Provider Instructions for Treatment How to access health informa tion online Indication:BMI 26.0-26.9,adult Start:11-Apr-2017 Instruction Type:Patient Education How to access health informa tion online - Detail Indication:BMI 26.0-26.9,adult Start:11-Apr-2017 Instruction Type:Patient Education Patient Instructions Indication:BMI 26.0-26.9,adult Start:11-Apr-2017 Instruction Type:Provider Instructions for Treatment How to access health informa tion online Indication:BMI 26.0-26.9,adult Start:16-Nov-2016 Instruction Type:Patient Education How to access health informa tion online - Detail Indication:BMI 26.0-26.9,adult Start:16-Nov-2016 Instruction Type:Patient Education Patient Instructions Indication:BMI 26.0-26.9,adult Start:16-Nov-2016 Instruction Type:Provider Instructions for Treatment Name Dates Details How to access health informa tion online Indication:Nonsmoker Start:30-Dec-2019 Instruction Type:Patient Education How to access health informa tion online - Detail Indication:Nonsmoker Start:30-Dec-2019 Instruction Type:Patient Education Patient Instructions Indication:Nonsmoker Start:30-Dec-2019 Instruction Type:Provider Instructions for Treatment How to access health informa tion online Indication:Nonsmoker Start:18-Nov-2019 Instruction Type:Patient Education How to access health informa tion online - Detail Indication:Nonsmoker Start:18-Nov-2019 Instruction Type:Patient Education Patient Instructions Indication:Nonsmoker Start:18-Nov-2019 Instruction Type:Provider Instructions for Treatment How to access health informa tion online Indication:BMI 26.0-26.9,adult Start:11-Sep-2019 Instruction Type:Patient Education How to access health informa tion online - Detail Indication:BMI 26.0-26.9,adult Start:11-Sep-2019 Instruction Type:Patient Education Patient Instructions Indication:Nonsmoker Start:11-Sep-2019 Instruction Type:Provider Instructions for Treatment How to access health informa tion online Indication:BMI 25.0-25.9,adult Start:06-Sep-2019 Instruction Type:Patient Education How to access health informa tion online - Detail Indication:BMI 25.0-25.9,adult Start:06-Sep-2019 Instruction Type:Patient Education Patient Instructions Indication:BMI 25.0-25.9,adult Start:06-Sep-2019 Instruction Type:Provider Instructions for Treatment How to access health informa tion online Indication:Nonsmoker Start:24-Jun-2019 Instruction Type:Patient Education How to access health informa tion online - Detail Indication:Nonsmoker Start:24-Jun-2019 Instruction Type:Patient Education Patient Instructions Indication:Nonsmoker Start:24-Jun-2019 Instruction Type:Provider Instructions for Treatment How to access health informa tion online Indication:Nonsmoker Start:19-Feb-2019 Instruction Type:Patient Education How to access health informa tion online - Detail Indication:Nonsmoker Start:19-Feb-2019 Instruction Type:Patient Education Patient Instructions Indication:Nonsmoker Start:19-Feb-2019 Instruction Type:Provider Instructions for Treatment How to access health informa tion online Indication:Nonsmoker Start:20-Dec-2018 Instruction Type:Patient Education How to access health informa tion online - Detail Indication:Nonsmoker Start:20-Dec-2018 Instruction Type:Patient Education Patient Instructions Indication:Nonsmoker Start:20-Dec-2018 Instruction Type:Provider Instructions for Treatment How to access health informa tion online Indication:BMI 24.0-24.9, adult Start:21-Aug-2018 Instruction Type:Patient Education How to access health informa tion online - Detail Indication:BMI 24.0-24.9, adult Start:21-Aug-2018 Instruction Type:Patient Education How to access health informa tion online Indication:Nonsmoker Start:17-May-2018 Instruction Type:Patient Education How to access health informa tion online - Detail Indication:Nonsmoker Start:17-May-2018 Instruction Type:Patient Education Patient Instructions Indication:Nonsmoker Start:17-May-2018 Instruction Type:Provider Instructions for Treatment How to access health informa tion online Indication:BMI 25.0-25.9,adult Start:08-Feb-2018 Instruction Type:Patient Education How to access health informa tion online - Detail Indication:BMI 25.0-25.9,adult Start:08-Feb-2018 Instruction Type:Patient Education Patient Instructions Indication:BMI 25.0-25.9,adult Start:08-Feb-2018 Instruction Type:Provider Instructions for Treatment How to access health informa tion online Indication:BMI 27.0-27.9,adult Start:09-Nov-2017 Instruction Type:Patient Education How to access health informa tion online - Detail Indication:BMI 27.0-27.9,adult Start:09-Nov-2017 Instruction Type:Patient Education Patient Instructions Indication:BMI 27.0-27.9,adult Start:09-Nov-2017 Instruction Type:Provider Instructions for Treatment How to access health informa tion online Indication:BMI 27.0-27.9,adult Start:21-Sep-2017 Instruction Type:Patient Education How to access health informa tion online - Detail Indication:BMI 27.0-27.9,adult Start:21-Sep-2017 Instruction Type:Patient Education Patient Instructions Indication:UTI symptoms Start:21-Sep-2017 Instruction Type:Provider Instructions for Treatment How to access health informa tion online Indication:UTI symptoms Start:15-Sep-2017 Instruction Type:Patient Education How to access health informa tion online - Detail Indication:UTI symptoms Start:15-Sep-2017 Instruction Type:Patient Education Patient Instructions Indication:UTI symptoms Start:15-Sep-2017 Instruction Type:Provider Instructions for Treatment How to access health informa tion online Indication:Nonsmoker Start:10-Aug-2017 Instruction Type:Patient Education How to access health informa tion online - Detail Indication:Nonsmoker Start:10-Aug-2017 Instruction Type:Patient Education Patient Instructions Indication:Nonsmoker Start:10-Aug-2017 Instruction Type:Provider Instructions for Treatment How to access health informa tion online Indication:BMI 27.0-27.9,adult Start:20-Jul-2017 Instruction Type:Patient Education How to access health informa tion online - Detail Indication:BMI 27.0-27.9,adult Start:20-Jul-2017 Instruction Type:Patient Education Patient Instructions Indication:Cough Start:20-Jul-2017 Instruction Type:Provider Instructions for Treatment How to access health informa tion online Indication:BMI 27.0-27.9,adult Start:04-May-2017 Instruction Type:Patient Education How to access health informa tion online - Detail Indication:BMI 27.0-27.9,adult Start:04-May-2017 Instruction Type:Patient Education Patient Instructions Indication:BMI 27.0-27.9,adult Start:04-May-2017 Instruction Type:Provider Instructions for Treatment How to access health informa tion online Indication:BMI 26.0-26.9,adult Start:11-Apr-2017 Instruction Type:Patient Education How to access health informa tion online - Detail Indication:BMI 26.0-26.9,adult Start:11-Apr-2017 Instruction Type:Patient Education Patient Instructions Indication:BMI 26.0-26.9,adult Start:11-Apr-2017 Instruction Type:Provider Instructions for Treatment How to access health informa tion online Indication:BMI 26.0-26.9,adult Start:16-Nov-2016 Instruction Type:Patient Education How to access health informa tion online - Detail Indication:BMI 26.0-26.9,adult Start:16-Nov-2016 Instruction Type:Patient Education Patient Instructions Indication:BMI 26.0-26.9,adult Start:16-Nov-2016 Instruction Type:Provider Instructions for Treatment Name Dates Details How to access health informa tion online - Detail Indication:Nonsmoker Start:18-Mar-2020 Instruction Type:Patient Education How to access health informa tion online Indication:Nonsmoker Start:18-Mar-2020 Instruction Type:Patient Education Patient Instructions Indication:Nonsmoker Start:18-Mar-2020 Instruction Type:Provider Instructions for Treatment How to access health informa tion online Indication:Nonsmoker Start:30-Dec-2019 Instruction Type:Patient Education How to access health informa tion online - Detail Indication:Nonsmoker Start:30-Dec-2019 Instruction Type:Patient Education Patient Instructions Indication:Nonsmoker Start:30-Dec-2019 Instruction Type:Provider Instructions for Treatment How to access health informa tion online Indication:Nonsmoker Start:18-Nov-2019 Instruction Type:Patient Education How to access health informa tion online - Detail Indication:Nonsmoker Start:18-Nov-2019 Instruction Type:Patient Education Patient Instructions Indication:Nonsmoker Start:18-Nov-2019 Instruction Type:Provider Instructions for Treatment How to access health informa tion online Indication:BMI 26.0-26.9,adult Start:11-Sep-2019 Instruction Type:Patient Education How to access health informa tion online - Detail Indication:BMI 26.0-26.9,adult Start:11-Sep-2019 Instruction Type:Patient Education Patient Instructions Indication:Nonsmoker Start:11-Sep-2019 Instruction Type:Provider Instructions for Treatment How to access health informa tion online Indication:BMI 25.0-25.9,adult Start:06-Sep-2019 Instruction Type:Patient Education How to access health informa tion online - Detail Indication:BMI 25.0-25.9,adult Start:06-Sep-2019 Instruction Type:Patient Education Patient Instructions Indication:BMI 25.0-25.9,adult Start:06-Sep-2019 Instruction Type:Provider Instructions for Treatment How to access health informa tion online Indication:Nonsmoker Start:24-Jun-2019 Instruction Type:Patient Education How to access health informa tion online - Detail Indication:Nonsmoker Start:24-Jun-2019 Instruction Type:Patient Education Patient Instructions Indication:Nonsmoker Start:24-Jun-2019 Instruction Type:Provider Instructions for Treatment How to access health informa tion online Indication:Nonsmoker Start:19-Feb-2019 Instruction Type:Patient Education How to access health informa tion online - Detail Indication:Nonsmoker Start:19-Feb-2019 Instruction Type:Patient Education Patient Instructions Indication:Nonsmoker Start:19-Feb-2019 Instruction Type:Provider Instructions for Treatment How to access health informa tion online Indication:Nonsmoker Start:20-Dec-2018 Instruction Type:Patient Education How to access health informa tion online - Detail Indication:Nonsmoker Start:20-Dec-2018 Instruction Type:Patient Education Patient Instructions Indication:Nonsmoker Start:20-Dec-2018 Instruction Type:Provider Instructions for Treatment How to access health informa tion online Indication:BMI 24.0-24.9, adult Start:21-Aug-2018 Instruction Type:Patient Education How to access health informa tion online - Detail Indication:BMI 24.0-24.9, adult Start:21-Aug-2018 Instruction Type:Patient Education How to access health informa tion online Indication:Nonsmoker Start:17-May-2018 Instruction Type:Patient Education How to access health informa tion online - Detail Indication:Nonsmoker Start:17-May-2018 Instruction Type:Patient Education Patient Instructions Indication:Nonsmoker Start:17-May-2018 Instruction Type:Provider Instructions for Treatment How to access health informa tion online Indication:BMI 25.0-25.9,adult Start:08-Feb-2018 Instruction Type:Patient Education How to access health informa tion online - Detail Indication:BMI 25.0-25.9,adult Start:08-Feb-2018 Instruction Type:Patient Education Patient Instructions Indication:BMI 25.0-25.9,adult Start:08-Feb-2018 Instruction Type:Provider Instructions for Treatment How to access health informa tion online Indication:BMI 27.0-27.9,adult Start:09-Nov-2017 Instruction Type:Patient Education How to access health informa tion online - Detail Indication:BMI 27.0-27.9,adult Start:09-Nov-2017 Instruction Type:Patient Education Patient Instructions Indication:BMI 27.0-27.9,adult Start:09-Nov-2017 Instruction Type:Provider Instructions for Treatment How to access health informa tion online Indication:BMI 27.0-27.9,adult Start:21-Sep-2017 Instruction Type:Patient Education How to access health informa tion online - Detail Indication:BMI 27.0-27.9,adult Start:21-Sep-2017 Instruction Type:Patient Education Patient Instructions Indication:UTI symptoms Start:21-Sep-2017 Instruction Type:Provider Instructions for Treatment How to access health informa tion online Indication:UTI symptoms Start:15-Sep-2017 Instruction Type:Patient Education How to access health informa tion online - Detail Indication:UTI symptoms Start:15-Sep-2017 Instruction Type:Patient Education Patient Instructions Indication:UTI symptoms Start:15-Sep-2017 Instruction Type:Provider Instructions for Treatment How to access health informa tion online Indication:Nonsmoker Start:10-Aug-2017 Instruction Type:Patient Education How to access health informa tion online - Detail Indication:Nonsmoker Start:10-Aug-2017 Instruction Type:Patient Education Patient Instructions Indication:Nonsmoker Start:10-Aug-2017 Instruction Type:Provider Instructions for Treatment How to access health informa tion online Indication:BMI 27.0-27.9,adult Start:20-Jul-2017 Instruction Type:Patient Education How to access health informa tion online - Detail Indication:BMI 27.0-27.9,adult Start:20-Jul-2017 Instruction Type:Patient Education Patient Instructions Indication:Cough Start:20-Jul-2017 Instruction Type:Provider Instructions for Treatment How to access health informa tion online Indication:BMI 27.0-27.9,adult Start:04-May-2017 Instruction Type:Patient Education How to access health informa tion online - Detail Indication:BMI 27.0-27.9,adult Start:04-May-2017 Instruction Type:Patient Education Patient Instructions Indication:BMI 27.0-27.9,adult Start:04-May-2017 Instruction Type:Provider Instructions for Treatment How to access health informa tion online Indication:BMI 26.0-26.9,adult Start:11-Apr-2017 Instruction Type:Patient Education How to access health informa tion online - Detail Indication:BMI 26.0-26.9,adult Start:11-Apr-2017 Instruction Type:Patient Education Patient Instructions Indication:BMI 26.0-26.9,adult Start:11-Apr-2017 Instruction Type:Provider Instructions for Treatment How to access health informa tion online Indication:BMI 26.0-26.9,adult Start:16-Nov-2016 Instruction Type:Patient Education How to access health informa tion online - Detail Indication:BMI 26.0-26.9,adult Start:16-Nov-2016 Instruction Type:Patient Education Patient Instructions Indication:BMI 26.0-26.9,adult Start:16-Nov-2016 Instruction Type:Provider Instructions for Treatment Name Dates Details How to access health informa tion online - Detail Indication:Nonsmoker Start:18-Mar-2020 Instruction Type:Patient Education How to access health informa tion online Indication:Nonsmoker Start:18-Mar-2020 Instruction Type:Patient Education Patient Instructions Indication:Nonsmoker Start:18-Mar-2020 Instruction Type:Provider Instructions for Treatment How to access health informa tion online Indication:Nonsmoker Start:30-Dec-2019 Instruction Type:Patient Education How to access health informa tion online - Detail Indication:Nonsmoker Start:30-Dec-2019 Instruction Type:Patient Education Patient Instructions Indication:Nonsmoker Start:30-Dec-2019 Instruction Type:Provider Instructions for Treatment How to access health informa tion online Indication:Nonsmoker Start:18-Nov-2019 Instruction Type:Patient Education How to access health informa tion online - Detail Indication:Nonsmoker Start:18-Nov-2019 Instruction Type:Patient Education Patient Instructions Indication:Nonsmoker Start:18-Nov-2019 Instruction Type:Provider Instructions for Treatment How to access health informa tion online Indication:BMI 26.0-26.9,adult Start:11-Sep-2019 Instruction Type:Patient Education How to access health informa tion online - Detail Indication:BMI 26.0-26.9,adult Start:11-Sep-2019 Instruction Type:Patient Education Patient Instructions Indication:Nonsmoker Start:11-Sep-2019 Instruction Type:Provider Instructions for Treatment How to access health informa tion online Indication:BMI 25.0-25.9,adult Start:06-Sep-2019 Instruction Type:Patient Education How to access health informa tion online - Detail Indication:BMI 25.0-25.9,adult Start:06-Sep-2019 Instruction Type:Patient Education Patient Instructions Indication:BMI 25.0-25.9,adult Start:06-Sep-2019 Instruction Type:Provider Instructions for Treatment How to access health informa tion online Indication:Nonsmoker Start:24-Jun-2019 Instruction Type:Patient Education How to access health informa tion online - Detail Indication:Nonsmoker Start:24-Jun-2019 Instruction Type:Patient Education Patient Instructions Indication:Nonsmoker Start:24-Jun-2019 Instruction Type:Provider Instructions for Treatment How to access health informa tion online Indication:Nonsmoker Start:19-Feb-2019 Instruction Type:Patient Education How to access health informa tion online - Detail Indication:Nonsmoker Start:19-Feb-2019 Instruction Type:Patient Education Patient Instructions Indication:Nonsmoker Start:19-Feb-2019 Instruction Type:Provider Instructions for Treatment How to access health informa tion online Indication:Nonsmoker Start:20-Dec-2018 Instruction Type:Patient Education How to access health informa tion online - Detail Indication:Nonsmoker Start:20-Dec-2018 Instruction Type:Patient Education Patient Instructions Indication:Nonsmoker Start:20-Dec-2018 Instruction Type:Provider Instructions for Treatment How to access health informa tion online Indication:BMI 24.0-24.9, adult Start:21-Aug-2018 Instruction Type:Patient Education How to access health informa tion online - Detail Indication:BMI 24.0-24.9, adult Start:21-Aug-2018 Instruction Type:Patient Education How to access health informa tion online Indication:Nonsmoker Start:17-May-2018 Instruction Type:Patient Education How to access health informa tion online - Detail Indication:Nonsmoker Start:17-May-2018 Instruction Type:Patient Education Patient Instructions Indication:Nonsmoker Start:17-May-2018 Instruction Type:Provider Instructions for Treatment How to access health informa tion online Indication:BMI 25.0-25.9,adult Start:08-Feb-2018 Instruction Type:Patient Education How to access health informa tion online - Detail Indication:BMI 25.0-25.9,adult Start:08-Feb-2018 Instruction Type:Patient Education Patient Instructions Indication:BMI 25.0-25.9,adult Start:08-Feb-2018 Instruction Type:Provider Instructions for Treatment How to access health informa tion online Indication:BMI 27.0-27.9,adult Start:09-Nov-2017 Instruction Type:Patient Education How to access health informa tion online - Detail Indication:BMI 27.0-27.9,adult Start:09-Nov-2017 Instruction Type:Patient Education Patient Instructions Indication:BMI 27.0-27.9,adult Start:09-Nov-2017 Instruction Type:Provider Instructions for Treatment How to access health informa tion online Indication:BMI 27.0-27.9,adult Start:21-Sep-2017 Instruction Type:Patient Education How to access health informa tion online - Detail Indication:BMI 27.0-27.9,adult Start:21-Sep-2017 Instruction Type:Patient Education Patient Instructions Indication:UTI symptoms Start:21-Sep-2017 Instruction Type:Provider Instructions for Treatment How to access health informa tion online Indication:UTI symptoms Start:15-Sep-2017 Instruction Type:Patient Education How to access health informa tion online - Detail Indication:UTI symptoms Start:15-Sep-2017 Instruction Type:Patient Education Patient Instructions Indication:UTI symptoms Start:15-Sep-2017 Instruction Type:Provider Instructions for Treatment How to access health informa tion online Indication:Nonsmoker Start:10-Aug-2017 Instruction Type:Patient Education How to access health informa tion online - Detail Indication:Nonsmoker Start:10-Aug-2017 Instruction Type:Patient Education Patient Instructions Indication:Nonsmoker Start:10-Aug-2017 Instruction Type:Provider Instructions for Treatment How to access health informa tion online Indication:BMI 27.0-27.9,adult Start:20-Jul-2017 Instruction Type:Patient Education How to access health informa tion online - Detail Indication:BMI 27.0-27.9,adult Start:20-Jul-2017 Instruction Type:Patient Education Patient Instructions Indication:Cough Start:20-Jul-2017 Instruction Type:Provider Instructions for Treatment How to access health informa tion online Indication:BMI 27.0-27.9,adult Start:04-May-2017 Instruction Type:Patient Education How to access health informa tion online - Detail Indication:BMI 27.0-27.9,adult Start:04-May-2017 Instruction Type:Patient Education Patient Instructions Indication:BMI 27.0-27.9,adult Start:04-May-2017 Instruction Type:Provider Instructions for Treatment How to access health informa tion online Indication:BMI 26.0-26.9,adult Start:11-Apr-2017 Instruction Type:Patient Education How to access health informa tion online - Detail Indication:BMI 26.0-26.9,adult Start:11-Apr-2017 Instruction Type:Patient Education Patient Instructions Indication:BMI 26.0-26.9,adult Start:11-Apr-2017 Instruction Type:Provider Instructions for Treatment How to access health informa tion online Indication:BMI 26.0-26.9,adult Start:16-Nov-2016 Instruction Type:Patient Education How to access health informa tion online - Detail Indication:BMI 26.0-26.9,adult Start:16-Nov-2016 Instruction Type:Patient Education Patient Instructions Indication:BMI 26.0-26.9,adult Start:16-Nov-2016 Instruction Type:Provider Instructions for Treatment Name Dates Details How to access health informa tion online Indication:Nonsmoker Start:20-Mar-2020 Instruction Type:Patient Education Patient Instructions Indication:Nonsmoker Start:20-Mar-2020 Instruction Type:Provider Instructions for Treatment How to access health informa tion online - Detail Indication:Nonsmoker Start:18-Mar-2020 Instruction Type:Patient Education How to access health informa tion online Indication:Nonsmoker Start:18-Mar-2020 Instruction Type:Patient Education Patient Instructions Indication:Nonsmoker Start:18-Mar-2020 Instruction Type:Provider Instructions for Treatment How to access health informa tion online Indication:Nonsmoker Start:30-Dec-2019 Instruction Type:Patient Education How to access health informa tion online - Detail Indication:Nonsmoker Start:30-Dec-2019 Instruction Type:Patient Education Patient Instructions Indication:Nonsmoker Start:30-Dec-2019 Instruction Type:Provider Instructions for Treatment How to access health informa tion online Indication:Nonsmoker Start:18-Nov-2019 Instruction Type:Patient Education How to access health informa tion online - Detail Indication:Nonsmoker Start:18-Nov-2019 Instruction Type:Patient Education Patient Instructions Indication:Nonsmoker Start:18-Nov-2019 Instruction Type:Provider Instructions for Treatment How to access health informa tion online Indication:BMI 26.0-26.9,adult Start:11-Sep-2019 Instruction Type:Patient Education How to access health informa tion online - Detail Indication:BMI 26.0-26.9,adult Start:11-Sep-2019 Instruction Type:Patient Education Patient Instructions Indication:Nonsmoker Start:11-Sep-2019 Instruction Type:Provider Instructions for Treatment How to access health informa tion online Indication:BMI 25.0-25.9,adult Start:06-Sep-2019 Instruction Type:Patient Education How to access health informa tion online - Detail Indication:BMI 25.0-25.9,adult Start:06-Sep-2019 Instruction Type:Patient Education Patient Instructions Indication:BMI 25.0-25.9,adult Start:06-Sep-2019 Instruction Type:Provider Instructions for Treatment How to access health informa tion online Indication:Nonsmoker Start:24-Jun-2019 Instruction Type:Patient Education How to access health informa tion online - Detail Indication:Nonsmoker Start:24-Jun-2019 Instruction Type:Patient Education Patient Instructions Indication:Nonsmoker Start:24-Jun-2019 Instruction Type:Provider Instructions for Treatment How to access health informa tion online Indication:Nonsmoker Start:19-Feb-2019 Instruction Type:Patient Education How to access health informa tion online - Detail Indication:Nonsmoker Start:19-Feb-2019 Instruction Type:Patient Education Patient Instructions Indication:Nonsmoker Start:19-Feb-2019 Instruction Type:Provider Instructions for Treatment How to access health informa tion online Indication:Nonsmoker Start:20-Dec-2018 Instruction Type:Patient Education How to access health informa tion online - Detail Indication:Nonsmoker Start:20-Dec-2018 Instruction Type:Patient Education Patient Instructions Indication:Nonsmoker Start:20-Dec-2018 Instruction Type:Provider Instructions for Treatment How to access health informa tion online Indication:BMI 24.0-24.9, adult Start:21-Aug-2018 Instruction Type:Patient Education How to access health informa tion online - Detail Indication:BMI 24.0-24.9, adult Start:21-Aug-2018 Instruction Type:Patient Education How to access health informa tion online Indication:Nonsmoker Start:17-May-2018 Instruction Type:Patient Education How to access health informa tion online - Detail Indication:Nonsmoker Start:17-May-2018 Instruction Type:Patient Education Patient Instructions Indication:Nonsmoker Start:17-May-2018 Instruction Type:Provider Instructions for Treatment How to access health informa tion online Indication:BMI 25.0-25.9,adult Start:08-Feb-2018 Instruction Type:Patient Education How to access health informa tion online - Detail Indication:BMI 25.0-25.9,adult Start:08-Feb-2018 Instruction Type:Patient Education Patient Instructions Indication:BMI 25.0-25.9,adult Start:08-Feb-2018 Instruction Type:Provider Instructions for Treatment How to access health informa tion online Indication:BMI 27.0-27.9,adult Start:09-Nov-2017 Instruction Type:Patient Education How to access health informa tion online - Detail Indication:BMI 27.0-27.9,adult Start:09-Nov-2017 Instruction Type:Patient Education Patient Instructions Indication:BMI 27.0-27.9,adult Start:09-Nov-2017 Instruction Type:Provider Instructions for Treatment How to access health informa tion online Indication:BMI 27.0-27.9,adult Start:21-Sep-2017 Instruction Type:Patient Education How to access health informa tion online - Detail Indication:BMI 27.0-27.9,adult Start:21-Sep-2017 Instruction Type:Patient Education Patient Instructions Indication:UTI symptoms Start:21-Sep-2017 Instruction Type:Provider Instructions for Treatment How to access health informa tion online Indication:UTI symptoms Start:15-Sep-2017 Instruction Type:Patient Education How to access health informa tion online - Detail Indication:UTI symptoms Start:15-Sep-2017 Instruction Type:Patient Education Patient Instructions Indication:UTI symptoms Start:15-Sep-2017 Instruction Type:Provider Instructions for Treatment How to access health informa tion online Indication:Nonsmoker Start:10-Aug-2017 Instruction Type:Patient Education How to access health informa tion online - Detail Indication:Nonsmoker Start:10-Aug-2017 Instruction Type:Patient Education Patient Instructions Indication:Nonsmoker Start:10-Aug-2017 Instruction Type:Provider Instructions for Treatment How to access health informa tion online Indication:BMI 27.0-27.9,adult Start:20-Jul-2017 Instruction Type:Patient Education How to access health informa tion online - Detail Indication:BMI 27.0-27.9,adult Start:20-Jul-2017 Instruction Type:Patient Education Patient Instructions Indication:Cough Start:20-Jul-2017 Instruction Type:Provider Instructions for Treatment How to access health informa tion online Indication:BMI 27.0-27.9,adult Start:04-May-2017 Instruction Type:Patient Education How to access health informa tion online - Detail Indication:BMI 27.0-27.9,adult Start:04-May-2017 Instruction Type:Patient Education Patient Instructions Indication:BMI 27.0-27.9,adult Start:04-May-2017 Instruction Type:Provider Instructions for Treatment How to access health informa tion online Indication:BMI 26.0-26.9,adult Start:11-Apr-2017 Instruction Type:Patient Education How to access health informa tion online - Detail Indication:BMI 26.0-26.9,adult Start:11-Apr-2017 Instruction Type:Patient Education Patient Instructions Indication:BMI 26.0-26.9,adult Start:11-Apr-2017 Instruction Type:Provider Instructions for Treatment How to access health informa tion online Indication:BMI 26.0-26.9,adult Start:16-Nov-2016 Instruction Type:Patient Education How to access health informa tion online - Detail Indication:BMI 26.0-26.9,adult Start:16-Nov-2016 Instruction Type:Patient Education Patient Instructions Indication:BMI 26.0-26.9,adult Start:16-Nov-2016 Instruction Type:Provider Instructions for Treatment Name Dates Details How to access health informa tion online Indication:Nonsmoker Start:15-Apr-2020 Instruction Type:Patient Education How to access health informa tion online - Detail Indication:Nonsmoker Start:15-Apr-2020 Instruction Type:Patient Education Patient Instructions Indication:Nonsmoker Start:15-Apr-2020 Instruction Type:Provider Instructions for Treatment How to access health informa tion online Indication:Nonsmoker Start:20-Mar-2020 Instruction Type:Patient Education Patient Instructions Indication:Nonsmoker Start:20-Mar-2020 Instruction Type:Provider Instructions for Treatment How to access health informa tion online - Detail Indication:Nonsmoker Start:18-Mar-2020 Instruction Type:Patient Education How to access health informa tion online Indication:Nonsmoker Start:18-Mar-2020 Instruction Type:Patient Education Patient Instructions Indication:Nonsmoker Start:18-Mar-2020 Instruction Type:Provider Instructions for Treatment How to access health informa tion online Indication:Nonsmoker Start:30-Dec-2019 Instruction Type:Patient Education How to access health informa tion online - Detail Indication:Nonsmoker Start:30-Dec-2019 Instruction Type:Patient Education Patient Instructions Indication:Nonsmoker Start:30-Dec-2019 Instruction Type:Provider Instructions for Treatment How to access health informa tion online Indication:Nonsmoker Start:18-Nov-2019 Instruction Type:Patient Education How to access health informa tion online - Detail Indication:Nonsmoker Start:18-Nov-2019 Instruction Type:Patient Education Patient Instructions Indication:Nonsmoker Start:18-Nov-2019 Instruction Type:Provider Instructions for Treatment How to access health informa tion online Indication:BMI 26.0-26.9,adult Start:11-Sep-2019 Instruction Type:Patient Education How to access health informa tion online - Detail Indication:BMI 26.0-26.9,adult Start:11-Sep-2019 Instruction Type:Patient Education Patient Instructions Indication:Nonsmoker Start:11-Sep-2019 Instruction Type:Provider Instructions for Treatment How to access health informa tion online Indication:BMI 25.0-25.9,adult Start:06-Sep-2019 Instruction Type:Patient Education How to access health informa tion online - Detail Indication:BMI 25.0-25.9,adult Start:06-Sep-2019 Instruction Type:Patient Education Patient Instructions Indication:BMI 25.0-25.9,adult Start:06-Sep-2019 Instruction Type:Provider Instructions for Treatment How to access health informa tion online Indication:Nonsmoker Start:24-Jun-2019 Instruction Type:Patient Education How to access health informa tion online - Detail Indication:Nonsmoker Start:24-Jun-2019 Instruction Type:Patient Education Patient Instructions Indication:Nonsmoker Start:24-Jun-2019 Instruction Type:Provider Instructions for Treatment How to access health informa tion online Indication:Nonsmoker Start:19-Feb-2019 Instruction Type:Patient Education How to access health informa tion online - Detail Indication:Nonsmoker Start:19-Feb-2019 Instruction Type:Patient Education Patient Instructions Indication:Nonsmoker Start:19-Feb-2019 Instruction Type:Provider Instructions for Treatment How to access health informa tion online Indication:Nonsmoker Start:20-Dec-2018 Instruction Type:Patient Education How to access health informa tion online - Detail Indication:Nonsmoker Start:20-Dec-2018 Instruction Type:Patient Education Patient Instructions Indication:Nonsmoker Start:20-Dec-2018 Instruction Type:Provider Instructions for Treatment How to access health informa tion online Indication:BMI 24.0-24.9, adult Start:21-Aug-2018 Instruction Type:Patient Education How to access health informa tion online - Detail Indication:BMI 24.0-24.9, adult Start:21-Aug-2018 Instruction Type:Patient Education How to access health informa tion online Indication:Nonsmoker Start:17-May-2018 Instruction Type:Patient Education How to access health informa tion online - Detail Indication:Nonsmoker Start:17-May-2018 Instruction Type:Patient Education Patient Instructions Indication:Nonsmoker Start:17-May-2018 Instruction Type:Provider Instructions for Treatment How to access health informa tion online Indication:BMI 25.0-25.9,adult Start:08-Feb-2018 Instruction Type:Patient Education How to access health informa tion online - Detail Indication:BMI 25.0-25.9,adult Start:08-Feb-2018 Instruction Type:Patient Education Patient Instructions Indication:BMI 25.0-25.9,adult Start:08-Feb-2018 Instruction Type:Provider Instructions for Treatment How to access health informa tion online Indication:BMI 27.0-27.9,adult Start:09-Nov-2017 Instruction Type:Patient Education How to access health informa tion online - Detail Indication:BMI 27.0-27.9,adult Start:09-Nov-2017 Instruction Type:Patient Education Patient Instructions Indication:BMI 27.0-27.9,adult Start:09-Nov-2017 Instruction Type:Provider Instructions for Treatment How to access health informa tion online Indication:BMI 27.0-27.9,adult Start:21-Sep-2017 Instruction Type:Patient Education How to access health informa tion online - Detail Indication:BMI 27.0-27.9,adult Start:21-Sep-2017 Instruction Type:Patient Education Patient Instructions Indication:UTI symptoms Start:21-Sep-2017 Instruction Type:Provider Instructions for Treatment How to access health informa tion online Indication:UTI symptoms Start:15-Sep-2017 Instruction Type:Patient Education How to access health informa tion online - Detail Indication:UTI symptoms Start:15-Sep-2017 Instruction Type:Patient Education Patient Instructions Indication:UTI symptoms Start:15-Sep-2017 Instruction Type:Provider Instructions for Treatment How to access health informa tion online Indication:Nonsmoker Start:10-Aug-2017 Instruction Type:Patient Education How to access health informa tion online - Detail Indication:Nonsmoker Start:10-Aug-2017 Instruction Type:Patient Education Patient Instructions Indication:Nonsmoker Start:10-Aug-2017 Instruction Type:Provider Instructions for Treatment How to access health informa tion online Indication:BMI 27.0-27.9,adult Start:20-Jul-2017 Instruction Type:Patient Education How to access health informa tion online - Detail Indication:BMI 27.0-27.9,adult Start:20-Jul-2017 Instruction Type:Patient Education Patient Instructions Indication:Cough Start:20-Jul-2017 Instruction Type:Provider Instructions for Treatment How to access health informa tion online Indication:BMI 27.0-27.9,adult Start:04-May-2017 Instruction Type:Patient Education How to access health informa tion online - Detail Indication:BMI 27.0-27.9,adult Start:04-May-2017 Instruction Type:Patient Education Patient Instructions Indication:BMI 27.0-27.9,adult Start:04-May-2017 Instruction Type:Provider Instructions for Treatment How to access health informa tion online Indication:BMI 26.0-26.9,adult Start:11-Apr-2017 Instruction Type:Patient Education How to access health informa tion online - Detail Indication:BMI 26.0-26.9,adult Start:11-Apr-2017 Instruction Type:Patient Education Patient Instructions Indication:BMI 26.0-26.9,adult Start:11-Apr-2017 Instruction Type:Provider Instructions for Treatment How to access health informa tion online Indication:BMI 26.0-26.9,adult Start:16-Nov-2016 Instruction Type:Patient Education How to access health informa tion online - Detail Indication:BMI 26.0-26.9,adult Start:16-Nov-2016 Instruction Type:Patient Education Patient Instructions Indication:BMI 26.0-26.9,adult Start:16-Nov-2016 Instruction Type:Provider Instructions for Treatment Name Dates Details How to access health informa tion online Indication:Nonsmoker Start:06-May-2020 Instruction Type:Patient Education How to access health informa tion online - Detail Indication:Nonsmoker Start:06-May-2020 Instruction Type:Patient Education Patient Instructions Indication:Nonsmoker Start:06-May-2020 Instruction Type:Provider Instructions for Treatment How to access health informa tion online Indication:Nonsmoker Start:15-Apr-2020 Instruction Type:Patient Education How to access health informa tion online - Detail Indication:Nonsmoker Start:15-Apr-2020 Instruction Type:Patient Education Patient Instructions Indication:Nonsmoker Start:15-Apr-2020 Instruction Type:Provider Instructions for Treatment How to access health informa tion online Indication:Nonsmoker Start:20-Mar-2020 Instruction Type:Patient Education Patient Instructions Indication:Nonsmoker Start:20-Mar-2020 Instruction Type:Provider Instructions for Treatment How to access health informa tion online - Detail Indication:Nonsmoker Start:18-Mar-2020 Instruction Type:Patient Education How to access health informa tion online Indication:Nonsmoker Start:18-Mar-2020 Instruction Type:Patient Education Patient Instructions Indication:Nonsmoker Start:18-Mar-2020 Instruction Type:Provider Instructions for Treatment How to access health informa tion online Indication:Nonsmoker Start:30-Dec-2019 Instruction Type:Patient Education How to access health informa tion online - Detail Indication:Nonsmoker Start:30-Dec-2019 Instruction Type:Patient Education Patient Instructions Indication:Nonsmoker Start:30-Dec-2019 Instruction Type:Provider Instructions for Treatment How to access health informa tion online Indication:Nonsmoker Start:18-Nov-2019 Instruction Type:Patient Education How to access health informa tion online - Detail Indication:Nonsmoker Start:18-Nov-2019 Instruction Type:Patient Education Patient Instructions Indication:Nonsmoker Start:18-Nov-2019 Instruction Type:Provider Instructions for Treatment How to access health informa tion online Indication:BMI 26.0-26.9,adult Start:11-Sep-2019 Instruction Type:Patient Education How to access health informa tion online - Detail Indication:BMI 26.0-26.9,adult Start:11-Sep-2019 Instruction Type:Patient Education Patient Instructions Indication:Nonsmoker Start:11-Sep-2019 Instruction Type:Provider Instructions for Treatment How to access health informa tion online Indication:BMI 25.0-25.9,adult Start:06-Sep-2019 Instruction Type:Patient Education How to access health informa tion online - Detail Indication:BMI 25.0-25.9,adult Start:06-Sep-2019 Instruction Type:Patient Education Patient Instructions Indication:BMI 25.0-25.9,adult Start:06-Sep-2019 Instruction Type:Provider Instructions for Treatment How to access health informa tion online Indication:Nonsmoker Start:24-Jun-2019 Instruction Type:Patient Education How to access health informa tion online - Detail Indication:Nonsmoker Start:24-Jun-2019 Instruction Type:Patient Education Patient Instructions Indication:Nonsmoker Start:24-Jun-2019 Instruction Type:Provider Instructions for Treatment How to access health informa tion online Indication:Nonsmoker Start:19-Feb-2019 Instruction Type:Patient Education How to access health informa tion online - Detail Indication:Nonsmoker Start:19-Feb-2019 Instruction Type:Patient Education Patient Instructions Indication:Nonsmoker Start:19-Feb-2019 Instruction Type:Provider Instructions for Treatment How to access health informa tion online Indication:Nonsmoker Start:20-Dec-2018 Instruction Type:Patient Education How to access health informa tion online - Detail Indication:Nonsmoker Start:20-Dec-2018 Instruction Type:Patient Education Patient Instructions Indication:Nonsmoker Start:20-Dec-2018 Instruction Type:Provider Instructions for Treatment How to access health informa tion online Indication:BMI 24.0-24.9, adult Start:21-Aug-2018 Instruction Type:Patient Education How to access health informa tion online - Detail Indication:BMI 24.0-24.9, adult Start:21-Aug-2018 Instruction Type:Patient Education How to access health informa tion online Indication:Nonsmoker Start:17-May-2018 Instruction Type:Patient Education How to access health informa tion online - Detail Indication:Nonsmoker Start:17-May-2018 Instruction Type:Patient Education Patient Instructions Indication:Nonsmoker Start:17-May-2018 Instruction Type:Provider Instructions for Treatment How to access health informa tion online Indication:BMI 25.0-25.9,adult Start:08-Feb-2018 Instruction Type:Patient Education How to access health informa tion online - Detail Indication:BMI 25.0-25.9,adult Start:08-Feb-2018 Instruction Type:Patient Education Patient Instructions Indication:BMI 25.0-25.9,adult Start:08-Feb-2018 Instruction Type:Provider Instructions for Treatment How to access health informa tion online Indication:BMI 27.0-27.9,adult Start:09-Nov-2017 Instruction Type:Patient Education How to access health informa tion online - Detail Indication:BMI 27.0-27.9,adult Start:09-Nov-2017 Instruction Type:Patient Education Patient Instructions Indication:BMI 27.0-27.9,adult Start:09-Nov-2017 Instruction Type:Provider Instructions for Treatment How to access health informa tion online Indication:BMI 27.0-27.9,adult Start:21-Sep-2017 Instruction Type:Patient Education How to access health informa tion online - Detail Indication:BMI 27.0-27.9,adult Start:21-Sep-2017 Instruction Type:Patient Education Patient Instructions Indication:UTI symptoms Start:21-Sep-2017 Instruction Type:Provider Instructions for Treatment How to access health informa tion online Indication:UTI symptoms Start:15-Sep-2017 Instruction Type:Patient Education How to access health informa tion online - Detail Indication:UTI symptoms Start:15-Sep-2017 Instruction Type:Patient Education Patient Instructions Indication:UTI symptoms Start:15-Sep-2017 Instruction Type:Provider Instructions for Treatment How to access health informa tion online Indication:Nonsmoker Start:10-Aug-2017 Instruction Type:Patient Education How to access health informa tion online - Detail Indication:Nonsmoker Start:10-Aug-2017 Instruction Type:Patient Education Patient Instructions Indication:Nonsmoker Start:10-Aug-2017 Instruction Type:Provider Instructions for Treatment How to access health informa tion online Indication:BMI 27.0-27.9,adult Start:20-Jul-2017 Instruction Type:Patient Education How to access health informa tion online - Detail Indication:BMI 27.0-27.9,adult Start:20-Jul-2017 Instruction Type:Patient Education Patient Instructions Indication:Cough Start:20-Jul-2017 Instruction Type:Provider Instructions for Treatment How to access health informa tion online Indication:BMI 27.0-27.9,adult Start:04-May-2017 Instruction Type:Patient Education How to access health informa tion online - Detail Indication:BMI 27.0-27.9,adult Start:04-May-2017 Instruction Type:Patient Education Patient Instructions Indication:BMI 27.0-27.9,adult Start:04-May-2017 Instruction Type:Provider Instructions for Treatment How to access health informa tion online Indication:BMI 26.0-26.9,adult Start:11-Apr-2017 Instruction Type:Patient Education How to access health informa tion online - Detail Indication:BMI 26.0-26.9,adult Start:11-Apr-2017 Instruction Type:Patient Education Patient Instructions Indication:BMI 26.0-26.9,adult Start:11-Apr-2017 Instruction Type:Provider Instructions for Treatment How to access health informa tion online Indication:BMI 26.0-26.9,adult Start:16-Nov-2016 Instruction Type:Patient Education How to access health informa tion online - Detail Indication:BMI 26.0-26.9,adult Start:16-Nov-2016 Instruction Type:Patient Education Patient Instructions Indication:BMI 26.0-26.9,adult Start:16-Nov-2016 Instruction Type:Provider Instructions for Treatment Name Dates Details How to access health informa tion online Indication:Nonsmoker Start:06-May-2020 Instruction Type:Patient Education How to access health informa tion online - Detail Indication:Nonsmoker Start:06-May-2020 Instruction Type:Patient Education Patient Instructions Indication:Nonsmoker Start:06-May-2020 Instruction Type:Provider Instructions for Treatment How to access health informa tion online Indication:Nonsmoker Start:15-Apr-2020 Instruction Type:Patient Education How to access health informa tion online - Detail Indication:Nonsmoker Start:15-Apr-2020 Instruction Type:Patient Education Patient Instructions Indication:Nonsmoker Start:15-Apr-2020 Instruction Type:Provider Instructions for Treatment How to access health informa tion online Indication:Nonsmoker Start:20-Mar-2020 Instruction Type:Patient Education Patient Instructions Indication:Nonsmoker Start:20-Mar-2020 Instruction Type:Provider Instructions for Treatment How to access health informa tion online - Detail Indication:Nonsmoker Start:18-Mar-2020 Instruction Type:Patient Education How to access health informa tion online Indication:Nonsmoker Start:18-Mar-2020 Instruction Type:Patient Education Patient Instructions Indication:Nonsmoker Start:18-Mar-2020 Instruction Type:Provider Instructions for Treatment How to access health informa tion online Indication:Nonsmoker Start:30-Dec-2019 Instruction Type:Patient Education How to access health informa tion online - Detail Indication:Nonsmoker Start:30-Dec-2019 Instruction Type:Patient Education Patient Instructions Indication:Nonsmoker Start:30-Dec-2019 Instruction Type:Provider Instructions for Treatment How to access health informa tion online Indication:Nonsmoker Start:18-Nov-2019 Instruction Type:Patient Education How to access health informa tion online - Detail Indication:Nonsmoker Start:18-Nov-2019 Instruction Type:Patient Education Patient Instructions Indication:Nonsmoker Start:18-Nov-2019 Instruction Type:Provider Instructions for Treatment How to access health informa tion online Indication:BMI 26.0-26.9,adult Start:11-Sep-2019 Instruction Type:Patient Education How to access health informa tion online - Detail Indication:BMI 26.0-26.9,adult Start:11-Sep-2019 Instruction Type:Patient Education Patient Instructions Indication:Nonsmoker Start:11-Sep-2019 Instruction Type:Provider Instructions for Treatment How to access health informa tion online Indication:BMI 25.0-25.9,adult Start:06-Sep-2019 Instruction Type:Patient Education How to access health informa tion online - Detail Indication:BMI 25.0-25.9,adult Start:06-Sep-2019 Instruction Type:Patient Education Patient Instructions Indication:BMI 25.0-25.9,adult Start:06-Sep-2019 Instruction Type:Provider Instructions for Treatment How to access health informa tion online Indication:Nonsmoker Start:24-Jun-2019 Instruction Type:Patient Education How to access health informa tion online - Detail Indication:Nonsmoker Start:24-Jun-2019 Instruction Type:Patient Education Patient Instructions Indication:Nonsmoker Start:24-Jun-2019 Instruction Type:Provider Instructions for Treatment How to access health informa tion online Indication:Nonsmoker Start:19-Feb-2019 Instruction Type:Patient Education How to access health informa tion online - Detail Indication:Nonsmoker Start:19-Feb-2019 Instruction Type:Patient Education Patient Instructions Indication:Nonsmoker Start:19-Feb-2019 Instruction Type:Provider Instructions for Treatment How to access health informa tion online Indication:Nonsmoker Start:20-Dec-2018 Instruction Type:Patient Education How to access health informa tion online - Detail Indication:Nonsmoker Start:20-Dec-2018 Instruction Type:Patient Education Patient Instructions Indication:Nonsmoker Start:20-Dec-2018 Instruction Type:Provider Instructions for Treatment How to access health informa tion online Indication:BMI 24.0-24.9, adult Start:21-Aug-2018 Instruction Type:Patient Education How to access health informa tion online - Detail Indication:BMI 24.0-24.9, adult Start:21-Aug-2018 Instruction Type:Patient Education How to access health informa tion online Indication:Nonsmoker Start:17-May-2018 Instruction Type:Patient Education How to access health informa tion online - Detail Indication:Nonsmoker Start:17-May-2018 Instruction Type:Patient Education Patient Instructions Indication:Nonsmoker Start:17-May-2018 Instruction Type:Provider Instructions for Treatment How to access health informa tion online Indication:BMI 25.0-25.9,adult Start:08-Feb-2018 Instruction Type:Patient Education How to access health informa tion online - Detail Indication:BMI 25.0-25.9,adult Start:08-Feb-2018 Instruction Type:Patient Education Patient Instructions Indication:BMI 25.0-25.9,adult Start:08-Feb-2018 Instruction Type:Provider Instructions for Treatment How to access health informa tion online Indication:BMI 27.0-27.9,adult Start:09-Nov-2017 Instruction Type:Patient Education How to access health informa tion online - Detail Indication:BMI 27.0-27.9,adult Start:09-Nov-2017 Instruction Type:Patient Education Patient Instructions Indication:BMI 27.0-27.9,adult Start:09-Nov-2017 Instruction Type:Provider Instructions for Treatment How to access health informa tion online Indication:BMI 27.0-27.9,adult Start:21-Sep-2017 Instruction Type:Patient Education How to access health informa tion online - Detail Indication:BMI 27.0-27.9,adult Start:21-Sep-2017 Instruction Type:Patient Education Patient Instructions Indication:UTI symptoms Start:21-Sep-2017 Instruction Type:Provider Instructions for Treatment How to access health informa tion online Indication:UTI symptoms Start:15-Sep-2017 Instruction Type:Patient Education How to access health informa tion online - Detail Indication:UTI symptoms Start:15-Sep-2017 Instruction Type:Patient Education Patient Instructions Indication:UTI symptoms Start:15-Sep-2017 Instruction Type:Provider Instructions for Treatment How to access health informa tion online Indication:Nonsmoker Start:10-Aug-2017 Instruction Type:Patient Education How to access health informa tion online - Detail Indication:Nonsmoker Start:10-Aug-2017 Instruction Type:Patient Education Patient Instructions Indication:Nonsmoker Start:10-Aug-2017 Instruction Type:Provider Instructions for Treatment How to access health informa tion online Indication:BMI 27.0-27.9,adult Start:20-Jul-2017 Instruction Type:Patient Education How to access health informa tion online - Detail Indication:BMI 27.0-27.9,adult Start:20-Jul-2017 Instruction Type:Patient Education Patient Instructions Indication:Cough Start:20-Jul-2017 Instruction Type:Provider Instructions for Treatment How to access health informa tion online Indication:BMI 27.0-27.9,adult Start:04-May-2017 Instruction Type:Patient Education How to access health informa tion online - Detail Indication:BMI 27.0-27.9,adult Start:04-May-2017 Instruction Type:Patient Education Patient Instructions Indication:BMI 27.0-27.9,adult Start:04-May-2017 Instruction Type:Provider Instructions for Treatment How to access health informa tion online Indication:BMI 26.0-26.9,adult Start:11-Apr-2017 Instruction Type:Patient Education How to access health informa tion online - Detail Indication:BMI 26.0-26.9,adult Start:11-Apr-2017 Instruction Type:Patient Education Patient Instructions Indication:BMI 26.0-26.9,adult Start:11-Apr-2017 Instruction Type:Provider Instructions for Treatment How to access health informa tion online Indication:BMI 26.0-26.9,adult Start:16-Nov-2016 Instruction Type:Patient Education How to access health informa tion online - Detail Indication:BMI 26.0-26.9,adult Start:16-Nov-2016 Instruction Type:Patient Education Patient Instructions Indication:BMI 26.0-26.9,adult Start:16-Nov-2016 Instruction Type:Provider Instructions for Treatment Name Dates Details How to access health informa tion online Indication:Nonsmoker Start:06-May-2020 Instruction Type:Patient Education How to access health informa tion online - Detail Indication:Nonsmoker Start:06-May-2020 Instruction Type:Patient Education Patient Instructions Indication:Nonsmoker Start:06-May-2020 Instruction Type:Provider Instructions for Treatment How to access health informa tion online Indication:Nonsmoker Start:15-Apr-2020 Instruction Type:Patient Education How to access health informa tion online - Detail Indication:Nonsmoker Start:15-Apr-2020 Instruction Type:Patient Education Patient Instructions Indication:Nonsmoker Start:15-Apr-2020 Instruction Type:Provider Instructions for Treatment How to access health informa tion online Indication:Nonsmoker Start:20-Mar-2020 Instruction Type:Patient Education Patient Instructions Indication:Nonsmoker Start:20-Mar-2020 Instruction Type:Provider Instructions for Treatment How to access health informa tion online - Detail Indication:Nonsmoker Start:18-Mar-2020 Instruction Type:Patient Education How to access health informa tion online Indication:Nonsmoker Start:18-Mar-2020 Instruction Type:Patient Education Patient Instructions Indication:Nonsmoker Start:18-Mar-2020 Instruction Type:Provider Instructions for Treatment How to access health informa tion online Indication:Nonsmoker Start:30-Dec-2019 Instruction Type:Patient Education How to access health informa tion online - Detail Indication:Nonsmoker Start:30-Dec-2019 Instruction Type:Patient Education Patient Instructions Indication:Nonsmoker Start:30-Dec-2019 Instruction Type:Provider Instructions for Treatment How to access health informa tion online Indication:Nonsmoker Start:18-Nov-2019 Instruction Type:Patient Education How to access health informa tion online - Detail Indication:Nonsmoker Start:18-Nov-2019 Instruction Type:Patient Education Patient Instructions Indication:Nonsmoker Start:18-Nov-2019 Instruction Type:Provider Instructions for Treatment How to access health informa tion online Indication:BMI 26.0-26.9,adult Start:11-Sep-2019 Instruction Type:Patient Education How to access health informa tion online - Detail Indication:BMI 26.0-26.9,adult Start:11-Sep-2019 Instruction Type:Patient Education Patient Instructions Indication:Nonsmoker Start:11-Sep-2019 Instruction Type:Provider Instructions for Treatment How to access health informa tion online Indication:BMI 25.0-25.9,adult Start:06-Sep-2019 Instruction Type:Patient Education How to access health informa tion online - Detail Indication:BMI 25.0-25.9,adult Start:06-Sep-2019 Instruction Type:Patient Education Patient Instructions Indication:BMI 25.0-25.9,adult Start:06-Sep-2019 Instruction Type:Provider Instructions for Treatment How to access health informa tion online Indication:Nonsmoker Start:24-Jun-2019 Instruction Type:Patient Education How to access health informa tion online - Detail Indication:Nonsmoker Start:24-Jun-2019 Instruction Type:Patient Education Patient Instructions Indication:Nonsmoker Start:24-Jun-2019 Instruction Type:Provider Instructions for Treatment How to access health informa tion online Indication:Nonsmoker Start:19-Feb-2019 Instruction Type:Patient Education How to access health informa tion online - Detail Indication:Nonsmoker Start:19-Feb-2019 Instruction Type:Patient Education Patient Instructions Indication:Nonsmoker Start:19-Feb-2019 Instruction Type:Provider Instructions for Treatment How to access health informa tion online Indication:Nonsmoker Start:20-Dec-2018 Instruction Type:Patient Education How to access health informa tion online - Detail Indication:Nonsmoker Start:20-Dec-2018 Instruction Type:Patient Education Patient Instructions Indication:Nonsmoker Start:20-Dec-2018 Instruction Type:Provider Instructions for Treatment How to access health informa tion online Indication:BMI 24.0-24.9, adult Start:21-Aug-2018 Instruction Type:Patient Education How to access health informa tion online - Detail Indication:BMI 24.0-24.9, adult Start:21-Aug-2018 Instruction Type:Patient Education How to access health informa tion online Indication:Nonsmoker Start:17-May-2018 Instruction Type:Patient Education How to access health informa tion online - Detail Indication:Nonsmoker Start:17-May-2018 Instruction Type:Patient Education Patient Instructions Indication:Nonsmoker Start:17-May-2018 Instruction Type:Provider Instructions for Treatment How to access health informa tion online Indication:BMI 25.0-25.9,adult Start:08-Feb-2018 Instruction Type:Patient Education How to access health informa tion online - Detail Indication:BMI 25.0-25.9,adult Start:08-Feb-2018 Instruction Type:Patient Education Patient Instructions Indication:BMI 25.0-25.9,adult Start:08-Feb-2018 Instruction Type:Provider Instructions for Treatment How to access health informa tion online Indication:BMI 27.0-27.9,adult Start:09-Nov-2017 Instruction Type:Patient Education How to access health informa tion online - Detail Indication:BMI 27.0-27.9,adult Start:09-Nov-2017 Instruction Type:Patient Education Patient Instructions Indication:BMI 27.0-27.9,adult Start:09-Nov-2017 Instruction Type:Provider Instructions for Treatment How to access health informa tion online Indication:BMI 27.0-27.9,adult Start:21-Sep-2017 Instruction Type:Patient Education How to access health informa tion online - Detail Indication:BMI 27.0-27.9,adult Start:21-Sep-2017 Instruction Type:Patient Education Patient Instructions Indication:UTI symptoms Start:21-Sep-2017 Instruction Type:Provider Instructions for Treatment How to access health informa tion online Indication:UTI symptoms Start:15-Sep-2017 Instruction Type:Patient Education How to access health informa tion online - Detail Indication:UTI symptoms Start:15-Sep-2017 Instruction Type:Patient Education Patient Instructions Indication:UTI symptoms Start:15-Sep-2017 Instruction Type:Provider Instructions for Treatment How to access health informa tion online Indication:Nonsmoker Start:10-Aug-2017 Instruction Type:Patient Education How to access health informa tion online - Detail Indication:Nonsmoker Start:10-Aug-2017 Instruction Type:Patient Education Patient Instructions Indication:Nonsmoker Start:10-Aug-2017 Instruction Type:Provider Instructions for Treatment How to access health informa tion online Indication:BMI 27.0-27.9,adult Start:20-Jul-2017 Instruction Type:Patient Education How to access health informa tion online - Detail Indication:BMI 27.0-27.9,adult Start:20-Jul-2017 Instruction Type:Patient Education Patient Instructions Indication:Cough Start:20-Jul-2017 Instruction Type:Provider Instructions for Treatment How to access health informa tion online Indication:BMI 27.0-27.9,adult Start:04-May-2017 Instruction Type:Patient Education How to access health informa tion online - Detail Indication:BMI 27.0-27.9,adult Start:04-May-2017 Instruction Type:Patient Education Patient Instructions Indication:BMI 27.0-27.9,adult Start:04-May-2017 Instruction Type:Provider Instructions for Treatment How to access health informa tion online Indication:BMI 26.0-26.9,adult Start:11-Apr-2017 Instruction Type:Patient Education How to access health informa tion online - Detail Indication:BMI 26.0-26.9,adult Start:11-Apr-2017 Instruction Type:Patient Education Patient Instructions Indication:BMI 26.0-26.9,adult Start:11-Apr-2017 Instruction Type:Provider Instructions for Treatment How to access health informa tion online Indication:BMI 26.0-26.9,adult Start:16-Nov-2016 Instruction Type:Patient Education How to access health informa tion online - Detail Indication:BMI 26.0-26.9,adult Start:16-Nov-2016 Instruction Type:Patient Education Patient Instructions Indication:BMI 26.0-26.9,adult Start:16-Nov-2016 Instruction Type:Provider Instructions for Treatment Name Dates Details How to access health informa tion online Indication:BMI 26.0-26.9,adult Start:10-Jun-2020 Instruction Type:Patient Education How to access health informa tion online - Detail Indication:BMI 26.0-26.9,adult Start:10-Jun-2020 Instruction Type:Patient Education Patient Instructions Indication:BMI 26.0-26.9,adult Start:10-Jun-2020 Instruction Type:Provider Instructions for Treatment How to access health informa tion online Indication:Nonsmoker Start:06-May-2020 Instruction Type:Patient Education How to access health informa tion online - Detail Indication:Nonsmoker Start:06-May-2020 Instruction Type:Patient Education Patient Instructions Indication:Nonsmoker Start:06-May-2020 Instruction Type:Provider Instructions for Treatment How to access health informa tion online Indication:Nonsmoker Start:15-Apr-2020 Instruction Type:Patient Education How to access health informa tion online - Detail Indication:Nonsmoker Start:15-Apr-2020 Instruction Type:Patient Education Patient Instructions Indication:Nonsmoker Start:15-Apr-2020 Instruction Type:Provider Instructions for Treatment How to access health informa tion online Indication:Nonsmoker Start:20-Mar-2020 Instruction Type:Patient Education Patient Instructions Indication:Nonsmoker Start:20-Mar-2020 Instruction Type:Provider Instructions for Treatment How to access health informa tion online - Detail Indication:Nonsmoker Start:18-Mar-2020 Instruction Type:Patient Education How to access health informa tion online Indication:Nonsmoker Start:18-Mar-2020 Instruction Type:Patient Education Patient Instructions Indication:Nonsmoker Start:18-Mar-2020 Instruction Type:Provider Instructions for Treatment How to access health informa tion online Indication:Nonsmoker Start:30-Dec-2019 Instruction Type:Patient Education How to access health informa tion online - Detail Indication:Nonsmoker Start:30-Dec-2019 Instruction Type:Patient Education Patient Instructions Indication:Nonsmoker Start:30-Dec-2019 Instruction Type:Provider Instructions for Treatment How to access health informa tion online Indication:Nonsmoker Start:18-Nov-2019 Instruction Type:Patient Education How to access health informa tion online - Detail Indication:Nonsmoker Start:18-Nov-2019 Instruction Type:Patient Education Patient Instructions Indication:Nonsmoker Start:18-Nov-2019 Instruction Type:Provider Instructions for Treatment How to access health informa tion online Indication:BMI 26.0-26.9,adult Start:11-Sep-2019 Instruction Type:Patient Education How to access health informa tion online - Detail Indication:BMI 26.0-26.9,adult Start:11-Sep-2019 Instruction Type:Patient Education Patient Instructions Indication:Nonsmoker Start:11-Sep-2019 Instruction Type:Provider Instructions for Treatment How to access health informa tion online Indication:BMI 25.0-25.9,adult Start:06-Sep-2019 Instruction Type:Patient Education How to access health informa tion online - Detail Indication:BMI 25.0-25.9,adult Start:06-Sep-2019 Instruction Type:Patient Education Patient Instructions Indication:BMI 25.0-25.9,adult Start:06-Sep-2019 Instruction Type:Provider Instructions for Treatment How to access health informa tion online Indication:Nonsmoker Start:24-Jun-2019 Instruction Type:Patient Education How to access health informa tion online - Detail Indication:Nonsmoker Start:24-Jun-2019 Instruction Type:Patient Education Patient Instructions Indication:Nonsmoker Start:24-Jun-2019 Instruction Type:Provider Instructions for Treatment How to access health informa tion online Indication:Nonsmoker Start:19-Feb-2019 Instruction Type:Patient Education How to access health informa tion online - Detail Indication:Nonsmoker Start:19-Feb-2019 Instruction Type:Patient Education Patient Instructions Indication:Nonsmoker Start:19-Feb-2019 Instruction Type:Provider Instructions for Treatment How to access health informa tion online Indication:Nonsmoker Start:20-Dec-2018 Instruction Type:Patient Education How to access health informa tion online - Detail Indication:Nonsmoker Start:20-Dec-2018 Instruction Type:Patient Education Patient Instructions Indication:Nonsmoker Start:20-Dec-2018 Instruction Type:Provider Instructions for Treatment How to access health informa tion online Indication:BMI 24.0-24.9, adult Start:21-Aug-2018 Instruction Type:Patient Education How to access health informa tion online - Detail Indication:BMI 24.0-24.9, adult Start:21-Aug-2018 Instruction Type:Patient Education How to access health informa tion online Indication:Nonsmoker Start:17-May-2018 Instruction Type:Patient Education How to access health informa tion online - Detail Indication:Nonsmoker Start:17-May-2018 Instruction Type:Patient Education Patient Instructions Indication:Nonsmoker Start:17-May-2018 Instruction Type:Provider Instructions for Treatment How to access health informa tion online Indication:BMI 25.0-25.9,adult Start:08-Feb-2018 Instruction Type:Patient Education How to access health informa tion online - Detail Indication:BMI 25.0-25.9,adult Start:08-Feb-2018 Instruction Type:Patient Education Patient Instructions Indication:BMI 25.0-25.9,adult Start:08-Feb-2018 Instruction Type:Provider Instructions for Treatment How to access health informa tion online Indication:BMI 27.0-27.9,adult Start:09-Nov-2017 Instruction Type:Patient Education How to access health informa tion online - Detail Indication:BMI 27.0-27.9,adult Start:09-Nov-2017 Instruction Type:Patient Education Patient Instructions Indication:BMI 27.0-27.9,adult Start:09-Nov-2017 Instruction Type:Provider Instructions for Treatment How to access health informa tion online Indication:BMI 27.0-27.9,adult Start:21-Sep-2017 Instruction Type:Patient Education How to access health informa tion online - Detail Indication:BMI 27.0-27.9,adult Start:21-Sep-2017 Instruction Type:Patient Education Patient Instructions Indication:UTI symptoms Start:21-Sep-2017 Instruction Type:Provider Instructions for Treatment How to access health informa tion online Indication:UTI symptoms Start:15-Sep-2017 Instruction Type:Patient Education How to access health informa tion online - Detail Indication:UTI symptoms Start:15-Sep-2017 Instruction Type:Patient Education Patient Instructions Indication:UTI symptoms Start:15-Sep-2017 Instruction Type:Provider Instructions for Treatment How to access health informa tion online Indication:Nonsmoker Start:10-Aug-2017 Instruction Type:Patient Education How to access health informa tion online - Detail Indication:Nonsmoker Start:10-Aug-2017 Instruction Type:Patient Education Patient Instructions Indication:Nonsmoker Start:10-Aug-2017 Instruction Type:Provider Instructions for Treatment How to access health informa tion online Indication:BMI 27.0-27.9,adult Start:20-Jul-2017 Instruction Type:Patient Education How to access health informa tion online - Detail Indication:BMI 27.0-27.9,adult Start:20-Jul-2017 Instruction Type:Patient Education Patient Instructions Indication:Cough Start:20-Jul-2017 Instruction Type:Provider Instructions for Treatment How to access health informa tion online Indication:BMI 27.0-27.9,adult Start:04-May-2017 Instruction Type:Patient Education How to access health informa tion online - Detail Indication:BMI 27.0-27.9,adult Start:04-May-2017 Instruction Type:Patient Education Patient Instructions Indication:BMI 27.0-27.9,adult Start:04-May-2017 Instruction Type:Provider Instructions for Treatment How to access health informa tion online Indication:BMI 26.0-26.9,adult Start:11-Apr-2017 Instruction Type:Patient Education How to access health informa tion online - Detail Indication:BMI 26.0-26.9,adult Start:11-Apr-2017 Instruction Type:Patient Education Patient Instructions Indication:BMI 26.0-26.9,adult Start:11-Apr-2017 Instruction Type:Provider Instructions for Treatment How to access health informa tion online Indication:BMI 26.0-26.9,adult Start:16-Nov-2016 Instruction Type:Patient Education How to access health informa tion online - Detail Indication:BMI 26.0-26.9,adult Start:16-Nov-2016 Instruction Type:Patient Education Patient Instructions Indication:BMI 26.0-26.9,adult Start:16-Nov-2016 Instruction Type:Provider Instructions for Treatment Name Dates Details How to Access Health Informa tion Online using Patient Portal and [employer] Apps Indication:Nonsmoker Start:13-Jul-2020 Instruction Type:Patient Education Patient Instructions Indication:Nonsmoker Start:13-Jul-2020 Instruction Type:Provider Instructions for Treatment How to access health informa tion online Indication:BMI 26.0-26.9,adult Start:10-Jun-2020 Instruction Type:Patient Education How to access health informa tion online - Detail Indication:BMI 26.0-26.9,adult Start:10-Jun-2020 Instruction Type:Patient Education Patient Instructions Indication:BMI 26.0-26.9,adult Start:10-Jun-2020 Instruction Type:Provider Instructions for Treatment How to access health informa tion online Indication:Nonsmoker Start:06-May-2020 Instruction Type:Patient Education How to access health informa tion online - Detail Indication:Nonsmoker Start:06-May-2020 Instruction Type:Patient Education Patient Instructions Indication:Nonsmoker Start:06-May-2020 Instruction Type:Provider Instructions for Treatment How to access health informa tion online Indication:Nonsmoker Start:15-Apr-2020 Instruction Type:Patient Education How to access health informa tion online - Detail Indication:Nonsmoker Start:15-Apr-2020 Instruction Type:Patient Education Patient Instructions Indication:Nonsmoker Start:15-Apr-2020 Instruction Type:Provider Instructions for Treatment How to access health informa tion online Indication:Nonsmoker Start:20-Mar-2020 Instruction Type:Patient Education Patient Instructions Indication:Nonsmoker Start:20-Mar-2020 Instruction Type:Provider Instructions for Treatment How to access health informa tion online - Detail Indication:Nonsmoker Start:18-Mar-2020 Instruction Type:Patient Education How to access health informa tion online Indication:Nonsmoker Start:18-Mar-2020 Instruction Type:Patient Education Patient Instructions Indication:Nonsmoker Start:18-Mar-2020 Instruction Type:Provider Instructions for Treatment How to access health informa tion online Indication:Nonsmoker Start:30-Dec-2019 Instruction Type:Patient Education How to access health informa tion online - Detail Indication:Nonsmoker Start:30-Dec-2019 Instruction Type:Patient Education Patient Instructions Indication:Nonsmoker Start:30-Dec-2019 Instruction Type:Provider Instructions for Treatment How to access health informa tion online Indication:Nonsmoker Start:18-Nov-2019 Instruction Type:Patient Education How to access health informa tion online - Detail Indication:Nonsmoker Start:18-Nov-2019 Instruction Type:Patient Education Patient Instructions Indication:Nonsmoker Start:18-Nov-2019 Instruction Type:Provider Instructions for Treatment How to access health informa tion online Indication:BMI 26.0-26.9,adult Start:11-Sep-2019 Instruction Type:Patient Education How to access health informa tion online - Detail Indication:BMI 26.0-26.9,adult Start:11-Sep-2019 Instruction Type:Patient Education Patient Instructions Indication:Nonsmoker Start:11-Sep-2019 Instruction Type:Provider Instructions for Treatment How to access health informa tion online Indication:BMI 25.0-25.9,adult Start:06-Sep-2019 Instruction Type:Patient Education How to access health informa tion online - Detail Indication:BMI 25.0-25.9,adult Start:06-Sep-2019 Instruction Type:Patient Education Patient Instructions Indication:BMI 25.0-25.9,adult Start:06-Sep-2019 Instruction Type:Provider Instructions for Treatment How to access health informa tion online Indication:Nonsmoker Start:24-Jun-2019 Instruction Type:Patient Education How to access health informa tion online - Detail Indication:Nonsmoker Start:24-Jun-2019 Instruction Type:Patient Education Patient Instructions Indication:Nonsmoker Start:24-Jun-2019 Instruction Type:Provider Instructions for Treatment How to access health informa tion online Indication:Nonsmoker Start:19-Feb-2019 Instruction Type:Patient Education How to access health informa tion online - Detail Indication:Nonsmoker Start:19-Feb-2019 Instruction Type:Patient Education Patient Instructions Indication:Nonsmoker Start:19-Feb-2019 Instruction Type:Provider Instructions for Treatment How to access health informa tion online Indication:Nonsmoker Start:20-Dec-2018 Instruction Type:Patient Education How to access health informa tion online - Detail Indication:Nonsmoker Start:20-Dec-2018 Instruction Type:Patient Education Patient Instructions Indication:Nonsmoker Start:20-Dec-2018 Instruction Type:Provider Instructions for Treatment How to access health informa tion online Indication:BMI 24.0-24.9, adult Start:21-Aug-2018 Instruction Type:Patient Education How to access health informa tion online - Detail Indication:BMI 24.0-24.9, adult Start:21-Aug-2018 Instruction Type:Patient Education How to access health informa tion online Indication:Nonsmoker Start:17-May-2018 Instruction Type:Patient Education How to access health informa tion online - Detail Indication:Nonsmoker Start:17-May-2018 Instruction Type:Patient Education Patient Instructions Indication:Nonsmoker Start:17-May-2018 Instruction Type:Provider Instructions for Treatment How to access health informa tion online Indication:BMI 25.0-25.9,adult Start:08-Feb-2018 Instruction Type:Patient Education How to access health informa tion online - Detail Indication:BMI 25.0-25.9,adult Start:08-Feb-2018 Instruction Type:Patient Education Patient Instructions Indication:BMI 25.0-25.9,adult Start:08-Feb-2018 Instruction Type:Provider Instructions for Treatment How to access health informa tion online Indication:BMI 27.0-27.9,adult Start:09-Nov-2017 Instruction Type:Patient Education How to access health informa tion online - Detail Indication:BMI 27.0-27.9,adult Start:09-Nov-2017 Instruction Type:Patient Education Patient Instructions Indication:BMI 27.0-27.9,adult Start:09-Nov-2017 Instruction Type:Provider Instructions for Treatment How to access health informa tion online Indication:BMI 27.0-27.9,adult Start:21-Sep-2017 Instruction Type:Patient Education How to access health informa tion online - Detail Indication:BMI 27.0-27.9,adult Start:21-Sep-2017 Instruction Type:Patient Education Patient Instructions Indication:UTI symptoms Start:21-Sep-2017 Instruction Type:Provider Instructions for Treatment How to access health informa tion online Indication:UTI symptoms Start:15-Sep-2017 Instruction Type:Patient Education How to access health informa tion online - Detail Indication:UTI symptoms Start:15-Sep-2017 Instruction Type:Patient Education Patient Instructions Indication:UTI symptoms Start:15-Sep-2017 Instruction Type:Provider Instructions for Treatment How to access health informa tion online Indication:Nonsmoker Start:10-Aug-2017 Instruction Type:Patient Education How to access health informa tion online - Detail Indication:Nonsmoker Start:10-Aug-2017 Instruction Type:Patient Education Patient Instructions Indication:Nonsmoker Start:10-Aug-2017 Instruction Type:Provider Instructions for Treatment How to access health informa tion online Indication:BMI 27.0-27.9,adult Start:20-Jul-2017 Instruction Type:Patient Education How to access health informa tion online - Detail Indication:BMI 27.0-27.9,adult Start:20-Jul-2017 Instruction Type:Patient Education Patient Instructions Indication:Cough Start:20-Jul-2017 Instruction Type:Provider Instructions for Treatment How to access health informa tion online Indication:BMI 27.0-27.9,adult Start:04-May-2017 Instruction Type:Patient Education How to access health informa tion online - Detail Indication:BMI 27.0-27.9,adult Start:04-May-2017 Instruction Type:Patient Education Patient Instructions Indication:BMI 27.0-27.9,adult Start:04-May-2017 Instruction Type:Provider Instructions for Treatment How to access health informa tion online Indication:BMI 26.0-26.9,adult Start:11-Apr-2017 Instruction Type:Patient Education How to access health informa tion online - Detail Indication:BMI 26.0-26.9,adult Start:11-Apr-2017 Instruction Type:Patient Education Patient Instructions Indication:BMI 26.0-26.9,adult Start:11-Apr-2017 Instruction Type:Provider Instructions for Treatment How to access health informa tion online Indication:BMI 26.0-26.9,adult Start:16-Nov-2016 Instruction Type:Patient Education How to access health informa tion online - Detail Indication:BMI 26.0-26.9,adult Start:16-Nov-2016 Instruction Type:Patient Education Patient Instructions Indication:BMI 26.0-26.9,adult Start:16-Nov-2016 Instruction Type:Provider Instructions for Treatment Name Dates Details How to access health informa tion online Indication:Nonsmoker Start:20-Dec-2018 Instruction Type:Patient Education How to access health informa tion online - Detail Indication:Nonsmoker Start:20-Dec-2018 Instruction Type:Patient Education Patient Instructions Indication:Nonsmoker Start:20-Dec-2018 Instruction Type:Provider Instructions for Treatment How to access health informa tion online Indication:BMI 24.0-24.9, adult Start:21-Aug-2018 Instruction Type:Patient Education How to access health informa tion online - Detail Indication:BMI 24.0-24.9, adult Start:21-Aug-2018 Instruction Type:Patient Education How to access health informa tion online Indication:Nonsmoker Start:17-May-2018 Instruction Type:Patient Education How to access health informa tion online - Detail Indication:Nonsmoker Start:17-May-2018 Instruction Type:Patient Education Patient Instructions Indication:Nonsmoker Start:17-May-2018 Instruction Type:Provider Instructions for Treatment How to access health informa tion online Indication:BMI 25.0-25.9,adult Start:08-Feb-2018 Instruction Type:Patient Education How to access health informa tion online - Detail Indication:BMI 25.0-25.9,adult Start:08-Feb-2018 Instruction Type:Patient Education Patient Instructions Indication:BMI 25.0-25.9,adult Start:08-Feb-2018 Instruction Type:Provider Instructions for Treatment How to access health informa tion online Indication:BMI 27.0-27.9,adult Start:09-Nov-2017 Instruction Type:Patient Education How to access health informa tion online - Detail Indication:BMI 27.0-27.9,adult Start:09-Nov-2017 Instruction Type:Patient Education Patient Instructions Indication:BMI 27.0-27.9,adult Start:09-Nov-2017 Instruction Type:Provider Instructions for Treatment How to access health informa tion online Indication:BMI 27.0-27.9,adult Start:21-Sep-2017 Instruction Type:Patient Education How to access health informa tion online - Detail Indication:BMI 27.0-27.9,adult Start:21-Sep-2017 Instruction Type:Patient Education Patient Instructions Indication:UTI symptoms Start:21-Sep-2017 Instruction Type:Provider Instructions for Treatment How to access health informa tion online Indication:UTI symptoms Start:15-Sep-2017 Instruction Type:Patient Education How to access health informa tion online - Detail Indication:UTI symptoms Start:15-Sep-2017 Instruction Type:Patient Education Patient Instructions Indication:UTI symptoms Start:15-Sep-2017 Instruction Type:Provider Instructions for Treatment How to access health informa tion online Indication:Nonsmoker Start:10-Aug-2017 Instruction Type:Patient Education How to access health informa tion online - Detail Indication:Nonsmoker Start:10-Aug-2017 Instruction Type:Patient Education Patient Instructions Indication:Nonsmoker Start:10-Aug-2017 Instruction Type:Provider Instructions for Treatment How to access health informa tion online Indication:BMI 27.0-27.9,adult Start:20-Jul-2017 Instruction Type:Patient Education How to access health informa tion online - Detail Indication:BMI 27.0-27.9,adult Start:20-Jul-2017 Instruction Type:Patient Education Patient Instructions Indication:Cough Start:20-Jul-2017 Instruction Type:Provider Instructions for Treatment How to access health informa tion online Indication:BMI 27.0-27.9,adult Start:04-May-2017 Instruction Type:Patient Education How to access health informa tion online - Detail Indication:BMI 27.0-27.9,adult Start:04-May-2017 Instruction Type:Patient Education Patient Instructions Indication:BMI 27.0-27.9,adult Start:04-May-2017 Instruction Type:Provider Instructions for Treatment How to access health informa tion online Indication:BMI 26.0-26.9,adult Start:11-Apr-2017 Instruction Type:Patient Education How to access health informa tion online - Detail Indication:BMI 26.0-26.9,adult Start:11-Apr-2017 Instruction Type:Patient Education Patient Instructions Indication:BMI 26.0-26.9,adult Start:11-Apr-2017 Instruction Type:Provider Instructions for Treatment How to access health informa tion online Indication:BMI 26.0-26.9,adult Start:16-Nov-2016 Instruction Type:Patient Education How to access health informa tion online - Detail Indication:BMI 26.0-26.9,adult Start:16-Nov-2016 Instruction Type:Patient Education Patient Instructions Indication:BMI 26.0-26.9,adult Start:16-Nov-2016 Instruction Type:Provider Instructions for Treatment Name Dates Details How to Access Health Informa tion Online using Patient Portal and [employer] Apps Indication:Nonsmoker Start:13-Jul-2020 Instruction Type:Patient Education Patient Instructions Indication:Nonsmoker Start:13-Jul-2020 Instruction Type:Provider Instructions for Treatment How to access health informa tion online Indication:BMI 26.0-26.9,adult Start:10-Jun-2020 Instruction Type:Patient Education How to access health informa tion online - Detail Indication:BMI 26.0-26.9,adult Start:10-Jun-2020 Instruction Type:Patient Education Patient Instructions Indication:BMI 26.0-26.9,adult Start:10-Jun-2020 Instruction Type:Provider Instructions for Treatment How to access health informa tion online Indication:Nonsmoker Start:06-May-2020 Instruction Type:Patient Education How to access health informa tion online - Detail Indication:Nonsmoker Start:06-May-2020 Instruction Type:Patient Education Patient Instructions Indication:Nonsmoker Start:06-May-2020 Instruction Type:Provider Instructions for Treatment How to access health informa tion online Indication:Nonsmoker Start:15-Apr-2020 Instruction Type:Patient Education How to access health informa tion online - Detail Indication:Nonsmoker Start:15-Apr-2020 Instruction Type:Patient Education Patient Instructions Indication:Nonsmoker Start:15-Apr-2020 Instruction Type:Provider Instructions for Treatment How to access health informa tion online Indication:Nonsmoker Start:20-Mar-2020 Instruction Type:Patient Education Patient Instructions Indication:Nonsmoker Start:20-Mar-2020 Instruction Type:Provider Instructions for Treatment How to access health informa tion online - Detail Indication:Nonsmoker Start:18-Mar-2020 Instruction Type:Patient Education How to access health informa tion online Indication:Nonsmoker Start:18-Mar-2020 Instruction Type:Patient Education Patient Instructions Indication:Nonsmoker Start:18-Mar-2020 Instruction Type:Provider Instructions for Treatment How to access health informa tion online Indication:Nonsmoker Start:30-Dec-2019 Instruction Type:Patient Education How to access health informa tion online - Detail Indication:Nonsmoker Start:30-Dec-2019 Instruction Type:Patient Education Patient Instructions Indication:Nonsmoker Start:30-Dec-2019 Instruction Type:Provider Instructions for Treatment How to access health informa tion online Indication:Nonsmoker Start:18-Nov-2019 Instruction Type:Patient Education How to access health informa tion online - Detail Indication:Nonsmoker Start:18-Nov-2019 Instruction Type:Patient Education Patient Instructions Indication:Nonsmoker Start:18-Nov-2019 Instruction Type:Provider Instructions for Treatment How to access health informa tion online Indication:BMI 26.0-26.9,adult Start:11-Sep-2019 Instruction Type:Patient Education How to access health informa tion online - Detail Indication:BMI 26.0-26.9,adult Start:11-Sep-2019 Instruction Type:Patient Education Patient Instructions Indication:Nonsmoker Start:11-Sep-2019 Instruction Type:Provider Instructions for Treatment How to access health informa tion online Indication:BMI 25.0-25.9,adult Start:06-Sep-2019 Instruction Type:Patient Education How to access health informa tion online - Detail Indication:BMI 25.0-25.9,adult Start:06-Sep-2019 Instruction Type:Patient Education Patient Instructions Indication:BMI 25.0-25.9,adult Start:06-Sep-2019 Instruction Type:Provider Instructions for Treatment How to access health informa tion online Indication:Nonsmoker Start:24-Jun-2019 Instruction Type:Patient Education How to access health informa tion online - Detail Indication:Nonsmoker Start:24-Jun-2019 Instruction Type:Patient Education Patient Instructions Indication:Nonsmoker Start:24-Jun-2019 Instruction Type:Provider Instructions for Treatment How to access health informa tion online Indication:Nonsmoker Start:19-Feb-2019 Instruction Type:Patient Education How to access health informa tion online - Detail Indication:Nonsmoker Start:19-Feb-2019 Instruction Type:Patient Education Patient Instructions Indication:Nonsmoker Start:19-Feb-2019 Instruction Type:Provider Instructions for Treatment How to access health informa tion online Indication:Nonsmoker Start:20-Dec-2018 Instruction Type:Patient Education How to access health informa tion online - Detail Indication:Nonsmoker Start:20-Dec-2018 Instruction Type:Patient Education Patient Instructions Indication:Nonsmoker Start:20-Dec-2018 Instruction Type:Provider Instructions for Treatment How to access health informa tion online Indication:BMI 24.0-24.9, adult Start:21-Aug-2018 Instruction Type:Patient Education How to access health informa tion online - Detail Indication:BMI 24.0-24.9, adult Start:21-Aug-2018 Instruction Type:Patient Education How to access health informa tion online Indication:Nonsmoker Start:17-May-2018 Instruction Type:Patient Education How to access health informa tion online - Detail Indication:Nonsmoker Start:17-May-2018 Instruction Type:Patient Education Patient Instructions Indication:Nonsmoker Start:17-May-2018 Instruction Type:Provider Instructions for Treatment How to access health informa tion online Indication:BMI 25.0-25.9,adult Start:08-Feb-2018 Instruction Type:Patient Education How to access health informa tion online - Detail Indication:BMI 25.0-25.9,adult Start:08-Feb-2018 Instruction Type:Patient Education Patient Instructions Indication:BMI 25.0-25.9,adult Start:08-Feb-2018 Instruction Type:Provider Instructions for Treatment How to access health informa tion online Indication:BMI 27.0-27.9,adult Start:09-Nov-2017 Instruction Type:Patient Education How to access health informa tion online - Detail Indication:BMI 27.0-27.9,adult Start:09-Nov-2017 Instruction Type:Patient Education Patient Instructions Indication:BMI 27.0-27.9,adult Start:09-Nov-2017 Instruction Type:Provider Instructions for Treatment How to access health informa tion online Indication:BMI 27.0-27.9,adult Start:21-Sep-2017 Instruction Type:Patient Education How to access health informa tion online - Detail Indication:BMI 27.0-27.9,adult Start:21-Sep-2017 Instruction Type:Patient Education Patient Instructions Indication:UTI symptoms Start:21-Sep-2017 Instruction Type:Provider Instructions for Treatment How to access health informa tion online Indication:UTI symptoms Start:15-Sep-2017 Instruction Type:Patient Education How to access health informa tion online - Detail Indication:UTI symptoms Start:15-Sep-2017 Instruction Type:Patient Education Patient Instructions Indication:UTI symptoms Start:15-Sep-2017 Instruction Type:Provider Instructions for Treatment How to access health informa tion online Indication:Nonsmoker Start:10-Aug-2017 Instruction Type:Patient Education How to access health informa tion online - Detail Indication:Nonsmoker Start:10-Aug-2017 Instruction Type:Patient Education Patient Instructions Indication:Nonsmoker Start:10-Aug-2017 Instruction Type:Provider Instructions for Treatment How to access health informa tion online Indication:BMI 27.0-27.9,adult Start:20-Jul-2017 Instruction Type:Patient Education How to access health informa tion online - Detail Indication:BMI 27.0-27.9,adult Start:20-Jul-2017 Instruction Type:Patient Education Patient Instructions Indication:Cough Start:20-Jul-2017 Instruction Type:Provider Instructions for Treatment How to access health informa tion online Indication:BMI 27.0-27.9,adult Start:04-May-2017 Instruction Type:Patient Education How to access health informa tion online - Detail Indication:BMI 27.0-27.9,adult Start:04-May-2017 Instruction Type:Patient Education Patient Instructions Indication:BMI 27.0-27.9,adult Start:04-May-2017 Instruction Type:Provider Instructions for Treatment How to access health informa tion online Indication:BMI 26.0-26.9,adult Start:11-Apr-2017 Instruction Type:Patient Education How to access health informa tion online - Detail Indication:BMI 26.0-26.9,adult Start:11-Apr-2017 Instruction Type:Patient Education Patient Instructions Indication:BMI 26.0-26.9,adult Start:11-Apr-2017 Instruction Type:Provider Instructions for Treatment How to access health informa tion online Indication:BMI 26.0-26.9,adult Start:16-Nov-2016 Instruction Type:Patient Education How to access health informa tion online - Detail Indication:BMI 26.0-26.9,adult Start:16-Nov-2016 Instruction Type:Patient Education Patient Instructions Indication:BMI 26.0-26.9,adult Start:16-Nov-2016 Instruction Type:Provider Instructions for Treatment Name Dates Details How to Access Health Informa tion Online using Patient Portal and [employer] Apps Indication:Nonsmoker Start:13-Jul-2020 Instruction Type:Patient Education Patient Instructions Indication:Nonsmoker Start:13-Jul-2020 Instruction Type:Provider Instructions for Treatment How to access health informa tion online Indication:BMI 26.0-26.9,adult Start:10-Jun-2020 Instruction Type:Patient Education How to access health informa tion online - Detail Indication:BMI 26.0-26.9,adult Start:10-Jun-2020 Instruction Type:Patient Education Patient Instructions Indication:BMI 26.0-26.9,adult Start:10-Jun-2020 Instruction Type:Provider Instructions for Treatment How to access health informa tion online Indication:Nonsmoker Start:06-May-2020 Instruction Type:Patient Education How to access health informa tion online - Detail Indication:Nonsmoker Start:06-May-2020 Instruction Type:Patient Education Patient Instructions Indication:Nonsmoker Start:06-May-2020 Instruction Type:Provider Instructions for Treatment How to access health informa tion online Indication:Nonsmoker Start:15-Apr-2020 Instruction Type:Patient Education How to access health informa tion online - Detail Indication:Nonsmoker Start:15-Apr-2020 Instruction Type:Patient Education Patient Instructions Indication:Nonsmoker Start:15-Apr-2020 Instruction Type:Provider Instructions for Treatment How to access health informa tion online Indication:Nonsmoker Start:20-Mar-2020 Instruction Type:Patient Education Patient Instructions Indication:Nonsmoker Start:20-Mar-2020 Instruction Type:Provider Instructions for Treatment How to access health informa tion online - Detail Indication:Nonsmoker Start:18-Mar-2020 Instruction Type:Patient Education How to access health informa tion online Indication:Nonsmoker Start:18-Mar-2020 Instruction Type:Patient Education Patient Instructions Indication:Nonsmoker Start:18-Mar-2020 Instruction Type:Provider Instructions for Treatment How to access health informa tion online Indication:Nonsmoker Start:30-Dec-2019 Instruction Type:Patient Education How to access health informa tion online - Detail Indication:Nonsmoker Start:30-Dec-2019 Instruction Type:Patient Education Patient Instructions Indication:Nonsmoker Start:30-Dec-2019 Instruction Type:Provider Instructions for Treatment How to access health informa tion online Indication:Nonsmoker Start:18-Nov-2019 Instruction Type:Patient Education How to access health informa tion online - Detail Indication:Nonsmoker Start:18-Nov-2019 Instruction Type:Patient Education Patient Instructions Indication:Nonsmoker Start:18-Nov-2019 Instruction Type:Provider Instructions for Treatment How to access health informa tion online Indication:BMI 26.0-26.9,adult Start:11-Sep-2019 Instruction Type:Patient Education How to access health informa tion online - Detail Indication:BMI 26.0-26.9,adult Start:11-Sep-2019 Instruction Type:Patient Education Patient Instructions Indication:Nonsmoker Start:11-Sep-2019 Instruction Type:Provider Instructions for Treatment How to access health informa tion online Indication:BMI 25.0-25.9,adult Start:06-Sep-2019 Instruction Type:Patient Education How to access health informa tion online - Detail Indication:BMI 25.0-25.9,adult Start:06-Sep-2019 Instruction Type:Patient Education Patient Instructions Indication:BMI 25.0-25.9,adult Start:06-Sep-2019 Instruction Type:Provider Instructions for Treatment How to access health informa tion online Indication:Nonsmoker Start:24-Jun-2019 Instruction Type:Patient Education How to access health informa tion online - Detail Indication:Nonsmoker Start:24-Jun-2019 Instruction Type:Patient Education Patient Instructions Indication:Nonsmoker Start:24-Jun-2019 Instruction Type:Provider Instructions for Treatment How to access health informa tion online Indication:Nonsmoker Start:19-Feb-2019 Instruction Type:Patient Education How to access health informa tion online - Detail Indication:Nonsmoker Start:19-Feb-2019 Instruction Type:Patient Education Patient Instructions Indication:Nonsmoker Start:19-Feb-2019 Instruction Type:Provider Instructions for Treatment How to access health informa tion online Indication:Nonsmoker Start:20-Dec-2018 Instruction Type:Patient Education How to access health informa tion online - Detail Indication:Nonsmoker Start:20-Dec-2018 Instruction Type:Patient Education Patient Instructions Indication:Nonsmoker Start:20-Dec-2018 Instruction Type:Provider Instructions for Treatment How to access health informa tion online Indication:BMI 24.0-24.9, adult Start:21-Aug-2018 Instruction Type:Patient Education How to access health informa tion online - Detail Indication:BMI 24.0-24.9, adult Start:21-Aug-2018 Instruction Type:Patient Education How to access health informa tion online Indication:Nonsmoker Start:17-May-2018 Instruction Type:Patient Education How to access health informa tion online - Detail Indication:Nonsmoker Start:17-May-2018 Instruction Type:Patient Education Patient Instructions Indication:Nonsmoker Start:17-May-2018 Instruction Type:Provider Instructions for Treatment How to access health informa tion online Indication:BMI 25.0-25.9,adult Start:08-Feb-2018 Instruction Type:Patient Education How to access health informa tion online - Detail Indication:BMI 25.0-25.9,adult Start:08-Feb-2018 Instruction Type:Patient Education Patient Instructions Indication:BMI 25.0-25.9,adult Start:08-Feb-2018 Instruction Type:Provider Instructions for Treatment How to access health informa tion online Indication:BMI 27.0-27.9,adult Start:09-Nov-2017 Instruction Type:Patient Education How to access health informa tion online - Detail Indication:BMI 27.0-27.9,adult Start:09-Nov-2017 Instruction Type:Patient Education Patient Instructions Indication:BMI 27.0-27.9,adult Start:09-Nov-2017 Instruction Type:Provider Instructions for Treatment How to access health informa tion online Indication:BMI 27.0-27.9,adult Start:21-Sep-2017 Instruction Type:Patient Education How to access health informa tion online - Detail Indication:BMI 27.0-27.9,adult Start:21-Sep-2017 Instruction Type:Patient Education Patient Instructions Indication:UTI symptoms Start:21-Sep-2017 Instruction Type:Provider Instructions for Treatment How to access health informa tion online Indication:UTI symptoms Start:15-Sep-2017 Instruction Type:Patient Education How to access health informa tion online - Detail Indication:UTI symptoms Start:15-Sep-2017 Instruction Type:Patient Education Patient Instructions Indication:UTI symptoms Start:15-Sep-2017 Instruction Type:Provider Instructions for Treatment How to access health informa tion online Indication:Nonsmoker Start:10-Aug-2017 Instruction Type:Patient Education How to access health informa tion online - Detail Indication:Nonsmoker Start:10-Aug-2017 Instruction Type:Patient Education Patient Instructions Indication:Nonsmoker Start:10-Aug-2017 Instruction Type:Provider Instructions for Treatment How to access health informa tion online Indication:BMI 27.0-27.9,adult Start:20-Jul-2017 Instruction Type:Patient Education How to access health informa tion online - Detail Indication:BMI 27.0-27.9,adult Start:20-Jul-2017 Instruction Type:Patient Education Patient Instructions Indication:Cough Start:20-Jul-2017 Instruction Type:Provider Instructions for Treatment How to access health informa tion online Indication:BMI 27.0-27.9,adult Start:04-May-2017 Instruction Type:Patient Education How to access health informa tion online - Detail Indication:BMI 27.0-27.9,adult Start:04-May-2017 Instruction Type:Patient Education Patient Instructions Indication:BMI 27.0-27.9,adult Start:04-May-2017 Instruction Type:Provider Instructions for Treatment How to access health informa tion online Indication:BMI 26.0-26.9,adult Start:11-Apr-2017 Instruction Type:Patient Education How to access health informa tion online - Detail Indication:BMI 26.0-26.9,adult Start:11-Apr-2017 Instruction Type:Patient Education Patient Instructions Indication:BMI 26.0-26.9,adult Start:11-Apr-2017 Instruction Type:Provider Instructions for Treatment How to access health informa tion online Indication:BMI 26.0-26.9,adult Start:16-Nov-2016 Instruction Type:Patient Education How to access health informa tion online - Detail Indication:BMI 26.0-26.9,adult Start:16-Nov-2016 Instruction Type:Patient Education Patient Instructions Indication:BMI 26.0-26.9,adult Start:16-Nov-2016 Instruction Type:Provider Instructions for Treatment Advance Directives No Advanced Directives Records Found Name Dates Details Immunization Registry [place] - Effective on 11/09/2020. Expiration date unspecified Effective:09-Nov-2020 Name Dates Details Immunization Registry [place] - Effective on 11/09/2020. Expiration date unspecified Effective:09-Nov-2020 Name Dates Details Immunization Registry [place] - Effective on 11/09/2020. Expiration date unspecified Effective:09-Nov-2020 Name Dates Details Immunization Registry [place] - Effective on 11/09/2020. Expiration date unspecified Effective:09-Nov-2020 Name Dates Details Immunization Registry [place] - Effective on 11/09/2020. Expiration date unspecified Effective:09-Nov-2020 Name Dates Details Immunization Registry [place] - Effective on 11/09/2020. Expiration date unspecified Effective:09-Nov-2020 Name Dates Details Immunization Registry [place] - Effective on 11/09/2020. Expiration date unspecified Effective:09-Nov-2020 Name Dates Details Immunization Registry [place] - Effective on 11/09/2020. Expiration date unspecified Effective:09-Nov-2020 Name Dates Details Immunization Registry [place] - Effective on 11/09/2020. Expiration date unspecified Effective:09-Nov-2020 Name Dates Details Immunization Registry [place] - Effective on 11/09/2020. Expiration date unspecified Effective:09-Nov-2020 Name Dates Details Immunization Registry [place] - Effective on 11/09/2020. Expiration date unspecified Effective:09-Nov-2020 Name Dates Details Immunization Registry [place] - Effective on 11/09/2020. Expiration date unspecified Effective:09-Nov-2020 Name Dates Details Immunization Registry [place] - Effective on 11/09/2020. Expiration date unspecified Effective:09-Nov-2020 Name Dates Details Immunization Registry [place] - Effective on 11/09/2020. Expiration date unspecified Effective:09-Nov-2020 Name Dates Details Immunization Registry [place] - Effective on 11/09/2020. Expiration date unspecified Effective:09-Nov-2020 Summary Purpose Family History No Family History Records Found Relationship Condition Age at Onset Recorded Date/T lorena Not Specified Diabetes mellitus Unknown Malignant neoplasm Unknown Chief Complaint and Reason for Visit Chief Complaint Admit Date SCREENING September 16, 2024 12:44pm Additional Source Comments INFORMATION SOURCE (unrecogn ized section and content) DATE CREATED AUTHOR 10/27/2022 [facility] DATE CREATED AUTHOR AUTHOR'S ORGANIZ ATION 05/27/2024 [facility] DATE CREATED AUTHOR AUTHOR'S ORGANIZ ATION 05/28/2025 [facility] Care Teams (unrecognized sec tion and content) Team Status: Active Member Role Status Dates Dr. Violet Andrade DO Primary Care Provider Active Team Status: Inactive Member Role Status Dates Dr. Violet Andrade DO Primary Care Provider Active Start: September 16, 2024 End: September 16, 2024 Dr. Violet Andrade DO Attending Provider Active Start: September 16, 2024 End: September 16, 2024 Dr. Violet Andrade DO Referring Provider Active Start: September 16, 2024 End: September 16, 2024 Goals (unrecognized section and content) Goals may be documented in a n alternate section FOR RECORDS PERTAINING TO PATIENTS WHO ARE OR HAVE BEEN ENROLLED IN A CHEMICAL DEPENDENCY/SUBSTANCEABUSE PROGRAM, SOME INFORMATION MAY BE OMITTED. This clinical summary was aggregated from multiple sources. Caution should be exercised in using it in the provision of clinical care. This summary normalizes information from multiple sources, and as a consequence, information in this document may materially change the coding, format and clinical context of patient data. In addition, data may be omitted in some cases. CLINICAL DECISIONS SHOULD BE BASED ON THE PRIMARY CLINICAL RECORDS. [facility]. provides no warranty or guarantee of the accuracy or completeness of information in this document.
[2025-06-24] MEDS: HYDROmorphone 0.5 MG/0.5 ML SYRINGE IV ×2 (04:46→12:43)
[2025-06-24 04:49] LABS: Color, Urine Yellow (Yellow); Glucose, Dipstick Normal (Normal); Ketone-Dipstick 15 mg/dl (Negative); Leukocyte Esterase-Dipstick Negative /ul (Negative); Nitrite-Dipstick Negative (Negative); Occult Blood-Urine 50 /ul (Negative); Protein-Dipstick 30 mg/dl (Negative); Specific Gravity, Urine 1.030 (1.002-1.030); Urine Bilirubin Dipstick Negative (Negative)
[2025-06-24 05:06] LABS: Red Blood Cells-Urine 0-5 SEEN /hpf (0-5)
[2025-06-24 05:07] LABS: Calcium Oxalate Crystals Ur RARE /hpf (<or=2+)
[2025-06-24] MEDS: DiphenhydrAMINE 50 MG/ML Syringe 25 MG IV (05:20)
--- OUTSIDE RECORDS SUMMARY | 2025-06-24 05:32 | XMS RPT_ITS | CCD ---
Author Organization [facility] Care Team Providers Care Behavioral Sciences Department Chair Name Role Phone Daly Violet Unavailable Messenger, [...] Mcgee Unavailable Artur SOMERSNMilana Unavailable Unavailable Gravius PLACEMENT SPECIALIST, Joyce Unavailable Unavailable Slarb SLUBBER RUNNER, Doris Unavailable Unavailable John, Yanira Unavailable Unavailable Messenger RNKasia Unavailable Unavailable Unavailable Unavailable Magali Shaw LPN Unavailable Unavailable Daly , Violet Unavailable Jess Claire Unavailable [phone] Sherice Paul Unavailable [phone] Trung VILLARREAL, Mery Al Unavailable Shana PLACEMENT SPECIALIST, Kayela Unavailable Unavailable Daly DO Violet Attending [...] FUENTES, Dr. Lazo Primary Care Provider [phone] Daly FUENTES, Dr. Lazo Attending Provider [phone] Daly FUENTES, Dr. Lazo Referring Provider [phone] Violet Andrade Attending Unavailable Violet Andrade Primary [...] above: hives (1 source) Lidocaine Drug Allergy [facility] Repository (1 source) Sulfamethoxazole / Trimethoprim Drug Allergy [facility] Repository (1 source) Vitamin E Drug Allergy [facility] Repository (1 source) BEE STING; Translations: [BEE STING] Propensity to adverse reactions (disorder) [facility] Repository Medications Current Medications Medication Drug Class(es) [...] 1 tablet by mouth every two hours [facility] TECHNICIAN 10 mg oral Tablet,disintegrat ing 1 (one) Tablet at immediate onset of bazan and may repeat in 2hr if bazan persistent for 0 days Quantity: 12 {Tablet} Refills: 0 Ordered: 22-May-2023 Daly DO, Violet Andrade DO Violet Start : 22-May-2023 Active Comments: max dose 20mg or 2 tablets in 24 hrs Start: 02-20-2023 take 1 tablet by eleanor th every two hours [facility]PITAL TECHNICIAN 10 mg oral Tablet,disintegrating 1 (one) Tablet at immediate onset of bazan and may repeat in 2hr if bazan persistent for 0 days Quantity: 12 {Tablet} Refills: 0 Ordered: 20-Feb-2023 Daly DO, Violet Andrade DO Violet Start : 20-Feb-2023 Active Comments: max dose 20mg or 2 tablets in 24 hrs Start: 09-28-2022 take 1 tablet by eleanor th every two hours [facility] TECHNICIAN 10 mg oral Tablet,disintegrating 1 (one) Tablet at immediate onset of bazan and may repeat in 2hr if bazan persistent for 0 days Quantity: 12 {Tablet} Refills: 0 Ordered: 28-Sep-2022 Daly DO, Violet Andrade DO Violet Start : 28-Sep-2022 Active Comments: max dose 20mg or 2 tablets in 24 hrs Start: 02-18-2022 take 1 tablet by eleanor th every two hours [facility]ITAL TECHNICIAN 10 MG Oral Tablet Disintegrating 1 (one) Tablet at immediate onset of bazan and may repeat in 2hr if bazan persistent for 0 days Quantity: 12 {Tablet} Refills: 0 Ordered: 02-Mar-2022 Daly DO, Violet Andrade DO Violet Start : 02-Mar-2022 Active Comments: max dose 20mg or 2 tablets in 24 hrs Start: 09-06-2021 take 1 tablet by eleanor th every two hours [facility]PITAL TECHNICIAN 10 MG Oral Tablet Disintegrating 1 (one) Tablet at immediate onset of bazan and may repeat in 2hr if bazan persistent for 0 days Quantity: 12 {Tablet} Refills: 0 Ordered: 06-Sep-2021 Daly DO Violet Andrade DO Violet Start : 06-Sep-2021 Active Comments: max dose 20mg or 2 tablets in 24 hrs Start: 10-14-2021 take 1 tablet by eleanor th every two hours [facility]ITAL TECHNICIAN 10 MG Oral Tablet Disintegrating 1 (one) Tablet at immediate onset of bazan and may repeat in 2hr if abzan persistent for 0 days Quantity: 12 {Tablet} Refills: 0 Ordered: 06-May-2021 Daly DO, Violet Andrade DO Violet Start : 06-May-2021 Active Start: 12-24-2020 take 1 tablet by eleanor th every two hours [facility]PITAL TECHNICIAN 10 MG Oral Tablet Disintegrating 1 (one) Tablet at immediate onset of bazan and may repeat in 2hr if bazan persistent for 0 days Quantity: 12 {Tablet} Refills: 0 Ordered: 24-Dec-2020 Daly DO, Violet Daly DO, Violet Start : 24-Dec-2020 Active Start: 11-16-2020 take 1 tablet by eleanor th every two hours [facility]PITAL TECHNICIAN 10 MG Oral Tablet Disintegrating 1 (one) Tablet at immediate onset of bazan and may repeat in 2hr if bazan persistent for 0 days Quantity: 12 {Tablet} Refills: 0 Ordered: 16-Nov-2020 Daly DO, Violet Daly DO, Violet Start : 16-Nov-2020 Active Start: 08-10-2020 take 1 tablet by eleanor th every two hours [facility]PITAL TECHNICIAN 10 MG Oral Tablet Disintegrating 1 (one) Tablet at immediate onset of bazan and may repeat in 2hr if bazan persistent for 0 days Quantity: 12 {Tablet} Refills: 0 Ordered: 10-Aug-2020 Daly DO, Violet Daly DO, Violet Start : 10-Aug-2020 Active Start: 04-16-2020 take 1 tablet by eleanor th every two hours [facility]PITAL TECHNICIAN 10 MG Oral Tablet Disintegrating 1 (one) Tablet at immediate onset of bazan and may repeat in 2hr if bazan persistent for 0 days Quantity: 12 {Tablet} Refills: 0 Ordered: 16-Apr-2020 Daly DO Violet Andrade DO Violet Start : 16-Apr-2020 Active Start: 03-18-2020 take 1 tablet by eleanor th every two hours [facility]PITAL TECHNICIAN 10 MG Oral Tablet Disintegrating 1 (one) Tablet at immediate onset of bazan and may repeat in 2hr if bazan persistent for 0 days Quantity: 12 {Tablet} Refills: 0 Ordered: 18-Mar-2020 Daly DOViolet DO, Kathleen Start : 18-Mar-2020 Active Start: 11-18-2019 take 1 tablet by eleanor th every two hours [facility]ITAL TECHNICIAN 10 MG Oral Tablet Disintegrating 1 (one) [...] DO, Kathleen Start : 08-May-2023 Active Comments: [id number] postheraputic neurolagiaOars reviewed and okay'd Start: 02-02-2023 HYDROcodone-ac etaminophen 5-325 mg oral tablet 1 (one) Tablet q 8 prn for 30 days Quantity: 60 {Tablet} Refills: 0 Ordered: 02-Feb-2023 Violet Andrade DO, DO, Kathleen Start : 02-Feb-2023 Active Comments: [id number] postheraputic neurolagiaOars reviewed and okay'd Start: 10-05-2022 HYDROcodone-ac etaminophen 5-325 mg oral tablet 1 (one) Tablet q 8 prn for 30 days Quantity: 60 {Tablet} Refills: 0 Ordered: 05-Oct-2022 Daly DOViolet DO, Kathleen Start : 05-Oct-2022 Active Comments: eihssC69.29 postheraputic neurolagiaOars reviewed and okay'd Start: 06-13-2022 HYDROcodone-Ac etaminophen 5-325 MG Oral Tablet 1 (one) Tablet q 8 prn for 30 days Quantity: 60 {Tablet} Refills: 0 Ordered: 13-Jun-2022 Daly DO, Violet Daly DO, Violet Start : 13-Jun-2022 Active Comments: bblisI53.29 postheraputic neurolagiaOars reviewed and okay'd Start: 02-18-2022 Hydrocodone-Ac etaminophen 5-325 mg tablet Active NMA PO February 17, 2022 11:00pm Start: 02-12-2022 HYDROcodone-Ac etaminophen 5-325 MG Oral Tablet 1 (one) Tablet q 8 prn for 30 days Quantity: 60 {Tablet} Refills: 0 Ordered: 12-Feb-2022 Daly DO, Violet Daly DO, Violet Start : 12-Feb-2022 Active Comments: egotmU73.29 postheraputic neurolagiaOars reviewed and okay'd Start: 10-07-2021 HYDROcodone-Ac etaminophen 5-325 MG Oral Tablet 1 (one) Tablet q 8 prn for 30 days Quantity: 60 {Tablet} Refills: 0 Ordered: 07-Oct-2021 Daly DO, Violet Daly DO, Violet Start : 07-Oct-2021 Active Comments: heusyU05.29 postheraputic neurolagiaOars reviewed and okay'd Start: 05-26-2021 HYDROcodone-Ac etaminophen 5-325 MG Oral Tablet 1 (one) Tablet q 8 prn for 30 days Quantity: 60 {Tablet} Refills: 0 Ordered: 26-May-2021 Daly DO, Ivolet Daly DO, Violet Start : 26-May-2021 Active Comments: lelhvH10.29 postheraputic neurolagiaOars reviewed and okay'd Start: 01-06-2021 HYDROcodone-Ac etaminophen 5-325 MG Oral Tablet 1 (one) Tablet q 8 prn for 30 days Quantity: 60 {Tablet} Refills: 0 Ordered: 06-Jan-2021 Daly DO, Violet Daly DO, Violet Start : 06-Jan-2021 Active Comments: mqljqW56.29 postheraputic neurolagiaOars reviewed and okay'd Start: 08-10-2020 HYDROcodone-Ac etaminophen 5-325 MG Oral Tablet 1 (one) Tablet q 8 prn for 30 days Quantity: 60 {Tablet} Refills: 0 Ordered: 10-Aug-2020 Violet Andrade DO, DO, Kathleen Start : 10-Aug-2020 Active Comments: cfooeN50.29 postheraputic neurolagiaOars reviewed and mallory'd Start: 04-15-2020 take 1 tablet by eleanor th once as needed, then take 8 tablets by mouth as needed HYDROcodone-Acetaminophen 5-325 MG Oral Tablet 1 (one) Tablet q 8 prn for 30 days Quantity: 60 {Tablet} Refills: 0 Ordered: 15-Apr-2020 Violet Andrade DO, DO, Kathleen Start : 15-Apr-2020 Active Comments: pamjsF00.29 postheraputic neurolagia Start: 11-18-2019 take 1 tablet by eleanor th once as needed, then take 8 tablets by mouth as needed HYDROcodone-Acetaminophen 5-325 MG Oral Tablet 1 (one) Tablet q 8 prn for 30 days Quantity: 60 {Tablet} Refills: 0 Ordered: 18-Nov-2019 Violet Andrade DO, DO, Kathleen Start : 18-Nov-2019 Active Comments: ktowrJ58.29 postheraputic neurolagia Start: 02-25-2019 take 1 tablet [...] on above: fifty sixB02.29 post heraputic neurolagia adpbfQ17.29 posthera putic neurolagia ovqjmZ41.29 posthera putic neurolagiaOars reviewed and okludin'd [id number] 200 actuat albuterol 0.09 mg/actuat metered dose [...] Active Start: 03-14-2022 take 1 tablet by eleanor th once [...] Quantity: 30 {Tablet} Refills: 3 Ordered: 22-Apr-2019 Violet Andrade DO, DO, Kathleen Start : 22-Apr-2019 [...] End : 18-Mar-2020 Inactive Comments: called to [facility] Start: 03-01-2019 End: 03-08-2019 take 1 tablet [...] 19-Feb-2019 Active Comment on above: called to [facility] vitamin b12 2.5 mg sublingual tablet (20 [...] By: Willam Garcia on 09-16-2024 Study report [facility] Imaging Services [address] [place] [address] SCRN MAMM (CAD)W/KAMLESH BILAT MR#: [id number] Acct: [id number] Name: SOLEDAD LEVY Nica Rep #: [id number] : 1970 F 54 From: Jaswant Garcia MD PCP: Dr. Violet Andrade DO Status: RE G CLI Study:SCRN MAMM (CAD)W/KAMLESH BILAT Date of Exa m: 09/16/24 Exam# [id number] Ordering Dr: Naomy Andrade DO PROCEDURE: SCRN [...] of the results by letter. Reading Location: [id number] CC: Dr. Violet Andrade DO ~ Ambulance Attendant: Signed [facility] SCRN MAMM (CAD)W/KAMLESH BILATo n 09-16-2024 SCRN MAMM (CAD)W/KAMLESH BILAT [facility] Imaging Services [address] [place], [place] [address] SCRN MAMM (CAD)W/KAMLESH BILAT MR#: [id number] Acct: [id number] Name: SOLEDAD LEVY Rep #: [id number] : 1970 F 54 From: Willam mckenzie MD PCP: Dr. Violet Andrade DO Status: REG CLI Study: SCRN MAMM (CAD)W/KAMLESH BILAT Date of Exam: 08/25 11/15 Exam# [id number] Ordering Dr: Violet Andrade DO PROCEDURE: SCRN [...] Location: [facility] CC: Dr. Violet Andrade DO Ambulance Attendant: Signed Normal [facility] OPERATIVE PROCEDURESon 05-27 OPERATIVE PROCEDURES [facility] OPERATIVE REPORT NAME ACCOUNT SEX AGE ADMIT DISCHARGE PT MED. RECORD# NUMBER DATE DATE TYPE MILDRED [id number] F 54 05/24/24 2 SOLEDAD Nica [id number] ROOM: [facility] DATE OF : 1970 DICTATING PHYSICIAN: Jess Claire DATE OF SURGERY: May 24, 2024 SURGEON: Jess Claire DPM AIRCRAFT ENGINE MECHANIC: None. ANESTHESIOLOGIST: Willow Pedraza MD ANESTHETIC: General. [...] Jess Claire DPM 05/24/24 08:50 JOB #: [id number] Transcribed By: eric 05/24/24 09:16 Electronically signed by: E-SIGN JESS CLAIRE 05/27/24 08:13 Page 2 of 2 SOLEDAD LEVY J Operative Report Normal [facility] MR ANKLE WO RTon 12-26-2023 MR ANKLE WO RT [place] [address] Patient: SOLEDAD LEVY. Phone#: : [phone] Age: 53 Gender: F Pt. Type: Out Account: [id number] Location: Ordering: JESS NATALI Exam Date: 12/26/2023/13:50 Family Phys: VIOLET ANDRADE Charge Code: 108233 Physician: Gilliam Order #: [id number] Dose#: PROCEDURE: MRI ANKLE RT WITHOUT CONTRAST [...] 53 Gender: F Pt. Type: Out Account: [id number] Location: Ordering: JESS CLAIRE Exam Date: 12/26/2023/13:50 Family Phys: VIOLET ANDRADE Charge Code: 689284 Physician: Gilliam Order #: [id number] Dose#: Approved by: Krysta Rodriguez MD on 12/28/2023 at 16:21 Normal [facility] CALCIFIDIOL (42520) VIT D 25 Ordered By: Security Systems Engineer on 04-27-2022 25-hydroxyvitamin D [Mass/Vol] 128.0 ng/mL Abnormal 30.0-100.0 [facility]; [facility] Work Phone: Comment on above: Vitamin D deficiency has been defined by the [employer] ofMedicine and an Endocrine Society practice guideline as alevel of serum 25-OH vitamin D less than 20 ng/mL (1,2).The Endocrine Society went on to further define vitamin Dinsufficiency as a level between 21 and 29 ng/mL (2).1. IOM ([employer] of Medicine). 2010. Dietary reference intakes for calcium and D. [place]: The National Academies Press.2. Lloyd MF, Teodoro NC, Miguel Ángel BAZAN, et al. Evaluation, treatment, and prevention of vitamin D deficiency: an Endocrine Society clinical practice guideline. JCEM. 2010; 96(7):1911-30. PATIENT WAS FASTINGP ERFORMED BY: Etece70 [facility] [place] [id number] LIPID PANEL (05381)Ordered B y: Security Systems Engineer on 04-27-2022 Cholesterol [Mass/Vol] 190 mg/dL Normal 100-199 [facility]; [facility] Work Phone: Comment on above: PATIENT WAS FASTINGP ERFORMED BY: Etece70 [facility] [place] [id number] Cholesterol in HDL [Mass/Vol] 61 mg/dL Normal [facility]; [facility] Work Phone: Comment on above: PATIENT WAS FASTINGP ERFORMED BY: Etece[address] [place] [id number] Triglyceride [Mass/Vol] 221 mg/dL Abnormal 0-149 [facility]; [facility] Work Phone: Comment on above: PATIENT WAS FASTINGP ERFORMED BY: DAYRON Authernativesasha Wasmcp2163 [facility] [id number] LIPID PANEL (71030) 37 mg/dL Normal 5-40 [facility]; [facility] Work Phone: Comment on above: PATIENT WAS FASTINGP ERFORMED BY: DAYRON Authernativeshriners [facility] Jrpdnf9808 [facility] [id number] LIPID PANEL (88719) 92 mg/dL Normal 0-99 [facility]; [facility] Work Phone: Comment on above: PATIENT WAS FASTINGP ERFORMED BY: DAYRON [facility] Gcijky8129 [facility] [id number] LIPID PANEL (26720) 1.5 {ratio} Normal 0.0-3.2 [facility]; [facility] Work Phone: Comment on above: LDL/HDL Ratio Men Wo men 1/2 Avg.Risk 1.0 1.5 Avg.Risk 3.6 3.2 2X Avg.Risk 6.2 5.0 3X Avg.Risk 8.0 6.1 PATIENT WAS FASTINGP ERFORMED BY: DAYRON FinAnalyticaJFK Medical CenterWzklda6788 [facility] [id number] VITAMIN B-12 (CYANOCOBALAMIN ) (65135)Ordered By: Security Systems Engineer on 04-27-2022 Cobalamin (Vitamin B12) [Mass/Vol] 885 pg/mL Normal 232-1245 [facility]; [facility] Work Phone: Comment on above: PATIENT WAS FASTINGP ERFORMED BY: AuthernativeBronson [facility] Hospital6370 [facility] [id number] CBC with auto diff (87767)Or dered By: Security Systems Engineer on 03-14-2022 Basophils (Bld) [#/Vol] 0.0 10*3/uL Normal 0.0-0.2 [facility]; [facility] Work Phone: Comment on above: PATIENT NOT FASTINGP ERFORMED BY: DAYRON [facility] Zjkcna7991 [address] RoadDublin [place] [id number] Basophils/100 WBC (Bld) 0 % Normal [facility]; [facility] Work Phone: Comment on above: PATIENT NOT FASTINGP ERFORMED BY: DAYRON [facility] Avxqkh8125 [address] RoadDublin [place] [id number] Eosinophils (Bld) [#/Vol] 0.2 10*3/uL Normal 0.0-0.4 [facility]; [facility] Work Phone: Comment on above: PATIENT NOT FASTINGP ERFORMED BY: CB [facility] Cidemj0061 [address] RoadDublin [place] [id number] Eosinophils/100 WBC (Bld) 4 % Normal [facility]; [facility] Work Phone: Comment on above: PATIENT NOT FASTINGP ERFORMED BY: [facility] Owbbae4550 [address] RoadUnc Health Waynein [place] [id number] Erythrocyte distribution width (RBC) [Ratio] 12.5 % Normal 11.7-15.4 [facility]; [facility] Work Phone: Comment on above: PATIENT NOT FASTINGP ERFORMED BY: DAYRON [facility] Nvminl3748 [address] RoadUnc Health Waynein [place] [id number] Hematocrit (Bld) [Volume fraction] 38.3 % Normal 34.0-46.6 [facility]; [facility] Work Phone: Comment on above: PATIENT NOT FASTINGP ERFORMED BY: CB [facility] Mjpspu7118 [address] RoadDublin [place] [id number] Hemoglobin (Bld) [Mass/Vol] 13.4 g/dL Normal 11.1-15.9 [facility]; [facility] Work Phone: Comment on above: PATIENT NOT FASTINGP ERFORMED BY: DAYRON [facility] Zjkeku0017 [address] RoadDublin [place] [id number] Immature granulocytes (Bld) [#/Vol] 0.0 10*3/uL Normal 0.0-0.1 [facility]; [facility] Work Phone: Comment on above: PATIENT NOT FASTINGP ERFORMED BY: DAYRON Labcomendoza JungFymfet0368 [address] Roadblin [place] [id number] Immature granulocytes/100 WBC (Bld) 0 % Normal [facility]; [facility] Work Phone: Comment on above: PATIENT NOT FASTINGP ERFORMED BY: DAYRON [facility] Reoapy2192 [address] Roadblin [place] [id number] Lymphocytes (Bld) [#/Vol] 1.9 10*3/uL Normal 0.7-3.1 [facility]; [facility] Work Phone: Comment on above: PATIENT NOT FASTINGP ERFORMED BY: DAYRON Labhailey Jung6370 [address] RoadUnc Health Waynein [place] [id number] Lymphocytes/100 WBC (Bld) 29 % Normal [facility]; [facility] Work Phone: Comment on above: PATIENT NOT FASTINGP ERFORMED BY: DAYRON Labsasha Qypmeo[address] [facility] [place] [id number] MCH (RBC) [Entitic mass] 33.0 pg Normal 26.6-33.0 [facility]; [facility] Work Phone: Comment on above: PATIENT NOT FASTINGP ERFORMED BY: DAYRON Sanchezlin[address] [facility]bl[facility] [place] [id number] MCHC (RBC) [Mass/Vol] 35.0 g/dL Normal 31.5-35.7 [facility]; [facility] Work Phone: Comment on above: PATIENT NOT FASTINGP ERFORMED BY: [facility] Tiaxdf[address] [facility] [place] [id number] MCV (RBC) [Entitic vol] 94 fL Normal 79-97 [facility]; [facility] Work Phone: Comment on above: PATIENT NOT FASTINGP ERFORMED BY: DAYRON [facility] Mssenw[address] [facility] GladwinD[place] [id number] Monocytes (Bld) [#/Vol] 0.7 10*3/uL Normal 0.1-0.9 [facility]; [facility] Work Phone: Comment on above: PATIENT NOT FASTINGP ERFORMED BY: CB [facility] Vgqexa9061 [address] RoadDublin [place] [id number] Monocytes/100 WBC (Bld) 10 % Normal [facility]; [facility] Work Phone: Comment on above: PATIENT NOT FASTINGP ERFORMED BY: CB [facility] Xyulqe9542 [address] RoadDublin [place] [id number] Neutrophils (Bld) [#/Vol] 3.6 10*3/uL Normal 1.4-7.0 [facility]; [facility] Work Phone: Comment on above: PATIENT NOT FASTINGP ERFORMED BY: CB [facility] Gowpye0774 [address] RoadDublin [place] [id number] Neutrophils/100 WBC (Bld) 57 % Normal [facility]; [facility] Work Phone: Comment on above: PATIENT NOT FASTINGP ERFORMED BY: CB [facility] Tnockp4371 [address] RoadDublin [place] [id number] Platelets (Bld) [#/Vol] 258 10*3/uL Normal 150-450 [facility]; [facility] Work Phone: Comment on above: PATIENT NOT FASTINGP ERFORMED BY: CB [facility] Njsvan0240 [address]Dublin [place] [id number] RBC (Bld) [#/Vol] 4.06 10*6/uL Normal 3.77-5.28 Compr ehensive [facility]; [facility] Work Phone: Comment on above: PATIENT NOT FASTINGP ERFORMED BY: CB [facility] Tryklw5151 [address] RoadDublin [place] [id number] WBC (Bld) [#/Vol] 6.4 10*3/uL Normal 3.4-10.8 Compre hensstew[facility]; [facility] Work Phone: Comment on above: PATIENT NOT FASTINGP ERFORMED BY: CB [facility] Yavggp6704 [address] RoadDublin [place] [id number] METABOLIC PANEL, COMPREHENSI VE ([id number])Ordered By: Security Systems Engineer on 03-14-2022 Albumin [Mass/Vol] 4.5 g/dL Normal 3.8-4.9 [facility]; [facility] Work Phone: Comment on above: PATIENT NOT FASTINGP ERFORMED BY: DAYRON [facility] Dcysfy7907 [address] RoadDublin [place] [id number] Albumin/Globulin [Mass ratio] 2.0 {ratio} Normal 1.2-2.2 [facility]; [facility] Work Phone: Comment on above: PATIENT NOT FASTINGP ERFORMED BY: CB [facility] Kmqakk6432 [address] RoadDublin [place] [id number] ALP [Catalytic activity/Vol] 74 U/L Normal 44-121 [facility]; [facility] Work Phone: Comment on above: PATIENT NOT FASTINGP ERFORMED BY: CB [facility] Whcojm3294 [address] RoadDublin [place] [id number] ALT [Catalytic activity/Vol] 28 U/L Normal 0-32 [facility]; [facility] Work Phone: Comment on above: PATIENT NOT FASTINGP ERFORMED BY: CB [facility] Eyfzgx4075 [address] RoadDublin [place] [id number] AST [Catalytic activity/Vol] 19 U/L Normal 0-40 [facility]; [facility] Work Phone: Comment on above: PATIENT NOT FASTINGP ERFORMED BY: CB [facility] Fhkqql8818 [address] RoadDublin [place] [id number] Bilirubin [Mass/Vol] 0.3 mg/dL Normal 0.0-1.2 [facility]; [facility] Work Phone: Comment on above: PATIENT NOT FASTINGP ERFORMED BY: CB [facility] Wncgev3855 [address] RoadDublin [place] [id number] Calcium [Mass/Vol] 10.0 mg/dL Normal 8.7-10.2 [facility]; [facility] Work Phone: Comment on above: PATIENT NOT FASTINGP ERFORMED BY: CB [facility] Ofqjnb4536 [address] RoadDublin [place] [id number] Chloride [Moles/Vol] 103 mmol/L Normal 96-106 [facility]; [facility] Work Phone: Comment on above: PATIENT NOT FASTINGP ERFORMED BY: DAYRON Jung[address] [facility] [id number] CO2 [Moles/Vol] 26 mmol/L Normal 20-29 Comprehen sive [facility]; [facility] Work Phone: Comment on above: PATIENT NOT FASTINGP ERFORMED BY: DAYRON Sanchezlin6370 [facility] [id number] Creatinine [Mass/Vol] 0.63 mg/dL Normal 0.57-1.00 [facility]; [facility] Work Phone: Comment on above: PATIENT NOT FASTINGP ERFORMED BY: DAYRON Sanchezlin6370 [facility] [id number] GFR/1.73 sq M.predicted among non-blacks MDRD (S/P/Bld) [Vol rate/Area] 106 mL/min/{1.73_m2} Normal Comprehensi ve Internal Medicine; [facility] Work Phone: Comment on above: PATIENT NOT FASTINGP ERFORMED BY: DAYRON Jung6370 [facility] [id number] Globulin (S) [Mass/Vol] 2.2 g/dL Normal 1.5-4.5 [facility]; [facility] Work Phone: Comment on above: PATIENT NOT FASTINGP ERFORMED BY: DAYRON Adamson Ueihwb8569 [facility] [id number] Glucose [Mass/Vol] 89 mg/dL Normal 65-99 [facility]; [facility] Work Phone: Comment on above: PATIENT NOT FASTINGP ERFORMED BY: DAYRON Sanchezlin6370 [facility] [id number] Potassium [Moles/Vol] 4.6 mmol/L Normal 3.5-5.2 [facility]; [facility] Work Phone: Comment on above: PATIENT NOT FASTINGP ERFORMED BY: DAYRON [facility] Eiqfng0025 [address]Dublin [place] [id number] Protein [Mass/Vol] 6.7 g/dL Normal 6.0-8.5 [facility]; [facility] Work Phone: Comment on above: PATIENT NOT FASTINGP ERFORMED BY: CB [facility] Yfytpa2972 [address]Dublin [place] [id number] Sodium [Moles/Vol] 142 mmol/L Normal 134-144 [facility]; [facility] Work Phone: Comment on above: PATIENT NOT FASTINGP ERFORMED BY: CB [facility] Hcexzk9258 [address] RoadDublin [place] [id number] Urea nitrogen [Mass/Vol] 15 mg/dL Normal 6-24 [facility]; [facility] Work Phone: Comment on above: PATIENT NOT FASTINGP ERFORMED BY: CB [facility] Cghtap8494 [address] RoadDublin [place] [id number] Urea nitrogen/Creatini ne [Mass ratio] 24 mg/mg Abnormal 9-23 [facility]; [facility] Work Phone: Comment on above: PATIENT NOT FASTINGP ERFORMED BY: CB [facility] Pnywxk6310 [address] RoadDublin [place] [id number] CALCIFEDIOL (57828)Ordered B y: Security Systems Engineer on 05-31-2021 25-hydroxyvitamin D [Mass/Vol] 54.3 ng/mL Normal 30.0-100.0 [facility]; [facility] Work Phone: Comment on above: Vitamin D deficiency has been defined by the [employer] ofMedicine and an Endocrine Society practice guideline as alevel of serum 25-OH vitamin D less than 20 ng/mL (1,2).The Endocrine Society went on to further define vitamin Dinsufficiency as a level between 21 and 29 ng/mL (2).1. IOM (Arnot of Medicine). 2010. Dietary reference intakes for calcium and D. [place]: The National Academies Press.2. Lloyd MF, Teodoro GOEL, Miguel Ángel BAZAN, et al. Evaluation, treatment, and prevention of vitamin D deficiency: an Endocrine Society clinical practice guideline. JCEM. 2010; 96(7):1911-30. PATIENT WAS FASTINGP ERFORMED BY: CB [facility] Aubyvc1213 [address] RoadDublin [place] [id number] LIPID PANEL (47149)Ordered B y: Security Systems Engineer on 05-31-2021 Cholesterol [Mass/Vol] 160 mg/dL Normal 100-199 [facility]; [facility] Work Phone: Comment on above: PATIENT WAS FASTINGP ERFORMED BY: CB [facility] Snqotq1227 [address] RoadDublin [place] [id number] Cholesterol in HDL [Mass/Vol] 67 mg/dL Normal [facility]; [facility] Work Phone: Comment on above: PATIENT WAS FASTINGP ERFORMED BY: CB [facility] Qlhjhb9563 [address] RoadDublin [place] [id number] Triglyceride [Mass/Vol] 131 mg/dL Normal 0-149 [facility]; [facility] Work Phone: Comment on above: PATIENT WAS FASTINGP ERFORMED BY: CB [facility] Htxsen2518 [address] RoadDublin [place] [id number] LIPID PANEL (03592) 23 mg/dL Normal 5-40 [facility]; [facility] Work Phone: Comment on above: PATIENT WAS FASTINGP ERFORMED BY: CB [facility] Khifgn9580 [address] RoadDublin [place] [id number] LIPID PANEL (76409) 70 mg/dL Normal 0-99 [facility]; [facility] Work Phone: Comment on above: PATIENT WAS FASTINGP ERFORMED BY: CB [facility] Etytji3385 [address] RoadDublin [place] [id number] LIPID PANEL (83594) 1.0 {ratio} Normal 0.0-3.2 [facility]; [facility] Work Phone: Comment on above: LDL/HDL Ratio Men Wo men 1/2 Avg.Risk 1.0 1.5 Avg.Risk 3.6 3.2 2X Avg.Risk 6.2 5.0 3X Avg.Risk 8.0 6.1 PATIENT WAS FASTINGP ERFORMED BY: [facility] Tsysah[address] [facility] Centerbl[facility] [place] [id number] VITAMIN B-12 (CYANOCOBALAMIN ) (70310)Ordered By: Security Systems Engineer on 05-31-2021 Cobalamin (Vitamin B12) [Mass/Vol] 1779 pg/mL Abnormal 232-1245 [facility]; [facility] Work Phone: Comment on above: PATIENT WAS FASTINGP ERFORMED BY: [facility] Sfpdhq6465 [facility] [id number] CULTURE, VIRUS GENERAL 8573 (64155)Ordered By: Security Systems Engineer on 12-31-2020 Virus identified Cx Nom (Unsp spec) No virus isolated. Normal [facility]; [facility] Work Phone: Comment on above: L side trunk; PATIEN T NOT FASTINGPERFORMED BY: [place] [address] [facility] [id number] Information: LEFT SIDE TRUNK SRC:TR [id number] CALCIFEDIOL (68549)Ordered B y: Security Systems Engineer on 05-01-2020 25-Hydroxyvitamin D2+25-Hydroxyvita min D3 [Mass/Vol] 42.3 ng/mL Normal 30.0-100.0 [facility] Work Phone: Comment on above: Vitamin D deficiency has been defined by the [facility] of[facility]cine and an Endocrine Society practice guideline as alevel of serum 25-OH vitamin D less than 20 ng/mL (1,2).The Endocrine Society went on to further define vitamin Dinsufficiency as a level between 21 and 29 ng/mL (2).1. IOM (Arnot of Medicine). 2010. Dietary reference intakes for calcium and D. [place]: The National Academies Press.2. Lloyd MF, Teodoro GOEL, Miguel Ángel BAZAN, et al. Evaluation, treatment, and prevention of vitamin D deficiency: an Endocrine Society clinical practice guideline. JCEM. 2010; 96(7):1911-30. PATIENT WAS FASTINGP ERFORMED BY: [facility] Olypxr9015 [facility] [id number] VITAMIN B12 AND FOLATES (826 07)Ordered By: Security Systems Engineer on 05-01-2020 Cobalamin (Vitamin B12) [Mass/Vol] 1225 pg/mL Normal 232-1245 [facility] Work Phone: Comment on above: PATIENT WAS FASTINGP ERFORMED BY: WriteOn6370 [address] Projectblin [place] [id number] Folate [Mass/Vol] 7.6 ng/mL Normal Compreh ensive Internal Medicine Work Phone: Comment on above: A serum folate elidia ntration of less than 3.1 ng/mL isconsidered to represent clinical deficiency. PATIENT WAS FASTINGP ERFORMED BY: [place] [employer] Projectblin [place] [id number] CALCIFEDIOL (97725)Ordered B y: Security Systems Engineer on 11-19-2019 25-Hydroxyvitamin D2+25-Hydroxyvita min D3 [Mass/Vol] 49.6 ng/mL Normal 30.0-100.0 [facility] Work Phone: Comment on above: Vitamin D deficiency has been defined by the Arnot ofMedicine and an Endocrine Society practice guideline as alevel of serum 25-OH vitamin D less than 20 ng/mL (1,2).The Endocrine Society went on to further define vitamin Dinsufficiency as a level between 21 and 29 ng/mL (2).1. IOM (Arnot of Medicine). 2010. Dietary reference intakes for calcium and D. [place]: The National Academies Press.2. Lloyd MF, Teodoro GOEL, Miguel Ángel BAZAN, et al. Evaluation, treatment, and prevention of vitamin D deficiency: an Endocrine Society clinical practice guideline. JCEM. 2010; 96(7):1911-30. PATIENT NOT FASTINGP ERFORMED BY: [place] [employer] Projectblin [place] [id number] VITAMIN B-12 (CYANOCOBALAMIN ) (38055)Ordered By: Security Systems Engineer on 11-19-2019 Cobalamin (Vitamin B12) [Mass/Vol] pg/mL Abnormal 232-1245 [facility] Work Phone: Comment on above: PATIENT NOT FASTINGP ERFORMED BY: DAYRON [facility] Awbmgt4[address] [facility]in [place] [id number] CALCIFEDIOL (46778)Ordered B y: Security Systems Engineer on 09-06-2019 25-Hydroxyvitamin D2+25-Hydroxyvita min D3 [Mass/Vol] 27.0 ng/mL Abnormal 30.0-100.0 [facility] Work Phone: Comment on above: Vitamin D deficiency has been defined by the Arnot ofMedicine and an Endocrine Society practice guideline as alevel of serum 25-OH vitamin D less than 20 ng/mL (1,2).The Endocrine Society went on to further define vitamin Dinsufficiency as a level between 21 and 29 ng/mL (2).1. IOM (Arnot of Medicine). 2010. Dietary reference intakes for calcium and D. [place]: The National Academies Press.2. Lloyd MF, Teodoro [place], Miguel Ángel BAZAN, et al. Evaluation, treatment, and prevention of vitamin D deficiency: an Endocrine Society clinical practice guideline. JCEM. 2010; 96(7):1911-30. PATIENT NOT FASTINGP ERFORMED BY: DAYRON Yolarp Ybjcfn[address] [facility] [id number] CBC & PLATELETS (AUTO) (8502 7)Ordered By: Security Systems Engineer on 09-06-2019 Erythrocyte distribution width (RBC) [Ratio] 11.2 % Abnormal 11.7-15.4 [facility] Work Phone: Comment on above: PATIENT NOT FASTINGP ERFORMED BY: DAYRON [facility] Hmehcy7681 [facility] [id number] Hematocrit (Bld) [Volume fraction] 41.2 % Normal 34.0-46.6 [facility] Work Phone: Comment on above: PATIENT NOT FASTINGP ERFORMED BY: moziy [facility] Czdmpc8513 OrtizCoxHealth [id number] Hemoglobin (Bld) [Mass/Vol] 13.7 g/dL Normal 11.1-15.9 [facility] Work Phone: Comment on above: PATIENT NOT FASTINGP ERFORMED BY: CB [facility] Phaxqi2293 [address] RoadDublin [place] [id number] MCH (RBC) [Entitic mass] 31.5 pg Normal 26.6-33.0 [facility] Work Phone: Comment on above: PATIENT NOT FASTINGP ERFORMED BY: CB [facility] Idywqt3704 [address] RoadDublin [place] [id number] MCHC (RBC) [Mass/Vol] 33.3 g/dL Normal 31.5-35.7 [facility] Work Phone: Comment on above: PATIENT NOT FASTINGP ERFORMED BY: CB [facility] Scgzub1181 [address] RoadDublin [place] [id number] MCV (RBC) [Entitic vol] 95 fL Normal 79-97 [facility] Work Phone: Comment on above: PATIENT NOT FASTINGP ERFORMED BY: DAYRON Sanchezlin6370 [address] RoadDublin [place] [id number] Platelets (Bld) [#/Vol] 272 {x10E3/uL} Normal 150-450 [facility] Work Phone: Comment on above: PATIENT NOT FASTINGP ERFORMED BY: CB [facility] Chesjx8329 [address] RoadDublin [place] [id number] Platelets (Bld) [#/Vol] 272 10*3/uL Normal 150-450 [facility]; [facility] Work Phone: Comment on above: PATIENT NOT FASTINGP ERFORMED BY: CB [facility] Siskeq6333 [address] RoadDublin [place] [id number] RBC (Bld) [#/Vol] 4.35 {x10E6/uL} Normal 3.77-5.[address] [facility] Internal Medicine Work Phone: Comment on above: PATIENT NOT FASTINGP ERFORMED BY: CB [facility] Mrgszi0125 [address] RoadDublin [place] [id number] RBC (Bld) [#/Vol] 4.35 10*6/uL Normal 3.77-5.28 [facility] Internal Medicine; [facility] Work Phone: Comment on above: PATIENT NOT FASTINGP ERFORMED BY: CB [facility] Vgiray2428 [address] RoadDublin [place] [id number] WBC (Bld) [#/Vol] 9.3 {x10E3/uL} Normal 3.4-10.8 [facility] prehensive Internal Medicine Work Phone: Comment on above: PATIENT NOT FASTINGP ERFORMED BY: CB [facility] Nhcuzk9834 [address] RoadDublin [place] [id number] WBC (Bld) [#/Vol] 9.3 10*3/uL Normal 3.4-10.8 [facility]; [facility] Work Phone: Comment on above: PATIENT NOT FASTINGP ERFORMED BY: CB [facility] Lfuveo7257 [address] RoadDublin [place] [id number] IRON (91097)Ordered By: Syst em Fire Control Assistant on 09-06-2019 Iron [Mass/Vol] 128 ug/dL Normal 27-159 [facility] Internal Medicine Work Phone: Comment on above: PATIENT NOT FASTINGP ERFORMED BY: CB [facility] Gjxlse6446 [address] RoadDublin [place] [id number] TSH (THYROID STIMULATING HOR SUKHDEEP) (16075)Ordered By: Security Systems Engineer on 09-06-2019 TSH Qn 1.930 {uIU/mL} Normal 0.450-4.500 [facility] Internal Medicine Work Phone: Comment on above: PATIENT NOT FASTINGP ERFORMED BY: CB [facility] Mzfrlk5973 [address] RoadDublin [place] [id number] VITAMIN B12 AND FOLATES (826 07)Ordered By: Security Systems Engineer on 09-06-2019 Cobalamin (Vitamin B12) [Mass/Vol] 306 pg/mL Normal 232-1245 [facility] Internal Medicine Work Phone: Comment on above: PATIENT NOT FASTINGP ERFORMED BY: CB [facility] Xclabg1783 [address] RoadDublin [place] [id number] Folate [Mass/Vol] 11.1 ng/mL Normal Compreh [facility] centerive Internal Medicine Work Phone: Comment on above: A serum folate elidia ntration of less than 3.1 ng/mL isconsidered to represent clinical deficiency. PATIENT NOT FASTINGP ERFORMED BY: DAYRON Jung6370 [address] QuickflixUnc Health Waynein [place] [id number] LIPID PANEL (78489)on 2017 Cholesterol in HDL mass conc 58 mg/dL Normal [facility] Work Phone: Comment on above: PATIENT WAS FASTINGP ERFORMED BY: DAYRON Gomez70 [address] QuickflixUNC Health Chatham [id number] Cholesterol in LDL mass conc 53 mg/dL Normal 0-99 [facility] Work Phone: Comment on above: PATIENT WAS FASTINGP ERFORMED BY: DAYRON Rinaldi Ort[address] QuickflixUNC Health Ch[facility] [id number] Cholesterol in LDL/Cholesterol in HDL mass ratio 0.9 {ratio} Normal 0.0-3.2 [facility] Work Phone: Comment on above: LDL/HDL Ratio Men Wo men 1/2 Avg.Risk 1.0 1.5 Avg.Risk 3.6 3.2 2X Avg.Risk 6.2 5.0 3X Avg.Risk 8.0 6.1 PATIENT WAS FASTINGP ERFORMED BY: DAYRON Jung6370 [address] QuickflixUNC Health Chatham [id number] Cholesterol in VLDL mass conc 25 mg/dL Normal 5-40 [facility] Work Phone: Comment on above: PATIENT WAS FASTINGP ERFORMED BY: DAYRON Gomez70 [address] QuickflixUNC Health Chatham [id number] Cholesterol mass conc 136 mg/dL Normal 100-199 [facility] Work Phone: Comment on above: PATIENT WAS FASTINGP ERFORMED BY: DAYRON Jung6370 [address] Quickflixblin [place] [id number] Triglyceride mass conc 125 mg/dL Normal 0-149 [facility] Work Phone: Comment on above: PATIENT WAS FASTINGP ERFORMED BY: DAYRON Jung6370 [address] QuickflixUnc Health [place]in [place] [id number] Renal function Panel (38228) on 09-21-2017 Albumin mass conc 4.4 g/dL Normal 3.5-5.5 Compreh ensive Internal Medicine Work Phone: Comment on above: PATIENT NOT FASTINGP ERFORMED BY: DAYRON LabHailey Jung[address] [facility]in [place] [id number] Calcium mass conc 9.2 mg/dL Normal 8.7-10.2 Compreh ensive Internal Medicine Work Phone: Comment on above: PATIENT NOT FASTINGP ERFORMED BY: DAYRON LabComendoza SanchezZddpru26[address] [facility] [id number] Chloride molar conc 103 mmol/L Normal 96-106 [facility] Work Phone: Comment on above: PATIENT NOT FASTINGP ERFORMED BY: DAYRON LabHailey SanchezJtaptm8041 [facility] [id number] CO2 molar conc 23 mmol/L Normal 18-29 Comprehens marv Internal Medicine Work Phone: Comment on above: PATIENT NOT FASTINGP ERFORMED BY: DAYRON Sanchezlin6370 [facility] [id number] Creatinine mass conc 0.67 mg/dL Normal 0.57-1.00 [facility] Work Phone: Comment on above: PATIENT NOT FASTINGP ERFORMED BY: DAYRON Sanchezlin6370 [facility] [id number] GFR/1.73 sq M predicted among blacks CKD-EPI vol rate/area (S/P/Bld) 120 mL/min/1.73 Normal [facility] Work Phone: Comment on above: PATIENT NOT FASTINGP ERFORMED BY: DAYRON [facility] Gocddz9360 [address] [facility] [id number] GFR/1.73 sq M predicted among non-blacks CKD-EPI vol rate/area (S/P/Bld) 104 mL/min/1.73 Normal [facility] Work Phone: Comment on above: PATIENT NOT FASTINGP ERFORMED BY: DAYRON [facility] Qoohdq5387 [address] [facility] [id number] Glucose mass conc 94 mg/dL Normal 65-99 Compreh ensive Internal Medicine Work Phone: Comment on above: PATIENT NOT FASTINGP ERFORMED BY: DAYRON Jung6370 [facility] [id number] Phosphate mass conc 2.6 mg/dL Normal 2.5-4.5 [facility] Work Phone: Comment on above: PATIENT NOT FASTINGP ERFORMED BY: DAYRON Adamson Rnjbth9692 [facility] [id number] Potassium molar conc 4.3 mmol/L Normal 3.5-5.2 [facility] Work Phone: Comment on above: PATIENT NOT FASTINGP ERFORMED BY: DAYRON Adamson Xkszln5679 [facility] [id number] Sodium molar conc 143 mmol/L Normal 134-144 Compreh ensive Internal Medicine Work Phone: Comment on above: PATIENT NOT FASTINGP ERFORMED BY: DAYRON Adamson Ridlnr2116 [facility] [id number] Urea nitrogen mass conc 10 mg/dL Normal 6-24 [facility] Work Phone: Comment on above: PATIENT NOT FASTINGP ERFORMED BY: DAYRON Adamson Cjanrg1628 [facility] [id number] Urea nitrogen/Creatini ne mass ratio 15 mg/mg Normal 9-23 [facility] Work Phone: Comment on above: PATIENT NOT FASTINGP ERFORMED BY: DAYRON LeDebra [place] 7281870 [facility] [id number] URINE BALTAZAR CULTURE-ELEAZAR COL C OUNT (91720)on 09-21-2017 Bacteria identified Cx Nom (U) Final report Normal [facility] Work Phone: Comment on above: PATIENT NOT FASTINGP ERFORMED BY: DAYRON LeDebra [place] 7281870 [facility] [id number] Information: SRC:UC Bacteria identified Cx Nom (U) NG36 Normal [facility] Work Phone: Comment on above: No growth in 36 - 48 hours. PATIENT NOT FASTINGP ERFORMED BY: DAYRON LabCo Jgcmuc3443 [facility] [id number] Information: SRC:PRAVIN Urinalysis, Office (00094)Or dered By: Kasia Gutierrez on 09-21-2017 Bilirubin [...] Medicine Work Phone: Blood Glucose , Office (2196 2)Ordered By: Doris Tan on 09-15-2017 Glucose Glucometer molar conc (BldC) 118 1 Normal [facility] Work Phone: Comment on above: 118 fasting HgA1C , Office (96147)Ordere d By: Ashley Trinidad on 09-15-2017 Hemoglobin A1c/Hemoglobin.to sharda mass fraction (Bld) 5.2 % Normal 4.6 - 7.1 [facility] Work Phone: Urinalysis, Office (22018)Or dered By: Doris Tan on 09-15-2017 Bilirubin [...] Work Phone: Comment on above: PERFORMED BY: [facility] [address] [id number] Information: SRC:UC Bacteria identified Cx Nom (U) MTHREE Normal [facility] Work Phone: Comment on above: More than 3 organism s recovered, none predominant. Please submitanother culture if clinically indicated.Greater than 100,000 colony forming units per mL PERFORMED BY: [facility] Gronxp48[address] [facility] [id number] Information: SRC: Urinalysis, Office (92072)Or dered By: Ashley Trinidad on 05-01-2017 Bilirubin [...] Work Phone: Comment on above: PERFORMED BY: [employer] [place] [id number] Information: SRC:UR Bacteria identified Cx Nom (U) [...] SPiperacillin RTetracycline STobramycin STrimethoprim/Sulfa R PERFORMED BY: [facility]Nov[facility] [id number] Information: SRC:UR Bacteria identified Cx Nom (U) Escherichia coli Abnormal [facility] Work Phone: Comment on above: 1,000 Colonies/mL PERFORMED BY: [facility]Nov[facility] [id number] Information: SRC:UR URINE BALTAZAR CULTURE-IDENTIFICA TN (10676)on 04-11-2017 Bacteria identified Cx Nom (U) Final report Normal [facility] Work Phone: Comment on above: PATIENT NOT FASTINGP ERFORMED BY: [employer] Technology SolutionsNov[facility] [id number] Information: SRC:UC Bacteria identified Cx Nom (U) MUG Normal [facility] Work Phone: Comment on above: Mixed urogenital regino ra25,000-50,000 colony forming units per mL PATIENT NOT FASTINGP ERFORMED BY: DAYRON [facility] Zcqtgw7003 [facility] [id number] Information: SRC:PRAVIN Urinalysis, Office (08134)Or dered By: Doris Tan on 04-11-2017 Bilirubin [...] PATIENT WAS FASTINGP ERFORMED BY: DAYRON [facility] Ljczom9479 [address] RoadDublin [place] [id number] Cholesterol in LDL mass conc 50 mg/dL Normal 0-99 [facility] Work Phone: Comment on above: PATIENT WAS FASTINGP ERFORMED BY: DAYRON [facility] Lbhwko6271 [address] RoadDublin [place] [id number] Cholesterol in LDL/Cholesterol in HDL mass ratio 0.9 {ratio_units} Normal 0.0-3.2 Comprehensiv e Internal Medicine Work Phone: Comment on above: LDL/HDL Ratio Men Wo men 1/2 Avg.Risk 1.0 1.5 Avg.Risk 3.6 3.2 2X Avg.Risk 6.2 5.0 3X Avg.Risk 8.0 6.1 PATIENT WAS FASTINGP ERFORMED BY: DAYRON LabComendoza SanchezZghoad5189 [address] RoadDublin [place] [id number] Cholesterol in VLDL mass conc 17 mg/dL Normal 5-40 [facility] Work Phone: Comment on above: PATIENT WAS FASTINGP ERFORMED BY: DAYRON LabComendoza Hjokry7810 [address] RoadDublin [place] [id number] Cholesterol mass conc 120 mg/dL Normal 100-199 [facility] Work Phone: Comment on above: PATIENT WAS FASTINGP ERFORMED BY: DAYRON LabComendoza SanchezOnefbu4851 [address] RoadDublin [place] [id number] Triglyceride mass conc 83 mg/dL Normal 0-149 [facility] Work Phone: Comment on above: PATIENT WAS FASTINGP ERFORMED BY: DAYRON [facility] Jseygj2808 [address] RoadDublin [place] [id number] Lipid Panel With LDL/HDL Rat ioon 07-20-2016 Cholesterol in HDL mass conc 63 mg/dL Normal [facility] Work Phone: Comment on above: PATIENT WAS FASTINGP ERFORMED BY: DAYRON [facility] Jduhhn6426 [address] RoadDublin [place] [id number] Cholesterol in LDL mass conc 82 mg/dL Normal 0-99 [facility] Work Phone: Comment on above: PATIENT WAS FASTINGP ERFORMED BY: DAYRON Jung6370 [facility] [id number] Cholesterol in LDL/Cholesterol in HDL mass ratio 1.3 {ratio_units} Normal 0.0-3.2 Comprehensiv e Internal Medicine Work Phone: Comment on above: LDL/HDL Ratio Men Wo men 1/2 Avg.Risk 1.0 1.5 Avg.Risk 3.6 3.2 2X Avg.Risk 6.2 5.0 3X Avg.Risk 8.0 6.1 PATIENT WAS FASTINGP ERFORMED BY: DAYRON Jung6370 [facility] [id number] Cholesterol in VLDL mass conc 35 mg/dL Normal 5-40 [facility] Work Phone: Comment on above: PATIENT WAS FASTINGP ERFORMED BY: DAYRON Jung6370 [facility] [id number] Cholesterol mass conc 180 mg/dL Normal 100-199 [facility] Work Phone: Comment on above: PATIENT WAS FASTINGP ERFORMED BY: DAYRON Jung6370 [facility] [id number] Triglyceride mass conc 173 mg/dL Abnormal 0-149 [facility] Work Phone: Comment on above: PATIENT WAS FASTINGP ERFORMED BY: DAYRON Jung6370 [facility] [id number] Glucose, Serumon 04-22-2016 Glucose mass conc 89 mg/dL Normal 65-99 Compreh ensive Internal Medicine Work Phone: Comment on above: PATIENT WAS FASTINGP ERFORMED BY: DAYRON Jung6370 [facility] [id number] Lipid Panel With LDL/HDL Rat ioon 04-22-2016 Cholesterol in HDL mass conc 54 mg/dL Normal [facility] Work Phone: Comment on above: According to ATP-III Guidelines, HDL-C >59 mg/dL is considered anegative risk factor for CHD. PATIENT WAS FASTINGP ERFORMED BY: DAYRON [facility] Xtboaj74[address] [facility]in [place] [id number] Cholesterol in LDL mass conc 58 mg/dL Normal 0-99 [facility] Work Phone: Comment on above: PATIENT WAS FASTINGP ERFORMED BY: DAYRON [facility] Maremd2967 [address] [facility] [place] [id number] Cholesterol in LDL/Cholesterol in HDL mass ratio 1.1 {ratio_units} Normal 0.0-3.2 Comprehensiv e Internal Medicine Work Phone: Comment on above: LDL/HDL Ratio Men Wo men 1/2 Avg.Risk 1.0 1.5 Avg.Risk 3.6 3.2 2X Avg.Risk 6.2 5.0 3X Avg.Risk 8.0 6.1 PATIENT WAS FASTINGP ERFORMED BY: DAYRON [facility] Ahhixm4349 [address] [facility] [place] [id number] Cholesterol in VLDL mass conc 38 mg/dL Normal 5-40 [facility] Work Phone: Comment on above: PATIENT WAS FASTINGP ERFORMED BY: DAYRON LabCo Mscjxn9795 [address] [facility]in [place] [id number] Cholesterol mass conc 150 mg/dL Normal 100-199 [facility] Work Phone: Comment on above: PATIENT WAS FASTINGP ERFORMED BY: DAYRON LabComendoza Sjxnqu0629 [address] [facility]in [place] [id number] Triglyceride mass conc 188 mg/dL Abnormal 0-149 [facility] Work Phone: Comment on above: PATIENT WAS FASTINGP ERFORMED BY: DAYRON [facility] Wjrgjp3115 [address] [facility]in [place] [id number] Vital Signs Date Time Vital Sign Value [...] Standard 10-24-2022 09:29-0400 Body height 167.64 cm [facility]; [facility] Work Phone: 10-24-2022 09:29-0400 Body mass index (BMI) [Ratio] 28.14 kg/m2 [facility]; [facility] Work Phone: 10-24-2022 09:29-0400 Body surface area Derived from formula 1.89 m2 Leola Saldana [facility]; [facility] Work Phone: 10-24-2022 09:29-0400 Body temperature 97.1 [degF] Leola Saldana [facility] Comprehens[facility]; [facility] Work Phone: 10-24-2022 09:29-0400 Body weight 79.1 [facility] Work Phone: 10-24-2022 09:29-0400 Diastolic blood pressure 80 mm[Hg] [facility] Work Phone: Comment on above: Patient Position: Sitting; Cuff Location : Left Arm; Cuff Size: Standard 10-24-2022 09:29-0400 Heart rate 170 /min [facility]; [facility] Work Phone: Comment on above: Pattern: Regular 10-24-2022 09:29-0400 Respiratory rate 16 /min [facility]; [facility] Work Phone: Comment on above: Pattern: Unlabored 10-24-2022 09:29-0400 SaO2% (BldA) [Mass fraction] 96 % [facility]; [facility] Work Phone: Comment on above: Room air 10-24-2022 09:29-0400 Systolic blood pressure 130 mm[Hg] Leola Saldana [facility]; [facility] Work Phone: Comment on above: Patient Position: Sitting; Cuff Location : Left Arm; Cuff Size: Standard 04-25-2022 10:55-0400 Body height 167.64 cm Joycekeegan Patel [facility]; [facility] Work Phone: Comment on above: pt wearing boot on foot from surgery did nt want to weigh today due to extra wt 04-25-2022 10:55-0400 Body mass index (BMI) [Ratio] 26.97 kg/m2 Joyce Patel [facility]; [facility] Work Phone: Comment on above: pt wearing boot on foot from surgery did nt want to weigh today due to extra wt 04-25-2022 10:55-0400 Body surface area Derived from formula 1.85 m2 Joyce Patel [facility]; [facility] Work Phone: Comment on above: pt wearing boot on foot from surgery did nt want to weigh today due to extra wt 04-25-2022 10:55-0400 Body temperature 97.3 [degF] Joyce Patel [facility] Comprehens[facility]; [facility] Work Phone: Comment on above: Method: Infrared pt wearing boot on f oot from surgery didnt want to weigh today due to extra wt 04-25-2022 10:55-0400 Body weight 75.81 kg Joyce Patel [facility]; [facility] Work Phone: Comment on above: pt wearing boot on foot from surgery did nt want to weigh today due to extra wt 04-25-2022 10:55-0400 Diastolic blood pressure 80 mm[Hg] Jocye Patel [facility]; [facility] Work Phone: Comment on above: Patient Position: Sitting; Cuff Location : Left Arm; Cuff Size: Standard pt wearing boot on f oot from surgery didnt want to weigh today due to extra wt 04-25-2022 10:55-0400 Heart rate 123 /min Joyce Patel [facility]; [facility] Work Phone: Comment on above: Pattern: Regular pt wearing boot on f oot from surgery didnt want to weigh today due to extra wt 04-25-2022 10:55-0400 Respiratory rate 20 /min Joyce Patel [facility]; [facility] [...] Systolic blood pressure 123 mm[Hg] Joyce Patel PLACEMENT SPECIALIST [facility]; [facility] Work [...] 08:47-0400 Heart rate 106 /min Magali Shaw [employer] [facility]; [facility] Work Phone: Comment on above: Pattern: Regular 01-20-2022 08:47-0400 Respiratory rate 16 /min Magali Shaw [employer] [facility]; [facility] Work [...] 07:52-0400 Body height 167.64 cm Joyce Patel [facility]; [facility] Work Phone: 10-21-2021 07:52-0400 Body mass index (BMI) [Ratio] 26.37 kg/m2 Joyce Patel [facility]; [facility] Work Phone: 10-21-2021 07:52-0400 Body surface area Derived from formula 1.84 m2 Joyce Patel [facility]; [facility] Work Phone: 10-21-2021 07:52-0400 Body temperature 97.3 [degF] Joyce Patel [facility]; [facility] Work Phone: Comment on above: Method: Infrared 10-21-2021 07:52-0400 Body weight 74.11 kg Joyce Patel [facility]; [facility] Work Phone: 10-21-2021 07:52-0400 Diastolic blood pressure 90 mm[Hg] Joyce Patel [facility]; [facility] Work Phone: Comment on above: Patient Position: Sitting; Cuff Location : Left Arm; Cuff Size: Standard 10-21-2021 07:52-0400 Heart rate 112 /min Joyce Patel [facility]; [facility] Work Phone: Comment on above: Pattern: Regular 10-21-2021 07:52-0400 Respiratory rate 18 /min Joyce Patel [facility]; [facility] Work Phone: Comment on above: Pattern: Unlabored 10-21-2021 07:52-0400 SaO2% (BldA) [Mass fraction] 98 % Joyce Patel [facility]; [facility] Work Phone: Comment on above: Room air 10-21-2021 07:52-0400 Systolic blood pressure 134 mm[Hg] Joyce Patel [facility]; [facility] Work [...] Systolic blood pressure 130 mm[Hg] Magali Shaw [employer] [facility]; [facility] Work Phone: Comment on above: Patient Position: Sitting; Cuff Location : Left Arm; Cuff Size: Standard 03-01-2021 15:14-0400 Body height 167.64 cm Joyce Patel [facility]; [facility] Work Phone: 03-01-2021 15:14-0400 Body mass index (BMI) [Ratio] 25.36 kg/m2 Joyce Patel [facility]; [facility] Work Phone: 03-01-2021 15:14-0400 Body surface area Derived from formula 1.81 m2 Joyce Patel [facility]; [facility] Work Phone: 03-01-2021 15:14-0400 Body temperature 97.3 [degF] Joyce Patel [facility] Comprehens[facility]; [facility] Work Phone: Comment on above: Method: Infrared 03-01-2021 15:14-0400 Body weight 71.27 kg Joyce Patel [facility]; [facility] Work Phone: 03-01-2021 15:14-0400 Diastolic blood pressure 82 mm[Hg] Joyce Patel [facility]; [facility] Work Phone: Comment on above: Patient Position: Sitting; Cuff Location : Left Arm; Cuff Size: Standard 03-01-2021 15:14-0400 Heart rate 109 /min Joyce Patel [facility]; [facility] Work Phone: Comment on above: Pattern: Regular 03-01-2021 15:14-0400 Respiratory rate 196 /min Joyce Patel [facility] Com[facility]; [facility] Work Phone: Comment on above: Pattern: Unlabored 03-01-2021 15:14-0400 SaO2% (BldA) [Mass fraction] 98 % Joyce Patel [facility]; [facility] Work Phone: Comment on above: Room air 03-01-2021 15:14-0400 Systolic blood pressure 134 mm[Hg] Joyce Patel [facility]; [facility] Work Phone: Comment on above: Patient Position: Sitting; Cuff Location : Left Arm; Cuff Size: Standard 12-31-2020 08:30-0400 Body height 167.64 cm Joyce Patel [facility]; [facility] Work Phone: 12-31-2020 08:30-0400 Body mass index (BMI) [Ratio] 25.84 kg/m2 Joyce Patel [facility]; [facility] Work Phone: 12-31-2020 08:30-0400 Body surface area Derived from formula 1.82 m2 Joyce Patel [facility]; [facility] Work Phone: 12-31-2020 08:30-0400 Body temperature 97.1 [degF] Joyce Patel PLACEMENT SPECIALIST Comprehensiv e Internal Medicine; [facility] Work Phone: Comment on above: Method: Infrared 12-31-2020 08:30-0400 Body weight 72.63 kg Joyce Patel [facility]; [facility] Work Phone: 12-31-2020 08:30-0400 Diastolic blood pressure 80 mm[Hg] Joyce Patel CMA [facility]; [facility] Work Phone: Comment on above: Patient Position: Sitting; Cuff Location : Left Arm; Cuff Size: Standard 12-31-2020 08:30-0400 Heart rate 121 /min Joyce Patel [facility]; [facility] Work Phone: Comment on above: Pattern: Regular 12-31-2020 08:30-0400 Respiratory rate 18 /min Joyce Patel [facility] Comprehens[facility]; [facility] Work Phone: Comment on above: Pattern: Unlabored 12-31-2020 08:30-0400 SaO2% (BldA) [Mass fraction] 98 % Joyce Patel [facility]; [facility] Work Phone: Comment on above: Room air 12-31-2020 08:30-0400 Systolic blood pressure 132 mm[Hg] Joyce Patel [facility]; [facility] Work Phone: Comment on above: Patient Position: Sitting; Cuff Location : Left Arm; Cuff Size: Standard 11-09-2020 09:02-0400 Body height 167.64 cm Joyce Patel [facility]; [facility] Work Phone: 11-09-2020 09:02-0400 Body mass index (BMI) [Ratio] 25.84 kg/m2 Joyce Patel [facility]; [facility] Work Phone: 11-09-2020 09:02-0400 Body surface area Derived from formula 1.82 m2 Joyce Patel [facility]; [facility] Work Phone: 11-09-2020 09:02-0400 Body temperature 97.1 [degF] Joyce Patel [facility] Com[facility]; [facility] Work Phone: Comment on above: Method: Infrared 11-09-2020 09:02-0400 Body weight 72.63 kg Joyce Patel [facility]; [facility] Work Phone: 11-09-2020 09:02-0400 Diastolic blood pressure 70 mm[Hg] Joyce Patel [facility]; [facility] Work Phone: Comment on above: Patient Position: Sitting; Cuff Location : Left Arm; Cuff Size: Standard 11-09-2020 09:02-0400 Heart rate 123 /min Joyce Patel [facility]; [facility] Work Phone: Comment on above: Pattern: Regular 11-09-2020 09:02-0400 Respiratory rate 18 /min Joyce Patel [facility] Comprehens[facility] Internal [facility]; [facility] Work Phone: Comment on above: Pattern: Unlabored 11-09-2020 09:02-0400 SaO2% (BldA) [Mass fraction] 99 % Joyce Patel [facility]; [facility] Work Phone: Comment on above: Room air 11-09-2020 09:02-0400 Systolic blood pressure 128 mm[Hg] Joyce Patel [facility]; [facility] Work Phone: Comment on above: Patient Position: Sitting; Cuff Location : Left Arm; Cuff Size: Standard 07-13-2020 09:36-0500 BMI (Body Mass Index) 26.01 kg/m2 [facility]; [facility] Work Phone: 07-13-2020 09:36-0500 Body weight 73.09 kg [facility]; [facility] Work Phone: 07-13-2020 09:36-0500 BSA (Body Surface Area) 1.82 m2 [facility]; [facility] Work Phone: 07-13-2020 09:36-0500 Height 167.64 cm [facility]; [facility] Work Phone: 06-10-2020 08:38-0500 BMI (Body Mass Index) 26.01 kg/m2 Doris Slarb [employer] [facility] Work Phone: 06-10-2020 08:38-0500 Body Temperature 96.8 [degF] Doris Alvinrb [employer] [facility] Work Phone: 06-10-2020 08:38-0500 Body weight 73.09 kg Doris Tan [employer] [facility] Work Phone: 06-10-2020 08:38-0500 BP Diastolic 76 mm[Hg] Doris Slarb [employer] [facility] Work Phone: Comment on above: Patient Position: Sitting; Cuff Location : Left Arm; Cuff Size: Standard 06-10-2020 08:38-0500 BP Systolic 122 mm[Hg] Doris Alvinrb [employer] [facility] Work Phone: Comment on above: Patient Position: Sitting; Cuff Location : Left Arm; Cuff Size: Standard 06-10-2020 08:38-0500 BSA (Body Surface Area) 1.82 m2 Doris Alvinrb [employer] [facility] Work Phone: 06-10-2020 08:38-0500 Height 167.64 cm Doris Alvinrb [employer] [facility] Work Phone: 06-10-2020 08:38-0500 Pulse (Heart Rate) 111 /min Doris Tan [employer] Comprehens[facility] e Internal Medicine Work Phone: Comment on above: Pattern: Regular 06-10-2020 08:38-0500 Pulse Oximetry 99 % Violet Andrade [facility] Work Phone: Comment on above: Room air 06-10-2020 08:38-0500 Respiratory Rate 16 /min Doris Alvinrb [employer] [facility] Work Phone: Comment on above: Pattern: Unlabored 06-10-2020 08:38-0500 SaO2% (BldA) [Mass fraction] 99 % Doris Alvinrb [employer] [facility]; [facility] Work Phone: Comment on above: Room air 05-06-2020 08:12-0400 BMI (Body Mass Index) 25.34 kg/m2 Milana Siddiqui LPN [facility] Work Phone: 05-06-2020 08:12-0400 Body Temperature 97 [degF] Milana Siddiqui [email or web address] Internal Medicine Work Phone: Comment on above: Method: Thermal Scan 05-06-2020 08:12-0400 Body weight 71.22 kg Milana Siddiqui [facility] [email or web address] Internal Medicine Work Phone: 05-06-2020 08:12-0400 BP Diastolic 80 mm[Hg] Milana Siddiqui [facility] Work Phone: Comment on above: Patient Position: Sitting; Cuff Location : Left Arm; Cuff Size: Standard 05-06-2020 08:12-0400 BP Systolic 108 mm[Hg] Milana Siddiqui [facility] [[email or web address]] Internal Medicine Work Phone: Comment on above: Patient Position: Sitting; Cuff Location : Left Arm; Cuff Size: Standard 05-06-2020 08:12-0400 BSA (Body Surface Area) 1.8 m2 Milana Siddiqui [facility] [[email or web address] Internal Medicine Work Phone: 05-06-2020 08:12-0400 Height 167.64 cm Milana Siddiqui [facility] [[email or web address] Internal Medicine Work Phone: 05-06-2020 08:12-0400 Pulse (Heart Rate) 91 /min Milana Siddiqui [facility] Comprehens e Internal Medicine Work Phone: Comment on above: Pattern: Regular 04-15-2020 08:01-0400 BMI (Body Mass Index) 25.34 kg/m2 Milana Siddiqui [facility] Work Phone: 04-15-2020 08:01-0400 Body Temperature 98.2 [degF] Milana Siddiqui [facility] [[email or web address]] Internal Medicine Work Phone: Comment on above: Method: Thermal Scan 04-15-2020 08:010400 Body weight 71.22 kg Milana Siddiqui [facility] [email or web address]] Internal Medicine Work Phone: 04-15-2020 08:01-0400 BP Diastolic 76 mm[Hg] Milana Siddiqui [facility] Work Phone: Comment on above: Patient Position: Sitting; Cuff Location : Left Arm; Cuff Size: Standard 04-15-2020 08:01-0400 BP Systolic 120 mm[Hg] [facility] Internal Medicine Work Phone: Comment on above: Patient Position: Sitting; Cuff Location : Left Arm; Cuff Size: Standard 04-15-2020 08:01-0400 BSA (Body Surface Area) 1.8 m2 [facility] Work Phone: 04-15-2020 08:01-0400 Height 167.64 cm [facility] Internal Medicine Work Phone: 04-15-2020 08:01-0400 Pulse (Heart Rate) 102 /min [facility] Comprehens e Internal Medicine Work Phone: Comment on above: Pattern: Regular 03-20-2020 12:22-0400 BMI (Body Mass Index) 25.18 kg/m2 Joyce Patel [facility] Internal Medicine Work Phone: Comment on above: no vs taken as this is phone encounter d ue to covid 03-20-2020 12:22-0400 Body weight 70.76 kg Joyce Patel [facility] Internal Medicine Work Phone: Comment on above: no vs taken as this is phone encounter d ue to covid 03-20-2020 12:22-0400 BSA (Body Surface Area) 1.8 m2 [facility] Work [facility]: Comment on above: no vs taken as this is phone encounter d ue to covid 03-20-2020 12:22-0400 Height 167.64 cm [facility] Work [facility]: Comment on above: no vs taken as this is phone encounter d ue to covid 03-18-2020 08:28-0400 BMI (Body Mass Index) 25.18 kg/m2 [facility] Internal Medicine Work Phone: 03-18-2020 08:28-0400 Body weight 70.76 kg [facility] Internal Medicine Work Phone: 03-18-2020 08:28-0400 BP Diastolic 69 mm[Hg] [facility] Work Phone: Comment on above: Patient Position: Sitting; Cuff Location : Left Arm; Cuff Size: Standard 03-18-2020 08:28-0400 BP Systolic 101 mm[Hg] [facility] Internal Medicine Work Phone: Comment on above: Patient Position: Sitting; Cuff Location : Left Arm; Cuff Size: Standard 03-18-2020 08:28-0400 BSA (Body Surface Area) 1.8 m2 [facility] Work Phone: 03-18-2020 08:28-0400 Height 167.64 cm [facility] Internal Medicine Work Phone: 03-18-2020 08:28-0400 Pulse (Heart Rate) 70 /min [facility] Comprehens e Internal Medicine Work Phone: Comment [...] 08:49-0500 Body Temperature 98 [degF] Magalilauren Shaw [employer] [facility] Work Phone: Comment on above: Method: Temporal 09-11-2019 08:49-0500 Body weight 73.14 kg Magali Colin LPN [facility] Work Phone: 09-11-2019 08:49-0500 BP Diastolic 82 mm[Hg] Magali Colin LPN [facility] Work Phone: Comment on above: Patient Position: Sitting; Cuff Location : Left Arm; Cuff Size: Standard 09-11-2019 08:49-0500 BP Systolic 118 mm[Hg] Magali Colin [employer] [facility] Work Phone: Comment on [...] 08:49-0500 Pulse Oximetry 99 % Violet Andrade [facility] Internal Medicine Work Phone: Comment on above: Room air 09-11-2019 08:49-0500 Respiratory Rate 16 /min Magali Shaw ASHLI [facility] Internal Medicine Work Phone: Comment on above: Pattern: Unlabored 09-11-2019 08:49-0500 SaO2% (BldA) [Mass fraction] 99 % Magalilauren Lealpaul CORNELIUS [facility] Internal Medicine; [facility] Work Phone: Comment on above: Room air 09-06-2019 10:41-0500 BMI (Body Mass Index) 25.66 kg/m2 Doris Esquivelzeferino SOMERSN [facility] Internal Medicine Work Phone: 09-06-2019 10:41-0500 Body Temperature 97.5 [degF] Doris Alvinrb [employer] [facility] Internal Medicine Work Phone: 09-06-2019 10:41-0500 Body weight 72.12 kg Doris Slarb [employer] [facility] Internal Medicine Work Phone: 09-06-2019 10:41-0500 BP Diastolic 72 mm[Hg] Doris Slarb [employer] [facility] Internal Medicine Work Phone: Comment on above: Patient Position: Sitting; Cuff Location : Left Arm; Cuff Size: Standard 09-06-2019 10:41-0500 BP Systolic 116 mm[Hg] Doris Slarb [employer] [facility] Internal Medicine Work Phone: Comment on above: Patient Position: Sitting; Cuff Location : Left Arm; Cuff Size: Standard 09-06-2019 10:41-0500 BSA (Body Surface Area) 1.81 m2 Doris Slarb [employer] [facility] Internal Medicine Work Phone: 09-06-2019 10:41-0500 Height [...] (BldA) [Mass fraction] 98 % Doris Tan [employer] [facility]; [facility] Work Phone: Comment on above: Room air 06-24-2019 09:32-0500 BMI (Body Mass Index) 25.66 kg/m2 Joyce Patel [facility] Work Phone: 06-24-2019 09:32-0500 Body Temperature 97.2 [degF] Joyce Patel [facility] Comprehensiv e Internal Medicine Work Phone: Comment on above: Method: Temporal 06-24-2019 09:32-0500 Body weight 72.12 kg Joyce Patel [facility] Work Phone: 06-24-2019 09:32-0500 BP Diastolic 90 mm[Hg] Joyce Patel [facility] Work Phone: Comment on above: Patient Position: Sitting; Cuff Location : Left Arm; Cuff Size: Standard 06-24-2019 09:32-0500 BP Systolic 125 mm[Hg] Joyce Patel [facility] Work Phone: Comment on above: Patient Position: Sitting; Cuff Location : Left Arm; Cuff Size: Standard 06-24-2019 09:32-0500 BSA (Body Surface Area) 1.81 m2 Joyce Patel [facility] Work Phone: 06-24-2019 09:32-0500 [...] (BldA) [Mass fraction] 99 % Joyce Patel [facility]; [facility] Work [...] (Body Mass Index) 24.86 kg/m2 Joyce Patel [facility] Work Phone: 12-20-2018 07:53-0400 Body Temperature 98.4 [degF] Joyce Patel [facility] Comprehens[facility] e Internal Medicine Work Phone: Comment on above: Method: Temporal 12-20-2018 07:53-0400 Body weight 69.85 kg Joyce Patel [facility] Work Phone: 12-20-2018 07:53-0400 BP Diastolic 84 mm[Hg] Joyce Patel [facility] Work Phone: Comment on above: Patient Position: Sitting; Cuff Location : Left Arm; Cuff Size: Standard 12-20-2018 07:53-0400 BP Systolic 124 mm[Hg] Joyce Patel [facility] Work Phone: Comment on above: Patient Position: Sitting; Cuff Location : Left Arm; Cuff Size: Standard 12-20-2018 07:53-0400 BSA (Body Surface Area) 1.79 m2 Joyce Patel [facility] Work Phone: 12-20-2018 07:53-0400 [...] (BldA) [Mass fraction] 96 % Joyce Patel PLACEMENT SPECIALIST [facility]; [facility] Work [...] 07:05-0400 Pulse Oximetry 98 % Violet Andrade [facility] Medicine Work Phone: Comment [...] 09-21-2017 09:38-0500 Pulse Oximetry 98 % Violet Andrade [facility] [...] (Body Mass Index) 27.44 kg/m2 Doris Slarb [employer] [facility] Work Phone: 09-15-2017 08:30-0500 Body Temperature 97.5 [degF] Doris Slarb [employer] [facility] Work Phone: 09-15-2017 08:30-0500 Body weight 77.11 kg Doris Slarb [employer] [facility] Work Phone: 09-15-2017 08:30-0500 BP Diastolic 82 mm[Hg] Doris Slarb [employer] [facility] Work Phone: Comment on above: Patient Position: Sitting; Cuff Location : Left Arm; Cuff Size: Standard 09-15-2017 08:30-0500 BP Systolic 122 mm[Hg] Doris Slarb [employer] [facility] Work Phone: Comment on above: Patient Position: Sitting; Cuff Location : Left Arm; Cuff Size: Standard 09-15-2017 08:30-0500 BSA (Body Surface Area) 1.87 m2 Doris Slarb [employer] [facility] Work Phone: 09-15-2017 08:30-0500 Height 167.64 cm Doris Slarb [employer] [facility] Work Phone: 09-15-2017 08:30-0500 Pulse (Heart Rate) 131 /min Doris Tan LPN [facility] Work Phone: Comment on above: Pattern: Regular 09-15-2017 08:30-0500 Pulse Oximetry 96 % Violet Andrade [facility] Work Phone: Comment [...] (Body Mass Index) 27.92 kg/m2 Doris Slarb [employer] [facility] Work Phone: 07-20-2017 10:53-0500 Body Temperature 97.5 [degF] Doris Slarb [employer] [facility] Work Phone: 07-20-2017 10:53-0500 Body weight 78.47 kg Doris Slarb [employer] [facility] Work Phone: 07-20-2017 10:53-0500 BP Diastolic 88 mm[Hg] Doris Slarb [employer] [facility] Work Phone: Comment on above: Patient Position: Sitting; Cuff Location : Left Arm; Cuff Size: Standard 07-20-2017 10:53-0500 BP Systolic 142 mm[Hg] Doris Slarb [employer] [facility] Work Phone: Comment on above: Patient Position: Sitting; Cuff Location : Left Arm; Cuff Size: Standard 07-20-2017 10:53-0500 BSA (Body Surface Area) 1.88 m2 Doris Slarb [employer] [facility] Work Phone: 07-20-2017 10:53-0500 Height 167.64 cm Doris Slarb [employer] [facility] Work Phone: 07-20-2017 10:53-0500 [...] 08:48-0400 Pulse Oximetry 98 % Violet Andrade [facility] Medicine Work Phone: Comment on above: Room air 05-04-2017 08:48-0400 Respiratory Rate 18 /min Kasia Hugo RN [facility] Work Phone: Comment on above: Pattern: Unlabored 05-04-2017 08:48-0400 SaO2% (BldA) [Mass fraction] 98 % Kasia Hugo RN [facility] Work Phone: Comment on above: Room air 05-04-2017 08:48-0400 Weight 76.89 kg Violet Andrade [facility] Work Phone: 05-01-2017 09:49-0400 BP Diastolic 76 mm[Hg] Ashley Trinidad [facility] Work Phone: Comment on above: Patient Position: Sitting; Cuff Location : Left Arm; Cuff Size: Standard 05-01-2017 09:49-0400 BP Systolic 122 mm[Hg] Ashley [facility] Internal [facility] Work Phone: Comment on above: Patient Position: Sitting; Cuff Location : Left Arm; Cuff Size: Standard 04-11-2017 14:22-0400 BMI (Body Mass Index) 26.83 kg/m2 Yanira [facility] Internal Medicine Work Phone: 04-11-2017 14:22-0400 Body Temperature 97.2 [degF] [facility] Work Phone: Comment on above: Method: Tympanic 04-11-2017 14:22-0400 Body weight 75.41 kg Yanira [facility] Internal [facility] Work Phone: 04-11-2017 14:22-0400 BP [facility] 90 mm[facility]Hg[facility]: Comment on above: Patient Position: Sitting; Cuff Location : Left Arm; Cuff Size: Standard 04-11-2017 14:22-0400 BP Systolic 140 mm[Hg] [facility] Work Phone: Comment on above: Patient Position: Sitting; Cuff Location : Left Arm; Cuff Size: Standard 04-11-2017 14:22-0400 BSA (Body Surface Area) 1.85 m2 Yanira Lopez [facility] Internal Medicine Work Phone: 04-11-2017 14:22-0400 Height 167.64 cm Yanira Lopez [facility] Work Phone: 04-11-2017 14:22-0400 Pulse (Heart Rate) 108 /min Yanira Lopez [facility] Work Phone: Comment on above: Pattern: Regular 04-11-2017 14:22-0400 Pulse Oximetry 98 % Violet Andrade [facility] Work Phone: Comment on above: Room air 04-11-2017 14:22-0400 Respiratory Rate 18 /min Yanira Lopez [facility] Work Phone: Comment on above: Pattern: Unlabored 04-11-2017 14:22-0400 SaO2% (BldA) [Mass fraction] 98 % Yanira Lopez [facility]; [facility] Work Phone: Comment on above: Room air 04-11-2017 14:22-0400 Weight 75.41 kg Violet Andrade [facility] Work Phone: 11-16-2016 10:39-0400 BMI [...] 10:39-0400 BSA (Body Surface Area) 1.85 m2 Kasia Hugo RN [facility] Work Phone: 11-16-2016 10:39-0400 Height 167.64 cm Kasia Hugo RN [facility] Work Phone: 11-16-2016 10:39-0400 Pulse (Heart Rate) 106 /min Kasia Hugo RN [facility]prehens [facility] Work Phone: Comment on above: Pattern: Regular 11-16-2016 10:39-0400 Pulse Oximetry 95 % Violet Andrade [facility] Work Phone: Comment on above: Room air 11-16-2016 10:39-0400 Respiratory Rate 18 /min Kasia Hugo RN [facility] Work Phone: Comment on above: Pattern: Unlabored 11-16-2016 10:39-0400 SaO2% (BldA) [Mass fraction] 95 % Kasia Hugo RN [facility]; [facility] Work Phone: Comment on above: Room air 11-16-2016 10:39-0400 Weight 75.41 kg Violet Andrade [facility] Work Phone: 04-22-2016 09:09-0400 BMI [...] ambulatory Dr. Violet Andrade DO Work Phone: [facility] Work Phone: Start: 09-16-2024 End: 09-16-[address] Violet Andrade DO -Outpatient Breast Imaging Work Phone: Start: 09-16-2024 End: 09-16-2024 ambulatory Violet Andrade Facility:[facility] Start: 05-24-2024 End: 05-24-2024 ambulatory JESS LINDA [facility] Start: 12-26-2023 End: 12-26-2023 ambulatory JESS DPM [facility] Start: 03-09-2023 End: 03-09-2023 Office outpatient visit [...] End: 01-30-2020 Phone Encounter Violet Andrade [facility] Start: 12-30-2019 End: 12-30-2019 Office [...] Start: 05-04-2017 End: 05-04-2017 Annotation/Addendum Violet Andrade [facility] Start: 05-04-2017 End: 05-04-2017 Office outpatient visit 15 minutes Violet Andrade [facility] Start: 05-01-2017 End: 05-02-2017 Office outpatient visit 5 minutes Violet Andrade [facility] Start: 04-11-2017 End: 04-11-2017 Office outpatient visit 10 minutes Violet Andrade [facility] Start: 11-16-2016 End: 11-16-2016 Phone Encounter Violet Ruby [facility] Start: 11-16-2016 End: 11-16-2016 Office outpatient visit 25 minutes Violet Andrade [facility] Start: 04-25-2016 End: 04-25-2016 Phone Encounter Violet Ruby [facility] Start: 04-22-2016 End: 04-22-2016 Office outpatient new 45 minutes Violet Andrade [facility] Start: 04-22-2016 End: 04-22-2016 Patient encounter procedure Violetalysha Andrade DO Work Phone: [facility] Patient encounter procedure Milana Siddiqui LPN [facility]; [facility] Work Phone: Patient encounter procedure Joyce Patel [facility]; [facility] Work Phone: Patient encounter procedure Joyce Gravius [facility]; [facility] Work Phone: Patient encounter procedure Magali Shaw [facility]; [facility] Work Phone: Patient encounter procedure Joyce Patel PLACEMENT SPECIALIST [facility]; [facility] Work Phone: Patient encounter procedure Magali Shaw [employer] [facility]; [facility] Work Phone: Patient encounter procedure Joyce Patel [facility]; [facility] Work Phone: Patient encounter procedure Joyce Patel [facility]; [facility] Work Phone: Patient encounter procedure Leola Saldana [facility]; [facility] Work Phone: Patient encounter procedure Bel Kavitha [place] [facility]; [facility] Work Phone: End: 04-25-2022 Preprocedural examination done Violet Andrade DO Work Phone: [facility]; [facility] Work Phone: Procedures Date Procedure Procedure Detail Performing Clinician Start: 09-16-2024 Screening mammography D r. Violet Andrade DO Work Phone: Start: 02-18-2022 End: 02-18-2022 Urgent Care Visit Report Comments: See Note; NOTES: [facility] [address] [place] [address] OFFICE VISIT Date of Service: 02/18/22 MR#: [id number] Acct: [id number] Name: SOLEDAD LEVY Rep #: [id number] : 1970 Provider: MELECIO Kramer Age/Sex: 52/F Location: [facility] Status: Signed Intake Intake Visit Reasons: RASH [...] mg PO Q2H 02/18/22 [History Confirmed 02/18/22] [facility] Family History (Updated 02/18/22 @ 14:38 [...] Exam Const General: cooperative and healthy appearing [facility] Head: normocephalic and atraumatic Ears: hearing [...] NOTES: [facility] Radiology [address] [place] [address] Hand Min 3 Views MR#: [id number] Acct: [id number] Name: SOLEDAD LEVY Rep #: [id number] : 1970 F 51 From: Jermaine Murillo MD PCP: Dr. Violet Andrade, Status: DEP AMB Study: Hand Min 3 Views Date of Exam: 03/01/21 Exam# [id number] Ordering Dr: Violet Andrade DO STUDY: X-RAY [...] support , CC: Dr. Violet Andrade DO Ambulance Attendant: Signed Violet Andrade DO Work Phone: Start: 09-18-2019 End: 09-18-2019 SCREEN MAMM (CAD) W/KAMLESH BILAT Comments: See Note; NOTES: [facility] Imaging Services [address] [place] [address] SCREEN MAMM (CAD) W/KAMLESH BILAT MR#: [id number] Acct: [id number] Name: SOLEDAD LEVY Rep #: [id number] : 1970 F 49 From: Brett Dow DO PCP: Violet Andrade DO Status: REG CLI Study: SCREEN MAMM (CAD) W/KAMLESH BILAT Date of Exam: 09/18/19 Exam# [id number] Ordering Dr: Shaye Lim AEROSPACE STRESS ENGINEER-C MAMMOGRAPHY - BILATERAL SCREENING REASON FOR EXAM: [...] delay biopsy of a clinically suspicious abnormality. [id number] Electronically Signed: Brett Dow, at 16:09 EST Tel , Service support , CC: BRISA Lim; Violet Andrade DO Ambulance Attendant: Signed Shaye Lim Work Phone: L foot tarsel tunnel release Joyce Dowkelin PLACEMENT SPECIALIST Comment on above: 02/2022 L foot tarsel tunnel release Leola Saldana PLACEMENT SPECIALIST Comment on above: 02/2022 L foot tarsel tunnel release Bel Plummer MA Comment on above: 02/2022 Plan of Treatment Date Care Activity Detail Author Start: 03-09-2023 Procedure Education Eprescribe d prescriptions (G8553) [facility] Work Phone: Start: 03-09-2023 Provider Instruction s for Treatment GERD Education [facility]; [facility] Work Phone: Start: 03-09-2023 Assay of triglycerides TRIGLYCERIDES (78093) [facility]; [facility] Work Phone: Start: 03-09-2023 Cyanocobalamin vitam in b-12 VITAMIN B-12 (CYANOCOBALAMIN) (64616) [facility]; [facility] Work Phone: Start: 03-09-2023 25 hydroxy includes fractions if performed CALCIFEDIOL (82620) [facility]; [facility] Work [...] Phone: Start: 04-25-2022 Lipid panel LIPID PANEL (70332) [facility]; [facility] Work Phone: Start: 04-25-2022 25 hydroxy includes fractions if performed CALCIFIDIOL (57793) VIT D 25 [facility]; [facility] Work Phone: Start: 04-25-2022 Cyanocobalamin vitam in b-12 VITAMIN B-12 (CYANOCOBALAMIN) (55541) [facility]; [facility] Work [...] Cyanocobalamin vitam in b-12 VITAMIN B-12 (CYANOCOBALAMIN) (86656) [facility]; [facility] Work Phone: Start: 03-01-2021 Procedure Education Eprescribe d prescriptions (G8553) [facility]; [facility] Work Phone: Start: 03-01-2021 Provider Instruction s for Treatment GERD Education [facility]; [facility] Work Phone: Start: 01-01-2021 Provider Instruction s for Treatment Reviewed Health Care Assistant Letter [facility]; [facility] Work Phone: Start: 12-31-2020 Procedure Education Eprescribe d prescriptions (G8553) [facility]; [facility] Work Phone: Start: 12-31-2020 Virus tiss cul inoculation cytopathic effect CULTURE, VIRUS GENERAL 8909 (59339) [facility]; [facility] Work [...] Phone: Start: 12-09-2019 Lipid panel LIPID PANEL (00070) [facility] Work Phone: Start: 12-09-2019 Cobalamin (Vitamin B 12) [Mass/Vol] VITAMIN B12 AND FOLATES (61176) [facility] Work Phone: Start: 12-09-2019 25 hydroxy includes fractions if performed CALCIFEDIOL (90520) [facility] Work Phone: Start: 11-18-2019 [...] count urine URINE BALTAZAR CULTURE-ELEAZAR COL COUNT (30453) [facility] Work Phone: Start: 08-10-2017 [...] count urine URINE BALTAZAR CULTURE-ELEAZAR COL COUNT (75222) [facility] Work Phone: Start: 04-11-2017 [...] Phone: Start: 11-16-2016 Lipid panel Lipid Panel (13616) [facility] Work Phone: Start: 04-25-2016 Lipid panel Lipid Panel (33137) [facility] Work Phone: Start: 04-22-2016 Provider Instruction s for Treatment GERD Education [facility] Work Phone: Start: 04-22-2016 Glucose mass conc GLUCOSE (83303) [facility] Work Phone: Start: 04-22-2016 Glucose quantitative blood xcpt reagent strip GLUCOSE (54695) [facility]; [facility] Work Phone: Start: 04-22-2016 Lipid panel LIPID PANEL (56953) [facility] Work Phone: Comprehensive [...] Date Payer Category Payer Self-pay 2024 Self-pay [id number] 2021 Unknown [id number] 1970 Unknown [id number] 1970 Unknown [id number] .[id number] 1970 Unknown [id number] .[id number] Unknown [employer] Unknown [id number] Unknown [id number] Unknown [id number] Social History Date Type Detail Facility Tobacco smoking stat us NHIS Unknown if ever smoked [facility] Work Phone: Start: 09-26-2024 Sex Female (finding) [facility] Start: 1970 Sex Assigned At Female [facility] Clinical Notes 05-27-2024 Note Date & Type Note Facility 05-27-2024 Note [facility] HISTORY & PHYSICAL NAME ACCOUNT SEX AGE ADMIT DISCHARGE PT MED. 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 Dictated By: Jess Claire DPM 05/23/24 16:34 JOB #: [id number] Transcribed By: am 05/23/24 17:04 Page 1 [...] of 2 SOLEDAD LEVY History & Physical [facility] Evaluation note No assessment information [facility] Work Phone: Instructions Name Patient Instructions Indication:Nonsmoker Start: 1 Instruction Type:Provider Instructions for Treatment How to Access Health Information Online using Patient Portal and [employer] Democrat Apps Indication:Nonsmoker Start: 1 Instruction Type:Patient Education How to Access Health Information Online using Patient Portal and [employer] Apps Indication:Nonsmoker Start: 0 Instruction Type:Patient Education [...] tion Online using Patient Portal and [employer] Apps Indication:Nonsmoker Start:09-Nov-2020 Instruction Type:Patient Education How to Access Health Informa tion Online using Patient Portal and [employer] Apps Indication:Nonsmoker Start:13-Jul-2020 Instruction Type:Patient Education Patient [...] tion Online using Patient Portal and [employer] Apps Indication:Nonsmoker Start:09-Nov-2020 Instruction Type:Patient Education How to Access Health Informa tion Online using Patient Portal and [employer] Apps Indication:Nonsmoker Start:13-Jul-2020 Instruction Type:Patient Education Patient [...] tion Online using Patient Portal and [employer] Apps Indication:Nonsmoker Start:31-Dec-2020 Instruction Type:Patient Education Patient Instructions Indication:Nonsmoker Start:09-Nov-2020 Instruction Type:Provider Instructions for Treatment How to Access Health Informa tion Online using Patient Portal and [employer] Apps Indication:Nonsmoker Start:09-Nov-2020 Instruction Type:Patient Education How to Access Health Informa tion Online using Patient Portal and [employer] Apps Indication:Nonsmoker Start:13-Jul-2020 Instruction Type:Patient Education Patient [...] tion Online using Patient Portal and [employer] Apps Indication:BMI 25.0-25.9,adult Start:02-Jun-2021 Instruction Type:Patient Education Patient Instructions Indication:Nonsmoker Start:01-Mar-2021 Instruction Type:Provider Instructions for Treatment How to Access Health Informa tion Online using Patient Portal and [employer] Apps Indication:Nonsmoker Start:01-Mar-2021 Instruction Type:Patient Education Patient Instructions Indication:Nonsmoker Start:31-Dec-2020 Instruction Type:Provider Instructions for Treatment How to Access Health Informa tion Online using Patient Portal and [employer] Apps Indication:Nonsmoker Start:31-Dec-2020 Instruction Type:Patient Education Patient Instructions Indication:Nonsmoker Start:09-Nov-2020 Instruction Type:Provider Instructions for Treatment How to Access Health Informa tion Online using Patient Portal and [employer] Apps Indication:Nonsmoker Start:09-Nov-2020 Instruction Type:Patient Education How to Access Health Informa tion Online using Patient Portal and [employer] Apps Indication:Nonsmoker Start:13-Jul-2020 Instruction Type:Patient Education Patient [...] tion Online using Patient Portal and [employer] Apps Indication:Nonsmoker Start:21-Oct-2021 Instruction Type:Patient Education Patient Instructions Indication:BMI 25.0-25.9,adult Start:02-Jun-2021 Instruction Type:Provider Instructions for Treatment How to Access Health Informa tion Online using Patient Portal and [employer] Apps Indication:BMI 25.0-25.9,adult Start:02-Jun-2021 Instruction Type:Patient Education Patient Instructions Indication:Nonsmoker Start:01-Mar-2021 Instruction Type:Provider Instructions for Treatment How to Access Health Informa tion Online using Patient Portal and [employer] Apps Indication:Nonsmoker Start:01-Mar-2021 Instruction Type:Patient Education Patient Instructions Indication:Nonsmoker Start:31-Dec-2020 Instruction Type:Provider Instructions for Treatment How to Access Health Informa tion Online using Patient Portal and [employer] Apps Indication:Nonsmoker Start:31-Dec-2020 Instruction Type:Patient Education Patient Instructions Indication:Nonsmoker Start:09-Nov-2020 Instruction Type:Provider Instructions for Treatment How to Access Health Informa tion Online using Patient Portal and [employer] Apps Indication:Nonsmoker Start:09-Nov-2020 Instruction Type:Patient Education How to Access Health Informa tion Online using Patient Portal and [employer] Apps Indication:Nonsmoker Start:13-Jul-2020 Instruction Type:Patient Education Patient [...] tion Online using Patient Portal and [employer] Apps Indication:Nonsmoker Start:21-Oct-2021 Instruction Type:Patient Education Patient Instructions Indication:BMI 25.0-25.9,adult Start:02-Jun-2021 Instruction Type:Provider Instructions for Treatment How to Access Health Informa tion Online using Patient Portal and [employer] Apps Indication:BMI 25.0-25.9,adult Start:02-Jun-2021 Instruction Type:Patient Education Patient Instructions Indication:Nonsmoker Start:01-Mar-2021 Instruction Type:Provider Instructions for Treatment How to Access Health Informa tion Online using Patient Portal and [employer] Apps Indication:Nonsmoker Start:01-Mar-2021 Instruction Type:Patient Education Patient Instructions Indication:Nonsmoker Start:31-Dec-2020 Instruction Type:Provider Instructions for Treatment How to Access Health Informa tion Online using Patient Portal and [employer] Apps Indication:Nonsmoker Start:31-Dec-2020 Instruction Type:Patient Education Patient Instructions Indication:Nonsmoker Start:09-Nov-2020 Instruction Type:Provider Instructions for Treatment How to Access Health Informa tion Online using Patient Portal and [employer] Apps Indication:Nonsmoker Start:09-Nov-2020 Instruction Type:Patient Education How to Access Health Informa tion Online using Patient Portal and [employer] Apps Indication:Nonsmoker Start:13-Jul-2020 Instruction Type:Patient Education Patient [...] tion Online using Patient Portal and [employer] Apps Indication:BMI 25.0-25.9,adult Start:20-Jan-2022 Instruction Type:Patient Education Patient Instructions Indication:Nonsmoker Start:21-Oct-2021 Instruction Type:Provider Instructions for Treatment How to Access Health Informa tion Online using Patient Portal and [employer] Apps Indication:Nonsmoker Start:21-Oct-2021 Instruction Type:Patient Education Patient Instructions Indication:BMI 25.0-25.9,adult Start:02-Jun-2021 Instruction Type:Provider Instructions for Treatment How to Access Health Informa tion Online using Patient Portal and [employer] Apps Indication:BMI 25.0-25.9,adult Start:02-Jun-2021 Instruction Type:Patient Education Patient Instructions Indication:Nonsmoker Start:01-Mar-2021 Instruction Type:Provider Instructions for Treatment How to Access Health Informa tion Online using Patient Portal and [employer] Apps Indication:Nonsmoker Start:01-Mar-2021 Instruction Type:Patient Education Patient Instructions Indication:Nonsmoker Start:31-Dec-2020 Instruction Type:Provider Instructions for Treatment How to Access Health Informa tion Online using Patient Portal and [employer] Apps Indication:Nonsmoker Start:31-Dec-2020 Instruction Type:Patient Education Patient Instructions Indication:Nonsmoker Start:09-Nov-2020 Instruction Type:Provider Instructions for Treatment How to Access Health Informa tion Online using Patient Portal and [employer] Apps Indication:Nonsmoker Start:09-Nov-2020 Instruction Type:Patient Education How to Access Health Informa tion Online using Patient Portal and [employer] Apps Indication:Nonsmoker Start:13-Jul-2020 Instruction Type:Patient Education Patient [...] tion Online using Patient Portal and [employer] Apps Indication:BMI 25.0-25.9,adult Start:20-Jan-2022 Instruction Type:Patient Education Patient Instructions Indication:Nonsmoker Start:21-Oct-2021 Instruction Type:Provider Instructions for Treatment How to Access Health Informa tion Online using Patient Portal and [employer] Indication:Nonsmoker Start:21-Oct-2021 Instruction Type:Patient Education Patient Instructions Indication:BMI 25.0-25.9,adult Start:02-Jun-2021 Instruction Type:Provider Instructions for Treatment How to Access Health Informa tion Online using Patient Portal and [employer] Indication:BMI 25.0-25.9,adult Start:02-Jun-2021 Instruction Type:Patient Education Patient Instructions Indication:Nonsmoker Start:01-Mar-2021 Instruction Type:Provider Instructions for Treatment How to Access Health Informa tion Online using Patient Portal and [employer] Indication:Nonsmoker Start:01-Mar-2021 Instruction Type:Patient Education Patient Instructions Indication:Nonsmoker Start:31-Dec-2020 Instruction Type:Provider Instructions for Treatment How to Access Health Informa tion Online using Patient Portal and [employer] Indication:Nonsmoker Start:31-Dec-2020 Instruction Type:Patient Education Patient Instructions Indication:Nonsmoker Start:09-Nov-2020 Instruction Type:Provider Instructions for Treatment How to Access Health Informa tion Online using Patient Portal and [employer] Indication:Nonsmoker Start:09-Nov-2020 Instruction Type:Patient Education How to Access Health Informa tion Online using Patient Portal and [employer] Indication:Nonsmoker Start:13-Jul-2020 Instruction Type:Patient Education Patient [...] tion Online using Patient Portal and [employer] Indication:BMI 26.0-26.9,adult Start:14-Mar-2022 Instruction Type:Patient Education Patient Instructions Indication:BMI 25.0-25.9,adult Start:20-Jan-2022 Instruction Type:Provider Instructions for Treatment How to Access Health Informa tion Online using Patient Portal and [employer] Indication:BMI 25.0-25.9,adult Start:20-Jan-2022 Instruction Type:Patient Education Patient Instructions Indication:Nonsmoker Start:21-Oct-2021 Instruction Type:Provider Instructions for Treatment How to Access Health Informa tion Online using Patient Portal and [employer] Indication:Nonsmoker Start:21-Oct-2021 Instruction Type:Patient Education Patient Instructions Indication:BMI 25.0-25.9,adult Start:02-Jun-2021 Instruction Type:Provider Instructions for Treatment How to Access Health Informa tion Online using Patient Portal and [employer] Indication:BMI 25.0-25.9,adult Start:02-Jun-2021 Instruction Type:Patient Education Patient Instructions Indication:Nonsmoker Start:01-Mar-2021 Instruction Type:Provider Instructions for Treatment How to Access Health Informa tion Online using Patient Portal and [employer] Indication:Nonsmoker Start:01-Mar-2021 Instruction Type:Patient Education Patient Instructions Indication:Nonsmoker Start:31-Dec-2020 Instruction Type:Provider Instructions for Treatment How to Access Health Informa tion Online using Patient Portal and [employer] Indication:Nonsmoker Start:31-Dec-2020 Instruction Type:Patient Education Patient Instructions Indication:Nonsmoker Start:09-Nov-2020 Instruction Type:Provider Instructions for Treatment How to Access Health Informa tion Online using Patient Portal and [employer] Indication:Nonsmoker Start:09-Nov-2020 Instruction Type:Patient Education How to Access Health Informa tion Online using Patient Portal and [employer] Indication:Nonsmoker Start:13-Jul-2020 Instruction Type:Patient Education Patient [...] tion Online using Patient Portal and [employer] Indication:Non-smoker Start:25-Apr-2022 Instruction Type:Patient Education Patient Instructions Indication:BMI 26.0-26.9,adult Start:14-Mar-2022 Instruction Type:Provider Instructions for Treatment How to Access Health Informa tion Online using Patient Portal and [employer] Indication:BMI 26.0-26.9,adult Start:14-Mar-2022 Instruction Type:Patient Education Patient Instructions Indication:BMI 25.0-25.9,adult Start:20-Jan-2022 Instruction Type:Provider Instructions for Treatment How to Access Health Informa tion Online using Patient Portal and [employer] Indication:BMI 25.0-25.9,adult Start:20-Jan-2022 Instruction Type:Patient Education Patient Instructions Indication:Nonsmoker Start:21-Oct-2021 Instruction Type:Provider Instructions for Treatment How to Access Health Informa tion Online using Patient Portal and [employer] Indication:Nonsmoker Start:21-Oct-2021 Instruction Type:Patient Education Patient Instructions Indication:BMI 25.0-25.9,adult Start:02-Jun-2021 Instruction Type:Provider Instructions for Treatment How to Access Health Informa tion Online using Patient Portal and [employer] Indication:BMI 25.0-25.9,adult Start:02-Jun-2021 Instruction Type:Patient Education Patient Instructions Indication:Nonsmoker Start:01-Mar-2021 Instruction Type:Provider Instructions for Treatment How to Access Health Informa tion Online using Patient Portal and [employer] Indication:Nonsmoker Start:01-Mar-2021 Instruction Type:Patient Education Patient Instructions Indication:Nonsmoker Start:31-Dec-2020 Instruction Type:Provider Instructions for Treatment How to Access Health Informa tion Online using Patient Portal and [employer] Indication:Nonsmoker Start:31-Dec-2020 Instruction Type:Patient Education Patient Instructions Indication:Nonsmoker Start:09-Nov-2020 Instruction Type:Provider Instructions for Treatment How to Access Health Informa tion Online using Patient Portal and [employer] Indication:Nonsmoker Start:09-Nov-2020 Instruction Type:Patient Education How to Access Health Informa tion Online using Patient Portal and [employer] Indication:Nonsmoker Start:13-Jul-2020 Instruction Type:Patient Education Patient [...] tion Online using Patient Portal and [employer] Indication:Non-smoker Start:25-Apr-2022 Instruction Type:Patient Education Patient Instructions Indication:BMI 26.0-26.9,adult Start:14-Mar-2022 Instruction Type:Provider Instructions for Treatment How to Access Health Informa tion Online using Patient Portal and [employer] Indication:BMI 26.0-26.9,adult Start:14-Mar-2022 Instruction Type:Patient Education Patient Instructions Indication:BMI 25.0-25.9,adult Start:20-Jan-2022 Instruction Type:Provider Instructions for Treatment How to Access Health Informa tion Online using Patient Portal and [employer] Indication:BMI 25.0-25.9,adult Start:20-Jan-2022 Instruction Type:Patient Education Patient Instructions Indication:Nonsmoker Start:21-Oct-2021 Instruction Type:Provider Instructions for Treatment How to Access Health Informa tion Online using Patient Portal and [employer] Indication:Nonsmoker Start:21-Oct-2021 Instruction Type:Patient Education Patient Instructions Indication:BMI 25.0-25.9,adult Start:02-Jun-2021 Instruction Type:Provider Instructions for Treatment How to Access Health Informa tion Online using Patient Portal and [employer] Indication:BMI 25.0-25.9,adult Start:02-Jun-2021 Instruction Type:Patient Education Patient Instructions Indication:Nonsmoker Start:01-Mar-2021 Instruction Type:Provider Instructions for Treatment How to Access Health Informa tion Online using Patient Portal and [employer] Indication:Nonsmoker Start:01-Mar-2021 Instruction Type:Patient Education Patient Instructions Indication:Nonsmoker Start:31-Dec-2020 Instruction Type:Provider Instructions for Treatment How to Access Health Informa tion Online using Patient Portal and [employer] Indication:Nonsmoker Start:31-Dec-2020 Instruction Type:Patient Education Patient Instructions Indication:Nonsmoker Start:09-Nov-2020 Instruction Type:Provider Instructions for Treatment How to Access Health Informa tion Online using Patient Portal and [employer] Indication:Nonsmoker Start:09-Nov-2020 Instruction Type:Patient Education How to Access Health Informa tion Online using Patient Portal and [employer] Indication:Nonsmoker Start:13-Jul-2020 Instruction Type:Patient Education Patient [...] tion Online using Patient Portal and [employer] Indication:Non-smoker Start:25-Apr-2022 Instruction Type:Patient Education Patient Instructions Indication:BMI 26.0-26.9,adult Start:14-Mar-2022 Instruction Type:Provider Instructions for Treatment How to Access Health Informa tion Online using Patient Portal and [employer] Indication:BMI 26.0-26.9,adult Start:14-Mar-2022 Instruction Type:Patient Education Patient Instructions Indication:BMI 25.0-25.9,adult Start:20-Jan-2022 Instruction Type:Provider Instructions for Treatment How to Access Health Informa tion Online using Patient Portal and [employer] Indication:BMI 25.0-25.9,adult Start:20-Jan-2022 Instruction Type:Patient Education Patient Instructions Indication:Nonsmoker Start:21-Oct-2021 Instruction Type:Provider Instructions for Treatment How to Access Health Informa tion Online using Patient Portal and [employer] Indication:Nonsmoker Start:21-Oct-2021 Instruction Type:Patient Education Patient Instructions Indication:BMI 25.0-25.9,adult Start:02-Jun-2021 Instruction Type:Provider Instructions for Treatment How to Access Health Informa tion Online using Patient Portal and [employer] Indication:BMI 25.0-25.9,adult Start:02-Jun-2021 Instruction Type:Patient Education Patient Instructions Indication:Nonsmoker Start:01-Mar-2021 Instruction Type:Provider Instructions for Treatment How to Access Health Informa tion Online using Patient Portal and [employer] Indication:Nonsmoker Start:01-Mar-2021 Instruction Type:Patient Education Patient Instructions Indication:Nonsmoker Start:31-Dec-2020 Instruction Type:Provider Instructions for Treatment How to Access Health Informa tion Online using Patient Portal and [employer] Indication:Nonsmoker Start:31-Dec-2020 Instruction Type:Patient Education Patient Instructions Indication:Nonsmoker Start:09-Nov-2020 Instruction Type:Provider Instructions for Treatment How to Access Health Informa tion Online using Patient Portal and [employer] Indication:Nonsmoker Start:09-Nov-2020 Instruction Type:Patient Education How to Access Health Informa tion Online using Patient Portal and [employer] Indication:Nonsmoker Start:13-Jul-2020 Instruction Type:Patient Education Patient [...] tion Online using Patient Portal and [employer] Indication:BMI 28.0-28.9,adult Start:24-Oct-2022 Instruction Type:Patient Education Patient Instructions Indication:Non-smoker Start:25-Apr-2022 Instruction Type:Provider Instructions for Treatment How to Access Health Informa tion Online using Patient Portal and [employer] Indication:Non-smoker Start:25-Apr-2022 Instruction Type:Patient Education Patient Instructions Indication:BMI 26.0-26.9,adult Start:14-Mar-2022 Instruction Type:Provider Instructions for Treatment How to Access Health Informa tion Online using Patient Portal and [employer] Indication:BMI 26.0-26.9,adult Start:14-Mar-2022 Instruction Type:Patient Education Patient Instructions Indication:BMI 25.0-25.9,adult Start:20-Jan-2022 Instruction Type:Provider Instructions for Treatment How to Access Health Informa tion Online using Patient Portal and [employer] Indication:BMI 25.0-25.9,adult Start:20-Jan-2022 Instruction Type:Patient Education Patient Instructions Indication:Nonsmoker Start:21-Oct-2021 Instruction Type:Provider Instructions for Treatment How to Access Health Informa tion Online using Patient Portal and [employer] Indication:Nonsmoker Start:21-Oct-2021 Instruction Type:Patient Education Patient Instructions Indication:BMI 25.0-25.9,adult Start:02-Jun-2021 Instruction Type:Provider Instructions for Treatment How to Access Health Informa tion Online using Patient Portal and [employer] Indication:BMI 25.0-25.9,adult Start:02-Jun-2021 Instruction Type:Patient Education Patient Instructions Indication:Nonsmoker Start:01-Mar-2021 Instruction Type:Provider Instructions for Treatment How to Access Health Informa tion Online using Patient Portal and [employer] Indication:Nonsmoker Start:01-Mar-2021 Instruction Type:Patient Education Patient Instructions Indication:Nonsmoker Start:31-Dec-2020 Instruction Type:Provider Instructions for Treatment How to Access Health Informa tion Online using Patient Portal and [employer] Indication:Nonsmoker Start:31-Dec-2020 Instruction Type:Patient Education Patient Instructions Indication:Nonsmoker Start:09-Nov-2020 Instruction Type:Provider Instructions for Treatment How to Access Health Informa tion Online using Patient Portal and [employer] Indication:Nonsmoker Start:09-Nov-2020 Instruction Type:Patient Education How to Access Health Informa tion Online using Patient Portal and [employer] Indication:Nonsmoker Start:13-Jul-2020 Instruction Type:Patient Education Patient [...] tion Online using Patient Portal and [employer] Indication:BMI 28.0-28.9,adult Start:24-Oct-2022 Instruction Type:Patient Education Patient Instructions Indication:Non-smoker Start:25-Apr-2022 Instruction Type:Provider Instructions for Treatment How to Access Health Informa tion Online using Patient Portal and [employer] Indication:Non-smoker Start:25-Apr-2022 Instruction Type:Patient Education Patient Instructions Indication:BMI 26.0-26.9,adult Start:14-Mar-2022 Instruction Type:Provider Instructions for Treatment How to Access Health Informa tion Online using Patient Portal and [employer] Indication:BMI 26.0-26.9,adult Start:14-Mar-2022 Instruction Type:Patient Education Patient Instructions Indication:BMI 25.0-25.9,adult Start:20-Jan-2022 Instruction Type:Provider Instructions for Treatment How to Access Health Informa tion Online using Patient Portal and [employer] Indication:BMI 25.0-25.9,adult Start:20-Jan-2022 Instruction Type:Patient Education Patient Instructions Indication:Nonsmoker Start:21-Oct-2021 Instruction Type:Provider Instructions for Treatment How to Access Health Informa tion Online using Patient Portal and [employer] Indication:Nonsmoker Start:21-Oct-2021 Instruction Type:Patient Education Patient Instructions Indication:BMI 25.0-25.9,adult Start:02-Jun-2021 Instruction Type:Provider Instructions for Treatment How to Access Health Informa tion Online using Patient Portal and [employer] Indication:BMI 25.0-25.9,adult Start:02-Jun-2021 Instruction Type:Patient Education Patient Instructions Indication:Nonsmoker Start:01-Mar-2021 Instruction Type:Provider Instructions for Treatment How to Access Health Informa tion Online using Patient Portal and [employer] Indication:Nonsmoker Start:01-Mar-2021 Instruction Type:Patient Education Patient Instructions Indication:Nonsmoker Start:31-Dec-2020 Instruction Type:Provider Instructions for Treatment How to Access Health Informa tion Online using Patient Portal and [employer] Indication:Nonsmoker Start:31-Dec-2020 Instruction Type:Patient Education Patient Instructions Indication:Nonsmoker Start:09-Nov-2020 Instruction Type:Provider Instructions for Treatment How to Access Health Informa tion Online using Patient Portal and [employer] Indication:Nonsmoker Start:09-Nov-2020 Instruction Type:Patient Education How to Access Health Informa tion Online using Patient Portal and [employer] Indication:Nonsmoker Start:13-Jul-2020 Instruction Type:Patient Education Patient [...] tion Online using Patient Portal and [employer] Indication:BMI 28.0-28.9,adult Start:24-Oct-2022 Instruction Type:Patient Education Patient Instructions Indication:Non-smoker Start:25-Apr-2022 Instruction Type:Provider Instructions for Treatment How to Access Health Informa tion Online using Patient Portal and [employer] Indication:Non-smoker Start:25-Apr-2022 Instruction Type:Patient Education Patient Instructions Indication:BMI 26.0-26.9,adult Start:14-Mar-2022 Instruction Type:Provider Instructions for Treatment How to Access Health Informa tion Online using Patient Portal and [employer] Indication:BMI 26.0-26.9,adult Start:14-Mar-2022 Instruction Type:Patient Education Patient Instructions Indication:BMI 25.0-25.9,adult Start:20-Jan-2022 Instruction Type:Provider Instructions for Treatment How to Access Health Informa tion Online using Patient Portal and [employer] Indication:BMI 25.0-25.9,adult Start:20-Jan-2022 Instruction Type:Patient Education Patient Instructions Indication:Nonsmoker Start:21-Oct-2021 Instruction Type:Provider Instructions for Treatment How to Access Health Informa tion Online using Patient Portal and [employer] Indication:Nonsmoker Start:21-Oct-2021 Instruction Type:Patient Education Patient Instructions Indication:BMI 25.0-25.9,adult Start:02-Jun-2021 Instruction Type:Provider Instructions for Treatment How to Access Health Informa tion Online using Patient Portal and [employer] Indication:BMI 25.0-25.9,adult Start:02-Jun-2021 Instruction Type:Patient Education Patient Instructions Indication:Nonsmoker Start:01-Mar-2021 Instruction Type:Provider Instructions for Treatment How to Access Health Informa tion Online using Patient Portal and [employer] Indication:Nonsmoker Start:01-Mar-2021 Instruction Type:Patient Education Patient Instructions Indication:Nonsmoker Start:31-Dec-2020 Instruction Type:Provider Instructions for Treatment How to Access Health Informa tion Online using Patient Portal and [employer] Indication:Nonsmoker Start:31-Dec-2020 Instruction Type:Patient Education Patient Instructions Indication:Nonsmoker Start:09-Nov-2020 Instruction Type:Provider Instructions for Treatment How to Access Health Informa tion Online using Patient Portal and [employer] Indication:Nonsmoker Start:09-Nov-2020 Instruction Type:Patient Education How to Access Health Informa tion Online using Patient Portal and [employer] Indication:Nonsmoker Start:13-Jul-2020 Instruction Type:Patient Education Patient [...] tion Online using Patient Portal and [employer] Indication:Non-smoker Start:09-Mar-2023 Instruction Type:Patient Education Patient Instructions Indication:Non-smoker Start:09-Mar-2023 Instruction Type:Provider Instructions for Treatment Patient Instructions Indication:BMI 28.0-28.9,adult Start:24-Oct-2022 Instruction Type:Provider Instructions for Treatment How to Access Health Informa tion Online using Patient Portal and [employer] Indication:BMI 28.0-28.9,adult Start:24-Oct-2022 Instruction Type:Patient Education Patient Instructions Indication:Non-smoker Start:25-Apr-2022 Instruction Type:Provider Instructions for Treatment How to Access Health Informa tion Online using Patient Portal and [employer] Indication:Non-smoker Start:25-Apr-2022 Instruction Type:Patient Education Patient Instructions Indication:BMI 26.0-26.9,adult Start:14-Mar-2022 Instruction Type:Provider Instructions for Treatment How to Access Health Informa tion Online using Patient Portal and [employer] Indication:BMI 26.0-26.9,adult Start:14-Mar-2022 Instruction Type:Patient Education Patient Instructions Indication:BMI 25.0-25.9,adult Start:20-Jan-2022 Instruction Type:Provider Instructions for Treatment How to Access Health Informa tion Online using Patient Portal and [employer] Indication:BMI 25.0-25.9,adult Start:20-Jan-2022 Instruction Type:Patient Education Patient Instructions Indication:Nonsmoker Start:21-Oct-2021 Instruction Type:Provider Instructions for Treatment How to Access Health Informa tion Online using Patient Portal and [employer] Indication:Nonsmoker Start:21-Oct-2021 Instruction Type:Patient Education Patient Instructions Indication:BMI 25.0-25.9,adult Start:02-Jun-2021 Instruction Type:Provider Instructions for Treatment How to Access Health Informa tion Online using Patient Portal and [employer] Indication:BMI 25.0-25.9,adult Start:02-Jun-2021 Instruction Type:Patient Education Patient Instructions Indication:Nonsmoker Start:01-Mar-2021 Instruction Type:Provider Instructions for Treatment How to Access Health Informa tion Online using Patient Portal and [employer] Indication:Nonsmoker Start:01-Mar-2021 Instruction Type:Patient Education Patient Instructions Indication:Nonsmoker Start:31-Dec-2020 Instruction Type:Provider Instructions for Treatment How to Access Health Informa tion Online using Patient Portal and [employer] Indication:Nonsmoker Start:31-Dec-2020 Instruction Type:Patient Education Patient Instructions Indication:Nonsmoker Start:09-Nov-2020 Instruction Type:Provider Instructions for Treatment How to Access Health Informa tion Online using Patient Portal and [employer] Indication:Nonsmoker Start:09-Nov-2020 Instruction Type:Patient Education How to Access Health Informa tion Online using Patient Portal and [employer] Indication:Nonsmoker Start:13-Jul-2020 Instruction Type:Patient Education Patient [...] for referral (narrative)No [facility]: Instructions Name Dates Details BMI [...] Informa tion Online using Patient Portal and [employer] Apps Indication:Nonsmoker Start:13-Jul-2020 Instruction Type:Patient Education Patient [...] tion Online using Patient Portal and [employer] Apps Indication:Nonsmoker Start:13-Jul-2020 Instruction Type:Patient Education Patient [...] Informa tion Online using Patient Portal and [employer] Apps Indication:Nonsmoker Start:13-Jul-2020 Instruction Type:Patient Education Patient [...] Records Found Name Dates Details Immunization Registry [place] - Effective on 11/09/2020. Expiration date unspecified Effective:09-Nov-2020 Name Dates Details Immunization Registry [place] - Effective on 11/09/2020. Expiration date unspecified Effective:09-Nov-2020 Name Dates Details Immunization Registry [place] - Effective on 11/09/2020. Expiration date unspecified Effective:09-Nov-2020 Name Dates Details Immunization Registry [place] - Effective on 11/09/2020. Expiration date unspecified Effective:09-Nov-2020 Name Dates Details Immunization Registry [place] - Effective on 11/09/2020. Expiration date unspecified Effective:09-Nov-2020 Name Dates Details Immunization Registry [place] - Effective on 11/09/2020. Expiration date unspecified Effective:09-Nov-2020 Name Dates Details Immunization Registry [place] - Effective on 11/09/2020. Expiration date unspecified Effective:09-Nov-2020 Name Dates Details Immunization Registry [place] - Effective on 11/09/2020. Expiration date unspecified Effective:09-Nov-2020 Name Dates Details Immunization Registry [place] - Effective on 11/09/2020. Expiration date unspecified Effective:09-Nov-2020 Name Dates Details Immunization Registry [place] - Effective on 11/09/2020. Expiration date unspecified Effective:09-Nov-2020 Name Dates Details Immunization Registry [place] - Effective on 11/09/2020. Expiration date unspecified Effective:09-Nov-2020 Name Dates Details Immunization Registry [place] - Effective on 11/09/2020. Expiration date unspecified Effective:09-Nov-2020 Name Dates Details Immunization Registry [place] - Effective on 11/09/2020. Expiration date unspecified Effective:09-Nov-2020 Name Dates Details Immunization Registry [place] - Effective on 11/09/2020. Expiration date unspecified Effective:09-Nov-2020 Name Dates Details Immunization Registry [place] - Effective on 11/09/2020. Expiration date unspecified [...] content) DATE CREATED AUTHOR 10/27/2022 [facility] DATE CREATED AUTHOR AUTHOR'S ORGANIZ ATION 05/27/2024 [facility] DATE CREATED AUTHOR AUTHOR'S ORGANIZ ATION 05/28/2025 [facility] Care Teams (unrecognized sec tion [...] BE BASED ON THE PRIMARY CLINICAL RECORDS. [facility] [facility]. provides no warranty or guarantee of the accuracy or completeness of information in this document.
--- NOTE | 2025-06-24 06:58 | PCM.HP.STD ---
HPI - General General Date of Admission: 06/24/25 Date of Service: 06/24/25 Chief Complaint: intractable pain, ureteral stone HPI Narrative SOLEDAD LEVY, is a 55 F who presented to the emergency room with intractable flank pain. She has also been having bladder spasms with urgency on and off for several weeks. The pain is on the right side. She denies dysuria, hematuria, fever or chills. The pain has continued since admission. There is no nausea or vomiting. She wants the stone out as soon as possible. [facility] Medical History Kidney stone Post herpetic neuralgia Home Medications ?Medication ?Instructions ?Recorded ?Last Taken ?Type hydrocodone-acetaminophen 5-325mg 1 tab PO Q8H PRN pain 60 days #30 05/29/25 Unknown Rx 5mg-325mg tabs amitriptyline 25 mg tablet 25 mg PO DAILY 06/24/25 Unknown History Allergy/AdvReac Type Severity Reaction Status Date / Time lidocaine Allergy Mild Hives Verified 06/24/25 03:10 sulfamethoxazole (From Allergy Mild Diarrhea Verified 06/24/25 03:10 Bactrim) trimethoprim (From Bactrim) Allergy Mild Diarrhea Verified 06/24/25 03:10 vitamin E (d-alpha Allergy Mild Hives Verified 06/24/25 03:10 tocopherol) Family History Other Cancer Diabetes Surgical History Hx of foot surgery Social History Smoking Status: Never smoker ROS Eyes Eyes: Reports systems reviewed and no addt'l complaints, except as documented ENT HEENT: Reports systems reviewed and no addt'l complaints, except as documented Cardiovascular Cardiovascular: Reports systems reviewed and no addt'l complaints, except as documented; Denies chest pain or dyspnea Respiratory/Chest Respiratory/Chest: Reports systems reviewed and no addt'l complaints, except as documented; Denies cough or dyspnea Gastrointestinal Gastrointestinal: Reports abdominal pain Genitourinary Genitourinary: Reports flank pain Musculoskeletal Musculoskeletal: Reports back pain Integumentary Integumentary: Reports systems reviewed and no addt'l complaints, except as documented Neurologic Neurologic: Reports systems reviewed and no addt'l complaints, except as documented Psychiatric Psychiatric: Reports systems reviewed and no addt'l complaints, except as documented Endocrine Endocrinology: Reports systems reviewed and no addt'l complaints, except as documented Hematologic/Lymphatic Hematologic/Lymphatic: Reports systems reviewed and no addt'l complaints, except as documented Allergic/Immunologic Allergic/Immunologic: Reports systems reviewed and no addt'l complaints, except as documented Vital Signs Vital Signs Vital Signs: 06/24/25 03:09 06/24/25 05:00 06/24/25 05:23 Temperature 97.6 F L 97.9 F Temperature Source Oral Pulse Rate 86 76 96 Respiratory Rate 18 16 16 Respiratory Effort Respiratory Depth Respiratory Pattern Blood Pressure 175/94 H 166/102 H 166/102 H Blood Pressure Mean 121 123 123 Blood Pressure Source Blood Pressure Position Blood Pressure Location Pulse Ox 100 98 97 Oxygen Delivery Method Room Air Nasal Cannula Oxygen Flow Rate (L/min) 1 06/24/25 05:27 06/24/25 06:16 06/24/25 06:43 Temperature 98.1 F Temperature Source Oral Pulse Rate 96 Respiratory Rate 16 Respiratory Effort Normal Respiratory Depth Normal Respiratory Pattern Normal Blood Pressure 162/106 H Blood Pressure Mean 124 Blood Pressure Source Monitor Blood Pressure Position Sitting Blood Pressure Location Right Arm Pulse Ox 98 97 Oxygen Delivery Method Nasal Cannula Room Air Room Air Oxygen Flow Rate (L/min) 1 Weight Weight: 174 lb 9.698 oz Body Mass Index (BMI) 28.1 Physical Exam Const oriented x3 Cardio regular rate GI soft to palpation and non-tender Bladder / Kidney Exam: CVA tenderness right Results Medical Records Data Attestation: I reviewed the patient's medical records Lab / Micro Data Attestation: I reviewed the patient's lab results. 06/24/25 03:15 06/24/25 03:15 Labs: Laboratory Results - last 24 hr 06/24/25 03:15: WBC 11.1 H, RBC 4.36, Hgb 13.9, Hct 41.5, MCV 95.2, MCH 31.9, MCHC 33.5, RDW Std Deviation 38.8, RDW Coeff of Megan 11.2 L, Plt Count 288, MPV 10.3, Immature Gran % (Auto) 0.500, Neut % (Auto) 67.9, Lymph % (Auto) 21.3, [place] % (Auto) 7.7, Eos % (Auto) 2.0, Baso % (Auto) 0.6, Absolute Neuts (auto) 7.5, Absolute Lymphs (auto) 2.36, Nucleated RBC % 0, Sodium 142, Potassium 3.3, Chloride 103, Carbon Dioxide 24.5, Anion Gap 15, BUN 21 H, Creatinine 0.72, Estim Creat Clear Calc 93.46, Est GFR (MDRD) Non-Af 99, BUN/Creatinine Ratio 29.5 H, Glucose 175 H, Calcium 9.4 06/24/25 04:25: Urine Color Yellow, Urine Clarity Sl. Cloudy, Urine pH 5.0, Ur Specific [place] 1.030, Urine Protein 30 H, Urine Glucose (UA) Normal, Urine Ketones 15 H, Urine Occult Blood 50 H, Urine Nitrite Negative, Urine Bilirubin Negative, Urine Urobilinogen Normal, Ur Leukocyte Esterase Negative, Urine RBC 0-5 SEEN, Urine WBC 0 SEEN, Ur Squamous Epith Cells 0 SEEN, Calcium Oxalate Crystal RARE, Amorphous Sediment 2+ URATE, Urine Bacteria 1+, Urine Mucus 0 SEEN Imaging Radiology Impression Abdomen/Pelvis CT 06/24/25 03:17 IMPRESSION: 4 mm obstructing stone of the right ureterovesical junction. Mild right hydroureteronephrosis. Hepatomegaly with hepatic steatosis. An appendicolith is noted in the lumen of the appendix without associated acute inflammatory changes. Diffuse thickening of the colon, probably underdistention/spasm. Right renal cyst measuring 2.6 cm. Prior hysterectomy. Fat containing umbilical hernia without incarceration. [facility] Assessment & Plan Assessment/Plan (1) Ureteral calculus: (2) Intractable pain: PLAN: Plan NPO pain management cystoscopy with possible ureteroscopy, stone removal and ureteral stent insertion The procedure, recovery and expectations were explained. The risks, benefits and alternatives were discussed, including but not limited to, the risks of anesthesia, bleeding, infection, injury, pain and the need for further intervention. A joint decision was made at this time to proceed with the scheduled surgery/procedure as indicated on the consent form. Charges/Coding Urology Urology: Owen Cooper
[2025-06-24] MEDS: 0.9% Saline Lock 10 ML Syringe IV ×2 (08:08→12:43)
[2025-06-24] MEDS: Lactated Ringers 1,000 ML 125 ML IV (08:09)
[2025-06-24] MEDS: Cefazolin 1 GM/50 ML BAG IV ×2 (08:09→14:04)
--- NOTE | 2025-06-24 10:49 | CASEMGMT ---
Dx:kidney stone with intractable pain LACE:1 6-Clicks:24 Medical record reviewed and patient evaluated for identification of discharge planning needs. Based on this review, at this time criteria are not present to indicate a need for discharge planning. Will remain available to assist with discharge planning needs as identified or requested.
[2025-06-24] MEDS: Lactated Ringers 1,000 ML 15 ML IV (15:00)
--- NOTE | 2025-06-24 15:43 | PCM.PRE.AN2 ---
ASA Classification* ASA Classification ASA Classification: 2 Assessment & Plan Anesthesia* Anesthesia Assessment Anesthesia Assessment: Discussed sedation and/or anesthesia options, risks, benefits, and alternatives with patient/parents/legal guardian/POA. Questions invited. The patient/parents/legal guardian/POA seems to understand and agrees to proceed with anesthesia plan. Reviewed the physical assessment, medical history, allergy history and patient home medications list prior to surgery/procedure/anesthetic and documented any changes. Performed airway and anesthesia risk assessments. Anesthesia Type Anesthesia Type: General History Source History Obtained from:: Patient and Chart Anesthesia Focused Assessment* Temperature: 98 F Pulse Rate: 90 Blood Pressure: 154/95 Respiratory Rate: 16 Pulse Ox: 95 Oxygen Delivery Method: Room Air Oxygen Flow Rate (L/min): 1 Airway Assessment Mouth opens: >3 cm Mallampati Score: IV Teeth Condition: Caps/Crowns (Patient has a couple crowns. She has 1 implants. They are all tight.) and Missing (Patient has 3 missing teeth. Rest of the teeth are tight.) Neck Range of motion (ROM): Limited ROM (Slight Decrease) Labs Anesthesia Preop lab: CBC WBC, (4.4-11.0) 11.1 K/mm3 H Today, 03:15 RBC, (4.2-5.4) 4.36 M/mm3 Today, 03:15 Hgb, (12.0-15.0) 13.9 g/dL Today, 03:15 Hct, (37-47) 41.5 % Today, 03:15 Plt Count, (150-450) 288 K/mm3 Today, 03:15 CHEMISTRY Potassium, (3.3-5.1) 3.3 mmol/L Today, 03:15 Sodium, (133-145) 142 mmol/L Today, 03:15 BUN, (4-19) 21 mg/dL H Today, 03:15 Creatinine, (0.70-1.20) 0.72 mg/dL Today, 03:15 Glucose, (70-99) 175 mg/dL H Today, 03:15 COAG Pre-Assessment Diagnosis/Proposed Procedure Planned Operative Procedure(s): Cystoscopy, ureteroscopy, stent. 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 When Was Last Pacemaker Check QUESTION #4 FULL TEXT: You/Your Family Experience fever (hyperthermia) with Anesthesia Last Oral Intake Last Oral intake: Last Oral Intake NPO since 02:30 06/24/25 14:33 Meds taken in AM with sips of Yes 06/24/25 14:33 water? 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 Female HX of Motion Sickness HX of N/V After Surgery Non-Smoker Duration of Surgery greater than 60 minutes Number of Risk Factors PONV Score Height & Weight Height & Weight: Anesthesia: Height & Weight Height 5 ft 6 in 06/24/25 14:33 Weight: 79.2 kg 06/24/25 14:33 Body Mass Index (BMI) 28.1 06/24/25 14:33 Respiratory Assessment Respiratory Assessment - archery instructor: Respiratory Tract Infection Hx - archery instructor Hx Respiratory Tract Infection No 06/24/25 06:08 STOP Sleep Apnea STOP Sleep Apnea - archery instructor: STOP Sleep Apnea - archery instructor Hx Hypertension No 06/24/25 06:08 Hx Sleep Apnea No 06/24/25 06:08 CPAP BIPAP Do you snore loudly (louder No 06/24/25 06:08 than talking or can be heard Do you often feel tired/ No 06/24/25 06:08 fatigued/ sleepy during daytime? Has anyone observed you stop No 06/24/25 06:08 breathing during sleep? STOP Results Negative 06/24/25 06:08 QUESTION #5 FULL TEXT : Do you snore loudly (louder than talking or can be heard through closed doors)? 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 Specify any problems Hx of Preganancy in last 3 No 06/24/25 06:08 Months Nurse Filling Out Transfusion LFORREST 06/24/25 06:08 & Questions: Date: 06/24/25 06/24/25 06:08 Time: 06:10 06/24/25 06:08 Patient unable to answer at this time (ie. confused, unrespo /Reproduction History /Reproductive History - archery instructor: /Reproductive Hx- archery instructor Hx Now No 06/24/25 06:08 Gestational Age (in weeks): EDC: Hx Hx Para Hx Section SAB No 06/24/25 06:08 Does the father of the baby or his family experience fever w Father of the baby Malignant Hypertension history comment Active Medications Active Medications: Current Medications Generic Name Dose Route Start Last Admin Trade Name Freq PRN Reason Stop Dose Admin Acetaminophen 1,000 mg 06/24/25 14:00 06/24/25 14:04 Acetaminophen 500 Mg Tablet PO Not Given Q8 SHIMA Hydromorphone HCl 0.5 mg 06/24/25 06:43 06/24/25 12:43 Hydromorphone 0.5 Mg/0.5 Ml Syringe IV 0.5 mg Q3H PRN PRN Administration Pain Score 6-10 Sodium Chloride 250 mls @ 15 mls/hr 06/24/25 06:14 IV .[id number] PRN Saline Flush Sodium Chloride 250 mls @ 15 mls/hr 06/24/25 06:14 IV .[id number] PRN Additional IVPB Infusion Lactated Ringer's 1,000 mls @ 125 mls/hr 06/24/25 06:45 06/24/25 08:09 IV 125 mls/hr .Q8H SHIMA Administration Cefazolin Sodium 1 gm in 50 mls @ 100 mls/hr 06/24/25 06:55 06/24/25 14:34 IV Infused Q8 SHIMA Infusion Lactated Ringer's 1,000 mls @ 15 mls/hr 06/24/25 15:00 06/24/25 15:00 IV 15 mls/hr .Q48H SHIMA Administration Ketorolac Tromethamine 15 mg 06/24/25 06:43 06/24/25 08:08 Ketorolac 15 Mg/Ml Vial IV 06/29/25 06:47 15 mg Q6H PRN PRN Administration Pain Score 1-10 Ondansetron HCl 4 mg 06/24/25 06:43 Ondansetron 4 Mg/2 Ml Vial IV Q8H PRN PRN NAUSEA/VOMITING Oxycodone HCl 10 mg 06/24/25 06:43 Oxycodone 5 Mg Tablet PO Q4H PRN PRN Pain Score 4-10 Sodium Chloride 10 - 40 ml 06/24/25 06:14 06/24/25 12:43 0.9% Saline Lock 10 Ml Syringe IV 10 ml UD PRN Administration SALINE FLUSH PFSH Medical History Kidney stone Post herpetic neuralgia Home Medications ?Medication ?Instructions ?Recorded ?Last Taken ?Type hydrocodone-acetaminophen 5-325mg 1 tab PO Q8H PRN pain 60 days #30 05/29/25 Unknown Rx 5mg-325mg tabs amitriptyline 25 mg tablet 25 mg PO DAILY 06/24/25 Unknown History Allergy/AdvReac Type Severity Reaction Status Date / Time lidocaine Allergy Mild Hives Verified 06/24/25 03:10 sulfamethoxazole (From Allergy Mild Diarrhea Verified 06/24/25 03:10 Bactrim) trimethoprim (From Bactrim) Allergy Mild Diarrhea Verified 06/24/25 03:10 vitamin E (d-alpha Allergy Mild Hives Verified 06/24/25 03:10 tocopherol) Family History Other Cancer Diabetes Surgical History Hx of foot surgery Social History Smoking Status: Never smoker Review of Systems (Anesthesia) ROS Narrative System reviewed and no additional complaints, except as documented.
[2025-06-24] MEDS: Midazolam 2 MG/2 ML Syringe IV (16:00)
[2025-06-24] MEDS: Lactated Ringers 1,000 ML 1000 ML IV (16:00)
--- NOTE | 2025-06-24 16:00 | PCM.OPRPT ---
Problems Associated Problem List Diagnoses (1) Kidney stone: Operative Report (Standard) Operative Information Date of Procedure: 06/24/25 Pre-Operative Diagnosis: Right ureteral calculus, intractable pain Post-Operative Diagnosis: Same Surgery/Procedure Performed: Cystoscopy, right ureteroscopy, right ureteral stent insertion plate painter apprentice: No Type of Anesthesia: General RN Documented Start/Stop Times: Operation Date: 06/24/25 16:30 Case Time Into Pre-Op 06/24/25 14:46 Anesthesia Start 06/24/25 16:00 Into Room 06/24/25 16:00 Procedure Start 06/24/25 16:13 Procedure End 06/24/25 16:24 Anesthesia End 06/24/25 16:31 Out of Room 06/24/25 16:31 Into Recovery 06/24/25 16:34 Procedure Start Time: 16:13 Procedure Stop Time: 16:24 Select all DRAINS/GRAFTS/IMPLANTS that apply: Drains Drain details: 6 Tongan by 26 cm JJ stent Estimated Blood Loss: <5cc Specimen collected: No Description of surgery: The patient is a 55-year-old female with a right distal ureteral calculus who presents for surgical intervention. Informed consent was obtained. She was taken to the operating room and placed on the operating room table. Anesthesia monitored the head, neck, airway, IV access and vital signs throughout the case. Once anesthesia was appropriate ministered, she was placed into dorsolithotomy position was prepped and draped in usual sterile fashion. The cystoscope was inserted through the urethra under direct visualization into the urinary bladder. The bladder in its entirety was visualized. There was no evidence of erythema, ulceration, mass or foreign body. Of note she does have a significant rectocele on exam. A 0.035 Glidewire was then used to gently cannulate the right ureteral orifice and advanced without difficulty or evidence of infection in the urine that drained. The semirigid ureteroscope was passed alongside the Glidewire into the very distal ureter, but access was not able to be obtained past this area secondary to ureteral narrowing. An attempt was made at passage using the assistance of a 0.025 Glidewire and this was also unsuccessful. At this time the cystoscope was utilized for placement of a 6 Tongan 26 cm JJ stent with good positioning in the renal pelvis as well as the urinary bladder. The bladder was then emptied and the cystoscope was removed. The patient was awakened and taken to the recovery room in good condition. There were no complications during the procedure. Surgical Findings: Distal ureteral narrowing, unable to gain access to the calculus Complications Complications: No Admit VTE Documentation VTE Present on Admission: Yes VTE Mechan Device Prophylaxis: SCD's VTE Pharm Prophylaxis ordered?: No Reason prophylaxis not ordered: Treatment Not Indicated
--- NOTE | 2025-06-24 16:01 | DCINST_ITS ---
Discharge Instructions Diet Discharge Diet: No restrictions Activity Discharge Activity: Return to Normal Activity Dressing / Incision Call your doctor if you observe: Fever of 101 or Higher, Inability to urinate, Inability to have a bowel movement, Shortness of breath and Chest pain Follow Up Care Please Follow Up With: Zulma Chiang MD When: Call the office to make arrangements for cystoscopy and stent removal. Test Results: Test results from this visit will be discussed in further detail at your follow- up appointment, if applicable. Discharge Plan Admission Admit Date/Time: 06/24/25 06:44 Attending Provider: Zulma Chiang Primary Care Provider: Violet Kauffman Instructions Patient Instructions: ED Kidney Stone with Pain Discharge Orders/Prescriptions Prescriptions: New oxycodone-acetaminophen 5-325 mg tablet 1 tab PO Q8H PRN (Reason: pain) 3 Days Qty: 10 0RF cephalexin 500 mg capsule 500 mg PO 3XD 5 Days Qty: 15 0RF ondansetron 4 mg tablet,disintegrating 4 mg PO Q8H PRN (Reason: nausea and vomiting) Qty: 10 0RF phenazopyridine 200 mg tablet 200 mg PO TID PRN (Reason: pain) Qty: 30 3RF Continued amitriptyline 25 mg tablet 25 mg PO DAILY hydrocodone-acetaminophen 5-325 mg tablet 1 tab PO Q8H PRN (Reason: pain) 60 Days Qty: 30 0RF Referrals / Follow Up: Violet Kauffman DO [Primary Care Provider, Internal Medicine] Disposition Disposition (needs filled in before D/C Order can be placed): Home, Self Care
[2025-06-24] MEDS: fentaNYL 100 MCG/2 ML Ampul IV (16:05)
[2025-06-24] MEDS: Cefazolin 1 GM/5 ML Vial IV (16:15)
--- NOTE | 2025-06-24 16:37 | PCM.POST.ANE ---
Anesthesia: Postop Eval I Current Vital Signs Temperature: 97.5 F Pulse Rate: 140 Blood Pressure: 138/85 Respiratory Rate: 20 Pulse Ox: 98 Oxygen Delivery Method: Room Air Assessment Airway patent: Yes Spontaneous unlabored respirations: Yes Mental status: Awake and Calm nausea: No Vomiting: No Anesthesia Complication: No Fluid Hydration Crystalloid volume administer (ml): 400 Total IV fluid infused: 400 Progress Note Anesthesia document: Postop Eval 1 completed: Yes
--- NOTE | 2025-06-24 16:43 | SUR.PHASEI ---
PT CAME OVER FROM OR, TO PACU, PT WAS TACHY WITH HR OF 141. PT CAME DOWN TO AROUND 120'S. THIS NURSE CALLED DR DEJESUS TO SEE IF HE WANTED ME TO MEDICATE OR DO ANYTHING. BP 140'S SYS AND 80'S YARED. DR OLIVAS ADVISED ME TO START WITH A 300CC BOLUS OF FLUIDS AND IF THE HR DOES NOT COME DOWN WE WILL ADMINISTER ESMOLOL.
--- NOTE | 2025-06-24 20:51 | POSTOPAN2_ITS ---
Anesthesia Postop Eval I Sum Postop Eval Completion status Anesthesia document: Postop Eval 1 completed: Yes Anesthesia Postop Eval I Summary Anesthesia Postop Eval I Summary: Anesthesia Postop Eval I: Assessment Summary Airway patent Yes 06/24/25 16:38 [email or web address] Spontaneous unlabored Yes 06/24/25 16:38 [email or web address] respirations Mental status Awake,Calm 06/24/25 16:38 [email or web address] nausea No 06/24/25 16:38 [email or web address] Vomiting No 06/24/25 16:38 [email or web address] Anesthesia Postop Eval I: Fluid Summary Crystalloid volume administer 400 06/24/25 16:38 [email or web address] (ml) Colloids volume administered ( ml) Blood Product volume administered (ml) Total IV fluid infused 400 06/24/25 16:38 [email or web address] Anesthesia Postop Eval I: Summary Notes Anesthesia Complication No 06/24/25 16:38 [email or web address] Anesthesia Complication Comment: Post-operative progress note Anesthesia: Postop Eval II Evaluation Mental status: Awake and Calm Pain Level: 1 nausea: No Vomiting: No Progress Note Post-operative progress note: Patient initially had heart rates in the 140s on arrival to the PACU. Heart rate settled into the 120s over the first 10 minutes. Bolus of 300 cc of IV fluids was given. Patient heart rate further dropped to about 106-108. Patient was okay to be discharged from PACU. Complications Anesthesia Complication: No
== END 2025-06-24 19:10 | disposition home or self-care (01) ==
LOC: ED 05:21 → MS3 07:00
PROVIDERS: Admitting Provider Urology; Emergency Provider Emergency Medicine; PCP Internal Medicine; Visit Provider Urology
PROC: 0TJ98ZZ Inspection of Ureter, Via Natural or Artificial Opening Endoscopic (ICD-10-PCS; CPT 52352; principal; 2025-06-24 16:20)
DX: N13.2 Hydronephrosis with renal and ureteral calculous obstruction (principal); N23 Unspecified renal colic; N81.6 Rectocele
CPT/HCPCS: 52332; 00910; 74176; 76000; 80048; 81001; 85025; 96361; 96365; 96375; 96376; 99221; 99284; C1769; A4216; C2617; G0378; J2405

== ENCOUNTER 2025-07-10 11:07 | Day surgery (SDC) | payer OTHER, SELFPAY ==
[2025-07-10] VITALS (11 sets, daily range): BP systolic 122–163; BP diastolic 86–103; PULSE 60–107; RESP 12–16; TEMP 36.1–36.7; O2SAT 91–100; BMI 28.0
[2025-07-10] MEDS: Lactated Ringers 1,000 ML 15 ML IV (11:41)
--- NOTE | 2025-07-10 11:48 | PRE.ANES_ITS ---
ASA Classification* ASA Classification ASA Classification: 2 Assessment & Plan Anesthesia* Anesthesia Assessment Anesthesia Assessment: Discussed sedation and/or anesthesia options, risks, benefits, and alternatives with patient/parents/legal guardian/POA. Questions invited. The patient/parents/legal guardian/POA seems to understand and agrees to proceed with anesthesia plan. Reviewed the physical assessment, medical history, allergy history and patient home medications list prior to surgery/procedure/anesthetic and documented any changes. Performed airway and anesthesia risk assessments. Anesthesia Type Anesthesia Type: General and MAC History Source History Obtained from:: Patient Anesthesia Focused Assessment* Temperature: 97.4 F Pulse Rate: 60 Blood Pressure: 149/95 Respiratory Rate: 12 Pulse Ox: 100 Oxygen Delivery Method: Room Air Airway Assessment Mouth opens: >3 cm Mallampati Score: II Teeth Condition: Intact Labs Anesthesia Preop lab: CBC WBC, (4.4-11.0) 11.1 K/mm3 H 06/24/25, 03:15 RBC, (4.2-5.4) 4.36 M/mm3 06/24/25, 03:15 Hgb, (12.0-15.0) 13.9 g/dL 06/24/25, 03:15 Hct, (37-47) 41.5 % 06/24/25, 03:15 Plt Count, (150-450) 288 K/mm3 06/24/25, 03:15 CHEMISTRY Potassium, (3.3-5.1) 3.3 mmol/L 06/24/25, 03:15 Sodium, (133-145) 142 mmol/L 06/24/25, 03:15 BUN, (4-19) 21 mg/dL H 06/24/25, 03:15 Creatinine, (0.70-1.20) 0.72 mg/dL 06/24/25, 03:15 Glucose, (70-99) 175 mg/dL H 06/24/25, 03:15 COAG Pre-Assessment Diagnosis/Proposed Procedure Planned Operative Procedure(s): (R) CYSTOSCOPY, URETEROSCOPY, LASER LITHOTRIPSY, RIGHT URETHRAL STENT CHANGE Anesthesia History Anesthesia History - binding cementer french cord: Anesthesia History - binding cementer french cord Hx Hospitalization Yes: 06/24/25 kidney stone 07/07/25 14:34 Any Problems With Anesthesia No 07/07/25 14:34 Cholinesterase deficiency No 07/07/25 14:34 You/Your Family Experience No 07/07/25 14:34 fever (hyperthermia) with Relationship Recent Exposure to Contagious No 07/10/25 11:32 Disease Does patient have nerve No 07/07/25 14:34 stimulator Patient instructed to have device shut off --Does patient have Pacemaker No 07/10/25 11:32 or ICD? When Was Last Pacemaker Check QUESTION #4 FULL TEXT: You/Your Family Experience fever (hyperthermia) with Anesthesia Last Oral Intake Last Oral intake: Last Oral Intake NPO since 21:00 07/10/25 11:32 Meds taken in AM with sips of No 07/10/25 11:32 water? Meds patient instructed to take am of surgery PONV PONV - binding cementer french cord: PONV - binding cementer french cord Female Yes 07/07/25 14:34 HX of Motion Sickness Yes 07/07/25 14:34 HX of N/V After Surgery Yes 07/07/25 14:34 Non-Smoker Yes 07/07/25 14:34 Duration of Surgery greater No 07/07/25 14:34 than 60 minutes Number of Risk Factors 4 07/07/25 14:34 PONV Score Severe Risk 07/07/25 14:34 Height & Weight Height & Weight: Anesthesia: Height & Weight Height 5 ft 6 in 07/10/25 11:32 Weight: 78.7 kg 07/10/25 11:32 Body Mass Index (BMI) 28.0 07/10/25 11:32 Respiratory Assessment Respiratory Assessment - binding cementer french cord: Respiratory Tract Infection Hx - binding cementer french cord Hx Respiratory Tract Infection No 07/07/25 14:34 STOP Sleep Apnea STOP Sleep Apnea - binding cementer french cord: STOP Sleep Apnea - binding cementer french cord Hx Hypertension No 07/07/25 14:34 Hx Sleep Apnea No 07/07/25 14:34 CPAP BIPAP Do you snore loudly (louder No 07/07/25 14:34 than talking or can be heard Do you often feel tired/ No 07/07/25 14:34 fatigued/ sleepy during daytime? Has anyone observed you stop No 07/07/25 14:34 breathing during sleep? STOP Results Negative 07/07/25 14:34 QUESTION #5 FULL TEXT : Do you snore loudly (louder than talking or can be heard through closed doors)? Tobacco Use History Tobacco Use History - binding cementer french cord: Tobacco Use History - binding cementer french cord Tobacco Use Smoking Status Never smoker 07/07/25 14:34 Hx Tobacco Use No 07/07/25 14:34 Years Smoking Packs Smoked per Day Smoking Cessation Date was within the last 15 years Hx Smoking Cessation Date Hx Smoking Cessation Counseling Hematologic Medial History Hematologic Hx - binding cementer french cord: Hematologic Medical Hx - interpreter for the deaf Hx of Blood Transfusion No 07/07/25 14:34 Hx of Transfusion in last 3 No 07/07/25 14:34 Months Date of Last Transfusion (if within last 3 months) Ever experience any problems No 07/07/25 14:34 with transfusion(s)? Specify any problems Hx of Preganancy in last 3 N/A 07/07/25 14:34 Months Nurse Filling Out Transfusion NBUCHER 07/07/25 14:34 & Questions: Date: 07/07/25 07/07/25 14:34 Time: 14:35 07/07/25 14:34 Patient unable to answer at this time (ie. confused, unrespo /Reproduction History /Reproductive History - binding cementer french cord: /Reproductive Hx- binding cementer french cord Hx Now No 07/07/25 14:34 Gestational Age (in weeks): EDC: Hx Hx Para Hx Section SAB No 07/07/25 14:34 Does the father of the baby or his family experience fever w Father of the baby Malignant Hypertension history comment Active Medications Active Medications: Current Medications Generic Name Dose Route Start Last Admin Trade Name Freq PRN Reason Stop Dose Admin Lactated Ringer's 1,000 mls @ 15 mls/hr 07/10/25 11:30 07/10/25 11:41 IV 15 mls/hr .Q48H SHIMA Administration PFSH Medical History Wears glasses Restless legs Migraine headache Dietary restriction Gastric reflux Non-smoker Kidney stone Post herpetic neuralgia Home Medications ?Medication ?Instructions ?Recorded ?Last Taken ?Type amitriptyline 25 mg tablet 25 mg PO DAILY 06/24/25 History rizatriptan 10 mg disintegrating 10 mg PO Q2H PRN head ache 07/07/25 Unknown History tablet Allergy/AdvReac Type Severity Reaction Status Date / Time lidocaine Allergy Mild Hives Verified 07/10/25 11:31 sulfamethoxazole (From Allergy Mild Diarrhea Verified 07/10/25 11:31 Bactrim) trimethoprim (From Bactrim) Allergy Mild Diarrhea Verified 07/10/25 11:31 vitamin E (d-alpha Allergy Mild Hives Verified 07/10/25 11:31 tocopherol) Family History Other Cancer Diabetes Surgical History History of hysterectomy History of carpal tunnel release History of cystoscopy Hx of foot surgery Social History Smoking Status: Never smoker Review of Systems (Anesthesia) ROS Narrative System reviewed and no additional complaints, except as documented.
--- NOTE | 2025-07-10 13:14 | HP.PCM_ITS ---
History and Physical Date of Admission: 07/10/25 H&P Exam - Surgical 06/24/25 0658 MR#: [id number] Acct: [id number] Name: SOLEDAD LEVY Rep #: [id number] : 1970 55 From: Zulma Chiang MD PCP: Dr. Violet Kauffman, DO Status: ADM ADARSH Location: [facility] [id number] HPI - General General Date of Admission: 06/24/25 Date of Service: 06/24/25 Chief Complaint: intractable pain, ureteral stone HPI Narrative SOLEDAD LEVY, is a 55 F who presented to the emergency room with intractable flank pain. She has also been having bladder spasms with urgency on and off for several weeks. The pain is on the right side. She denies dysuria, hematuria, fever or chills. The pain has continued since admission. There is no nausea or vomiting. She wants the stone out as soon as possible. [facility] Medical History Kidney stone Post herpetic neuralgia Home Medications ?Medication ?Instructions ?Recorded ?Last Taken ?Type hydrocodone-acetaminophen 5-325mg 1 tab PO Q8H PRN pain 60 days #30 Unknown Rx 5mg-325mg tabs amitriptyline 25 mg tablet 25 mg PO DAILY 06/24/25 Unknown History Allergy/AdvReac Type Severity Reaction Status Date / Time lidocaine Allergy Mild Hives Verified 06/24/25 03:10 sulfamethoxazole (From Allergy Mild Diarrhea Verified 06/24/25 03:10 Bactrim) trimethoprim (From Bactrim) Allergy Mild Diarrhea Verified 06/24/25 03:10 vitamin E (d-alpha Allergy Mild Hives Verified 06/24/25 03:10 tocopherol) Family History Other Cancer Diabetes Surgical History Hx of foot surgery Social History Smoking Status: Never smoker ROS Eyes Eyes: Reports systems reviewed and no addt'l complaints, except as documented ENT HEENT: Reports systems reviewed and no addt'l complaints, except as documented Cardiovascular Cardiovascular: Reports systems reviewed and no addt'l complaints, except as documented; Denies chest pain or dyspnea Respiratory/Chest Respiratory/Chest: Reports systems reviewed and no addt'l complaints, except as documented; Denies cough or dyspnea Gastrointestinal Gastrointestinal: Reports abdominal pain Genitourinary Genitourinary: Reports flank pain Musculoskeletal Musculoskeletal: Reports back pain Integumentary Integumentary: Reports systems reviewed and no addt'l complaints, except as documented Neurologic Neurologic: Reports systems reviewed and no addt'l complaints, except as documented Psychiatric Psychiatric: Reports systems reviewed and no addt'l complaints, except as documented Endocrine Endocrinology: Reports systems reviewed and no addt'l complaints, except as documented Hematologic/Lymphatic Hematologic/Lymphatic: Reports systems reviewed and no addt'l complaints, except as documented Allergic/Immunologic Allergic/Immunologic: Reports systems reviewed and no addt'l complaints, except as documented Vital Signs Vital Signs Vital Signs: 06/24/2503:09 06/24/2505:00 06/24/2505:23 Temperature 97.6 F L 97.9 F Temperature Source Oral Pulse Rate 86 76 96 Respiratory Rate 18 16 16 Respiratory Effort Respiratory Depth Respiratory Pattern Blood Pressure 175/94 H 166/102 H 166/102 H Blood Pressure Mean 121 123 123 Blood Pressure Source Blood Pressure Position Blood Pressure Location Pulse Ox 100 98 97 Oxygen Delivery Method Room Air Nasal Cannula Oxygen Flow Rate (L/min) 1 06/24/2505:27 06/24/2506:16 06/24/2506:43 Temperature 98.1 F Temperature Source Oral Pulse Rate 96 Respiratory Rate 16 Respiratory Effort Normal Respiratory Depth Normal Respiratory Pattern Normal Blood Pressure 162/106 H Blood Pressure Mean 124 Blood Pressure Source Monitor Blood Pressure Position Sitting Blood Pressure Location Right Arm Pulse Ox 98 97 Oxygen Delivery Method Nasal Cannula Room Air Room Air Oxygen Flow Rate (L/min) 1 Weight Weight: 174 lb 9.698 oz Body Mass Index (BMI) 28.1 Physical Exam Const oriented x3 Cardio regular rate GI soft to palpation and non-tender Bladder / Kidney Exam: CVA tenderness right Results Medical Records Data Attestation: I reviewed the patient's medical records Lab / Micro Data Attestation: I reviewed the patient's lab results. 06/24/25 03:15 06/24/25 03:15 Labs: Laboratory Results - last 24 hr 06/24/25 03:15: WBC 11.1 H, RBC 4.36, Hgb 13.9, Hct 41.5, MCV 95.2, MCH 31.9, MCHC 33.5, RDW Std Deviation 38.8, RDW Coeff of Megan 11.2 L, Plt Count 288, MPV 10.3, Immature Gran % (Auto) 0.500, Neut % (Auto) 67.9, Lymph % (Auto) 21.3, [place] % (Auto) 7.7, Eos % (Auto) 2.0, Baso % (Auto) 0.6, Absolute Neuts (auto) 7.5, Absolute Lymphs (auto) 2.36, Nucleated RBC % 0, Sodium 142, Potassium 3.3, Chloride 103, Carbon Dioxide 24.5, Anion Gap 15, BUN 21 H, Creatinine 0.72, Estim Creat Clear Calc 93.46, Est GFR (MDRD) Non-Af 99, BUN/Creatinine Ratio 29.5 H, Glucose 175 H, Calcium 9.4 06/24/25 04:25: Urine Color Yellow, Urine Clarity Sl. Cloudy, Urine pH 5.0, Ur Specific [place] 1.030, Urine Protein 30 H, Urine Glucose (UA) Normal, Urine Ketones 15 H, Urine Occult Blood 50 H, Urine Nitrite Negative, Urine Bilirubin Negative, Urine Urobilinogen Normal, Ur Leukocyte Esterase Negative, Urine RBC 0-5 SEEN, Urine WBC 0 SEEN, Ur Squamous Epith Cells 0 SEEN, Calcium Oxalate Crystal RARE, Amorphous Sediment 2+ URATE, Urine Bacteria 1+, Urine Mucus 0 SEEN Imaging Radiology Impression Abdomen/Pelvis CT 06/24/25 03:17 IMPRESSION: 4 mm obstructing stone of the right ureterovesical junction. Mild right hydroureteronephrosis. Hepatomegaly with hepatic steatosis. An appendicolith is noted in the lumen of the appendix without associated acute inflammatory changes. Diffuse thickening of the colon, probably underdistention/spasm. Right renal cyst measuring 2.6 cm. Prior hysterectomy. Fat containing umbilical hernia without incarceration. Reading [facility] [address] Assessment & Plan Assessment/Plan (1) Ureteral calculus: (2) Intractable pain: PLAN: Plan NPO pain management cystoscopy with possible ureteroscopy, stone removal and ureteral stent insertion The procedure, recovery and expectations were explained. The risks, benefits and alternatives were discussed, including but not limited to, the risks of anesthesia, bleeding, infection, injury, pain and the need for further intervention. A joint decision was made at this time to proceed with the scheduled surgery/procedure as indicated on the consent form.
[2025-07-10] MEDS: Cefazolin 1 GM/5 ML Vial 2 GM IV (13:16)
[2025-07-10] MEDS: Lactated Ringers 500 ML IV (13:16)
[2025-07-10] MEDS: fentaNYL 100 MCG/2 ML Ampul IV (13:21)
[2025-07-10] MEDS: Lidocaine 1% (5 ml sdv) 5 ML Vial 10 ML IV (13:21)
--- NOTE | 2025-07-10 14:05 | DCINST_ITS ---
Discharge Instructions Diet Discharge Diet: No restrictions Activity Discharge Activity: Return to Normal Activity May resume sexual activity in: No Restrictions Dressing / Incision Call your doctor if you observe: Fever of 101 or Higher, Inability to urinate and Inability to have a bowel movement Follow Up Care Please Follow Up With: Zulma Chiang MD Test Results: Test results from this visit will be discussed in further detail at your follow- up appointment, if applicable. Discharge Plan Admission Attending Provider: Zulma Chiang Primary Care Provider: Violet Kauffman Instructions Print Language: Turkish Discharge Orders/Prescriptions Prescriptions: New oxycodone-acetaminophen 5-325 mg tablet 1 tab PO Q8H PRN (Reason: pain) 3 Days Qty: 10 0RF cephalexin 500 mg capsule 500 mg PO Q12 3 Days Qty: 6 0RF ondansetron 4 mg tablet,disintegrating 4 mg PO Q8H PRN (Reason: nausea and vomiting) Qty: 10 0RF Continued amitriptyline 25 mg tablet 25 mg PO DAILY rizatriptan 10 mg tablet,disintegrating 10 mg PO Q2H PRN (Reason: headache) Referrals / Follow Up: Violet Kauffman DO [Primary Care Provider, Internal Medicine] Disposition Disposition (needs filled in before D/C Order can be placed): Home, Self Care
--- NOTE | 2025-07-10 14:06 | PCM.POST.ANE ---
Anesthesia: Postop Eval I Current Vital Signs Temperature: 97 F Pulse Rate: 101 Blood Pressure: 163/93 Respiratory Rate: 16 Pulse Ox: 95 Assessment Airway patent: Yes Spontaneous unlabored respirations: Yes nausea: No Vomiting: No Anesthesia Complication: No Fluid Hydration Crystalloid volume administer (ml): 500 Total IV fluid infused: 500 Progress Note Anesthesia document: Postop Eval 1 completed: Yes
--- NOTE | 2025-07-10 14:46 | POSTOPAN2_ITS ---
Anesthesia Postop Eval I Sum Postop Eval Completion status Anesthesia document: Postop Eval 1 completed: Yes Anesthesia Postop Eval I Summary Anesthesia Postop Eval I Summary: Anesthesia Postop Eval I: Assessment Summary Airway patent Yes 07/10/25 14:06 [email or web address] Spontaneous unlabored Yes 07/10/25 14:06 STRIP [email or web address] respirations Mental status nausea No 07/10/25 14:06 STRIP [email or web address] Vomiting No 07/10/25 14:06 [email or web address] Anesthesia Postop Eval I: Fluid Summary Crystalloid volume administer 500 07/10/25 14:06 STRIP [email or web address].TNES (ml) Colloids volume administered ( ml) Blood Product volume administered (ml) Total IV fluid infused 500 07/10/25 14:06 [email or web address] Anesthesia Postop Eval I: Summary Notes Anesthesia Complication No 07/10/25 14:06 [email or web address] Anesthesia Complication Comment: Post-operative progress note Anesthesia: Postop Eval II Evaluation Mental status: Awake and Calm Pain Level: 1 nausea: No Vomiting: No Complications Anesthesia Complication: No
--- NOTE | 2025-07-10 14:46 | PCM.POSTANE2 ---
Anesthesia Postop Eval I Sum Postop Eval Completion status Anesthesia document: Postop Eval 1 completed: Yes Anesthesia Postop Eval I Summary Anesthesia Postop Eval I Summary: Anesthesia Postop Eval I: Assessment Summary Airway patent Yes 07/10/25 14:06 ACQUISITION [email or web address].TNES Spontaneous unlabored Yes 07/10/25 14:06 ACQUISITION ANALYST.TNES respirations Mental status nausea No 07/10/25 14:06 ACQUISITION ANALYST.TNES Vomiting No 07/10/25 14:06 ACQUISITION ANALYST.TNES Anesthesia Postop Eval I: Fluid Summary Crystalloid volume administer 500 07/10/25 14:06 ACQUISITION ANALYST.TNES (ml) Colloids volume administered ( ml) Blood Product volume administered (ml) Total IV fluid infused 500 07/10/25 14:06 ACQUISITION ANALYST.TNES Anesthesia Postop Eval I: Summary Notes Anesthesia Complication No 07/10/25 14:06 ACQUISITION ANALYST.TNES Anesthesia Complication Comment: Post-operative progress note Anesthesia: Postop Eval II Evaluation Mental status: Awake and Calm Pain Level: 1 nausea: No Vomiting: No Complications Anesthesia Complication: No
--- NOTE | 2025-07-10 14:51 | PCM.OPRPT ---
Multi Select Codes Urology Urology Charge Forwarding-multi code: 60638 Cysto w/ Simple Removal Stone and Stent, 95962 Cysto w/ insert Ureteral Stent and 64585 Cysto w/ urtroscopy &/Pyeloscophy DX Operative Report (Standard) Operative Information Date of Procedure: 07/10/25 Pre-Operative Diagnosis: Right ureteral calculus Post-Operative Diagnosis: Same, passed Surgery/Procedure Performed: Cystoscopy, right ureteroscopy, right ureteral stent change data center architect: No Type of Anesthesia: General RN Documented Start/Stop Times: Operation Date: 07/10/25 12:45 Case Time Into Pre-Op 07/10/25 11:18 Anesthesia Start 07/10/25 13:17 Into Room 07/10/25 13:17 Procedure Start 07/10/25 13:29 Procedure End 07/10/25 13:50 Anesthesia End 07/10/25 14:01 Out of Room 07/10/25 14:01 Into Recovery 07/10/25 14:06 Into Phase II Recovery 07/10/25 15:17 Out of Recovery 07/10/25 15:17 Procedure Start Time: 13:29 Procedure Stop Time: 13:50 Select all DRAINS/GRAFTS/IMPLANTS that apply: Drains Drain details: 4.5 [place] by 26 m JJ stent Estimated Blood Loss: <5cc Specimen collected: No Description of surgery: Patient is a 55-year-old female with an indwelling ureteral stent placed 2 weeks ago at the time of attempted ureteroscopy with laser lithotripsy. She now presents for definitive intervention. Informed consent was obtained. She was taken to the operating room and placed on the operating room table. Anesthesia monitored the head, neck, airway, IV access and vital signs throughout the case. Once anesthesia was appropriately administered she was placed into dorsolithotomy position was prepped and draped in usual sterile fashion. Cystoscope was inserted through the urethra under direct visualization into the urinary bladder. The ureteral stent was grasped and removed without difficulty. A 0.035 Glidewire was passed through the ureteral orifice into the renal pelvis is seen on fluoroscopy. Using a semirigid ureteroscope, access all the way to the UPJ was obtained finding no evidence of stone. At this time the flexible ureteroscope was placed over the wire and advanced into the renal pelvis. There was some blood clot identified which was removed with a basket. There was no evidence of stone. The area of clot continued to ooze and the decision was made to place a small stent at the conclusion of the case. A 4.5 [place] by 26 cm stent was placed over the wire with good positioning in the renal pelvis and urinary bladder. Her bladder was then emptied and the cystoscope was removed. She was awakened and taken to the recovery room in good condition. There were no complications during the procedure. Surgical Findings: Stone had passed Complications Complications: No Admit VTE Documentation VTE Present on Admission: Yes VTE Mechan Device Prophylaxis: SCD's VTE Pharm Prophylaxis ordered?: No Reason prophylaxis not ordered: Treatment Not Indicated
== END 2025-07-10 15:53 | disposition home or self-care (01) ==
LOC: SDC 11:14 → AC 11:15
PROVIDERS: PCP Internal Medicine; Referring Provider Urology; Visit Provider Urology
PROC: 0TJ98ZZ Inspection of Ureter, Via Natural or Artificial Opening Endoscopic (ICD-10-PCS; CPT 52352; principal; 2025-07-10 12:35)
DX: N13.2 Hydronephrosis with renal and ureteral calculous obstruction (principal); N32.89 Other specified disorders of bladder; G43.909 Migraine, unspecified, not intractable, without status migrainosus; Z79.899 Other long term (current) drug therapy
CPT/HCPCS: 52332; 00910; 76000; C1769; C2617; J2405